=== PATIENT | male | born 1950 | race Caucasian/White ===

== ENCOUNTER 2018-01-06 12:14 | Inpatient (IN) ==
[~2018-01-06 12:14] MED LIST: *HR* EPINEPHrine 1 MG/10 ML SYRINGE IVP ONE
[2018-01-06] MEDS ORDERED: diazePAM 10 MG/2 ML SYRINGE IVP ONE (12:17)
--- NOTE | 2018-01-06 12:20 | Emergency Department Note ---
Disposition Clinical Impression: Altered mental status, Acute respiratory failure with hypoxia, Respiratory acidosis, Hypercarbia, Alcoholism, Hypotension Disposition: Admitted As Inpatient Condition: Critical General Adult HPI - General Chief complaint: ED Altered Mental Status Stated complaint: ams Time Seen by Provider: 01/06/18 12:16 - Related Data Home Medications Medication Instructions Recorded Confirmed Aspirin [Lo-Dose Aspirin EC] 81 mg PO DAILY 01/06/18 01/06/18 Baclofen 20 mg PO TID PRN 01/06/18 01/06/18 Budesonide/Formoterol 160/4.5 2 puff IH BIDR 01/06/18 01/06/18 [Symbicort 160/4.5] Cetirizine HCl [All Day Allergy] 10 mg PO DAILY 01/06/18 01/06/18 Cholecalciferol (D-3) [Vitamin D] 2,000 unit PO DAILY 01/06/18 01/06/18 Folic Acid 1 mg PO DAILY 01/06/18 01/06/18 Gabapentin [Neurontin] 900 mg PO TID 01/06/18 01/06/18 Ipratropium/Albuterol Neb [Duoneb] 3 ml IH TID 01/06/18 01/06/18 Melatonin [Melatin] 3 mg PO HS 01/06/18 01/06/18 Meloxicam [Mobic] 15 mg PO DAILY 01/06/18 01/06/18 Metoprolol [Lopressor] 12.5 mg PO BID 01/06/18 01/06/18 Multivit-Min/FA/Lycopen/Lutein [A 1 tab PO DAILY 01/06/18 01/06/18 Thru Z Select Multivit Tab] Ranitidine HCl [Acid Cleaning Custodian] 150 mg PO BID 01/06/18 01/06/18 Sildenafil Citrate 100 mg PO DAILY PRN 01/06/18 01/06/18 Simvastatin [Zocor] 20 mg PO HS 01/06/18 01/06/18 Thiamine (B-1) [Vitamin B-1] 100 mg PO DAILY 01/06/18 01/06/18 Allergies Allergy/AdvReac Type Severity Reaction Status Date / Time No Known Allergies Allergy Verified 01/06/18 12:29 Course Vital Signs Temperature 0 F L 01/06/18 12:16 Pulse Rate 83 05/06/18 12:16 Respiratory Rate 22 01/06/18 12:16 Blood Pressure 93/52 01/06/18 12:16 O2 Sat by Pulse Oximetry 85 01/06/18 12:16 Temperature 95.9 F L 01/06/18 18:00 Pulse Rate 54 01/06/18 18:00 Respiratory Rate 18 01/06/18 18:00 Blood Pressure 104/60 01/06/18 18:00 O2 Sat by Pulse Oximetry 100 01/06/18 18:00 Oxygen Delivery Oxygen Delivery Ventilator Medical Decision Making - Lab Data Result diagrams: 01/06/18 12:28 01/06/18 12:28 Lab Results 01/06/18 01/06/18 01/06/18 Range/Units 12:28 12:28 12:28 WBC 24.7 H (4.3-11.1) K/mcL RBC 3.69 L (4.19-5.50) M/mcL Hgb 11.9 L (12.9-16.9) g/dL Hct 37.4 L (37.5-50.1) % MCV 101.4 H (83.0-100.0) fL MCH 32.2 (28.0-33.3) pg MCHC 31.8 (31.6-35.5) g/dL RDW 13.0 (11.5-14.5) % Plt Count 217 (140-400) K/mcL MPV 10.2 (9.4-12.4) fL Immature Gran % 0.5 (0-4) % Seg Neutrophils % 73.8 % Lymphocytes % 16.3 % Monocytes % 6.4 % Eosinophils % 2.6 % Basophils % 0.4 % Neutrophils # 18.3 H (1.6-8.9) K/mcL Lymphocytes # 4.0 (0.6-4.6) K/mcL Monocytes # 1.6 H (0.0-1.3) K/mcL Eosinophils # 0.6 (0.0-0.6) K/mcL Basophils # 0.1 (0.0-0.2) K/mcL PT 10.4 (9.4-12.1) Seconds INR 1.0 APTT 37.0 H (26.0-36.0) Seconds Sample Site ABG pH (7.32-7.45) pH Units ABG pCO2 (35-45) mmHg ABG pO2 (85-104) mmHg ABG HCO3 (21-27) mEq/L ABG Total CO2 (20-26) mEq/L ABG O2 Saturation (95-98) % ABG Base Excess (-2 to 3) mEq/L Arvind Test Inspired O2 (1-15=lpm we81-025=%) Sodium 127 L (136-145) mEq/L Potassium 4.3 (3.5-5.1) mEq/L Chloride 90 L (98-107) mEq/L Carbon Dioxide 20 L (23-29) mEq/L BUN 7 L (8-23) mg/dL Creatinine 1.21 (0.70-1.30) mg/dL Est GFR ( Amer) > 60 (> 60) Est GFR (Non-Af Amer) 60 (> 60) BUN/Creatinine Ratio 6 (6-26) Glucose 183 H (70-105) mg/dL Calculated Osmolality 267 L (280-300) Lactic Acid (0.5-2.2) mmol/L Calcium 8.6 (8.6-10.3) mg/dL Magnesium 1.5 L (1.6-2.6) mg/dL Total Bilirubin 0.5 (0.3-1.0) mg/dL Direct Bilirubin 0.2 (0.0-0.2) mg/dL Indirect Bilirubin 0.3 (0.0-1.2) mg/dL AST 65 H (13-39) Units/L ALT 30 (7-52) Units/L Alkaline Phosphatase 177 H (34-104) Units/L Creatine Kinase 74 (30-223) Units/L Troponin I < 0.03 (< 0.04) ng/mL Serum Total Protein 5.8 L (6.4-8.9) g/dL Albumin 3.1 L (3.5-5.7) g/dL Globulin 2.7 (2.4-3.5) g/dL Albumin/Globulin Ratio 1.1 (1.1-2.2) TSH 0.907 (0.340-5.600) mcIU/mL Urine Color (Yellow) Urine Clarity (Clear) Urine pH (5.0-8.0) pH Units Ur Specific [place] (1.010-1.025) Urine Protein (Neg-Trace) mg/dL Urine Glucose (UA) (Normal) mg/dL Urine Ketones (Negative) mg/dL Urine Blood (Negative) Urine Nitrite (Negative) Urine Bilirubin (Negative) Urine Urobilinogen (Normal) mg/dL Ur Leukocyte Esterase (Negative) Urine Microscopic RBC (0-3) per hpf Urine Microscopic WBC (0-3) per hpf Ur Squamous Epith Cells (None-Few) per lpf Urine Bacteria (None-Few) per hpf Hyaline Casts (None-Few) per lpf Ur Culture Indicated? (NO) Urine Opiates Screen (Qjfrmn=620) ng/mL Ur Barbiturates Screen (Wuxojz=544) ng/mL Ur Phencyclidine Scrn (Cutoff=25) ng/mL Ur Amphetamines Screen (Smzgfj=3370) ng/mL U Benzodiazepines Scrn (Hxauzo=599) ng/mL Urine Cocaine Screen (Cutoff= 300) ng/mL U Marijuana (THC) Screen (Cutoff = 50) ng/mL Ethyl Alcohol 11 H (Less than 10) mg/dL Specimen Rejected 01/06/18 01/06/18 01/06/18 Range/Units 12:30 12:30 12:35 WBC (4.3-11.1) K/mcL RBC (4.19-5.50) M/mcL Hgb (12.9-16.9) g/dL Hct (37.5-50.1) % MCV (83.0-100.0) fL MCH (28.0-33.3) pg MCHC (31.6-35.5) g/dL RDW (11.5-14.5) % Plt Count (140-400) K/mcL MPV (9.4-12.4) fL Immature Gran % (0-4) % Seg Neutrophils % % Lymphocytes % % Monocytes % % Eosinophils % % Basophils % % Neutrophils # (1.6-8.9) K/mcL Lymphocytes # (0.6-4.6) K/mcL Monocytes # (0.0-1.3) K/mcL Eosinophils # (0.0-0.6) K/mcL Basophils # (0.0-0.2) K/mcL PT (9.4-12.1) Seconds INR APTT (26.0-36.0) Seconds Sample Site R Radial ABG pH 7.07 L* (7.32-7.45) pH Units ABG pCO2 73 H* (35-45) mmHg ABG pO2 225 H (85-104) mmHg ABG HCO3 21 (21-27) mEq/L ABG Total CO2 23 (20-26) mEq/L ABG O2 Saturation 99 H (95-98) % ABG Base Excess -10 L (-2 to 3) mEq/L Arvind Test Positive Inspired O2 10.0 (1-15=lpm ub05-816=%) Sodium (136-145) mEq/L Potassium (3.5-5.1) mEq/L Chloride (98-107) mEq/L Carbon Dioxide (23-29) mEq/L BUN (8-23) mg/dL Creatinine (0.70-1.30) mg/dL Est GFR ( Amer) (> 60) Est GFR (Non-Af Amer) (> 60) BUN/Creatinine Ratio (6-26) Glucose (70-105) mg/dL Calculated Osmolality (280-300) Lactic Acid (0.5-2.2) mmol/L Calcium (8.6-10.3) mg/dL Magnesium (1.6-2.6) mg/dL Total Bilirubin (0.3-1.0) mg/dL Direct Bilirubin (0.0-0.2) mg/dL Indirect Bilirubin (0.0-1.2) mg/dL AST (13-39) Units/L ALT (7-52) Units/L Alkaline Phosphatase (34-104) Units/L Creatine Kinase (30-223) Units/L Troponin I (< 0.04) ng/mL Serum Total Protein (6.4-8.9) g/dL Albumin (3.5-5.7) g/dL Globulin (2.4-3.5) g/dL Albumin/Globulin Ratio (1.1-2.2) TSH (0.340-5.600) mcIU/mL Urine Color Yellow (Yellow) Urine Clarity Clear (Clear) Urine pH 5.5 (5.0-8.0) pH Units Ur Specific [place] 1.015 (1.010-1.025) Urine Protein Negative (Neg-Trace) mg/dL Urine Glucose (UA) Normal (Normal) mg/dL Urine Ketones Negative (Negative) mg/dL Urine Blood Negative (Negative) Urine Nitrite Negative (Negative) Urine Bilirubin Negative (Negative) Urine Urobilinogen Normal (Normal) mg/dL Ur Leukocyte Esterase Trace H (Negative) Urine Microscopic RBC 0-3 (0-3) per hpf Urine Microscopic WBC 0-3 (0-3) per hpf Ur Squamous Epith Cells Many H (None-Few) per lpf Urine Bacteria None Seen (None-Few) per hpf Hyaline Casts None Seen (None-Few) per lpf Ur Culture Indicated? NO. A (NO) Urine Opiates Screen Negative (Mlpkkw=406) ng/mL Ur Barbiturates Screen Negative (Nwyoif=476) ng/mL Ur Phencyclidine Scrn Negative (Cutoff=25) ng/mL Ur Amphetamines Screen Negative (Pznjwh=4351) ng/mL U Benzodiazepines Scrn Negative (Bjzxaw=152) ng/mL Urine Cocaine Screen Negative (Cutoff= 300) ng/mL U Marijuana (THC) Screen Negative (Cutoff = 50) ng/mL Ethyl Alcohol (Less than 10) mg/dL Specimen Rejected 01/06/18 01/06/18 Range/Units 13:12 13:21 WBC (4.3-11.1) K/mcL RBC (4.19-5.50) M/mcL Hgb (12.9-16.9) g/dL Hct (37.5-50.1) % MCV (83.0-100.0) fL MCH (28.0-33.3) pg MCHC (31.6-35.5) g/dL RDW (11.5-14.5) % Plt Count (140-400) K/mcL MPV (9.4-12.4) fL Immature Gran % (0-4) % Seg Neutrophils % % Lymphocytes % % Monocytes % % Eosinophils % % Basophils % % Neutrophils # (1.6-8.9) K/mcL Lymphocytes # (0.6-4.6) K/mcL Monocytes # (0.0-1.3) K/mcL Eosinophils # (0.0-0.6) K/mcL Basophils # (0.0-0.2) K/mcL PT (9.4-12.1) Seconds INR APTT (26.0-36.0) Seconds Sample Site ABG pH (7.32-7.45) pH Units ABG pCO2 (35-45) mmHg ABG pO2 (85-104) mmHg ABG HCO3 (21-27) mEq/L ABG Total CO2 (20-26) mEq/L ABG O2 Saturation (95-98) % ABG Base Excess (-2 to 3) mEq/L Arvind Test Inspired O2 (1-15=lpm to66-321=%) Sodium (136-145) mEq/L Potassium (3.5-5.1) mEq/L Chloride (98-107) mEq/L Carbon Dioxide (23-29) mEq/L BUN (8-23) mg/dL Creatinine (0.70-1.30) mg/dL Est GFR ( Amer) (> 60) Est GFR (Non-Af Amer) (> 60) BUN/Creatinine Ratio (6-26) Glucose (70-105) mg/dL Calculated Osmolality (280-300) Lactic Acid 5.3 H* (0.5-2.2) mmol/L Calcium (8.6-10.3) mg/dL Magnesium (1.6-2.6) mg/dL Total Bilirubin (0.3-1.0) mg/dL Direct Bilirubin (0.0-0.2) mg/dL Indirect Bilirubin (0.0-1.2) mg/dL AST (13-39) Units/L ALT (7-52) Units/L Alkaline Phosphatase (34-104) Units/L Creatine Kinase (30-223) Units/L Troponin I (< 0.04) ng/mL Serum Total Protein (6.4-8.9) g/dL Albumin (3.5-5.7) g/dL Globulin (2.4-3.5) g/dL Albumin/Globulin Ratio (1.1-2.2) TSH (0.340-5.600) mcIU/mL Urine Color (Yellow) Urine Clarity (Clear) Urine pH (5.0-8.0) pH Units Ur Specific [place] (1.010-1.025) Urine Protein (Neg-Trace) mg/dL Urine Glucose (UA) (Normal) mg/dL Urine Ketones (Negative) mg/dL Urine Blood (Negative) Urine Nitrite (Negative) Urine Bilirubin (Negative) Urine Urobilinogen (Normal) mg/dL Ur Leukocyte Esterase (Negative) Urine Microscopic RBC (0-3) per hpf Urine Microscopic WBC (0-3) per hpf Ur Squamous Epith Cells (None-Few) per lpf Urine Bacteria (None-Few) per hpf Hyaline Casts (None-Few) per lpf Ur Culture Indicated? (NO) Urine Opiates Screen (Tjjbov=495) ng/mL Ur Barbiturates Screen (Ghgteo=614) ng/mL Ur Phencyclidine Scrn (Cutoff=25) ng/mL Ur Amphetamines Screen (Yhnmly=6016) ng/mL U Benzodiazepines Scrn (Fgcfac=840) ng/mL Urine Cocaine Screen (Cutoff= 300) ng/mL U Marijuana (THC) Screen (Cutoff = 50) ng/mL Ethyl Alcohol (Less than 10) mg/dL Specimen Rejected Hemolyzed Critical Care Time Critical Care Time: Yes Total Critical Care Time: 60 Attestation: The high probability of a clinically significant, sudden or life threatening deterioration of the [] system(s) required my full and direct attention, intervention and personal management. The aggregate critical care time was [] minutes. This time is in addition to time spent performing reported procedures but includes the following: [] Data Review and interpretation [] Patient assessment and monitoring of vital signs [] Documentation [] Medication orders and management Attestation Statement - Attestation Attestation: I examined this patient and my medical decision-making was reviewed with the Resident Physician. I agree with the documented findings, disposition and treatment plan as described except to the extent set forth below. [id number] time provided Patient arrives by EMS from home with multiple falls and increased confusion. Last known well was 15 hours ago. The patient is moaning unintelligibly upon arrival. Protecting his airway. Slightly agitated. He does have a history of alcoholism. Exact etiology of condition and completely certain at the time of his arrival but this could represent an acute infectious versus metabolic encephalopathy. He could be experiencing alcohol withdrawal or intoxication. He could have acute intracranial pathology including a hemorrhagic or nonhemorrhagic stroke. Broad-based workup initiated 13:00: The patient was intubated due to concern for ongoing airway protection. He became somewhat sonorous and hypoxic during evaluation. He was intubated by the resident physician under my supervision. The patient was hypotensive but otherwise tolerated the procedure well
--- NOTE | 2018-01-06 12:21 | Emergency Department Note ---
Disposition Clinical Impression: Acute respiratory failure with hypoxia, Respiratory acidosis, Hypercarbia, Alcoholism Altered mental status Qualifiers: Altered mental status type: unspecified Qualified Code(s): R41.82 - Altered mental status, unspecified Hypotension Qualifiers: Hypotension type: other hypotension type Qualified Code(s): I95.89 - Other hypotension Disposition: Admitted As Inpatient Condition: Critical Time of Disposition: 14:22 Altered Mental Status HPI - General Chief Complaint: ED Altered Mental Status Stated Complaint: ams Time Seen by Provider: 01/06/18 12:16 Nursing Notes Reviewed: Yes Vital Signs Reviewed: Yes - History of Present Illness HPI Narrative: Mr. Felder presents from home via EMS for altered mentation. Last known well was 15 hours ago. He awoke at 3 AM and was described as "glassy eyed." I water with back to sleep. He woke 11 AM and was confused; he did not know where he was (home) was calm at that time. called EMS and, on EMS arrival , patient became agitated. He has been falling frequently in the last several weeks. Unknown head trauma. No loss of consciousness. Habits: Currently everyday smoker, current every drinker "heavily". Last drink was 6 PM last night. PMH: "Heart problems "however no stents. Known active colon and prostate cancer undergoing no treatment at this time. History obtained from EMS and patient's who is bedside. ROS: Limited secondary to patient's mental status on presentation. - Related Data Allergies Allergy/AdvReac Type Severity Reaction Status Date / Time No Known Allergies Allergy Verified 01/06/18 12:29 All systems ED: reviewed and negative except as stated. Review of Systems: As Per HPI Physical Exam Vital Signs Reviewed General: Patient is awake however not alert or oriented. Head: atraumatic, normocephalic Eye: normal appearance, PERRL, no scleral icterus, no conjunctival injection ENT: mucous membranes moist, normal external ear exam Neck: normal inspection, trachea midline, full ROM Chest: normal inspection, symmetric chest rise Respiratory: Spontaneously breathing. Bilateral breath sounds are equal with coarse diffuse wheeze. No crackles or rhonchi. Cardiovascular: Regular rate and rhythm. Unable to ascertain heart sounds secondary to patient's movement and altered mentation. Abdomen: Obese. Abdomen is soft, nondistended. Unable to assess tenderness, guarding, or rebound secondary to patient's altered mentation. Skin: warm, dry, intact. Neuro: GCS 10 (E4, V2, M4) Spontaneously moving all extremities without purpose. Unable to follow verbal commands. Psych: Patient's affect is appropriate for situation. Course Course Narrative: Patient arrives by EMS. He is moving purposelessly and then in moaning/ groaning and incomprehensible sounds. He is not able to cooperate or follow commands. He does have spontaneous eye opening and is protecting his airway at this time. We receive an unreliable pulse ox which was in the 70s. This was while the patient was moving and agitated. He was calmed with Valium after which pulse ox was a good waveform with 99% room air on mask. As a precaution, we have a plan for RSI of fentanyl 100mg & lidocaine 100mg to reduce assumed elevation in intracranial pressure followed by rocuronium 100mg paralytic. EKG dated 06 Jan 2018 at 12:49 interpreted as sinus rhythm with rate of 90. Normal intervals. Normal axis. Nonspecific ST-T changes. No previous EKG for comparison. Despite good waveform, patient desaturated so the low 80s. ABG showed acidosis and hypercarbia. Patient continues to be a high aspiration risk. To ensure that his airway remains protected, will emergently intubate. Patient intubated with lidocaine and rocuronium. No was held secondary to his hypotension which was systolic in the 60s. Intubation proceeded without difficulty. Once ET tube placement was confirmed, a right IJ line was placed without difficulty and also confirmed and cleared for use. We have that was started for pressure support. Septic workup initiated and empiric antibiotics of vancomycin and Zosyn started. Patient admitted to the ICU for continued evaluation and management. Patient's family was updated to the best of my ability at this time. Vital Signs Temperature 0 F L 01/06/18 12:16 Pulse Rate 83 01/06/18 12:16 Respiratory Rate 22 01/06/18 12:16 Blood Pressure 93/52 01/06/18 12:16 O2 Sat by Pulse Oximetry 85 01/06/18 12:16 Temperature 0 F L 01/06/18 12:16 Pulse Rate 67 01/06/18 13:52 Respiratory Rate 18 01/06/18 13:09 Blood Pressure 106/57 01/06/18 13:52 O2 Sat by Pulse Oximetry 97 01/06/18 13:19 Oxygen Delivery Oxygen Delivery Ambu Bag Procedures - Central Line Placement Right IJ Central Line Inserted*: Yes Central Line Catheter Replacement*: No Central Line Insertion: emergent Consent Obtained: verbal consent Procedural Pause: verify patient name and date of , timeout performed per policy, fifi and assess the site, assemble equipment and verify supplies, perform hand hygiene Patient Placed on Monitor/Pulse Ox: Yes During the Procedure: clinician is wearing sterile gloves, cap, mask,& gown during insertion, sterile field and sterile technique are maintained, patient's face is covered with drape or mask and wearing a cap Central Line Prep: Chlorhexidine scrub Prep the Procedure Site: apply chloraprep to the skin using a back and forth scrubbing motion, apply chloraprep for 30 seconds (upper body), 1-2 min ( femoral sites), allow prep to dry, drape the patient with a full body drape Amount of anesthesia used (mL): 0 Ultrasound Used for Placement: Yes Central Line Lumen Inserted: triple Post Procedure: sutured in place, good blood return, all ports aspirated, flushed, capped, sterile dressing applied, guide wire removed and visualized, dressing is dated Post Procedure X-Ray: tip of catheter in good position Patient Tolerated Procedure: well, no complications Complications: none Name of Clinician Inserting Central Line: Charles Pierson DO Clinician Assisting/Completing Checklist: Mike Fleming MD Date: 01/06/18 Time: 13:49 - Intubation Time out performed: Yes sedative: Fentanyl (fentanyl 100mcg with lidocaine 100mg) paralytic: Rocuronium Laryngoscope: Melendrez ET Tube Size: 7.5 ET Tube Uncuffed: Yes Tube Secured Depth (cm): 22 Tube Secured Location: teeth Tube Placement Confirmation: visualized tube passing through cords, equal breath sounds bilaterally, no breath sounds over epigastrium, confirmation by capnometry Patient Tolerated Procedure: well, no complications Intubation Complications: none Altered Mental Status - Lab Data Result diagrams: 01/06/18 12:28 01/06/18 12:28 Lab Results 01/06/18 01/06/18 01/06/18 Range/Units 12:28 12:28 12:28 WBC 24.7 H (4.3-11.1) K/mcL RBC 3.69 L (4.19-5.50) M/mcL Hgb 11.9 L (12.9-16.9) g/dL Hct 37.4 L (37.5-50.1) % MCV 101.4 H (83.0-100.0) fL MCH 32.2 (28.0-33.3) pg MCHC 31.8 (31.6-35.5) g/dL RDW 13.0 (11.5-14.5) % Plt Count 217 (140-400) K/mcL MPV 10.2 (9.4-12.4) fL Immature Gran % 0.5 (0-4) % Seg Neutrophils % 73.8 % Lymphocytes % 16.3 % Monocytes % 6.4 % Eosinophils % 2.6 % Basophils % 0.4 % Neutrophils # 18.3 H (1.6-8.9) K/mcL Lymphocytes # 4.0 (0.6-4.6) K/mcL Monocytes # 1.6 H (0.0-1.3) K/mcL Eosinophils # 0.6 (0.0-0.6) K/mcL Basophils # 0.1 (0.0-0.2) K/mcL PT 10.4 (9.4-12.1) Seconds INR 1.0 APTT 37.0 H (26.0-36.0) Seconds Sample Site ABG pH (7.32-7.45) pH Units ABG pCO2 (35-45) mmHg ABG pO2 (85-104) mmHg ABG HCO3 (21-27) mEq/L ABG Total CO2 (20-26) mEq/L ABG O2 Saturation (95-98) % ABG Base Excess (-2 to 3) mEq/L Arvind Test Inspired O2 (1-15=lpm qn21-380=%) Sodium 127 L (136-145) mEq/L Potassium 4.3 (3.5-5.1) mEq/L Chloride 90 L (98-107) mEq/L Carbon Dioxide 20 L (23-29) mEq/L BUN 7 L (8-23) mg/dL Creatinine 1.21 (0.70-1.30) mg/dL Est GFR ( Amer) > 60 (> 60) Est GFR (Non-Af Amer) 60 (> 60) BUN/Creatinine Ratio 6 (6-26) Glucose 183 H (70-105) mg/dL Calculated Osmolality 267 L (280-300) Lactic Acid (0.5-2.2) mmol/L Calcium 8.6 (8.6-10.3) mg/dL Magnesium 1.5 L (1.6-2.6) mg/dL Total Bilirubin 0.5 (0.3-1.0) mg/dL Direct Bilirubin 0.2 (0.0-0.2) mg/dL Indirect Bilirubin 0.3 (0.0-1.2) mg/dL AST 65 H (13-39) Units/L ALT 30 (7-52) Units/L Alkaline Phosphatase 177 H (34-104) Units/L Creatine Kinase 74 (30-223) Units/L Troponin I < 0.03 (< 0.04) ng/mL Serum Total Protein 5.8 L (6.4-8.9) g/dL Albumin 3.1 L (3.5-5.7) g/dL Globulin 2.7 (2.4-3.5) g/dL Albumin/Globulin Ratio 1.1 (1.1-2.2) TSH 0.907 (0.340-5.600) mcIU/mL Urine Color (Yellow) Urine Clarity (Clear) Urine pH (5.0-8.0) pH Units Ur Specific [place] (1.010-1.025) Urine Protein (Neg-Trace) mg/dL Urine Glucose (UA) (Normal) mg/dL Urine Ketones (Negative) mg/dL Urine Blood (Negative) Urine Nitrite (Negative) Urine Bilirubin (Negative) Urine Urobilinogen (Normal) mg/dL Ur Leukocyte Esterase (Negative) Urine Microscopic RBC (0-3) per hpf Urine Microscopic WBC (0-3) per hpf Ur Squamous Epith Cells (None-Few) per lpf Urine Bacteria (None-Few) per hpf Hyaline Casts (None-Few) per lpf Ur Culture Indicated? (NO) Urine Opiates Screen (Cgvbhh=100) ng/mL Ur Barbiturates Screen (Pytyqo=082) ng/mL Ur Phencyclidine Scrn (Cutoff=25) ng/mL Ur Amphetamines Screen (Bjyzwn=6228) ng/mL U Benzodiazepines Scrn (Ruthxs=947) ng/mL Urine Cocaine Screen (Cutoff= 300) ng/mL U Marijuana (THC) Screen (Cutoff = 50) ng/mL Ethyl Alcohol 11 H (Less than 10) mg/dL Specimen Rejected 01/06/18 01/06/18 01/06/18 Range/Units 12:30 12:30 12:35 WBC (4.3-11.1) K/mcL RBC (4.19-5.50) M/mcL Hgb (12.9-16.9) g/dL Hct (37.5-50.1) % MCV (83.0-100.0) fL MCH (28.0-33.3) pg MCHC (31.6-35.5) g/dL RDW (11.5-14.5) % Plt Count (140-400) K/mcL MPV (9.4-12.4) fL Immature Gran % (0-4) % Seg Neutrophils % % Lymphocytes % % Monocytes % % Eosinophils % % Basophils % % Neutrophils # (1.6-8.9) K/mcL Lymphocytes # (0.6-4.6) K/mcL Monocytes # (0.0-1.3) K/mcL Eosinophils # (0.0-0.6) K/mcL Basophils # (0.0-0.2) K/mcL PT (9.4-12.1) Seconds INR APTT (26.0-36.0) Seconds Sample Site R Radial ABG pH 7.07 L* (7.32-7.45) pH Units ABG pCO2 73 H* (35-45) mmHg ABG pO2 225 H (85-104) mmHg ABG HCO3 21 (21-27) mEq/L ABG Total CO2 23 (20-26) mEq/L ABG O2 Saturation 99 H (95-98) % ABG Base Excess -10 L (-2 to 3) mEq/L Arvind Test Positive Inspired O2 10.0 (1-15=lpm ds83-545=%) Sodium (136-145) mEq/L Potassium (3.5-5.1) mEq/L Chloride (98-107) mEq/L Carbon Dioxide (23-29) mEq/L BUN (8-23) mg/dL Creatinine (0.70-1.30) mg/dL Est GFR ( Amer) (> 60) Est GFR (Non-Af Amer) (> 60) BUN/Creatinine Ratio (6-26) Glucose (70-105) mg/dL Calculated Osmolality (280-300) Lactic Acid (0.5-2.2) mmol/L Calcium (8.6-10.3) mg/dL Magnesium (1.6-2.6) mg/dL Total Bilirubin (0.3-1.0) mg/dL Direct Bilirubin (0.0-0.2) mg/dL Indirect Bilirubin (0.0-1.2) mg/dL AST (13-39) Units/L ALT (7-52) Units/L Alkaline Phosphatase (34-104) Units/L Creatine Kinase (30-223) Units/L Troponin I (< 0.04) ng/mL Serum Total Protein (6.4-8.9) g/dL Albumin (3.5-5.7) g/dL Globulin (2.4-3.5) g/dL Albumin/Globulin Ratio (1.1-2.2) TSH (0.340-5.600) mcIU/mL Urine Color Yellow (Yellow) Urine Clarity Clear (Clear) Urine pH 5.5 (5.0-8.0) pH Units Ur Specific [place] 1.015 (1.010-1.025) Urine Protein Negative (Neg-Trace) mg/dL Urine Glucose (UA) Normal (Normal) mg/dL Urine Ketones Negative (Negative) mg/dL Urine Blood Negative (Negative) Urine Nitrite Negative (Negative) Urine Bilirubin Negative (Negative) Urine Urobilinogen Normal (Normal) mg/dL Ur Leukocyte Esterase Trace H (Negative) Urine Microscopic RBC 0-3 (0-3) per hpf Urine Microscopic WBC 0-3 (0-3) per hpf Ur Squamous Epith Cells Many H (None-Few) per lpf Urine Bacteria None Seen (None-Few) per hpf Hyaline Casts None Seen (None-Few) per lpf Ur Culture Indicated? NO. A (NO) Urine Opiates Screen Negative (Basgsg=898) ng/mL Ur Barbiturates Screen Negative (Edmwcj=880) ng/mL Ur Phencyclidine Scrn Negative (Cutoff=25) ng/mL Ur Amphetamines Screen Negative (Rywiqb=6999) ng/mL U Benzodiazepines Scrn Negative (Aivjmi=754) ng/mL Urine Cocaine Screen Negative (Cutoff= 300) ng/mL U Marijuana (THC) Screen Negative (Cutoff = 50) ng/mL Ethyl Alcohol (Less than 10) mg/dL Specimen Rejected 01/06/18 01/06/18 Range/Units 13:12 13:21 WBC (4.3-11.1) K/mcL RBC (4.19-5.50) M/mcL Hgb (12.9-16.9) g/dL Hct (37.5-50.1) % MCV (83.0-100.0) fL MCH (28.0-33.3) pg MCHC (31.6-35.5) g/dL RDW (11.5-14.5) % Plt Count (140-400) K/mcL MPV (9.4-12.4) fL Immature Gran % (0-4) % Seg Neutrophils % % Lymphocytes % % Monocytes % % Eosinophils % % Basophils % % Neutrophils # (1.6-8.9) K/mcL Lymphocytes # (0.6-4.6) K/mcL Monocytes # (0.0-1.3) K/mcL Eosinophils # (0.0-0.6) K/mcL Basophils # (0.0-0.2) K/mcL PT (9.4-12.1) Seconds INR APTT (26.0-36.0) Seconds Sample Site ABG pH (7.32-7.45) pH Units ABG pCO2 (35-45) mmHg ABG pO2 (85-104) mmHg ABG HCO3 (21-27) mEq/L ABG Total CO2 (20-26) mEq/L ABG O2 Saturation (95-98) % ABG Base Excess (-2 to 3) mEq/L Arvind Test Inspired O2 (1-15=lpm dn72-085=%) Sodium (136-145) mEq/L Potassium (3.5-5.1) mEq/L Chloride (98-107) mEq/L Carbon Dioxide (23-29) mEq/L BUN (8-23) mg/dL Creatinine (0.70-1.30) mg/dL Est GFR ( Amer) (> 60) Est GFR (Non-Af Amer) (> 60) BUN/Creatinine Ratio (6-26) Glucose (70-105) mg/dL Calculated Osmolality (280-300) Lactic Acid 5.3 H* (0.5-2.2) mmol/L Calcium (8.6-10.3) mg/dL Magnesium (1.6-2.6) mg/dL Total Bilirubin (0.3-1.0) mg/dL Direct Bilirubin (0.0-0.2) mg/dL Indirect Bilirubin (0.0-1.2) mg/dL AST (13-39) Units/L ALT (7-52) Units/L Alkaline Phosphatase (34-104) Units/L Creatine Kinase (30-223) Units/L Troponin I (< 0.04) ng/mL Serum Total Protein (6.4-8.9) g/dL Albumin (3.5-5.7) g/dL Globulin (2.4-3.5) g/dL Albumin/Globulin Ratio (1.1-2.2) TSH (0.340-5.600) mcIU/mL Urine Color (Yellow) Urine Clarity (Clear) Urine pH (5.0-8.0) pH Units Ur Specific [place] (1.010-1.025) Urine Protein (Neg-Trace) mg/dL Urine Glucose (UA) (Normal) mg/dL Urine Ketones (Negative) mg/dL Urine Blood (Negative) Urine Nitrite (Negative) Urine Bilirubin (Negative) Urine Urobilinogen (Normal) mg/dL Ur Leukocyte Esterase (Negative) Urine Microscopic RBC (0-3) per hpf Urine Microscopic WBC (0-3) per hpf Ur Squamous Epith Cells (None-Few) per lpf Urine Bacteria (None-Few) per hpf Hyaline Casts (None-Few) per lpf Ur Culture Indicated? (NO) Urine Opiates Screen (Shxdxv=187) ng/mL Ur Barbiturates Screen (Eeabnj=166) ng/mL Ur Phencyclidine Scrn (Cutoff=25) ng/mL Ur Amphetamines Screen (Wdqqui=3355) ng/mL U Benzodiazepines Scrn (Nvkecc=067) ng/mL Urine Cocaine Screen (Cutoff= 300) ng/mL U Marijuana (THC) Screen (Cutoff = 50) ng/mL Ethyl Alcohol (Less than 10) mg/dL Specimen Rejected Hemolyzed TPA Checklist - LKW: 3-4.5 hrs Add. Warnings/Precautions Patient/family understanding: The patient/family members have been counseled and understood the risk, benefit , and alternatives of treatment.
[2018-01-06 12:40] LABS: ABG Base Excess -10 mEq/L (-2 to 3); ABG HCO3 21 mEq/L (21-27); ABG Oxygen Saturation 99 % (95-98); ABG PCO2 73 mmHg (35-45); ABG PH 7.07 pH Units (7.32-7.45); ABG PO2 225 mmHg (85-104); ABG TCO2 23 mEq/L (20-26)
[2018-01-06 12:42] LABS: Basophils # 0.1 K/mcL (0.0-0.2); Basophils % 0.4 %; Eosinophils # 0.6 K/mcL (0.0-0.6); Eosinophils % 2.6 %; Hematocrit 37.4 % (37.5-50.1); Hemoglobin 11.9 g/dL (12.9-16.9); Immature Granulocytes % 0.5 % (0-4); Lymphocytes % 16.3 %; Mean Corpuscular HGB Conc 31.8 g/dL (31.6-35.5); Mean Corpuscular Hemoglobin 32.2 pg (28.0-33.3); Mean Corpuscular Volume 101.4 fL (83.0-100.0); Mean Platelet Volume 10.2 fL (9.4-12.4); Monocytes # 1.6 K/mcL (0.0-1.3); Monocytes % 6.4 %; Neutrophils # 18.3 K/mcL (1.6-8.9); Platelet Count 217 K/mcL (140-400); Red Blood Count 3.69 M/mcL (4.19-5.50); Segmented Neutrophils % 73.8 %
[2018-01-06 12:45] LABS: Bilirubin,Urine Negative (Negative); Blood,Urine Negative (Negative); Clarity,Urine Clear (Clear); Color,Urine Yellow (Yellow); Glucose,Urine (UA) Normal (Normal); Ketones,Urine Negative (Negative); Leukocyte Esterase,Urine Trace (Negative); Nitrite,Urine Negative (Negative); PH,Urine 5.5 pH Units (5.0-8.0); Protein,Urine Negative (Neg-Trace); Specific Gravity,Urine 1.015 (1.010-1.025); Urobilinogen,Urine Normal (Normal)
[2018-01-06 12:47] LABS: Bacteria,Urine None Seen per hpf (None-Few); Hyaline Casts,Urine None Seen per lpf (None-Few); RBC,Urine 0-3 per hpf (0-3); Squamous Epithelial Cell,Urine Many per lpf (None-Few); WBC,Urine 0-3 per hpf (0-3)
[2018-01-06 12:47] LABS: Prothrombin Time 10.4 Seconds (9.4-12.1)
[2018-01-06] MEDS ORDERED: *HR* Etomidate 20 MG/10 ML AMPUL IVP ONE (12:52)
[2018-01-06] MEDS ORDERED: *HR* Rocuronium Bromide 50 MG/5 ML VIAL IVP ONE (12:52)
[2018-01-06 12:55] LABS: Amphetamine Screen,Urine Negative ng/mL (Cutoff=1000); Barbiturate Screen,Urine Negative ng/mL (Cutoff=200); Benzodiazepines Screen,Urine Negative ng/mL (Cutoff=200); Cannabinoid Screen,Urine Negative ng/mL (Cutoff = 50); Cocaine Screen,Urine Negative ng/mL (Cutoff= 300); Opiate Screen,Urine Negative ng/mL (Cutoff=300); Phencyclidine Screen,Urine Negative ng/mL (Cutoff=25)
[2018-01-06] MEDS ORDERED: Lidocaine 2% Syringe 100 MG/5 ML ONE (12:56)
[2018-01-06] MEDS ORDERED: *HR* FentaNYL (PF) 100 MCG/2 ML VIAL ONE (12:56)
[2018-01-06] MEDS ORDERED: Thiamine (B-1) 100 MG, Folic Acid 1 MG, MVI, adult with vitamin K 10 ML in 0.9 % Sodi... IVPB ONE (13:00)
[2018-01-06 13:02] LABS: Troponin I < 0.03 ng/mL (< 0.04)
[2018-01-06 13:03] LABS: Alanine Aminotransferase 30 Units/L (7-52); Albumin 3.1 g/dL (3.5-5.7); Albumin/Globulin Ratio 1.1 (1.1-2.2); Alkaline Phosphatase 177 Units/L (34-104); Aspartate Amino Transferase 65 Units/L (13-39); BUN/Creatinine Ratio 6 (6-26); Bilirubin,Direct 0.2 mg/dL (0.0-0.2); Bilirubin,Indirect 0.3 mg/dL (0.0-1.2); Bilirubin,Total 0.5 mg/dL (0.3-1.0); Blood Urea Nitrogen 7 mg/dL (8-23); Calcium 8.6 mg/dL (8.6-10.3); Carbon Dioxide 20 mEq/L (23-29); Chloride 90 mEq/L (98-107); Creatine Kinase 74 Units/L (30-223); Ethanol 11 mg/dL (Less than 10); Globulin 2.7 g/dL (2.4-3.5); Glucose 183 mg/dL (70-105); Magnesium 1.5 mg/dL (1.6-2.6); Osmolality,Calculated 267 (280-300); Potassium 4.3 mEq/L (3.5-5.1); Sodium 127 mEq/L (136-145); Total Protein 5.8 g/dL (6.4-8.9); eGFR For African Americans > 60 (> 60); eGFR For Non-African Americans 60 (> 60)
[2018-01-06] MEDS ORDERED: Piperacillin/Tazobactam 3.375 GM in 0.9 % Sodium Chloride Mini Bag 100 ML IVPB ONE (13:04)
[2018-01-06] MEDS ORDERED: Levofloxacin 500 MG/100 ML 500 MG/100 ML BAG IVPB ONE (13:04)
[2018-01-06] MEDS: *HR* FentaNYL (PF) 100 MCG/2 ML VIAL IVP ONE ×2 (13:08→14:57)
[2018-01-06 13:16] LABS: Thyroid Stimulating Hormone 0.907 mcIU/mL (0.340-5.600)
[2018-01-06] MEDS ORDERED: 0.9 % Sodium Chloride 1,000 ML ONE (13:25)
[2018-01-06] MEDS ORDERED: *HR* Midazolam HCl 2 MG/2 ML VIAL IVP ONE (13:54)
[2018-01-06] MEDS ORDERED: Ipratropium/Albuterol Neb 3 ML ONE (14:00)
[2018-01-06] MEDS ORDERED: Dexmedetomidine HCl 400 MCG/100 ML MLS IVC SCH (14:00)
[2018-01-06] MEDS ORDERED: FentaNYL (PF) 1,000 MCG in 0.9 % Sodium Chloride 80 ML IVC SCH (14:00)
--- NOTE | 2018-01-06 14:20 | Internal Med History&Physical ---
<Alberto Guzman - Last Filed: 01/06/18 14:56> Date of Encounter: 01/06/18 Time of Encounter: 14:56 Internal Medicine - H&P: HPI Chief complaint: Altered mental status Admitted From: Emergency Dept Plans for Post Hospital Care: Home History of present illness: Mr. Felder is a 67 year old male with uncertain medical history who presented to the ED via squad with altered mental status. He is unconscious at my examination with ET tube, so most of his history was obtained from family at bedside as well as previous notes. According to family, the patient's medical history includes fluid around the heart, and a recent diagnosis of prostate and colon cancer in August 2017 which is not being treated with chemotherapy or radiation. According to his family, the patient has been sick for some time and has had significant history of recent falls with up to 7 falls in the past 24 hours. The patient was apparently seen at his baseline mental and physical state approximately 15-20 hours ago, liver was noted that he woke up at around 3 AM and seemed confused and disoriented. At that time he apparently tried to get up and he fell and hit his head. Prior to this, his family says that he has been having significant amount of falls recently, and he has had a dry cough that is apparently chronic. His brother does mention that about one week ago he was complaining of what appeared to be hemoptysis that occurred once. They deny any other acute symptoms, however they do note that the patient has had lack of appetite over the past few weeks especially in the past week. Per his girlfriend, the patient has been unable to eat and hold food down for the past week until yesterday when he was able to be at least one thing. They also describe a lack of interest in eating. They are unaware of any other problems that the patient may have. The do state that he is an every day drinker, and that he drinks 1 gallon of whiskey every 3 days. He also smokes about 1.5ppd history for "many years". In the ED, the patient was found to be altered on exam with poor respiratory status. He was found to be saturated in the 70s-80s, and an ABG showed significant respiratory acidosis with pH of 7.07 and pCO2 of 73. The patient was sedated and intubated, and was given broad spectrum antibiotics. Past Med Surg Social Fam HX - Past Medical History Medical history: cancer, cirrhosis, COPD, hypertension, liver disease Psychiatric history: no psych history - Social History Smoking Status: Current every day smoker Smokeless Tobacco Status: No Alcohol use: heavy Drug use: none Internal Medicine - H&P: Meds 3 Allergy/AdvReac Type Severity Reaction Status Date / Time No Known Allergies Allergy Verified 01/06/18 12:29 ROS unobtainable: due to endotracheal tube, due to mental status All Systems PM: A 10-system review of systems was performed and is negative for pertinent findings except as documented above in the HPI. - Constitutional Vitals: Temp Pulse Resp BP Pulse Ox 0 F L 67 18 106/57 97 01/06/18 12:16 01/06/18 13:52 01/06/18 13:09 01/06/18 13:52 01/06/18 13:19 Exam: Gen: Vitals noted. No acute distress. Sedated on ventilator HEENT: PERRL, Normocephalic, atraumatic Neck: Supple. No adenopathy. Cardiac: RRR, no murmur, +S1/S2 Pulmonary: Wheezes noted on exam bilaterally with no underlying crackles or rhonchi Abdomen: soft, nontender, no guarding MSK: ROM intact, no joint swelling noted Extremities: 1+ BLE edema, nontender calf, no cyanosis or clubbing Neuro: Patient is sedated on a ventilator Internal Med - H&P Results - Labs CBC & Chem 7: 01/06/18 12:28 01/06/18 12:28 - Assessment and plan (1) Acute respiratory failure Current Visit: Yes Status: Acute Assessment and plan: Acute respiratory failure with hypoxia and hypercapnia Patient presented with poor oxygen saturation and altered mental status Initial ABG did demonstrate a respiratory acidosis CXR was negative for any intrathoracic process Due to hypoxia and hypercapnia, the patient underwent intubation ABGs 7.07/73/225/21/99 on 100% NRB 7.40/38/484/24/100 on FIO2 80% (AC) We will continue ventilatory support pending successful SBT TTE in the morning for possible cardiac causes Qualifiers: Respiratory failure complication: hypoxia and hypercapnia Qualified Code(s) : J96.01 - Acute respiratory failure with hypoxia; J96.02 - Acute respiratory failure with hypercapnia; J96.02 - Acute respiratory failure with hypercapnia; J96.02 - Acute respiratory failure with hypercapnia (2) Metabolic encephalopathy Current Visit: Yes Status: Acute Assessment and plan: Metabolic encephalopathy Possible sources: hyponatremia, Etoh intoxication, Respiratory acidosis, Sepsis (no known source), Hyperammonemia Serum Na 127, Ammonia 116, Lactic Acid 5.3, WBC 24.7, pCO2 [address] is negative for intracranial process No known source of infection at this time We will get a lumbar puncture in the morning, blood cultures and urine cultures Start broad spectrum antibiotics Lactulose per GTube for ammonia (3) Lactic acidosis Current Visit: Yes Status: Acute Assessment and plan: Lactic acidosis, LA 5.3 No known source of infection, however WBC 24.7 I will bolus the patient with 2L Normal Saline Repeat lactic acid q6h pending resolution (4) Leukocytosis Current Visit: Yes Status: Acute Assessment and plan: Leukocytosis of unkown origen Patient is afebrile, tachypneic on presentation, hypotensive on presentation Started the patient on Broad spectrum antibiotics Vanomycin Day 1 Zosyn Day 1 Levaquin Day 1 We will continue to trend CBC Blood cultures, urine cultures pending LP in the AM Qualifiers: Leukocytosis type: unspecified Qualified Code(s): D72.829 - Elevated white blood cell count, unspecified (5) Alcohol withdrawal Current Visit: Yes Status: Acute Assessment and plan: Alcohol withdrawal, chronic alcoholic Patient's girlfriend says he drinks 1gallon of whiskey/3days Denies any history of seizures or DTs We will start the patient on Banana bags Initiate CIWA protocol, ativan PRN for withdrawal symptoms Patient is sedated Qualifiers: Complication of substance-induced condition: uncomplicated Qualified Code(s ): F10.230 - Alcohol dependence with withdrawal, uncomplicated (6) Hyperammonemia Current Visit: Yes Status: Acute Assessment and plan: Hyperammonemia in setting of chronic alcoholism Ammonia 116, patient is encephalopathic I will start lactulose per GTube Recheck ammonia in the morning I will get a liver ultrasound in the morning (7) Prostate cancer Current Visit: Yes Status: Acute Assessment and plan: Per family, awaiting medical records from [place] (8) Colon cancer Current Visit: Yes Status: Acute Assessment and plan: Per family, awaiting medical records from [place] Qualifiers: Colon location: unspecified part of colon Qualified Code(s): C18.9 - Malignant neoplasm of colon, unspecified (9) DVT prophylaxis Current Visit: Yes Status: Acute - Time Spent With Patient Total time spent is greater than 50% in coordination of care (as documented) at patient's floor/unit and/or counseling patient: <Carlos A Higgins P - Last Filed: 01/06/18 18:22> Date of Encounter: 01/06/18 Internal Medicine - H&P: HPI History of present illness: Mr. Felder is a 67 year old male All Systems PM: A 10-system review of systems was performed and is negative for pertinent findings except as documented above in the HPI. - Constitutional Vitals: Temp Pulse Resp BP Pulse Ox 95.9 F L 54 18 104/60 100 01/06/18 17:00 01/06/18 17:00 01/06/18 17:18 01/06/18 17:18 01/06/18 17:18 Internal Med - H&P Results - Labs CBC & Chem 7: 01/06/18 12:28 01/06/18 12:28 - ABG Interpretation ABG results: 01/06/18 14:50 ABG pH 7.40 D ABG pCO2 38 D ABG pO2 484 H D ABG HCO3 24 ABG Total CO2 25 ABG O2 Saturation 100 H ABG Base Excess -1 - Impressions ITS Impressions Chest X-Ray 01/06/18 13:38 IMPRESSION: Right IJ central venous catheter in place tip in the SVC. No pneumothorax seen. D/ / 01/06/2018 14:16:40 Jamey Matias MD / jean carlos Interpreting Provider: Jamey Matias MD - Attending Attestation I examined this patient and my medical decision-making was reviewed with the Resident Physician. I agree with the documented findings, disposition and treatment plan as described except to the extent set forth below. 67/male Multiple comorbid conditions Admitted with altered mental status in the emergency room. Noted patient was hypotensive/unresponsive: Got intubated under rapid sequence intubation. Large intravenous access: Right sided neck vein central catheter. Upon admission mixed metabolic/respiratory acidosis picture Responded well to IV fluids/antibiotics/supportive care. Etiology for hypotension/altered mental status can be multifactorial. Delirium tremens/possible sepsis/new onset seizure cannot be ruled out. Plan: Continue intubation/ventilation. If needed pressors can be used. [place] culture Broad-spectrum antibiotics: Vancomycin/Zosyn/levofloxacin: Coverage of MRSA/ Pseudomonas Deaccleration of abx as per culture results. I have personally spoke to ICU attending Dr Almanzar and updated him about patient. will hand over case to night team for possible reevaluation ( sepsis protocol ) - Time Spent With Patient Total time spent is greater than 50% in coordination of care (as documented) at patient's floor/unit and/or counseling patient:
[2018-01-06] MEDS ORDERED: Naloxone 0.4 MG/ML INJ IVP PRN (14:37)
[2018-01-06] MEDS ORDERED: *HR* LORazepam 2 MG/ML VIAL IVP PRN (14:37)
[2018-01-06 14:53] LABS: ABG Base Excess -1 mEq/L (-2 to 3); ABG HCO3 24 mEq/L (21-27); ABG Oxygen Saturation 100 % (95-98); ABG PCO2 38 mmHg (35-45); ABG PO2 484 mmHg (85-104); ABG TCO2 25 mEq/L (20-26); Blood Gas Modality ASSIST CONTROL; Blood Gas PEEP 5 cm H2O; Blood Gas Respiration Rate 18; Blood Gas VT 460 cc
[2018-01-06] MEDS: Lidocaine 2% Syringe 100 MG/5 ML IV STA ×2 (14:56→14:58)
[2018-01-06] MEDS: Lactulose Oral Soln 20 GM/30 ML UDC GTUBE SCH ×2 (15:08→22:41)
[2018-01-06] MEDS: Dexmedetomidine HCl 400 MCG/100 ML MLS IVC SCH (15:08)
[2018-01-06] MEDS: 0.9 % Sodium Chloride 1,000 ML IVC SCH ×5 (15:10→23:44)
[2018-01-06] MEDS: FentaNYL (PF) 1,000 MCG in 0.9 % Sodium Chloride 80 ML IVC SCH (15:28)
[2018-01-06] MEDS: Ipratropium/Albuterol Neb 3 ML IH SCH ×3 (15:42→23:37)
[2018-01-06] MEDS: *HR* LORazepam 2 MG/ML VIAL IVP PRN (16:16)
[2018-01-06] MEDS: *HR* Heparin 5,000 UNIT/ML VIAL SQ SCH (17:21)
[2018-01-06] MEDS ORDERED: 0.9 % Sodium Chloride 1,000 ML IVC ONE (17:55)
[2018-01-06] MEDS ORDERED: Thiamine (B-1) 100 MG, Folic Acid 1 MG, MVI, adult with vitamin K 10 ML in 0.9 % Sodi... IVPB SCH (18:00)
[2018-01-06] MEDS ORDERED: Isovue-370 500 ML INFUS..BTL IV ONE ×2 (18:12→18:23)
[2018-01-06] MEDS: Norepinephrine 4 MG in D5% in Water 250 ML IVC SCH (18:29)
[2018-01-06] MEDS: Piperacillin/Tazobactam 3.375 GM in 0.9 % Sodium Chloride Mini Bag 100 ML IVPB SCH (23:44)
[2018-01-07] MEDS: Ipratropium/Albuterol Neb 3 ML IH SCH ×6 (03:25→23:55)
[2018-01-07 04:31] LABS: Alanine Aminotransferase 24 Units/L (7-52); Albumin 2.4 g/dL (3.5-5.7); Albumin/Globulin Ratio 1.1 (1.1-2.2); Alkaline Phosphatase 144 Units/L (34-104); Aspartate Amino Transferase 52 Units/L (13-39); BUN/Creatinine Ratio 8 (6-26); Bilirubin,Total 0.8 mg/dL (0.3-1.0); Blood Urea Nitrogen 7 mg/dL (8-23); Calcium 6.9 mg/dL (8.6-10.3); Carbon Dioxide 24 mEq/L (23-29); Chloride 104 mEq/L (98-107); Globulin 2.1 g/dL (2.4-3.5); Glucose 138 mg/dL (70-105); Magnesium 1.2 mg/dL (1.6-2.6); Osmolality,Calculated 276 (280-300); Potassium 3.5 mEq/L (3.5-5.1); Sodium 133 mEq/L (136-145); Total Protein 4.5 g/dL (6.4-8.9); eGFR For African Americans > 60 (> 60); eGFR For Non-African Americans > 60 (> 60)
[2018-01-07] MEDS: *HR* Heparin 5,000 UNIT/ML VIAL SQ SCH ×2 (05:35→17:15)
[2018-01-07 05:55] LABS: Basophils % 0.2 %; Eosinophils # 0.3 K/mcL (0.0-0.6); Hematocrit 30.7 % (37.5-50.1); Hemoglobin 10.2 g/dL (12.9-16.9); Immature Granulocytes % 0.5 % (0-4); Lymphocytes # 1.4 K/mcL (0.6-4.6); Lymphocytes % 11.2 %; Mean Corpuscular HGB Conc 33.2 g/dL (31.6-35.5); Mean Corpuscular Hemoglobin 31.3 pg (28.0-33.3); Mean Corpuscular Volume 94.2 fL (83.0-100.0); Mean Platelet Volume 9.8 fL (9.4-12.4); Monocytes # 0.8 K/mcL (0.0-1.3); Neutrophils # 10.2 K/mcL (1.6-8.9); Platelet Count 144 K/mcL (140-400); Red Blood Count 3.26 M/mcL (4.19-5.50); Red Cell Distribution Width 13.1 % (11.5-14.5); Segmented Neutrophils % 80.1 %
[2018-01-07] MEDS: FentaNYL (PF) 1,000 MCG in 0.9 % Sodium Chloride 80 ML IVC SCH (06:30)
[2018-01-07] MEDS ORDERED: Aminoglycoside Consult 1 EACH MC ONE (07:41)
[2018-01-07] MEDS: Levofloxacin 750 MG/150 ML 750 MG/150 ML BAG IVPB SCH (07:57)
[2018-01-07] MEDS: 0.9 % Sodium Chloride 1,000 ML IVC SCH (07:57)
[2018-01-07] MEDS: Lactulose Oral Soln 20 GM/30 ML UDC GTUBE SCH ×2 (07:58→21:17)
[2018-01-07] MEDS: Piperacillin/Tazobactam 3.375 GM in 0.9 % Sodium Chloride Mini Bag 100 ML IVPB SCH ×3 (07:58→23:48)
[2018-01-07] MEDS: *HR* LORazepam 2 MG/ML VIAL IVP PRN ×3 (08:20→23:44)
--- NOTE | 2018-01-07 08:51 | Pulmonology Progress Note ---
Date of Encounter: 01/07/18 Time of Encounter: 08:51 Objective PUL Vital signs: Last Vital Signs Temp 97.4 F L 01/07/18 08:08 Pulse 68 01/07/18 08:00 Resp 14 01/07/18 08:07 BP 92/58 01/07/18 08:07 Pulse Ox 96 01/07/18 08:07 Ventilator Settings Ventilator Settings: Ventilator Settings, Last 8 Hours Ventilator Mode A/C Ventilator Mode A/C Ventilator Mode A/C Ventilator Mode A/C Ventilator Mode A/C Ventilator Mode A/C Ventilator Tidal Volume 500 Setting Ventilator Tidal Volume 460 Setting Ventilator Tidal Volume 460 Setting Ventilator Tidal Volume 460 Setting Ventilator Tidal Volume 460 Setting Ventilator Tidal Volume 460 Setting Ventilator Tidal Volume 460 Setting Ventilator Tidal Volume 460 Setting Ventilator Tidal Volume 460 Setting Ventilator Tidal Volume 460 Setting Ventilator Tidal Volume 460 Setting Ventilator Tidal Volume 460 Setting Ventilator Respiratory Rate 14 Setting Ventilator Respiratory Rate 18 Setting Ventilator Respiratory Rate 18 Setting Ventilator Respiratory Rate 18 Setting Ventilator Respiratory Rate 18 Setting Ventilator Respiratory Rate 18 Setting Ventilator Respiratory Rate 18 Setting Ventilator Respiratory Rate 18 Setting Ventilator Respiratory Rate 18 Setting Ventilator Respiratory Rate 18 Setting Ventilator Respiratory Rate 18 Setting Ventilator Respiratory Rate 18 Setting Actual Respiratory Rate 14 Actual Respiratory Rate 18 Actual Respiratory Rate 18 Actual Respiratory Rate 18 Actual Respiratory Rate 18 Actual Respiratory Rate 18 Actual Respiratory Rate 18 Actual Respiratory Rate 18 Actual Respiratory Rate 18 Actual Respiratory Rate 18 Actual Respiratory Rate 18 Actual Respiratory Rate 18 Positive End Expiratory 5 Pressure Positive End Expiratory 5 Pressure Positive End Expiratory 5 Pressure Positive End Expiratory 5 Pressure Positive End Expiratory 5 Pressure Positive End Expiratory 5 Pressure Positive End Expiratory 5 Pressure Positive End Expiratory 5 Pressure Positive End Expiratory 5 Pressure Positive End Expiratory 5 Pressure Positive End Expiratory 5 Pressure Positive End Expiratory 5 Pressure Peak Inspiratory Airway 32 Pressure Peak Inspiratory Airway 28 Pressure Peak Inspiratory Airway 28 Pressure Peak Inspiratory Airway 28 Pressure Peak Inspiratory Airway 29 Pressure Peak Inspiratory Airway 28 Pressure Peak Inspiratory Airway 29 Pressure Peak Inspiratory Airway 29 Pressure Peak Inspiratory Airway 29 Pressure Peak Inspiratory Airway 29 Pressure Peak Inspiratory Airway 29 Pressure Peak Inspiratory Airway 30 Pressure Results - Laboratory Findings CBC and BMP: 01/07/18 05:30 01/07/18 03:50 ABG ABG pH 7.40 pH Units (7.32-7.45) D 01/06/18 14:50 ABG pCO2 38 mmHg (35-45) D 01/06/18 14:50 ABG pO2 484 mmHg (85-104) H D 01/06/18 14:50 ABG O2 Saturation 100 % (95-98) H 01/06/18 14:50 PT/INR, D-dimer PT 10.4 Seconds (9.4-12.1) 01/06/18 12:28 Abnormal lab findings: Abnormal lab results WBC 12.7 K/mcL (4.3-11.1) H 01/07/18 05:30 RBC 3.26 M/mcL (4.19-5.50) L 01/07/18 05:30 Hgb 10.2 g/dL (12.9-16.9) L D 01/07/18 05:30 Hct 30.7 % (37.5-50.1) L 01/07/18 05:30 Neutrophils # 10.2 K/mcL (1.6-8.9) H 01/07/18 05:30 APTT 37.0 Seconds (26.0-36.0) H 01/06/18 12:28 ABG pO2 484 mmHg (85-104) H D 01/06/18 14:50 ABG O2 Saturation 100 % (95-98) H 01/06/18 14:50 Sodium 133 mEq/L (136-145) L 01/07/18 03:50 BUN 7 mg/dL (8-23) L 01/07/18 03:50 Glucose 138 mg/dL (70-105) H 01/07/18 03:50 POC Glucose 125 mg/dL (70-99) H 01/06/18 23:59 Calculated Osmolality 276 (280-300) L 01/07/18 03:50 Calcium 6.9 mg/dL (8.6-10.3) L 01/07/18 03:50 Magnesium 1.2 mg/dL (1.6-2.6) L 01/07/18 03:50 AST 52 Units/L (13-39) H 01/07/18 03:50 Alkaline Phosphatase 144 Units/L (34-104) H 01/07/18 03:50 Serum Total Protein 4.5 g/dL (6.4-8.9) L 01/07/18 03:50 Albumin 2.4 g/dL (3.5-5.7) L 01/07/18 03:50 Globulin 2.1 g/dL (2.4-3.5) L 01/07/18 03:50 Ur Leukocyte Esterase Trace (Negative) H 01/06/18 12:30 Ur Squamous Epith Cells Many per lpf (None-Few) H 01/06/18 12:30 Ur Culture Indicated? NO. (NO) A 01/06/18 12:30 Ethyl Alcohol 11 mg/dL (Less than 10) H 01/06/18 12:28 - Clinical Findings Intake & Output: Intake & Output 01/06/18 01/07/18 01/07/18 23:59 07:59 15:59 Intake Total 2019 100 / 100 60 / 60 Output Total 980 / 980 730 / 730 300 / 300 Balance 1040 / 1040 -630 / -630 -240 / -240 Consult Discharge Plan - Plan Referrals: NONE,PCP [Primary Care Provider] -
--- NOTE | 2018-01-07 09:08 | Pulmonology Consult Note ---
<RojasAguedaamol M - Last Filed: 01/07/18 10:30> Date of Encounter: 01/07/18 Medications and Allergies Aspirin [Lo-Dose Aspirin EC] 81 mg PO DAILY 01/06/18 [History] Baclofen 20 mg PO TID PRN 01/06/18 [History] Budesonide/Formoterol 160/4.5 [Symbicort 160/4.5] 2 puff IH BIDR 01/06/18 [ History] Cetirizine HCl [All Day Allergy] 10 mg PO DAILY 01/06/18 [History] Cholecalciferol (D-3) [Vitamin D] 2,000 unit PO DAILY 01/06/18 [History] Folic Acid 1 mg PO DAILY 01/06/18 [History] Gabapentin [Neurontin] 900 mg PO TID 01/06/18 [History] Ipratropium/Albuterol Neb [Duoneb] 3 ml IH TID 01/06/18 [History] Melatonin [Melatin] 3 mg PO HS 01/06/18 [History] Meloxicam [Mobic] 15 mg PO DAILY 01/06/18 [History] Metoprolol [Lopressor] 12.5 mg PO BID 01/06/18 [History] Multivit-Min/FA/Lycopen/Lutein [A Thru [employer] Select Multivit Tab] 1 tab PO DAILY 02/18 [History] Ranitidine HCl [Acid Night Warehouse Manager] 150 mg PO BID 01/06/18 [History] Sildenafil Citrate 100 mg PO DAILY PRN 01/06/18 [History] Simvastatin [Zocor] 20 mg PO HS 01/06/18 [History] Thiamine (B-1) [Vitamin B-1] 100 mg PO DAILY 01/06/18 [History] 3 Allergy/AdvReac Type Severity Reaction Status Date / Time No Known Allergies Allergy Verified 01/06/18 12:29 All Systems: The remainder of the systems were reviewed and are negative Physical Examination Vital Signs: Vital Signs, Last 4 Hours Temp Pulse Resp BP Pulse Ox 01/07/18 09:00 84 14 108/72 97 01/07/18 08:08 97.4 F L 01/07/18 08:07 14 92/58 96 01/07/18 08:00 68 18 92/58 100 01/07/18 07:15 63 18 87/52 100 05/07/18 06:07 18 91/59 100 01/07/18 06:00 63 18 91/59 100 Ventilator Settings Ventilator Settings: Ventilator Settings, Last 8 Hours Ventilator Mode VC+ Ventilator Mode A/C Ventilator Mode A/C Ventilator Mode A/C Ventilator Mode A/C Ventilator Mode A/C Ventilator Mode A/C Ventilator Tidal Volume 500 Setting Ventilator Tidal Volume 500 Setting Ventilator Tidal Volume 500 Setting Ventilator Tidal Volume 460 Setting Ventilator Tidal Volume 460 Setting Ventilator Tidal Volume 460 Setting Ventilator Tidal Volume 460 Setting Ventilator Tidal Volume 460 Setting Ventilator Tidal Volume 460 Setting Ventilator Tidal Volume 460 Setting Ventilator Tidal Volume 460 Setting Ventilator Tidal Volume 460 Setting Ventilator Respiratory Rate 14 Setting Ventilator Respiratory Rate 14 Setting Ventilator Respiratory Rate 14 Setting Ventilator Respiratory Rate 18 Setting Ventilator Respiratory Rate 18 Setting Ventilator Respiratory Rate 18 Setting Ventilator Respiratory Rate 18 Setting Ventilator Respiratory Rate 18 Setting Ventilator Respiratory Rate 18 Setting Ventilator Respiratory Rate 18 Setting Ventilator Respiratory Rate 18 Setting Ventilator Respiratory Rate 18 Setting Actual Respiratory Rate 14 Actual Respiratory Rate 14 Actual Respiratory Rate 18 Actual Respiratory Rate 18 Actual Respiratory Rate 18 Actual Respiratory Rate 18 Actual Respiratory Rate 18 Actual Respiratory Rate 18 Actual Respiratory Rate 18 Actual Respiratory Rate 18 Actual Respiratory Rate 18 Positive End Expiratory 5 Pressure Positive End Expiratory 5 Pressure Positive End Expiratory 5 Pressure Positive End Expiratory 5 Pressure Positive End Expiratory 5 Pressure Positive End Expiratory 5 Pressure Positive End Expiratory 5 Pressure Positive End Expiratory 5 Pressure Positive End Expiratory 5 Pressure Positive End Expiratory 5 Pressure Positive End Expiratory 5 Pressure Positive End Expiratory 5 Pressure Peak Inspiratory Airway 31 Pressure Peak Inspiratory Airway 32 Pressure Peak Inspiratory Airway 28 Pressure Peak Inspiratory Airway 28 Pressure Peak Inspiratory Airway 28 Pressure Peak Inspiratory Airway 29 Pressure Peak Inspiratory Airway 28 Pressure Peak Inspiratory Airway 29 Pressure Peak Inspiratory Airway 29 Pressure Peak Inspiratory Airway 29 Pressure Peak Inspiratory Airway 29 Pressure Results - Laboratory Findings CBC and BMP: 01/07/18 05:30 01/07/18 03:50 ABG ABG pH 7.28 pH Units (7.32-7.45) L 01/07/18 09:22 ABG pCO2 45 mmHg (35-45) 01/07/18 09:22 ABG pO2 81 mmHg (85-104) L 01/07/18 09:22 ABG O2 Saturation 94 % (95-98) L 01/07/18 09:22 PT/INR, D-dimer PT 10.4 Seconds (9.4-12.1) 01/06/18 12:28 Abnormal lab findings: Abnormal lab results WBC 12.7 K/mcL (4.3-11.1) H 01/07/18 05:30 RBC 3.26 M/mcL (4.19-5.50) L 01/07/18 05:30 Hgb 10.2 g/dL (12.9-16.9) L D 01/07/18 05:30 Hct 30.7 % (37.5-50.1) L 01/07/18 05:30 Neutrophils # 10.2 K/mcL (1.6-8.9) H 01/07/18 05:30 APTT 37.0 Seconds (26.0-36.0) H 01/06/18 12:28 ABG pH 7.28 pH Units (7.32-7.45) L 01/07/18 09:22 ABG pO2 81 mmHg (85-104) L 01/07/18 09:22 ABG O2 Saturation 94 % (95-98) L 01/07/18 09:22 ABG Base Excess -5 mEq/L (-2 to 3) L 01/07/18 09:22 Sodium 133 mEq/L (136-145) L 01/07/18 03:50 BUN 7 mg/dL (8-23) L 01/07/18 03:50 Glucose 138 mg/dL (70-105) H 01/07/18 03:50 POC Glucose 125 mg/dL (70-99) H 01/06/18 23:59 Calculated Osmolality 276 (280-300) L 01/07/18 03:50 Calcium 6.9 mg/dL (8.6-10.3) L 01/07/18 03:50 Magnesium 1.2 mg/dL (1.6-2.6) L 01/07/18 03:50 AST 52 Units/L (13-39) H 01/07/18 03:50 Alkaline Phosphatase 144 Units/L (34-104) H 01/07/18 03:50 Serum Total Protein 4.5 g/dL (6.4-8.9) L 01/07/18 03:50 Albumin 2.4 g/dL (3.5-5.7) L 01/07/18 03:50 Globulin 2.1 g/dL (2.4-3.5) L 01/07/18 03:50 Ur Leukocyte Esterase Trace (Negative) H 01/06/18 12:30 Ur Squamous Epith Cells Many per lpf (None-Few) H 01/06/18 12:30 Ur Culture Indicated? NO. (NO) A 01/06/18 12:30 Ethyl Alcohol 11 mg/dL (Less than 10) H 01/06/18 12:28 - Clinical Findings Intake & Output: Intake & Output 01/06/18 01/07/18 01/07/18 23:59 07:59 15:59 Intake Total 2019 100 / 100 260 / 260 Output Total 980 / 980 730 / 730 300 / 300 Balance 1040 / 1040 -630 / -630 -40 / -40 Consult Discharge Plan - Plan Referrals: NONE,PCP [Primary Care Provider] - - Attending Attestation I examined this patient and my medical decision-making was reviewed with the Resident Physician. I agree with the documented findings, disposition and treatment plan as described except to the extent set forth below. Patient seen and examined. Labs, radiology, chart personally reviewed. Agree with resident's history and physical, assessment, plan with following comments: TOP CUTTER: Patient doesn't follows commands, Multifactorial and change to propofol Pulmonary: Acceptable oxygenation and ventilation. Changed vent setting and will have follow up ABG. Cardiovascular: stable and diursis GI: Nutrition per dietary and GI prophylaxis per routine Heme: DVT prophylaxis per routine ID: Continue antibiotics and plan to de-escalation Renal; urine out put and renal funtion reviewed. Strict I&O for Castillo catheter Endorcine: blood glucose is monitored Lines: all lines checked and no evidence of infections Skin: skin care to prevent pressure ulcers per nursing routine care Poor prognosis and consider palliative care to address his code status I spent 35 min of Critical Care time with this patient. It involved decision making of high complexity to assess, manipulate, and support vital organ system failure and/or to prevent further life threatening deterioration of the patient' s condition. The time involved in the performance of separately reportable procedures was not counted toward critical care time. <Bobby Muro - Last Filed: 01/07/18 16:39> Date of Encounter: 01/07/18 Time of Encounter: 09:08 Assessment and Plan (1) Acute respiratory failure Current Visit: Yes Status: Acute - Acute respiratory failure with hypoxia and hypercapnia - Possible etiologies include congestive heart failure exacerbation versus COPD exacerbation versus pneumonia - Initial ABG did demonstrate a respiratory acidosis - CXR on 01/06 was negative for any intrathoracic process - CT abdomen 01/07 did demonstrate volume overload - Arterial blood gas most recently demonstrates non-gap metabolic acidosis with pH of 7.28, which is improved from 7.07 on admission - Patient remains ventilator dependent - Echocardiogram this afternoon, pending read Plan - Continue ventilator support - Continue vancomycin, Zosyn, Levaquin for possible pneumonia component, on day #2 - Diuresis with 40 Lasix IV twice a day - Continue steroids, breathing treatments Qualifiers: Respiratory failure complication: hypoxia and hypercapnia Qualified Code(s) : J96.01 - Acute respiratory failure with hypoxia; J96.02 - Acute respiratory failure with hypercapnia; J96.02 - Acute respiratory failure with hypercapnia; J96.02 - Acute respiratory failure with hypercapnia (2) Metabolic encephalopathy Current Visit: Yes Status: Acute - Very possible it is multifactorial - Etiologies may include hyperammonemia, hypercapnia, sepsis, alcohol withdrawal , infectious etiology - CT head was negative for acute process - Blood and urine cultures pending - We will treat underlying conditions as above and below -Supportive care, fall precautions, seizure precautions - We will not place restraints due to seizures (3) Hyperammonemia Current Visit: Yes Status: Acute - Ammonia of 116 on presentation -Reported history of heavy drinking - Ammonia has down trended to 52 - INR within normal limits at 1.0 - Liver ultrasound taken and pending - Has been getting lactulose via G-tube - AST mildly elevated with most recent value of 52, ALT within normal limits, alkaline phosphatase 144 Plan - Continue to monitor for signs of altered mental status - Treat underlying conditions as above and below (4) Alcohol withdrawal Current Visit: Yes Status: Acute - Suspected alcohol withdrawal. - Per family, patient consumes 1 gallon of whiskey every 3 days - Unknown last drink - Alcohol on presentation was 11 - Patient was noted to have a seizure yesterday as well as today, both of which responded to Ativan - Vitamin supplementation Plan - CIWA protocol - Increase Precedex drip - Monitor for further signs of withdrawal - Social work consult Qualifiers: Complication of substance-induced condition: uncomplicated Qualified Code(s ): F10.230 - Alcohol dependence with withdrawal, uncomplicated (5) Colon cancer Current Visit: Yes Status: Suspected - Family reports history of colon cancer and prostate cancer - Diagnosed at [facility] in August 2017 - Reports no chemotherapy or radiation treatments - CT abdomen/pelvis today showed no signs of mass or metastasis Plan - Follow up with [facility] as outpatient for further management if desired - Palliative care consult Qualifiers: Colon location: unspecified part of colon Qualified Code(s): C18.9 - Malignant neoplasm of colon, unspecified (6) Lactic acidosis Current Visit: Yes Status: Acute (7) Leukocytosis Current Visit: Yes Status: Acute - Leukocytosis of 24.7 on admission which is down trended to 12.7 - Likely multifactorial including stress reaction, infectious etiology - Started on vancomycin, Zosyn, Levaquin and emergency room - Possible infectious sources include pneumonia versus unknown etiology - Urinalysis not suggestive of infection - Lactic acidosis was 5.3 which has been trended and is now within normal limits - Suspect this is less likely infectious etiology and more likely reactive in nature Plan - Continue antibiotics day #2 - Continue to monitor with daily labs Qualifiers: Leukocytosis type: unspecified Qualified Code(s): D72.829 - Elevated white blood cell count, unspecified (8) Prostate cancer Current Visit: Yes Status: Chronic - As above for colon cancer (9) DVT prophylaxis Current Visit: Yes Status: Acute - Heparin 5000 units every 12 hours (10) Goals of care, counseling/discussion Current Visit: Yes Status: Acute Consult to try to care for goals of care discussion No family present at bedside Patient is DNR/CCA History of Present Illness Consult date: 01/07/18 Requesting physician: Carlos A Higgins Reason for consult: hypoxemia Chief complaint: Altered mentation History of present illness: 67-year-old male with a reported past medical history of alcohol abuse, prostate and colon cancer diagnosed in August 2017, cirrhosis presents to emergency room with complaint of altered mental status. He reported via EMS and was altered at home presentation. No interval history was able to be obtained. No family present at bedside. EKG in emergency room showed normal sinus rhythm with rate of 90, no evidence of ischemia. Patient did desaturate in the emergency room and was subsequently intubated. He also became hypotensive and had a right IJ line placed. Vital signs on presentation significant for respiratory rate 22, heart rate 3, blood pressure 93/52, 85% pulse ox. ABG showed a pH of 7.07, CO2 of 73. Lab results significant for 24.7 WBC, H/H mildly low at 11.9/37.4, sodium 127, lactic acid 5.3, magnesium 1.5. Alcohol level of 11. Chest x-ray showed no acute findings, head CT was negative for acute pathology, CT the abdomen showed no evidence of mass in the colon or prostate and no evidence of metastasis. It was significant for volume overload and hepatic steatosis. He was admitted to the ICU for further care and management of acute respiratory failure, metabolic vs respiratory encephalopathy, hyperammonemia. He is started on broad-spectrum antibiotics of vancomycin, Zosyn, Levaquin. Per chart review, family states that patient has been sick for some time and has been having recent falls. Onset was approximately 20 hours prior to presentation to emergency room. He also reports lack of appetite. Family states that he is a heavy drinker, ingesting approximately 1 gallon of whiskey every 3 days. He also is a daily smoker with 1-1/2 packs per day. Past Med Surg Social Fam HX - Past Medical History Medical history: cancer, cirrhosis, COPD, hypertension, liver disease Psychiatric history: no psych history - Social History Smoking Status: Current every day smoker Smokeless Tobacco Status: No Alcohol use: heavy Drug use: none ROS unobtainable: due to endotracheal tube All Systems: The remainder of the systems were reviewed and are negative Physical Examination Vital Signs: Vital Signs, Last 4 Hours Temp Pulse Resp BP Pulse Ox 01/07/18 08:08 97.4 F L 01/07/18 08:07 14 92/58 96 01/07/18 08:00 68 18 92/58 100 01/07/18 07:15 63 18 87/52 100 01/07/18 06:07 18 91/59 100 01/07/18 06:00 63 18 91/59 100 Gen.: Vitals noted. No acute distress. Intubated and sedated HEENT: PERRL/EOMI, oropharynx clear, Normocephalic, atraumatic, MMM Cardiac: RRR, no murmur, +S1/S2 Pulmonary: Diffuse rhonchi present, equal chest expansion Abdomen: soft, nontender, BS noted, no guarding, no rebound. Palpable liver, mildly distended Extremities: 2+ BLE edema, nontender calf, no cyanosis or clubbing Neuro: Sedated, Ventilator Settings Ventilator Settings: Ventilator Settings, Last 8 Hours Ventilator Mode A/C Ventilator Mode A/C Ventilator Mode A/C Ventilator Mode A/C Ventilator Mode A/C Ventilator Mode A/C Ventilator Tidal Volume 500 Setting Ventilator Tidal Volume 460 Setting Ventilator Tidal Volume 460 Setting Ventilator Tidal Volume 460 Setting Ventilator Tidal Volume 460 Setting Ventilator Tidal Volume 460 Setting Ventilator Tidal Volume 460 Setting Ventilator Tidal Volume 460 Setting Ventilator Tidal Volume 460 Setting Ventilator Tidal Volume 460 Setting Ventilator Tidal Volume 460 Setting Ventilator Tidal Volume 460 Setting Ventilator Respiratory Rate 14 Setting Ventilator Respiratory Rate 18 Setting Ventilator Respiratory Rate 18 Setting Ventilator Respiratory Rate 18 Setting Ventilator Respiratory Rate 18 Setting Ventilator Respiratory Rate 18 Setting Ventilator Respiratory Rate 18 Setting Ventilator Respiratory Rate 18 Setting Ventilator Respiratory Rate 18 Setting Ventilator Respiratory Rate 18 Setting Ventilator Respiratory Rate 18 Setting Ventilator Respiratory Rate 18 Setting Actual Respiratory Rate 14 Actual Respiratory Rate 18 Actual Respiratory Rate 18 Actual Respiratory Rate 18 Actual Respiratory Rate 18 Actual Respiratory Rate 18 Actual Respiratory Rate 18 Actual Respiratory Rate 18 Actual Respiratory Rate 18 Actual Respiratory Rate 18 Actual Respiratory Rate 18 Actual Respiratory Rate 18 Positive End Expiratory 5 Pressure Positive End Expiratory 5 Pressure Positive End Expiratory 5 Pressure Positive End Expiratory 5 Pressure Positive End Expiratory 5 Pressure Positive End Expiratory 5 Pressure Positive End Expiratory 5 Pressure Positive End Expiratory 5 Pressure Positive End Expiratory 5 Pressure Positive End Expiratory 5 Pressure Positive End Expiratory 5 Pressure Positive End Expiratory 5 Pressure Peak Inspiratory Airway 32 Pressure Peak Inspiratory Airway 28 Pressure Peak Inspiratory Airway 28 Pressure Peak Inspiratory Airway 28 Pressure Peak Inspiratory Airway 29 Pressure Peak Inspiratory Airway 28 Pressure Peak Inspiratory Airway 29 Pressure Peak Inspiratory Airway 29 Pressure Peak Inspiratory Airway 29 Pressure Peak Inspiratory Airway 29 Pressure Peak Inspiratory Airway 29 Pressure Peak Inspiratory Airway 30 Pressure Results - Laboratory Findings CBC and BMP: 01/07/18 13:30 01/07/18 13:30 ABG ABG pH 7.40 pH Units (7.32-7.45) D 01/06/18 14:50 ABG pCO2 38 mmHg (35-45) D 01/06/18 14:50 ABG pO2 484 mmHg (85-104) H D 01/06/18 14:50 ABG O2 Saturation 100 % (95-98) H 01/06/18 14:50 PT/INR, D-dimer PT 10.4 Seconds (9.4-12.1) 01/06/18 12:28 Abnormal lab findings: Abnormal lab results WBC 12.7 K/mcL (4.3-11.1) H 01/07/18 05:30 RBC 3.26 M/mcL (4.19-5.50) L 01/07/18 05:30 Hgb 10.2 g/dL (12.9-16.9) L D 01/07/18 05:30 Hct 30.7 % (37.5-50.1) L 01/07/18 05:30 Neutrophils # 10.2 K/mcL (1.6-8.9) H 01/07/18 05:30 APTT 37.0 Seconds (26.0-36.0) H 01/06/18 12:28 ABG pO2 484 mmHg (85-104) H D 01/06/18 14:50 ABG O2 Saturation 100 % (95-98) H 01/06/18 14:50 Sodium 133 mEq/L (136-145) L 01/07/18 03:50 BUN 7 mg/dL (8-23) L 01/07/18 03:50 Glucose 138 mg/dL (70-105) H 01/07/18 03:50 POC Glucose 125 mg/dL (70-99) H 01/06/18 23:59 Calculated Osmolality 276 (280-300) L 01/07/18 03:50 Calcium 6.9 mg/dL (8.6-10.3) L 01/07/18 03:50 Magnesium 1.2 mg/dL (1.6-2.6) L 01/07/18 03:50 AST 52 Units/L (13-39) H 01/07/18 03:50 Alkaline Phosphatase 144 Units/L (34-104) H 01/07/18 03:50 Serum Total Protein 4.5 g/dL (6.4-8.9) L 01/07/18 03:50 Albumin 2.4 g/dL (3.5-5.7) L 01/07/18 03:50 Globulin 2.1 g/dL (2.4-3.5) L 01/07/18 03:50 Ur Leukocyte Esterase Trace (Negative) H 01/06/18 12:30 Ur Squamous Epith Cells Many per lpf (None-Few) H 01/06/18 12:30 Ur Culture Indicated? NO. (NO) A 01/06/18 12:30 Ethyl Alcohol 11 mg/dL (Less than 10) H 01/06/18 12:28 - Clinical Findings Intake & Output: Intake & Output 01/06/18 01/07/18 01/07/18 23:59 07:59 15:59 Intake Total 2019 100 / 100 60 / 60 Output Total 980 / 980 730 / 730 300 / 300 Balance 1040 / 1040 -630 / -630 -240 / -240
[2018-01-07 09:25] LABS: ABG Base Excess -5 mEq/L (-2 to 3); ABG HCO3 21 mEq/L (21-27); ABG Oxygen Saturation 94 % (95-98); ABG PCO2 45 mmHg (35-45); ABG PH 7.28 pH Units (7.32-7.45); ABG PO2 81 mmHg (85-104); ABG TCO2 23 mEq/L (20-26); Blood Gas Modality VC; Blood Gas PEEP 5 cm H2O; Blood Gas Respiration Rate 14; Blood Gas VT 500 cc
[2018-01-07] MEDS: Dexmedetomidine HCl 400 MCG/100 ML MLS IVC SCH ×2 (09:43→17:00)
[2018-01-07] MEDS ORDERED: Lacri-Lube 3.5 GM TUBE BOTH EYES PRN (11:16)
[2018-01-07] MEDS: Lacri-Lube 3.5 GM TUBE BOTH EYES SCH ×4 (13:29→23:46)
[2018-01-07 13:57] LABS: Basophils % 0.2 %; Eosinophils # 0.3 K/mcL (0.0-0.6); Eosinophils % 2.8 %; Hematocrit 31.1 % (37.5-50.1); Hemoglobin 10.5 g/dL (12.9-16.9); Immature Granulocytes % 0.6 % (0-4); Lymphocytes % 9.3 %; Mean Corpuscular HGB Conc 33.8 g/dL (31.6-35.5); Mean Corpuscular Volume 94.8 fL (83.0-100.0); Mean Platelet Volume 9.9 fL (9.4-12.4); Monocytes # 0.7 K/mcL (0.0-1.3); Monocytes % 6.3 %; Neutrophils # 8.7 K/mcL (1.6-8.9); Platelet Count 143 K/mcL (140-400); Red Blood Count 3.28 M/mcL (4.19-5.50); Red Cell Distribution Width 13.4 % (11.5-14.5); Segmented Neutrophils % 80.8 %
[2018-01-07 14:03] LABS: BUN/Creatinine Ratio 6 (6-26); Blood Urea Nitrogen 5 mg/dL (8-23); Calcium 7.1 mg/dL (8.6-10.3); Carbon Dioxide 23 mEq/L (23-29); Chloride 110 mEq/L (98-107); Glucose 167 mg/dL (70-105); Osmolality,Calculated 285 (280-300); Phosphorous 1.3 mg/dL (2.7-4.5); Potassium 3.5 mEq/L (3.5-5.1); Sodium 137 mEq/L (136-145); eGFR For African Americans > 60 (> 60); eGFR For Non-African Americans > 60 (> 60)
--- NOTE | 2018-01-07 14:24 | Palliative - Consult Note ---
Date of Encounter: 01/07/18 Time of Encounter: 14:20 Palliative-CN HPI - Data of Consult Consult date: 01/07/18 Requesting Physician: Carlos A Higgins MD Primary Care Provider: PCP NONE - Consult Narrative History of present illness: Mr. Felder is a 67 year old male who presented with altered mental status. Patient is sedated and on the ventilator, no family at bedside, so information obtained from chart review. According to family at the time of his admission, he had not eaten much in a week, nausea/vomiting, and has had multiple falls, up to 7 within the 24 hours prior to admission. He has a history of tobacco and alcohol abuse, reported he drinks about a gallon of whiskey every 3 days. Patient had respiratory acidosis and was intubated shortly after arrival, currently in the ICU. According to bedside nurse, he has been having seizures unless heavily sedated - currently on propofol. Requiring Levophed. Has Fentanyl for pain control. Pertinent medical history includes Cancer (prostate? ), Cirrhosis, copd, HTN, liver disease. MELD score currently 6. Upon my visit, he is physiologically stable on Levophed. Appears in no distress and is heavily sedated. No family present. CC: Carlos A Higgins MD Past Med Surg Social Fam HX - Past Medical History Medical history: cancer, cirrhosis, COPD, hypertension, liver disease Psychiatric history: no psych history - Social History Smoking Status: Current every day smoker Smokeless Tobacco Status: No Alcohol use: heavy Drug use: none Medications and Allergies Aspirin [Lo-Dose Aspirin EC] 81 mg PO DAILY 01/06/18 [History] Baclofen 20 mg PO TID PRN 01/06/18 [History] Budesonide/Formoterol 160/4.5 [Symbicort 160/4.5] 2 puff IH BIDR 01/06/18 [ History] Cetirizine HCl [All Day Allergy] 10 mg PO DAILY 01/06/18 [History] Cholecalciferol (D-3) [Vitamin D] 2,000 unit PO DAILY 01/06/18 [History] Folic Acid 1 mg PO DAILY 01/06/18 [History] Gabapentin [Neurontin] 900 mg PO TID 01/06/18 [History] Ipratropium/Albuterol Neb [Duoneb] 3 ml IH TID 01/06/18 [History] Melatonin [Melatin] 3 mg PO HS 01/06/18 [History] Meloxicam [Mobic] 15 mg PO DAILY 01/06/18 [History] Metoprolol [Lopressor] 12.5 mg PO BID 01/06/18 [History] Multivit-Min/FA/Lycopen/Lutein [A Thru Z Select Multivit Tab] 1 tab PO DAILY 02/18 [History] Ranitidine HCl [Acid Mending Carrier] 150 mg PO BID 01/06/18 [History] Sildenafil Citrate 100 mg PO DAILY PRN 01/06/18 [History] Simvastatin [Zocor] 20 mg PO HS 01/06/18 [History] Thiamine (B-1) [Vitamin B-1] 100 mg PO DAILY 01/06/18 [History] 3 Allergy/AdvReac Type Severity Reaction Status Date / Time No Known Allergies Allergy Verified 01/06/18 12:29 ROS unobtainable: due to endotracheal tube, due to mental status Palliative Care-Exam - Constitutional Vitals: Temp Pulse Resp BP Pulse Ox 97.5 F L 64 14 98/64 99 01/07/18 12:00 01/07/18 14:00 01/07/18 14:00 01/07/18 14:00 01/07/18 14:00 General appearance: Present: no acute distress - Head Head Exam: Present: normal inspection, normocephalic - Eye Eye exam: Present: normal appearance Pupils: Present: fixed - Respiratory Respiratory exam: Present: CTAB Additional comments: Breath sounds course, rhonchi noted anteriorally. Remains on vent with PEEP 5, FIO2 - Cardiovascular Cardiovascular exam: Present: +S1, +S2 - GI/Abdominal Exam GI/Abdominal exam: Present: diminished bowel sounds, distended, soft - Catheter Type: Urethral (Castillo) - Extremities Exam Additional comments: Left arm with bruising, blisters to left 2nd/3rd finger, area to 2nd finger right hand, possibly ruptured blister - Neurological Exam Additional comments: Sedated on vent - Skin Skin exam: Present: dry, pallor, warm Internal Medicine - CN: Reslt - Labs CBC & Chem 7: 01/07/18 13:30 01/07/18 13:30 Labs: Short CBC 01/07/18 01/07/18 Range/Units 05:30 13:30 WBC 12.7 H 10.8 (4.3-11.1) K/mcL Hgb 10.2 L D 10.5 L (12.9-16.9) g/dL Hct 30.7 L 31.1 L (37.5-50.1) % Plt Count 144 143 (140-400) K/mcL Neutrophils # 10.2 H 8.7 (1.6-8.9) K/mcL BMP 01/07/18 01/07/18 03:50 13:30 Sodium 133 L 137 Potassium 3.5 3.5 Chloride 104 110 H Carbon Dioxide 24 23 BUN 7 L 5 L Creatinine 0.87 0.83 Glucose 138 H 167 H Calcium 6.9 L 7.1 L Liver Function 01/07/18 Range/Units 03:50 Total Bilirubin 0.8 (0.3-1.0) mg/dL AST 52 H (13-39) Units/L ALT 24 (7-52) Units/L Alkaline Phosphatase 144 H (34-104) Units/L Albumin 2.4 L (3.5-5.7) g/dL - ABG Interpretation ABG results: ABG ABG pH 7.28 pH Units (7.32-7.45) L 01/07/18 09:22 ABG pCO2 45 mmHg (35-45) 01/07/18 09:22 ABG pO2 81 mmHg (85-104) L 01/07/18 09:22 ABG O2 Saturation 94 % (95-98) L 01/07/18 09:22 PT/INR, D-dimer PT 10.4 Seconds (9.4-12.1) 01/06/18 12:28 - Impressions Impressions Chest X-Ray 01/06/18 13:38 IMPRESSION: Right IJ central venous catheter in place tip in the SVC. No pneumothorax seen. D/ / 01/06/2018 14:16:40 Jamey Matias MD / [email or web address] Interpreting Provider: Jamey Matias MD Abdomen/Pelvis CT 01/07/18 01:00 IMPRESSION: No acute abdominopelvic findings. No colonic mass identified, and, there is an unremarkable appearance the prostate. No suspicious findings for abdominopelvic metastatic disease. Features of volume overload, including small bilateral pleural effusions, pulmonary edema, soft tissue anasarca and abdominal ascites. Pericholecystic fluid is presumably related to volume status. If there is concern for cholecystitis correlate with cholestatic parameters. Circumferential urinary bladder wall may be seen with cystitis. Correlate with urinalysis. Nondependent gas within the urinary bladder is presumably related to Castillo catheter placement. Hepatic steatosis. D/ / Richmond Haq / Richmond Haq Interpreting Provider: Richmond Haq Consult Discharge Plan - Plan Referrals: NONE,PCP [Primary Care Provider] - Palliative Quality Palliative Quality: Screen for Code Status: NA (No family present), Screen for Goals of Care: NA, Screen for Pain: Yes, If Pain Regimen Started, Initiate Bowel Regimen: NA, Screen for Nausea/Vomitting: NA Code Status: 01/06/18 14:15 Resuscitation Status: Active [RES] Routine Comment: Resuscitation Status: Full Code Resuscitation Status: Active [RES] Routine Comment: Per brother Resuscitation Status: DNR-Comfort Care-Arrest
[2018-01-07] MEDS ORDERED: Potassium Phosphate 44 MEQ in 0.9 % Sodium Chloride 250 ML IVPB PRN (14:37)
[2018-01-07] MEDS: Thiamine (B-1) 100 MG, Folic Acid 1 MG, MVI, adult with vitamin K 10 ML in 0.9 % Sodi... IVPB SCH (17:15)
[2018-01-07] MEDS: MethylPREDNISolone 40 MG/ML VIAL IVP SCH (17:15)
[2018-01-07 18:14] LABS: VBG Ionized Calcium 1.09 mmol/L (1.15-1.35)
[2018-01-07 18:30] LABS: Magnesium 1.9 mg/dL (1.6-2.6); Potassium 3.8 mEq/L (3.5-5.1)
[2018-01-07] MEDS: Norepinephrine 4 MG in D5% in Water 250 ML IVC SCH (21:08)
[2018-01-07] MEDS: Furosemide 40 MG/4 ML VIAL IVP SCH (21:15)
[2018-01-07] MEDS: Chlorhexidine Rinse 15 ML MOUTHWASH MM SCH (21:19)
[2018-01-08] MEDS: Dexmedetomidine HCl 400 MCG/100 ML MLS IVC SCH ×2 (00:56→04:00)
[2018-01-08] MEDS: FentaNYL (PF) 1,000 MCG in 0.9 % Sodium Chloride 80 ML IVC SCH ×3 (00:59→21:16)
[2018-01-08] MEDS: *HR* LORazepam 2 MG/ML VIAL IVP PRN ×4 (02:50→20:11)
[2018-01-08] MEDS: Lacri-Lube 3.5 GM TUBE BOTH EYES SCH ×6 (03:20→23:47)
[2018-01-08] MEDS: Ipratropium/Albuterol Neb 3 ML IH SCH ×6 (03:36→23:27)
[2018-01-08 04:29] LABS: Basophils % 0.1 %; Hematocrit 31.5 % (37.5-50.1); Hemoglobin 10.6 g/dL (12.9-16.9); Immature Granulocytes % 0.7 % (0-4); Lymphocytes # 0.2 K/mcL (0.6-4.6); Mean Corpuscular HGB Conc 33.7 g/dL (31.6-35.5); Mean Corpuscular Volume 95.2 fL (83.0-100.0); Mean Platelet Volume 9.9 fL (9.4-12.4); Monocytes # 0.2 K/mcL (0.0-1.3); Platelet Count 157 K/mcL (140-400); Red Blood Count 3.31 M/mcL (4.19-5.50); Red Cell Distribution Width 13.6 % (11.5-14.5); Segmented Neutrophils % 95.2 %
[2018-01-08 04:33] LABS: Neutrophils # 9.2 K/mcL (1.6-8.9)
[2018-01-08 04:34] LABS: VBG Ionized Calcium 1.08 mmol/L (1.15-1.35)
[2018-01-08 04:50] LABS: BUN/Creatinine Ratio 6 (6-26); Blood Urea Nitrogen 6 mg/dL (8-23); Calcium 7.4 mg/dL (8.6-10.3); Carbon Dioxide 20 mEq/L (23-29); Chloride 111 mEq/L (98-107); Glucose 214 mg/dL (70-105); Osmolality,Calculated 298 (280-300); Potassium 4.2 mEq/L (3.5-5.1); Sodium 142 mEq/L (136-145); eGFR For African Americans > 60 (> 60); eGFR For Non-African Americans > 60 (> 60)
[2018-01-08 04:52] LABS: ABG Base Excess -2 mEq/L (-2 to 3); ABG HCO3 23 mEq/L (21-27); ABG Oxygen Saturation 95 % (95-98); ABG PCO2 41 mmHg (35-45); ABG PH 7.37 pH Units (7.32-7.45); ABG PO2 75 mmHg (85-104); ABG TCO2 25 mEq/L (20-26); Blood Gas Modality VC; Blood Gas PEEP 5 cm H2O; Blood Gas Respiration Rate 14; Blood Gas VT 550 cc
[2018-01-08 04:55] LABS: Platelet Estimate Normal (Normal)
[2018-01-08] MEDS: *HR* Heparin 5,000 UNIT/ML VIAL SQ SCH ×2 (05:31→18:45)
[2018-01-08] MEDS: MethylPREDNISolone 40 MG/ML VIAL IVP SCH ×2 (05:32→16:53)
--- NOTE | 2018-01-08 07:21 | Pulmonology Progress Note ---
<Agueda Xieamol M - Last Filed: 01/08/18 15:25> Date of Encounter: 01/08/18 Objective PUL Vital signs: Last Vital Signs Temp 98.2 F 01/08/18 05:00 Pulse 95 01/08/18 06:00 Resp 14 01/08/18 06:00 BP 69/49 01/08/18 06:00 Pulse Ox 96 01/08/18 06:00 Ventilator Settings Ventilator Settings: Ventilator Settings, Last 8 Hours Ventilator Mode VC+ Ventilator Mode VC+ Ventilator Mode VC+ Ventilator Mode VC+ Ventilator Mode VC+ Ventilator Mode VC+ Ventilator Mode VC+ Ventilator Mode VC+ Ventilator Tidal Volume 550 Setting Ventilator Tidal Volume 550 Setting Ventilator Tidal Volume 550 Setting Ventilator Tidal Volume 550 Setting Ventilator Tidal Volume 550 Setting Ventilator Tidal Volume 550 Setting Ventilator Tidal Volume 550 Setting Ventilator Tidal Volume 550 Setting Ventilator Tidal Volume 550 Setting Ventilator Tidal Volume 550 Setting Ventilator Tidal Volume 550 Setting Ventilator Tidal Volume 550 Setting Ventilator Respiratory Rate 14 Setting Ventilator Respiratory Rate 14 Setting Ventilator Respiratory Rate 14 Setting Ventilator Respiratory Rate 14 Setting Ventilator Respiratory Rate 14 Setting Ventilator Respiratory Rate 14 Setting Ventilator Respiratory Rate 14 Setting Ventilator Respiratory Rate 14 Setting Ventilator Respiratory Rate 14 Setting Ventilator Respiratory Rate 14 Setting Ventilator Respiratory Rate 14 Setting Ventilator Respiratory Rate 14 Setting Actual Respiratory Rate 14 Actual Respiratory Rate 14 Actual Respiratory Rate 14 Actual Respiratory Rate 14 Actual Respiratory Rate 14 Actual Respiratory Rate 14 Actual Respiratory Rate 14 Actual Respiratory Rate 14 Actual Respiratory Rate 14 Actual Respiratory Rate 14 Actual Respiratory Rate 14 Positive End Expiratory 5 Pressure Positive End Expiratory 5 Pressure Positive End Expiratory 5 Pressure Positive End Expiratory 5 Pressure Positive End Expiratory 5 Pressure Positive End Expiratory 5 Pressure Positive End Expiratory 5 Pressure Positive End Expiratory 5 Pressure Positive End Expiratory 5 Pressure Positive End Expiratory 5 Pressure Positive End Expiratory 5 Pressure Positive End Expiratory 5 Pressure Peak Inspiratory Airway 44 Pressure Peak Inspiratory Airway 31 Pressure Peak Inspiratory Airway 31 Pressure Peak Inspiratory Airway 31 Pressure Peak Inspiratory Airway 30 Pressure Peak Inspiratory Airway 29 Pressure Peak Inspiratory Airway 28 Pressure Peak Inspiratory Airway 28 Pressure Peak Inspiratory Airway 28 Pressure Peak Inspiratory Airway 29 Pressure Peak Inspiratory Airway 28 Pressure Results - Laboratory Findings CBC and BMP: 01/08/18 04:10 01/08/18 04:10 ABG ABG pH 7.37 pH Units (7.32-7.45) 01/08/18 04:49 ABG pCO2 41 mmHg (35-45) 01/08/18 04:49 ABG pO2 75 mmHg (85-104) L 01/08/18 04:49 ABG O2 Saturation 95 % (95-98) 01/08/18 04:49 PT/INR, D-dimer PT 10.4 Seconds (9.4-12.1) 01/06/18 12:28 Abnormal lab findings: Abnormal lab results RBC 3.31 M/mcL (4.19-5.50) L 01/08/18 04:10 Hgb 10.6 g/dL (12.9-16.9) L 01/08/18 04:10 Hct 31.5 % (37.5-50.1) L 01/08/18 04:10 Neutrophils # 9.2 K/mcL (1.6-8.9) H 01/08/18 04:10 Lymphocytes # 0.2 K/mcL (0.6-4.6) L 01/08/18 04:10 APTT 37.0 Seconds (26.0-36.0) H 01/06/18 12:28 ABG pO2 75 mmHg (85-104) L 01/08/18 04:49 Chloride 111 mEq/L (98-107) H 01/08/18 04:10 Carbon Dioxide 20 mEq/L (23-29) L 01/08/18 04:10 BUN 6 mg/dL (8-23) L 01/08/18 04:10 Glucose 214 mg/dL (70-105) H 01/08/18 04:10 POC Glucose 192 mg/dL (70-99) H 01/07/18 23:57 Calcium 7.4 mg/dL (8.6-10.3) L 01/08/18 04:10 Venous Ioniz Calcium 1.08 mmol/L (1.15-1.35) L 01/08/18 04:30 Phosphorus 1.3 mg/dL (2.7-4.5) L 01/07/18 13:30 AST 52 Units/L (13-39) H 01/07/18 03:50 Alkaline Phosphatase 144 Units/L (34-104) H 01/07/18 03:50 Serum Total Protein 4.5 g/dL (6.4-8.9) L 01/07/18 03:50 Albumin 2.4 g/dL (3.5-5.7) L 01/07/18 03:50 Globulin 2.1 g/dL (2.4-3.5) L 01/07/18 03:50 Ur Leukocyte Esterase Trace (Negative) H 01/06/18 12:30 Ur Squamous Epith Cells Many per lpf (None-Few) H 01/06/18 12:30 Ur Culture Indicated? NO. (NO) A 01/06/18 12:30 Ethyl Alcohol 11 mg/dL (Less than 10) H 01/06/18 12:28 - Clinical Findings Intake & Output: Intake & Output 01/07/18 01/07/18 01/08/18 15:59 23:59 07:59 Intake Total 2094 / 2094 1302.2 / 1302.2 591 / 591 Output Total 920 / 920 1170 / 1170 2049 / 2049 Balance 1174 / 1174 132.2 / 132.2 -1459 / -1459 Weight 83.5 kg Consult Discharge Plan - Plan Referrals: NONE,PCP [Primary Care Provider] - - Attending Attestation I examined this patient and my medical decision-making was reviewed with the Resident Physician. I agree with the documented findings, disposition and treatment plan as described except to the extent set forth below. Patient seen and examined. Labs, radiology, chart personally reviewed. Agree with resident's history and physical, assessment, plan with following comments: GASOLINE TESTER: Patient does not follows commands, sedation changed to propofol with better results and neurology consult. Evaluation for seizures versus pseudoseizures. Pulmonary: Acceptable oxygenation and ventilation, however patient is not stable enough for spontaneous breathing trial and extubation. Cardiovascular: stable GI: Nutrition per dietary and GI prophylaxis per routine Heme: DVT prophylaxis per routine Renal; urine out put and renal funtion reviewed Endorcine: blood glucose is monitored Lines: all lines checked and no evidence of infections Skin: skin care to prevent pressure ulcers per nursing routine care Overall prognosis is poor <Bobby Muro - Last Filed: 01/08/18 18:01> Date of Encounter: 01/08/18 Time of Encounter: 09:10 Assessment and Plan (1) Metabolic encephalopathy Current Visit: Yes Status: Acute - Very possible it is multifactorial - Etiologies may include hyperammonemia, hypercapnia, sepsis, alcohol withdrawal , infectious etiology - CT head was negative for acute process - Blood and urine cultures pending - We will treat underlying conditions as above and below -Supportive care, fall precautions, seizure precautions - We will not place restraints due to seizures (2) Acute respiratory failure Current Visit: Yes Status: Acute - Acute respiratory failure with hypoxia and hypercapnia - Possible etiologies include congestive heart failure exacerbation versus COPD exacerbation versus pneumonia - Initial ABG did demonstrate a respiratory acidosis, improving. - CXR on 01/06 was negative for any intrathoracic process - CT abdomen 01/07 did demonstrate volume overload - Arterial blood gas most recently demonstrates non-gap metabolic acidosis with pH of 7.37, which is improved from 7.07 on admission - Patient remains ventilator dependent - Echocardiogram showing moderate diastolic dysfunction, EF 60% Plan - Continue ventilator support - Continue Levaquin for possible pneumonia component, on day #3 - Diuresis with 40 Lasix IV twice a day - Continue steroids, breathing treatments Qualifiers: Respiratory failure complication: hypoxia and hypercapnia Qualified Code(s) : J96.01 - Acute respiratory failure with hypoxia; J96.02 - Acute respiratory failure with hypercapnia; J96.02 - Acute respiratory failure with hypercapnia; J96.02 - Acute respiratory failure with hypercapnia (3) Lactic acidosis Current Visit: Yes Status: Resolved Lactic acid originally 5.3 which has downtrended to wnl (4) Leukocytosis Current Visit: Yes Status: Acute - Leukocytosis of 24.7 on admission which is down trended to 9.7 - Likely multifactorial including stress reaction, infectious etiology - Started on vancomycin, Zosyn, Levaquin and emergency room - Possible infectious sources include pneumonia versus unknown etiology vs reactive in setting of seizures - Urinalysis not suggestive of infection - Lactic acidosis was 5.3 which has been trended and is now within normal limits - Suspect this is less likely infectious etiology and more likely reactive in nature Plan - Continue antibiotics day #3 - Continue to monitor with daily labs Qualifiers: Leukocytosis type: unspecified Qualified Code(s): D72.829 - Elevated white blood cell count, unspecified (5) Prostate cancer Current Visit: Yes Status: Chronic As below for colon cancer (6) Colon cancer Current Visit: Yes Status: Suspected - Family reports history of colon cancer and prostate cancer - Diagnosed at [place] in August 2017 - Reports no chemotherapy or radiation treatments - CT abdomen/pelvis today showed no signs of mass or metastasis Plan - Follow up with [place] as outpatient for further management if desired - Palliative care consult Qualifiers: Colon location: unspecified part of colon Qualified Code(s): C18.9 - Malignant neoplasm of colon, unspecified (7) Alcohol withdrawal Current Visit: Yes Status: Acute - Suspected alcohol withdrawal. - Per family, patient consumes 1 gallon of whiskey every 3 days - Unknown last drink - Alcohol on presentation was 11 - Patient was noted to have continued seizures. Will change from precedex to propofol - Vitamin supplementation Plan - [facility] protocol - Change to propofol. - Monitor for further signs of withdrawal - Social work consult Qualifiers: Complication of substance-induced condition: uncomplicated Qualified Code(s ): F10.230 - Alcohol dependence with withdrawal, uncomplicated (8) Hyperammonemia Current Visit: Yes Status: Acute - Ammonia of 116 on presentation -Reported history of heavy drinking - Ammonia has down trended to 52 - INR within normal limits at 1.0 - Liver ultrasound taken showing hepatic steatosis - Has been getting lactulose via G-tube - AST mildly elevated with most recent value of 52, ALT within normal limits, alkaline phosphatase 144 Plan - Continue to monitor for signs of altered mental status - Treat underlying conditions as above and below (9) Goals of care, counseling/discussion Current Visit: Yes Status: Acute Consult to try to care for goals of care discussion Discussed with family per Palliative care. Reports 2 estranged sons and a fiance. Has reportedly previously discussed wanting brother to make decisions, however unsure if paperwork has been filled out. Patient is DNR/CCA (10) Observed seizure-like activity Current Visit: Yes Status: Acute Multiple reported seizures of unknown etiology - Possible alcohol withdrawl vs medication vs epileptic. - Neuro consulted and following - Precedex changed to propofol this afternoon. - Prolactin 26 this AM - EEG obtained and showed diffuse brain injury however these may be secondary to sedative for intubation Plan - After additional seizures on propofol, neuro recommends Keppra. Loading dose given this afternoon (11) (HFpEF) heart failure with preserved ejection fraction Current Visit: Yes Status: Chronic EF 60, moderate diastolic as above (12) DVT prophylaxis Current Visit: Yes Status: Acute Heparin 5000 units q12 hours Subjective Principal diagnosis: Acute respiratory failure Interval history: Patient was seen and examined at bedside. He is intubated and sedated and unable to participate in interview. Overnight he was noted to have multiple seizures despite Precedex drip. Resolves with Ativan Objective PUL Vital signs: Last Vital Signs Temp 98.2 F 05/08/18 05:00 Pulse 95 01/08/18 06:00 Resp 14 01/08/18 06:00 BP 69/49 01/08/18 06:00 Pulse Ox 96 01/08/18 06:00 Gen.: Vitals noted. No acute distress. Intubated and sedated on vent. HEENT: PERRL/EOMI, oropharynx clear, Normocephalic, atraumatic. ET tube Cardiac: RRR, no murmur, +S1/S2 Pulmonary: Diffuse rhonchi present. equal chest expansion Abdomen: soft, distended, BS noted, no guarding MSK: unable to assess Extremities: 2+ pitting BLE edema, some UE edema to mid forearm, no cyanosis or clubbing Neuro: Unable to assess Psych: N/A Ventilator Settings Ventilator Settings: Ventilator Settings, Last 8 Hours Ventilator Mode VC+ Ventilator Mode VC+ Ventilator Mode VC+ Ventilator Mode VC+ Ventilator Mode VC+ Ventilator Mode VC+ Ventilator Mode VC+ Ventilator Mode VC+ Ventilator Tidal Volume 550 Setting Ventilator Tidal Volume 550 Setting Ventilator Tidal Volume 550 Setting Ventilator Tidal Volume 550 Setting Ventilator Tidal Volume 550 Setting Ventilator Tidal Volume 550 Setting Ventilator Tidal Volume 550 Setting Ventilator Tidal Volume 550 Setting Ventilator Tidal Volume 550 Setting Ventilator Tidal Volume 550 Setting Ventilator Tidal Volume 550 Setting Ventilator Tidal Volume 550 Setting Ventilator Respiratory Rate 14 Setting Ventilator Respiratory Rate 14 Setting Ventilator Respiratory Rate 14 Setting Ventilator Respiratory Rate 14 Setting Ventilator Respiratory Rate 14 Setting Ventilator Respiratory Rate 14 Setting Ventilator Respiratory Rate 14 Setting Ventilator Respiratory Rate 14 Setting Ventilator Respiratory Rate 14 Setting Ventilator Respiratory Rate 14 Setting Ventilator Respiratory Rate 14 Setting Ventilator Respiratory Rate 14 Setting Actual Respiratory Rate 14 Actual Respiratory Rate 14 Actual Respiratory Rate 14 Actual Respiratory Rate 14 Actual Respiratory Rate 14 Actual Respiratory Rate 14 Actual Respiratory Rate 14 Actual Respiratory Rate 14 Actual Respiratory Rate 14 Actual Respiratory Rate 14 Actual Respiratory Rate 14 Positive End Expiratory 5 Pressure Positive End Expiratory 5 Pressure Positive End Expiratory 5 Pressure Positive End Expiratory 5 Pressure Positive End Expiratory 5 Pressure Positive End Expiratory 5 Pressure Positive End Expiratory 5 Pressure Positive End Expiratory 5 Pressure Positive End Expiratory 5 Pressure Positive End Expiratory 5 Pressure Positive End Expiratory 5 Pressure Positive End Expiratory 5 Pressure Peak Inspiratory Airway 44 Pressure Peak Inspiratory Airway 31 Pressure Peak Inspiratory Airway 31 Pressure Peak Inspiratory Airway 31 Pressure Peak Inspiratory Airway 30 Pressure Peak Inspiratory Airway 29 Pressure Peak Inspiratory Airway 28 Pressure Peak Inspiratory Airway 28 Pressure Peak Inspiratory Airway 28 Pressure Peak Inspiratory Airway 29 Pressure Peak Inspiratory Airway 28 Pressure Results - Laboratory Findings CBC and BMP: 01/08/18 04:10 01/08/18 14:55 ABG ABG pH 7.37 pH Units (7.32-7.45) 01/08/18 04:49 ABG pCO2 41 mmHg (35-45) 01/08/18 04:49 ABG pO2 75 mmHg (85-104) L 01/08/18 04:49 ABG O2 Saturation 95 % (95-98) 01/08/18 04:49 PT/INR, D-dimer PT 10.4 Seconds (9.4-12.1) 01/06/18 12:28 Abnormal lab findings: Abnormal lab results RBC 3.31 M/mcL (4.19-5.50) L 01/08/18 04:10 Hgb 10.6 g/dL (12.9-16.9) L 01/08/18 04:10 Hct 31.5 % (37.5-50.1) L 01/08/18 04:10 Neutrophils # 9.2 K/mcL (1.6-8.9) H 01/08/18 04:10 Lymphocytes # 0.2 K/mcL (0.6-4.6) L 01/08/18 04:10 APTT 37.0 Seconds (26.0-36.0) H 01/06/18 12:28 ABG pO2 75 mmHg (85-104) L 01/08/18 04:49 Chloride 111 mEq/L (98-107) H 01/08/18 04:10 Carbon Dioxide 20 mEq/L (23-29) L 01/08/18 04:10 BUN 6 mg/dL (8-23) L 01/08/18 04:10 Glucose 214 mg/dL (70-105) H 01/08/18 04:10 POC Glucose 192 mg/dL (70-99) H 01/07/18 23:57 Calcium 7.4 mg/dL (8.6-10.3) L 01/08/18 04:10 Venous Ioniz Calcium 1.08 mmol/L (1.15-1.35) L 01/08/18 04:30 Phosphorus 1.3 mg/dL (2.7-4.5) L 01/07/18 13:30 AST 52 Units/L (13-39) H 01/07/18 03:50 Alkaline Phosphatase 144 Units/L (34-104) H 01/07/18 03:50 Serum Total Protein 4.5 g/dL (6.4-8.9) L 01/07/18 03:50 Albumin 2.4 g/dL (3.5-5.7) L 01/07/18 03:50 Globulin 2.1 g/dL (2.4-3.5) L 01/07/18 03:50 Ur Leukocyte Esterase Trace (Negative) H 01/06/18 12:30 Ur Squamous Epith Cells Many per lpf (None-Few) H 01/06/18 12:30 Ur Culture Indicated? NO. (NO) A 01/06/18 12:30 Ethyl Alcohol 11 mg/dL (Less than 10) H 01/06/18 12:28 - Clinical Findings Intake & Output: Intake & Output 01/07/18 01/07/18 01/08/18 15:59 23:59 07:59 Intake Total 2094 / 2094 1302.2 / 1302.2 591 / 591 Output Total 920 / 920 1170 / 1170 2049 Balance 1174 / 1174 132.2 / 132.2 -1459 / -1459 Weight 83.5 kg
[2018-01-08] MEDS: Piperacillin/Tazobactam 3.375 GM in 0.9 % Sodium Chloride Mini Bag 100 ML IVPB SCH (08:13)
[2018-01-08] MEDS: Levofloxacin 750 MG/150 ML 750 MG/150 ML BAG IVPB SCH (08:14)
[2018-01-08] MEDS: Lactulose Oral Soln 20 GM/30 ML UDC GTUBE SCH ×3 (08:14→19:38)
[2018-01-08] MEDS: Furosemide 40 MG/4 ML VIAL IVP SCH ×2 (08:14→19:36)
[2018-01-08] MEDS: Chlorhexidine Rinse 15 ML MOUTHWASH MM SCH ×2 (08:14→19:35)
[2018-01-08] MEDS: Pantoprazole 40 MG VIAL IVP SCH (08:14)
[2018-01-08] MEDS: Norepinephrine 4 MG in D5% in Water 250 ML IVC SCH ×2 (09:20→19:29)
--- NOTE | 2018-01-08 10:40 | EEG/EMG/Oth Biometrics Report ---
EEG Procedure Report Date of procedure: 01/08/18 EEG Procedure: Routine EEG Procedure Note: Routine 21-channel digital EEG was obtained to rule out any seizure activity or focal abnormalities on patient who is intubated and sedated. FINDINGS: Background rhythm during awake stage shows poorly organized, low voltage in the anterior and posterior regions, with periodic pattern consists of bursts of activity (mixture of sharp and slow waves) periodically interrupted by episodes of suppression activity < 10 V . the episodes of suppression are about 3-5 seconds, with low amp of bursts of activity about 1-3 secs this low voltage (< 10 V) without any reactivity continued through out the whole study with some increase in activity at the end of records, when Propafol was discontinued completely. clinical Interpretation: Abnormal EEG.this pattern of electrographic activity is normally seen in the patient with diffuse brain injury; most commonly this is anoxic, as seen from prolonged resuscitation, but at the same time similar pattern could be pharmacologically induced. Typical agents are versed drip, phenobarbitol, or propofol. Clinical correlation with repeat studies suggested if clinically warranted when patient is off sedation completely.
[2018-01-08] MEDS ORDERED: D5% in Water 1,000 ML IVC PRN (10:57)
[2018-01-08] MEDS ORDERED: *HR* Dextrose 50 % in Water (Syg) 50 ML SYRINGE IVP PRN (10:57)
[2018-01-08] MEDS ORDERED: Dextrose Gel 15 GM/37.5 ML TUBE PO PRN ×2 (10:57)
[2018-01-08] MEDS ORDERED: Albuterol 2.5 MG/3 ML NEBULIZER IH PRN (11:31)
--- NOTE | 2018-01-08 11:35 | Palliative Progress Note ---
Date of Encounter: 01/08/18 Time of Encounter: 11:30 - Assessment and plan (1) Metabolic encephalopathy Current Visit: Yes Status: Acute (2) Acute respiratory failure Current Visit: Yes Status: Acute Assessment and plan: Remains on ventilator support Qualifiers: Respiratory failure complication: hypoxia and hypercapnia Qualified Code(s) : J96.01 - Acute respiratory failure with hypoxia; J96.02 - Acute respiratory failure with hypercapnia; J96.02 - Acute respiratory failure with hypercapnia; J96.02 - Acute respiratory failure with hypercapnia (3) Alcohol withdrawal Current Visit: Yes Status: Acute Assessment and plan: Continues with CIWA protocol, and currently on propofol as well. Qualifiers: Complication of substance-induced condition: uncomplicated Qualified Code(s ): F10.230 - Alcohol dependence with withdrawal, uncomplicated (4) Goals of care, counseling/discussion Current Visit: Yes Status: Acute Assessment and plan: Patient family in - brother Bradly, sister Zulema, girlfriend, and 3 nephew/ niece. Updated on current clinical status. He lives with sister Zulema, and there is another friend in the house. Girlfriend states she comes and goes. Girlfriend usually takes him to physician's appointments. He uses a wheeled walker, but they all report history of multiple falls. They state that pt used to be on Morphine for chronic pain, and this was discontinued. Stated that he utilizes alcohol now for his pain management. Brother states he has 2 children but they are estranged. All family member present, including girlfriend state that he has stated he would want brother Bradly to make decisions. They also state that he had made it known he does not want to be sustained on machines. They do not know if he completed advanced directives - Dwight Beaulieu present and will [facility]. Will continue to follow. Updated Dr. Muro. - Time Spent With Patient Total time spent is greater than 50% in coordination of care (as documented) at patient's floor/unit and/or counseling patient: - Subjective Interval history: Patient remains on vent. Had episodes of repeated seizure like activity during the night, on CIWA protocol. Sedation has been changed to Propofol. EEG in progress. Multiple family members present, including brother Bradly, sister Zluema, girlfriend, and 2 nephews and a niece. Leukocytosis improved. Labs stable. Has been hypotensive. - Constitutional Vitals: Abnormal lab results RBC 3.31 M/mcL (4.19-5.50) L 01/08/18 04:10 Hgb 10.6 g/dL (12.9-16.9) L 01/08/18 04:10 Hct 31.5 % (37.5-50.1) L 01/08/18 04:10 Neutrophils # 9.2 K/mcL (1.6-8.9) H 01/08/18 04:10 Lymphocytes # 0.2 K/mcL (0.6-4.6) L 01/08/18 04:10 APTT 37.0 Seconds (26.0-36.0) H 01/06/18 12:28 ABG pO2 75 mmHg (85-104) L 01/08/18 04:49 Chloride 111 mEq/L (98-107) H 01/08/18 04:10 Carbon Dioxide 20 mEq/L (23-29) L 01/08/18 04:10 BUN 6 mg/dL (8-23) L 01/08/18 04:10 Glucose 214 mg/dL (70-105) H 01/08/18 04:10 POC Glucose 192 mg/dL (70-99) H 01/07/18 23:57 Calcium 7.4 mg/dL (8.6-10.3) L 01/08/18 04:10 Venous Ioniz Calcium 1.08 mmol/L (1.15-1.35) L 01/08/18 04:30 Phosphorus 1.3 mg/dL (2.7-4.5) L 01/07/18 13:30 AST 52 Units/L (13-39) H 01/07/18 03:50 Alkaline Phosphatase 144 Units/L (34-104) H 01/07/18 03:50 Serum Total Protein 4.5 g/dL (6.4-8.9) L 01/07/18 03:50 Albumin 2.4 g/dL (3.5-5.7) L 01/07/18 03:50 Globulin 2.1 g/dL (2.4-3.5) L 01/07/18 03:50 Prolactin 26.30 ng/mL (3.00-14.70) H 01/08/18 07:08 Ur Leukocyte Esterase Trace (Negative) H 01/06/18 12:30 Ur Squamous Epith Cells Many per lpf (None-Few) H 01/06/18 12:30 Ur Culture Indicated? NO. (NO) A 01/06/18 12:30 Ethyl Alcohol 11 mg/dL (Less than 10) H 01/06/18 12:28 General appearance: Present: no acute distress - Respiratory Respiratory exam: Present: decreased breath sounds, CTAB - Cardiovascular Cardiovascular exam: Present: +S1, +S2 - GI/Abdominal GI/Abdominal exam: Present: diminished bowel sounds, firm - Extremities Exam Extremities exam: Present: normal capillary refill, normal inspection - Neurological Exam Additional comments: Patient sedated on vent. EEG in progress. Propofol is currently off. - Skin Skin exam: Present: dry, warm Palliative Quality Palliative Quality: Screen for Code Status: NA (No family present), Screen for Goals of Care: NA, Screen for Pain: Yes, If Pain Regimen Started, Initiate Bowel Regimen: NA, Screen for Nausea/Vomitting: NA Code Status: 01/06/18 14:15 Resuscitation Status: Active [RES] Routine Comment: Resuscitation Status: Full Code Resuscitation Status: Active [RES] Routine Comment: Per brother Resuscitation Status: DNR-Comfort Care-Arrest - Labs CBC & Chem 7: 01/08/18 04:10 01/08/18 04:10 Labs: Laboratory Results - last 24 hr 01/07/18 01/07/18 01/07/18 11:32 13:30 13:30 WBC 10.8 RBC 3.28 L Hgb 10.5 L Hct 31.1 L MCV 94.8 MCH 32.0 MCHC 33.8 RDW 13.4 Plt Count 143 MPV 9.9 Immature Gran % 0.6 Seg Neutrophils % 80.8 Lymphocytes % 9.3 Monocytes % 6.3 Eosinophils % 2.8 Basophils % 0.2 Neutrophils # 8.7 Lymphocytes # 1.0 Monocytes # 0.7 Eosinophils # 0.3 Basophils # 0.0 Platelet Estimate Sample Site ABG pH ABG pCO2 ABG pO2 ABG HCO3 ABG Total CO2 ABG O2 Saturation ABG Base Excess Arvind Test Respiration Rate O2 Delivery Device Blood Gas Modality Inspired O2 Tidal Volume PEEP Sodium 137 Potassium 3.5 Chloride 110 H Carbon Dioxide 23 BUN 5 L Creatinine 0.83 Est GFR ( Amer) > 60 Est GFR (Non-Af Amer) > 60 BUN/Creatinine Ratio 6 Glucose 167 H POC Glucose 153 H Calculated Osmolality 285 Calcium 7.1 L Venous Ioniz Calcium Phosphorus 1.3 L Magnesium Prolactin 01/07/18 01/07/18 01/07/18 17:46 18:11 18:17 WBC RBC Hgb Hct MCV MCH MCHC RDW Plt Count MPV Immature Gran % Seg Neutrophils % Lymphocytes % Monocytes % Eosinophils % Basophils % Neutrophils # Lymphocytes # Monocytes # Eosinophils # Basophils # Platelet Estimate Sample Site ABG pH ABG pCO2 ABG pO2 ABG HCO3 ABG Total CO2 ABG O2 Saturation ABG Base Excess Arvind Test Respiration Rate O2 Delivery Device Blood Gas Modality Inspired O2 Tidal Volume PEEP Sodium Potassium 3.8 Chloride Carbon Dioxide BUN Creatinine Est GFR ( Amer) Est GFR (Non-Af Amer) BUN/Creatinine Ratio Glucose POC Glucose 148 H Calculated Osmolality Calcium Venous Ioniz Calcium 1.09 L Phosphorus Magnesium 1.9 Prolactin 01/07/18 01/08/18 01/08/18 23:57 04:10 04:10 WBC 9.7 RBC 3.31 L Hgb 10.6 L Hct 31.5 L MCV 95.2 MCH 32.0 MCHC 33.7 RDW 13.6 Plt Count 157 MPV 9.9 Immature Gran % 0.7 Seg Neutrophils % 95.2 Lymphocytes % 2.0 Monocytes % 2.0 Eosinophils % 0.0 Basophils % 0.1 Neutrophils # 9.2 H Lymphocytes # 0.2 L Monocytes # 0.2 Eosinophils # 0.0 Basophils # 0.0 Platelet Estimate Normal Sample Site ABG pH ABG pCO2 ABG pO2 ABG HCO3 ABG Total CO2 ABG O2 Saturation ABG Base Excess Arvind Test Respiration Rate O2 Delivery Device Blood Gas Modality Inspired O2 Tidal Volume PEEP Sodium 142 Potassium 4.2 Chloride 111 H Carbon Dioxide 20 L BUN 6 L Creatinine 0.96 Est GFR ( Amer) > 60 Est GFR (Non-Af Amer) > 60 BUN/Creatinine Ratio 6 Glucose 214 H POC Glucose 192 H Calculated Osmolality 298 Calcium 7.4 L Venous Ioniz Calcium Phosphorus Magnesium Prolactin 01/08/18 01/08/18 01/08/18 04:10 04:30 04:49 WBC RBC Hgb Hct MCV MCH MCHC RDW Plt Count MPV Immature Gran % Seg Neutrophils % Lymphocytes % Monocytes % Eosinophils % Basophils % Neutrophils # Lymphocytes # Monocytes # Eosinophils # Basophils # Platelet Estimate Sample Site R Radial ABG pH 7.37 ABG pCO2 41 ABG pO2 75 L ABG HCO3 23 ABG Total CO2 25 ABG O2 Saturation 95 ABG Base Excess -2 Arvind Test N/A Respiration Rate 14 O2 Delivery Device Adult Vent Blood Gas Modality VC Inspired O2 30.0 Tidal Volume 550 PEEP 5 Sodium Potassium Chloride Carbon Dioxide BUN Creatinine Est GFR ( Amer) Est GFR (Non-Af Amer) BUN/Creatinine Ratio Glucose POC Glucose Calculated Osmolality Calcium Venous Ioniz Calcium 1.08 L Phosphorus Magnesium 1.9 Prolactin 01/08/18 07:08 WBC RBC Hgb Hct MCV MCH MCHC RDW Plt Count MPV Immature Gran % Seg Neutrophils % Lymphocytes % Monocytes % Eosinophils % Basophils % Neutrophils # Lymphocytes # Monocytes # Eosinophils # Basophils # Platelet Estimate Sample Site ABG pH ABG pCO2 ABG pO2 ABG HCO3 ABG Total CO2 ABG O2 Saturation ABG Base Excess Arvind Test Respiration Rate O2 Delivery Device Blood Gas Modality Inspired O2 Tidal Volume PEEP Sodium Potassium Chloride Carbon Dioxide BUN Creatinine Est GFR ( Amer) Est GFR (Non-Af Amer) BUN/Creatinine Ratio Glucose POC Glucose Calculated Osmolality Calcium Venous Ioniz Calcium Phosphorus Magnesium Prolactin 26.30 H - Impressions Impressions Liver Ultrasound 01/07/18 14:00 IMPRESSION: Edematous appearing gallbladder wall, a nonspecific finding that can be seen with cholecystitis or chronic liver disease. No stones are appreciated, however this evaluation is suboptimal. No biliary dilatation. Further evaluation may be warranted with a HIDA scan if clinically appropriate. Findings compatible with hepatic steatosis. D/ / Jorge Luis Nassar / Jorge Luis Nassar Interpreting Provider: Jorge Luis Nassar Echocardiogram 01/07/18 14:50 Impressions: LVEF 60%. Normal LV chamber size, wall thickness and function. Moderate left ventricular diastolic dysfunction. Normal right ventricular structure and function. Mild-moderate pulmonary hypertension. No significant valvular dysfunction. Trivial pericardial effusion. Left Ventricular Wall Motion: Rest Echo Findings All wall segments showed normal motion. Findings: Study Quality * Technically adequate exam. ECG Findings * Normal sinus rhythm. Left Ventricle * LVEF 60%. * Normal LV chamber size, wall thickness and function. * Moderate left ventricular diastolic dysfunction. Right Ventricle * Normal right ventricular structure and function. Left Atrium * Mildly dilated left atrium. Right Atrium * Mildly dilated right atrium. Aortic Valve * Trileaflet aortic valve with normal function. * No aortic regurgitation. * No aortic stenosis. Mitral Valve * Normal mitral valve structure and function. * No mitral stenosis. * Trace mitral regurgitation. Tricuspid Valve * Normal tricuspid valve structure and function. * Trace tricuspid regurgitation. * Mild-moderate pulmonary hypertension. Pulmonic Valve * Normal pulmonic valve structure and function. * No pulmonic regurgitation. Aorta * Normally sized aortic root. Pericardium * The pericardium appears normal. IVC * The IVC is not dilated. Pulmonary Artery * Normal visualized portions of the main pulmonary artery. Chest X-Ray 01/08/18 07:00 IMPRESSION: Lines and tubes are stable. No acute focal process in the lungs. D/ / August Bateman MD / August Bateman MD Interpreting Provider: August Bateman MD - ABG Interpretation ABG results: ABG ABG pH 7.37 pH Units (7.32-7.45) 01/08/18 04:49 ABG pCO2 41 mmHg (35-45) 01/08/18 04:49 ABG pO2 75 mmHg (85-104) L 01/08/18 04:49 ABG O2 Saturation 95 % (95-98) 01/08/18 04:49 PT/INR, D-dimer PT 10.4 Seconds (9.4-12.1) 01/06/18 12:28 Consult Discharge Plan - Plan Referrals: NONE,PCP [Primary Care Provider] -
[2018-01-08] MEDS: Insulin LISPRO 300 UNITS/3 ML VIAL SQ SCH ×3 (12:33→23:47)
--- NOTE | 2018-01-08 12:33 | Neurology - Consult Note ---
<Denton Rivera - Last Filed: 01/08/18 13:05> Date of Encounter: 01/08/18 Time of Encounter: 08:30 Assessment and Plan (3) Observed seizure-like activity Current Visit: Yes Status: Acute Occurred despite precedex sedation. Most likely related to withdraw from EtOH. Propofol initiated this morning, which abated seizure-like activity. EEG today consistent with sedation. Repeat indicated after withdrawal of sedation. EEG could also represent anoxic brain injury, though less likely. (4) Encephalopathy Current Visit: Yes Status: Acute History of Present Illness Chief complaint: Seizures HPI: Anna Felder is a 67 year old male with history of alcohol abuse who presented with altered mental status with last known well 15 hours prior to presentation. He was noncooperative and not following commands on exam. He desaturated in the ER and required intubation. CT of the head was negative. Per nursing, he had four seizures overnight and two this morning. The patient remains sedated and intubated, so history was gathered by chart review and from ICU resident. Past Med Surg Social Fam HX - Past Medical History Medical history: cancer, cirrhosis, COPD, hypertension, liver disease Psychiatric history: no psych history - Social History Smoking Status: Current every day smoker Smokeless Tobacco Status: No Alcohol use: heavy Drug use: none Medications and Allergies Ibuprofen [Motrin] 600 mg PO Q6HR #20 tablet 07/28/15 [Rx] predniSONE [PredniSONE] 60 mg PO DAILY #30 tablet 07/28/15 [Rx] Ondansetron ODT [Zofran ODT] 4 mg SL Q6HR #12 tab.rapdis 04/07/16 [Rx] levoFLOXacin [Levaquin] 250 mg PO DAILY #5 tablet 04/07/16 [Rx] Aspirin [Lo-Dose Aspirin EC] 81 mg PO DAILY 01/06/18 [History] Baclofen 20 mg PO TID PRN 01/06/18 [History] Budesonide/Formoterol 160/4.5 [Symbicort 160/4.5] 2 puff IH BIDR 01/06/18 [ History] Cetirizine HCl [All Day Allergy] 10 mg PO DAILY 01/06/18 [History] Cholecalciferol (D-3) [Vitamin D] 2,000 unit PO DAILY 01/06/18 [History] Folic Acid 1 mg PO DAILY 01/06/18 [History] Gabapentin [Neurontin] 900 mg PO TID 01/06/18 [History] Ipratropium/Albuterol Neb [Duoneb] 3 ml IH TID 01/06/18 [History] Melatonin [Melatin] 3 mg PO HS 01/06/18 [History] Meloxicam [Mobic] 15 mg PO DAILY 01/06/18 [History] Metoprolol [Lopressor] 12.5 mg PO BID 01/06/18 [History] Multivit-Min/FA/Lycopen/Lutein [A Thru Z Select Multivit Tab] 1 tab PO DAILY 02/18 [History] Ranitidine HCl [Acid Freelance Photographer] 150 mg PO BID 01/06/18 [History] Sildenafil Citrate 100 mg PO DAILY PRN 01/06/18 [History] Simvastatin [Zocor] 20 mg PO HS 01/06/18 [History] Thiamine (B-1) [Vitamin B-1] 100 mg PO DAILY 01/06/18 [History] 3 Allergy/AdvReac Type Severity Reaction Status Date / Time No Known Allergies Allergy Verified 04/07/16 18:58 ROS unobtainable: due to endotracheal tube, due to mental status All Systems: The remainder of the systems were reviewed and are negative Physical Examination - Vital Signs Vital Signs: Initial Vital Signs Temp Pulse Resp BP Pulse Ox 0 F L 83 22 93/52 85 01/06/18 12:16 01/06/18 12:16 01/06/18 12:16 01/06/18 12:16 01/06/18 12:16 - Exam Exam: CONSTITUTIONAL: Patient intubated and sedated. CARDIOVASCULAR: Regular rate and rhythm. +S1 and S2. NEURO: Mental Status: Unarousable. Does not follow commands or respond to questions. Cranial Nerves: PERRL. Other nerves unobtainable due to mental status. Motor and Sensory exam unobtainable due to mental status. Reflexes 1+ globally. Results - Laboratory Findings CBC and BMP: 01/08/18 04:10 01/08/18 04:10 Abnormal lab findings: Abnormal lab results RBC 3.31 M/mcL (4.19-5.50) L 01/08/18 04:10 Hgb 10.6 g/dL (12.9-16.9) L 01/08/18 04:10 Hct 31.5 % (37.5-50.1) L 01/08/18 04:10 Neutrophils # 9.2 K/mcL (1.6-8.9) H 01/08/18 04:10 Lymphocytes # 0.2 K/mcL (0.6-4.6) L 01/08/18 04:10 APTT 37.0 Seconds (26.0-36.0) H 01/06/18 12:28 ABG pO2 75 mmHg (85-104) L 01/08/18 04:49 Chloride 111 mEq/L (98-107) H 01/08/18 04:10 Carbon Dioxide 20 mEq/L (23-29) L 01/08/18 04:10 BUN 6 mg/dL (8-23) L 01/08/18 04:10 Glucose 214 mg/dL (70-105) H 01/08/18 04:10 POC Glucose 192 mg/dL (70-99) H 01/07/18 23:57 Calcium 7.4 mg/dL (8.6-10.3) L 01/08/18 04:10 Venous Ioniz Calcium 1.08 mmol/L (1.15-1.35) L 01/08/18 04:30 Phosphorus 1.3 mg/dL (2.7-4.5) L 01/07/18 13:30 AST 52 Units/L (13-39) H 01/07/18 03:50 Alkaline Phosphatase 144 Units/L (34-104) H 01/07/18 03:50 Serum Total Protein 4.5 g/dL (6.4-8.9) L 01/07/18 03:50 Albumin 2.4 g/dL (3.5-5.7) L 01/07/18 03:50 Globulin 2.1 g/dL (2.4-3.5) L 01/07/18 03:50 Prolactin 26.30 ng/mL (3.00-14.70) H 01/08/18 07:08 Ur Leukocyte Esterase Trace (Negative) H 01/06/18 12:30 Ur Squamous Epith Cells Many per lpf (None-Few) H 01/06/18 12:30 Ur Culture Indicated? NO. (NO) A 01/06/18 12:30 Ethyl Alcohol 11 mg/dL (Less than 10) H 01/06/18 12:28 Consult Discharge Plan - Plan Referrals: NONE,PCP [Primary Care Provider] - <Jessi Elias I - Last Filed: 01/08/18 15:50> Date of Encounter: 01/08/18 Assessment and Plan (1) Observed seizure-like activity Current Visit: Yes Status: Acute Pt was seen and examined, my medical decision was reviewed with the Resident Physician, I agree with the documented findings, disposition and treatment plas as described except to the extent set forth below Patient did have some seizure type of activity but no electrographic seizure activity were reported recorded initial EEG did shows medication effect including bust suppression that could also be seen with anoxic brain injury. Patient that had an other EEG when she was off sedation that shows medication side effect including be done activity likely related to benzodiazepine and barbiturates side effect no evidence of any continue seizure activity. Considering patient did have these observed episodes of jerking off and on but could be stimulus-related and perhaps could be a myoclonic jerking if those symptoms get more prominent perhaps he could be loaded with IV Depakote/ on the other hand Keppra could be used as well if there is any clinical seizures Continue treatment underlying metabolic and infectious etiologies at the moment not much evidence to be suggestive of any THERAPEUTIC RECREATION DIRECTOR infection We will follow the patient with you Jessi Elias MD History of Present Illness HPI: Mr. Felder is a 67 year old male All Systems: The remainder of the systems were reviewed and are negative Physical Examination - Vital Signs Vital Signs: Initial Vital Signs Temp Pulse Resp BP Pulse Ox 0 F L 83 22 93/52 85 01/06/18 12:16 01/06/18 12:16 01/06/18 12:16 01/06/18 12:16 01/06/18 12:16 Results - Laboratory Findings CBC and BMP: 01/08/18 04:10 01/08/18 14:55 Abnormal lab findings: Abnormal lab results RBC 3.31 M/mcL (4.19-5.50) L 01/08/18 04:10 Hgb 10.6 g/dL (12.9-16.9) L 01/08/18 04:10 Hct 31.5 % (37.5-50.1) L 01/08/18 04:10 Neutrophils # 9.2 K/mcL (1.6-8.9) H 01/08/18 04:10 Lymphocytes # 0.2 K/mcL (0.6-4.6) L 01/08/18 04:10 APTT 37.0 Seconds (26.0-36.0) H 01/06/18 12:28 ABG pO2 75 mmHg (85-104) L 01/08/18 04:49 Chloride 109 mEq/L (98-107) H 01/08/18 14:55 BUN 7 mg/dL (8-23) L 01/08/18 14:55 Glucose 205 mg/dL (70-105) H 01/08/18 14:55 POC Glucose 192 mg/dL (70-99) H 01/07/18 23:57 Hemoglobin A1c 6.1 % (-5.6) H 01/08/18 12:16 Calcium 8.0 mg/dL (8.6-10.3) L 01/08/18 14:55 Venous Ioniz Calcium 1.07 mmol/L (1.15-1.35) L 01/08/18 12:37 Phosphorus 1.3 mg/dL (2.7-4.5) L 01/07/18 13:30 AST 52 Units/L (13-39) H 01/07/18 03:50 Alkaline Phosphatase 144 Units/L (34-104) H 01/07/18 03:50 Serum Total Protein 4.5 g/dL (6.4-8.9) L 01/07/18 03:50 Albumin 2.4 g/dL (3.5-5.7) L 01/07/18 03:50 Globulin 2.1 g/dL (2.4-3.5) L 01/07/18 03:50 Prolactin 26.30 ng/mL (3.00-14.70) H 01/08/18 07:08 Ur Leukocyte Esterase Trace (Negative) H 01/06/18 12:30 Ur Squamous Epith Cells Many per lpf (None-Few) H 01/06/18 12:30 Ur Culture Indicated? NO. (NO) A 01/06/18 12:30 Vancomycin Trough 15 mcg/mL (5-10) H 01/08/18 12:16 Ethyl Alcohol 11 mg/dL (Less than 10) H 01/06/18 12:28
[2018-01-08 12:39] LABS: VBG Ionized Calcium 1.07 mmol/L (1.15-1.35)
[2018-01-08 12:52] LABS: Estimated Average Glucose 128 mg/dl; Hemoglobin A1C 6.1 %
[2018-01-08] MEDS ORDERED: levETIRAcetam 1,000 MG in 0.9 % Sodium Chloride 100 ML IVPB ONE (15:11)
--- NOTE | 2018-01-08 15:15 | Event Note ---
Date of Encounter: 01/08/18 Time of Encounter: 15:13 Patient had a seizure while the nurse was moving him on the pillow he was intubated at that time he started to have eye jerking and myoclonic jerks in all limbs. He actually began biting the intubation tube and oxygen saturations dropped to 60%. We gave him 2 mg of IV Ativan at that time the seizure stopped and we were successfully able to use bag valve on the tube to properly auction A him at 100%. He was then placed back on the ventilator. I did consult with neurology and spoke with Dr. Elias who recommended we give a loading dose of 1000 mg IV Keppra and then follow up with Keppra 500 mg twice a day. This was ordered and done. Patient is stable at this time.
[2018-01-08 15:43] LABS: BUN/Creatinine Ratio 6 (6-26); Blood Urea Nitrogen 7 mg/dL (8-23); Carbon Dioxide 23 mEq/L (23-29); Chloride 109 mEq/L (98-107); Glucose 205 mg/dL (70-105); Osmolality,Calculated 296 (280-300); Sodium 141 mEq/L (136-145); eGFR For African Americans > 60 (> 60); eGFR For Non-African Americans > 60 (> 60)
--- NOTE | 2018-01-08 16:42 | Electrocardiograph Report ---
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
[2018-01-08] MEDS: Thiamine (B-1) 100 MG, Folic Acid 1 MG, MVI, adult with vitamin K 10 ML in 0.9 % Sodi... IVPB SCH (16:53)
[2018-01-09] MEDS: Ipratropium/Albuterol Neb 3 ML IH SCH ×6 (03:25→23:55)
[2018-01-09 04:35] LABS: Basophils % 0.1 %; Hematocrit 31.3 % (37.5-50.1); Hemoglobin 10.7 g/dL (12.9-16.9); Immature Granulocytes % 1.9 % (0-4); Lymphocytes # 0.5 K/mcL (0.6-4.6); Lymphocytes % 2.4 %; Mean Corpuscular HGB Conc 34.2 g/dL (31.6-35.5); Mean Corpuscular Hemoglobin 33.6 pg (28.0-33.3); Mean Corpuscular Volume 98.4 fL (83.0-100.0); Mean Platelet Volume 9.9 fL (9.4-12.4); Monocytes # 1.2 K/mcL (0.0-1.3); Monocytes % 5.6 %; Neutrophils # 18.7 K/mcL (1.6-8.9); Platelet Count 222 K/mcL (140-400); Red Blood Count 3.18 M/mcL (4.19-5.50); Red Cell Distribution Width 14.1 % (11.5-14.5)
[2018-01-09] MEDS: Lacri-Lube 3.5 GM TUBE BOTH EYES SCH ×5 (04:37→22:18)
[2018-01-09 04:52] LABS: BUN/Creatinine Ratio 6 (6-26); Blood Urea Nitrogen 8 mg/dL (8-23); Calcium 8.1 mg/dL (8.6-10.3); Carbon Dioxide 22 mEq/L (23-29); Chloride 111 mEq/L (98-107); Glucose 166 mg/dL (70-105); Magnesium 2.2 mg/dL (1.6-2.6); Osmolality,Calculated 298 (280-300); Phosphorous 4.8 mg/dL (2.7-4.5); Potassium 4.3 mEq/L (3.5-5.1); Sodium 143 mEq/L (136-145); eGFR For African Americans > 60 (> 60); eGFR For Non-African Americans 55 (> 60)
[2018-01-09] MEDS: *HR* Heparin 5,000 UNIT/ML VIAL SQ SCH ×2 (05:30→18:25)
[2018-01-09] MEDS: MethylPREDNISolone 40 MG/ML VIAL IVP SCH (05:31)
[2018-01-09] MEDS: Insulin LISPRO 300 UNITS/3 ML VIAL SQ SCH ×3 (05:34→18:26)
[2018-01-09] MEDS: Lactulose Oral Soln 20 GM/30 ML UDC GTUBE SCH ×3 (08:06→22:16)
[2018-01-09] MEDS: Chlorhexidine Rinse 15 ML MOUTHWASH MM SCH ×2 (08:06→22:18)
[2018-01-09] MEDS: Levofloxacin 750 MG/150 ML 750 MG/150 ML BAG IVPB SCH (08:07)
[2018-01-09] MEDS: Furosemide 40 MG/4 ML VIAL IVP SCH ×2 (08:07→22:18)
[2018-01-09] MEDS: Pantoprazole 40 MG VIAL IVP SCH (08:07)
[2018-01-09] MEDS: Budesonide/Formoterol 160/4.5 MDI IH SCH ×2 (08:43→20:01)
[2018-01-09] MEDS: Norepinephrine 4 MG in D5% in Water 250 ML IVC SCH (09:01)
[2018-01-09] MEDS: FentaNYL (PF) 1,000 MCG in 0.9 % Sodium Chloride 80 ML IVC SCH ×2 (09:06→18:36)
[2018-01-09 09:34] LABS: ABG Base Excess -1 mEq/L (-2 to 3); ABG HCO3 26 mEq/L (21-27); ABG Oxygen Saturation 98 % (95-98); ABG PCO2 48 mmHg (35-45); ABG PH 7.34 pH Units (7.32-7.45); ABG PO2 114 mmHg (85-104); ABG TCO2 27 mEq/L (20-26); Blood Gas Modality ASSIST CONTROL; Blood Gas PEEP 5 cm H2O; Blood Gas Respiration Rate 14; Blood Gas VT 550 cc
[2018-01-09 09:34] LABS: VBG Ionized Calcium 1.13 mmol/L (1.15-1.35)
[2018-01-09] MEDS: Valproic Acid INJ 500 MG in 0.9 % Sodium Chloride 100 ML IVPB SCH ×2 (09:37→22:21)
--- NOTE | 2018-01-09 10:03 | Pulmonology Progress Note ---
<Bobby Muro - Last Filed: 01/09/18 14:20> Date of Encounter: 01/09/18 Time of Encounter: 09:10 Assessment and Plan (1) Metabolic encephalopathy Current Visit: Yes Status: Acute - Very possible it is multifactorial - Etiologies may include hyperammonemia, hypercapnia, sepsis, alcohol withdrawal , infectious etiology - CT head was negative for acute process - Blood and urine cultures pending, negative so far - We will treat underlying conditions as above and below -Supportive care, fall precautions, seizure precautions - We will not place restraints due to seizures (2) Acute respiratory failure Current Visit: Yes Status: Acute - Acute respiratory failure with hypoxia and hypercapnia - Possible etiologies include congestive heart failure exacerbation versus COPD exacerbation versus less likely pneumonia - Initial ABG did demonstrate a respiratory acidosis, improving. - CXR on 01/06 was negative for any intrathoracic process, repeat on 01/09 showing minimal change - CT abdomen 01/07 did demonstrate volume overload - Arterial blood gas most recently demonstrates non-gap metabolic acidosis with pH of 7.34, which is improved from 7.07 on admission - Patient remains ventilator dependent - Echocardiogram showing moderate diastolic dysfunction, EF 60% Plan - Continue ventilator support - Continue Levaquin for possible pneumonia component, on day #4 - Diuresis with 40 Lasix IV twice a day - Continue steroids (decrease from q12 to q24 hours), breathing treatments, add symbicort Qualifiers: Respiratory failure complication: hypoxia and hypercapnia Qualified Code(s) : J96.01 - Acute respiratory failure with hypoxia; J96.02 - Acute respiratory failure with hypercapnia; J96.02 - Acute respiratory failure with hypercapnia; J96.02 - Acute respiratory failure with hypercapnia (3) Lactic acidosis Current Visit: Yes Status: Resolved Lactic acid originally 5.3 which has downtrended to wnl (4) Leukocytosis Current Visit: Yes Status: Acute - Leukocytosis of 24.7 on admission which is down trended to 9.7. Increased to 20.8 this AM, possibly elevated secondary to seizures - Likely multifactorial including stress reaction, infectious etiology - Started on vancomycin, Zosyn, Levaquin and emergency room - Possible infectious sources include pneumonia versus unknown etiology vs reactive in setting of seizures - Urinalysis not suggestive of infection - Lactic acidosis was 5.3 which has been trended and is now within normal limits - Suspect this is less likely infectious etiology and more likely reactive in nature Plan - Continue antibiotics day #4 - High suspicion of reactive etiology in the setting of myoclonus, will treat underlying etiologies as below - Continue to monitor with daily labs Qualifiers: Leukocytosis type: unspecified Qualified Code(s): D72.829 - Elevated white blood cell count, unspecified (5) Prostate cancer Current Visit: Yes Status: Chronic As below for colon cancer (6) Colon cancer Current Visit: Yes Status: Suspected - Family reports history of colon cancer and prostate cancer - Diagnosed [place] [facility] in August 2017 - Reports no chemotherapy or radiation treatments - CT abdomen/pelvis today showed no signs of mass or metastasis Plan - Follow up with [facility] as outpatient for further management if desired - Palliative care consult Qualifiers: Colon location: unspecified part of colon Qualified Code(s): C18.9 - Malignant neoplasm of colon, unspecified (7) Alcohol withdrawal Current Visit: Yes Status: Acute - Suspected alcohol withdrawal. - Per family, patient consumes 1 gallon of whiskey every 3 days - Unknown last drink - Alcohol on presentation was 11 - Patient was noted to have continued seizures. Neurology states that this is more likely myoclonus. - Vitamin supplementation Plan - CIWA protocol stopped as we are unable to assess fully. - Change to propofol sedation yesterday - Start depakote 500 mg BID per neuro recommendations - Monitor for further signs of withdrawal - Social work consult Qualifiers: Complication of substance-induced condition: uncomplicated Qualified Code(s ): F10.230 - Alcohol dependence with withdrawal, uncomplicated (8) Hyperammonemia Current Visit: Yes Status: Acute - Ammonia of 116 on presentation -Reported history of heavy drinking - Ammonia has down trended to 50 - INR within normal limits at 1.0 - Liver ultrasound taken showing hepatic steatosis - Has been getting lactulose via G-tube - AST mildly elevated with most recent value of 52, ALT within normal limits, alkaline phosphatase 144 Plan - Continue to monitor for signs of altered mental status - Treat underlying conditions as above and below (9) Goals of care, counseling/discussion Current Visit: Yes Status: Acute Consult to try to care for goals of care discussion Discussed with family per Palliative care. Reports 2 estranged sons and a fiance. Has reportedly previously discussed wanting brother to make decisions, however unsure if paperwork has been filled out. Palliative care following and working on paperwork aspect Patient is DNR/CCA (10) Observed seizure-like activity Current Visit: Yes Status: Acute Multiple reported seizures of unknown etiology - Possible alcohol withdrawl vs medication vs epileptic. - Neuro consulted and following - Precedex changed to propofol yesterday. - Prolactin 26 this AM - EEG obtained and showed diffuse brain injury however these may be secondary to sedative for intubation Plan - After additional seizures on propofol, neuro added keppra yesterday. - Neuro believes this to be more myoclonus and will change to depakote today (11) (HFpEF) heart failure with preserved ejection fraction Current Visit: Yes Status: Chronic EF 60, moderate diastolic as above (12) DVT prophylaxis Current Visit: Yes Status: Acute Heparin 5000 units q12 hours Subjective Principal diagnosis: Acute respiratory failure Interval history: Patient was seen and examined at bedside. He is intubated and sedated and unable to participate in interview. He was noted to have multiple episodes of myoclonic jerking on propofol drip. Neurology was recontacted and they recommend loading with Keppra yesterday afternoon. Objective PUL Vital signs: Last Vital Signs Temp 98.6 F 01/09/18 07:35 Pulse 118 01/09/18 09:00 Resp 14 01/09/18 09:00 BP 104/67 01/09/18 09:00 Pulse Ox 94 01/09/18 09:00 Gen.: Vitals noted. No acute distress. Intubated and sedated on vent. HEENT: PERRL/EOMI, oropharynx clear, Normocephalic, atraumatic. ET tube Cardiac: RRR, no murmur, +S1/S2 Pulmonary: Diffuse rhonchi present, improved. equal chest expansion Abdomen: soft, distended, BS noted, no guarding MSK: unable to assess Extremities: 2+ pitting BLE edema, some UE edema to mid forearm, no cyanosis or clubbing Neuro: Unable to assess Psych: N/A Ventilator Settings Ventilator Settings: Ventilator Settings, Last 8 Hours Ventilator Mode VC+ Ventilator Mode VC+ Ventilator Mode VC+ Ventilator Mode VC+ Ventilator Mode VC+ Ventilator Mode A/C Ventilator Mode VC+ Ventilator Mode VC+ Ventilator Tidal Volume 550 Setting Ventilator Tidal Volume 550 Setting Ventilator Tidal Volume 550 Setting Ventilator Tidal Volume 550 Setting Ventilator Tidal Volume 550 Setting Ventilator Tidal Volume 550 Setting Ventilator Tidal Volume 550 Setting Ventilator Tidal Volume 550 Setting Ventilator Tidal Volume 550 Setting Ventilator Tidal Volume 550 Setting Ventilator Respiratory Rate 14 Setting Ventilator Respiratory Rate 14 Setting Ventilator Respiratory Rate 14 Setting Ventilator Respiratory Rate 14 Setting Ventilator Respiratory Rate 14 Setting Ventilator Respiratory Rate 14 Setting Ventilator Respiratory Rate 14 Setting Ventilator Respiratory Rate 14 Setting Ventilator Respiratory Rate 14 Setting Ventilator Respiratory Rate 14 Setting Actual Respiratory Rate 14 Actual Respiratory Rate 14 Actual Respiratory Rate 14 Actual Respiratory Rate 14 Actual Respiratory Rate 14 Actual Respiratory Rate 14 Actual Respiratory Rate 14 Actual Respiratory Rate 14 Actual Respiratory Rate 14 Positive End Expiratory 5 Pressure Positive End Expiratory 5 Pressure Positive End Expiratory 5 Pressure Positive End Expiratory 5 Pressure Positive End Expiratory 5 Pressure Positive End Expiratory 5 Pressure Positive End Expiratory 5 Pressure Positive End Expiratory 5 Pressure Positive End Expiratory 5 Pressure Positive End Expiratory 5 Pressure Peak Inspiratory Airway 49 Pressure Peak Inspiratory Airway 34 Pressure Peak Inspiratory Airway 48 Pressure Peak Inspiratory Airway 45 Pressure Peak Inspiratory Airway 40 Pressure Peak Inspiratory Airway 26 Pressure Peak Inspiratory Airway 28 Pressure Peak Inspiratory Airway 28 Pressure Peak Inspiratory Airway 29 Pressure Results - Laboratory Findings CBC and BMP: 01/09/18 04:00 01/09/18 04:15 ABG ABG pH 7.34 pH Units (7.32-7.45) 01/09/18 04:48 ABG pCO2 48 mmHg (35-45) H 01/09/18 04:48 ABG pO2 114 mmHg (85-104) H 01/09/18 04:48 ABG O2 Saturation 98 % (95-98) 01/09/18 04:48 PT/INR, D-dimer PT 10.4 Seconds (9.4-12.1) 01/06/18 12:28 Abnormal lab findings: Abnormal lab results WBC 20.8 K/mcL (4.3-11.1) H D 01/09/18 04:00 RBC 3.18 M/mcL (4.19-5.50) L 01/09/18 04:00 Hgb 10.7 g/dL (12.9-16.9) L 01/09/18 04:00 Hct 31.3 % (37.5-50.1) L 01/09/18 04:00 MCH 33.6 pg (28.0-33.3) H 01/09/18 04:00 Neutrophils # 18.7 K/mcL (1.6-8.9) H 01/09/18 04:00 Lymphocytes # 0.5 K/mcL (0.6-4.6) L 01/09/18 04:00 APTT 37.0 Seconds (26.0-36.0) H 01/06/18 12:28 ABG pCO2 48 mmHg (35-45) H 01/09/18 04:48 ABG pO2 114 mmHg (85-104) H 01/09/18 04:48 ABG Total CO2 27 mEq/L (20-26) H 01/09/18 04:48 Chloride 111 mEq/L (98-107) H 01/09/18 04:15 Carbon Dioxide 22 mEq/L (23-29) L 01/09/18 04:15 Est GFR (Non-Af Amer) 55 (> 60) L 01/09/18 04:15 Glucose 166 mg/dL (70-105) H 01/09/18 04:15 POC Glucose 170 mg/dL (70-99) H 01/08/18 23:43 Hemoglobin A1c 6.1 % (-5.6) H 01/08/18 12:16 Calcium 8.1 mg/dL (8.6-10.3) L 01/09/18 04:15 Venous Ioniz Calcium 1.13 mmol/L (1.15-1.35) L 01/09/18 04:38 Phosphorus 4.8 mg/dL (2.7-4.5) H 01/09/18 04:15 AST 52 Units/L (13-39) H 01/07/18 03:50 Alkaline Phosphatase 144 Units/L (34-104) H 01/07/18 03:50 Serum Total Protein 4.5 g/dL (6.4-8.9) L 01/07/18 03:50 Albumin 2.4 g/dL (3.5-5.7) L 01/07/18 03:50 Globulin 2.1 g/dL (2.4-3.5) L 01/07/18 03:50 Prolactin 26.30 ng/mL (3.00-14.70) H 01/08/18 07:08 Ur Leukocyte Esterase Trace (Negative) H 01/06/18 12:30 Ur Squamous Epith Cells Many per lpf (None-Few) H 01/06/18 12:30 Ur Culture Indicated? NO. (NO) A 01/06/18 12:30 Vancomycin Trough 15 mcg/mL (5-10) H 01/08/18 12:16 Ethyl Alcohol 11 mg/dL (Less than 10) H 01/06/18 12:28 - Clinical Findings Intake & Output: Intake & Output 01/08/18 01/09/18 01/09/18 23:59 07:59 15:59 Intake Total 1180.2 / 1180.2 386 / 386 150 / 150 Output Total 200 / 200 500 / 500 45 / 45 Balance 980.2 / 980.2 -114 / -114 105 / 105 Weight 75.8 kg Consult Discharge Plan - Plan Referrals: NONE,PCP [Primary Care Provider] - <Estrella Xie - Last Filed: 01/09/18 16:00> Date of Encounter: 01/09/18 Objective PUL Vital signs: Last Vital Signs Temp 98.6 F 01/09/18 07:35 Pulse 118 01/09/18 09:00 Resp 14 01/09/18 09:00 BP 104/67 01/09/18 09:00 Pulse Ox 94 01/09/18 09:00 Ventilator Settings Ventilator Settings: Ventilator Settings, Last 8 Hours Ventilator Mode VC+ Ventilator Mode VC+ Ventilator Mode VC+ Ventilator Mode VC+ Ventilator Mode VC+ Ventilator Mode A/C Ventilator Mode VC+ Ventilator Mode VC+ Ventilator Tidal Volume 550 Setting Ventilator Tidal Volume 550 Setting Ventilator Tidal Volume 550 Setting Ventilator Tidal Volume 550 Setting Ventilator Tidal Volume 550 Setting Ventilator Tidal Volume 550 Setting Ventilator Tidal Volume 550 Setting Ventilator Tidal Volume 550 Setting Ventilator Tidal Volume 550 Setting Ventilator Tidal Volume 550 Setting Ventilator Respiratory Rate 14 Setting Ventilator Respiratory Rate 14 Setting Ventilator Respiratory Rate 14 Setting Ventilator Respiratory Rate 14 Setting Ventilator Respiratory Rate 14 Setting Ventilator Respiratory Rate 14 Setting Ventilator Respiratory Rate 14 Setting Ventilator Respiratory Rate 14 Setting Ventilator Respiratory Rate 14 Setting Ventilator Respiratory Rate 14 Setting Actual Respiratory Rate 14 Actual Respiratory Rate 14 Actual Respiratory Rate 14 Actual Respiratory Rate 14 Actual Respiratory Rate 14 Actual Respiratory Rate 14 Actual Respiratory Rate 14 Actual Respiratory Rate 14 Actual Respiratory Rate 14 Positive End Expiratory 5 Pressure Positive End Expiratory 5 Pressure Positive End Expiratory 5 Pressure Positive End Expiratory 5 Pressure Positive End Expiratory 5 Pressure Positive End Expiratory 5 Pressure Positive End Expiratory 5 Pressure Positive End Expiratory 5 Pressure Positive End Expiratory 5 Pressure Positive End Expiratory 5 Pressure Peak Inspiratory Airway 49 Pressure Peak Inspiratory Airway 34 Pressure Peak Inspiratory Airway 48 Pressure Peak Inspiratory Airway 45 Pressure Peak Inspiratory Airway 40 Pressure Peak Inspiratory Airway 26 Pressure Peak Inspiratory Airway 28 Pressure Peak Inspiratory Airway 28 Pressure Peak Inspiratory Airway 29 Pressure Results - Laboratory Findings CBC and BMP: 05/09/18 04:00 01/09/18 13:15 ABG ABG pH 7.34 pH Units (7.32-7.45) 01/09/18 04:48 ABG pCO2 48 mmHg (35-45) H 01/09/18 04:48 ABG pO2 114 mmHg (85-104) H 01/09/18 04:48 ABG O2 Saturation 98 % (95-98) 01/09/18 04:48 PT/INR, D-dimer PT 10.4 Seconds (9.4-12.1) 01/06/18 12:28 Abnormal lab findings: Abnormal lab results WBC 20.8 K/mcL (4.3-11.1) H D 01/09/18 04:00 RBC 3.18 M/mcL (4.19-5.50) L 01/09/18 04:00 Hgb 10.7 g/dL (12.9-16.9) L 01/09/18 04:00 Hct 31.3 % (37.5-50.1) L 01/09/18 04:00 MCH 33.6 pg (28.0-33.3) H 01/09/18 04:00 Neutrophils # 18.7 K/mcL (1.6-8.9) H 01/09/18 04:00 Lymphocytes # 0.5 K/mcL (0.6-4.6) L 01/09/18 04:00 APTT 37.0 Seconds (26.0-36.0) H 01/06/18 12:28 ABG pCO2 48 mmHg (35-45) H 01/09/18 04:48 ABG pO2 114 mmHg (85-104) H 01/09/18 04:48 ABG Total CO2 27 mEq/L (20-26) H 01/09/18 04:48 Chloride 111 mEq/L (98-107) H 01/09/18 04:15 Carbon Dioxide 22 mEq/L (23-29) L 01/09/18 04:15 Est GFR (Non-Af Amer) 55 (> 60) L 01/09/18 04:15 Glucose 166 mg/dL (70-105) H 01/09/18 04:15 POC Glucose 170 mg/dL (70-99) H 01/08/18 23:43 Hemoglobin A1c 6.1 % (-5.6) H 01/08/18 12:16 Calcium 8.1 mg/dL (8.6-10.3) L 01/09/18 04:15 Venous Ioniz Calcium 1.13 mmol/L (1.15-1.35) L 01/09/18 04:38 Phosphorus 4.8 mg/dL (2.7-4.5) H 01/09/18 04:15 AST 52 Units/L (13-39) H 01/07/18 03:50 Alkaline Phosphatase 144 Units/L (34-104) H 01/07/18 03:50 Serum Total Protein 4.5 g/dL (6.4-8.9) L 01/07/18 03:50 Albumin 2.4 g/dL (3.5-5.7) L 01/07/18 03:50 Globulin 2.1 g/dL (2.4-3.5) L 01/07/18 03:50 Prolactin 26.30 ng/mL (3.00-14.70) H 01/08/18 07:08 Ur Leukocyte Esterase Trace (Negative) H 01/06/18 12:30 Ur Squamous Epith Cells Many per lpf (None-Few) H 01/06/18 12:30 Ur Culture Indicated? NO. (NO) A 01/06/18 12:30 Vancomycin Trough 15 mcg/mL (5-10) H 01/08/18 12:16 Ethyl Alcohol 11 mg/dL (Less than 10) H 01/06/18 12:28 - Clinical Findings Intake & Output: Intake & Output 01/08/18 01/09/18 01/09/18 23:59 07:59 15:59 Intake Total 1180.2 / 1180.2 386 / 386 150 / 150 Output Total 200 / 200 500 / 500 45 / 45 Balance 980.2 / 980.2 -114 / -114 105 / 105 Weight 75.8 kg - Attending Attestation I examined this patient and my medical decision-making was reviewed with the Resident Physician. I agree with the documented findings, disposition and treatment plan as described except to the extent set forth below. Patient seen and examined. Labs, radiology, chart personally reviewed. Agree with resident's history and physical, assessment, plan with following comments: TITRATOR: Patient does not follows commands, continue to have abnormal jerky movements and patient requiring sedation. Pulmonary: Acceptable oxygenation and ventilation. Patient is not ready for spontaneous breathing trial and peak airway pressure is elevated most likely from bronchospasm and continue bronchodilators and adding Symbicort to the treatment. Cardiovascular: stable GI: Nutrition per dietary and GI prophylaxis per routine Heme: DVT prophylaxis per routine Renal; urine out put and renal funtion reviewed Endorcine: blood glucose is monitored Lines: all lines checked and no evidence of infections Skin: skin care to prevent pressure ulcers per nursing routine care Overall prognosis is poor.
--- NOTE | 2018-01-09 10:56 | Neurology Progress Note ---
<Denton Rivera - Last Filed: 01/09/18 10:53> Date of Encounter: 01/09/18 Time of Encounter: 09:00 Assessment and Plan (1) Observed seizure-like activity Current Visit: Yes Status: Acute Symptomatology most consistent with myoclonus. Transition from Keppra to Depakote. Continue treatment of underlying metabolic/infectious encephalopathy. Subjective Principal diagnosis: Acute respiratory failure Interval history: Patient remains unabated and nonresponsive, though does open eyes to voice. Patient had been given loading dose of Keppra yesterday. Objective - Constitutional Vitals: Temp Pulse Resp BP Pulse Ox 98.6 F 108 14 102/68 97 01/09/18 07:35 01/09/18 10:00 01/09/18 10:00 01/09/18 10:00 01/09/18 10:00 - Other Additional findings: CONSTITUTIONAL: patient intubated and sedated. CARDIOVASCULAR: Regular rate and rhythm. +S1 and S2. CHEST: Normal work of breathing. NEURO: Mental Status: Eye-opening to voice. Does not follow commands respond to questions. Cranial Nerves: PERRL, otherwise unobtainable due to mental status Reflexes 1+ globally. Results - Laboratory Findings CBC and BMP: 01/09/18 04:00 01/09/18 04:15 Abnormal lab findings: Abnormal lab results WBC 20.8 K/mcL (4.3-11.1) H D 01/09/18 04:00 RBC 3.18 M/mcL (4.19-5.50) L 01/09/18 04:00 Hgb 10.7 g/dL (12.9-16.9) L 01/09/18 04:00 Hct 31.3 % (37.5-50.1) L 01/09/18 04:00 MCH 33.6 pg (28.0-33.3) H 01/09/18 04:00 Neutrophils # 18.7 K/mcL (1.6-8.9) H 01/09/18 04:00 Lymphocytes # 0.5 K/mcL (0.6-4.6) L 01/09/18 04:00 APTT 37.0 Seconds (26.0-36.0) H 01/06/18 12:28 ABG pCO2 48 mmHg (35-45) H 01/09/18 04:48 ABG pO2 114 mmHg (85-104) H 01/09/18 04:48 ABG Total CO2 27 mEq/L (20-26) H 01/09/18 04:48 Chloride 111 mEq/L (98-107) H 01/09/18 04:15 Carbon Dioxide 22 mEq/L (23-29) L 01/09/18 04:15 Est GFR (Non-Af Amer) 55 (> 60) L 01/09/18 04:15 Glucose 166 mg/dL (70-105) H 01/09/18 04:15 POC Glucose 170 mg/dL (70-99) H 01/08/18 23:43 Hemoglobin A1c 6.1 % (-5.6) H 01/08/18 12:16 Calcium 8.1 mg/dL (8.6-10.3) L 01/09/18 04:15 Venous Ioniz Calcium 1.13 mmol/L (1.15-1.35) L 01/09/18 04:38 Phosphorus 4.8 mg/dL (2.7-4.5) H 01/09/18 04:15 AST 52 Units/L (13-39) H 01/07/18 03:50 Alkaline Phosphatase 144 Units/L (34-104) H 01/07/18 03:50 Serum Total Protein 4.5 g/dL (6.4-8.9) L 01/07/18 03:50 Albumin 2.4 g/dL (3.5-5.7) L 01/07/18 03:50 Globulin 2.1 g/dL (2.4-3.5) L 01/07/18 03:50 Prolactin 26.30 ng/mL (3.00-14.70) H 01/08/18 07:08 Ur Leukocyte Esterase Trace (Negative) H 01/06/18 12:30 Ur Squamous Epith Cells Many per lpf (None-Few) H 01/06/18 12:30 Ur Culture Indicated? NO. (NO) A 01/06/18 12:30 Vancomycin Trough 15 mcg/mL (5-10) H 01/08/18 12:16 Ethyl Alcohol 11 mg/dL (Less than 10) H 01/06/18 12:28 Consult Discharge Plan - Plan Referrals: NONE,PCP [Primary Care Provider] - <Jessi Elias I - Last Filed: 01/09/18 12:21> Date of Encounter: 01/09/18 Assessment and Plan (1) Observed seizure-like activity Current Visit: Yes Status: Acute Pt was seen and examined, my medical decision was reviewed with the Resident Physician, I agree with the documented findings, disposition and treatment plas as described except to the extent set forth below Patient had an EEG yesterday which did not show any seizure activity particularly no evidence of any status epilepticus later on the EEG which was done without propofol did shows beta activity which is a nonspecific pattern, commonly seen with the benzodiazepine and barbiturates but again no seizure activity recorded. Patient continued to have these jerking movement predominantly stimulus-related whenever the nursing up trying to move him patient noted to have these jerking last for 1-2 minutes and then resolving spontaneously otherwise he did not have any of that activity. 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 Overall he seems to be about the same he had been on Keppra with the possibility of the seizure I would recommend changing to Depakote be seems to work better for these myoclonic jerking Recommend MRI of the brain and patient is clinically stable other treatment is as per primary ICU team Jessi Elias MD Objective - Constitutional Vitals: Temp Pulse Resp BP Pulse Ox 97.7 F 150 14 91/81 98 01/09/18 12:00 01/09/18 12:00 01/09/18 12:00 01/09/18 12:00 01/09/18 12:00 Results - Laboratory Findings CBC and BMP: 01/09/18 04:00 01/09/18 04:15 Abnormal lab findings: Abnormal lab results WBC 20.8 K/mcL (4.3-11.1) H D 01/09/18 04:00 RBC 3.18 M/mcL (4.19-5.50) L 01/09/18 04:00 Hgb 10.7 g/dL (12.9-16.9) L 01/09/18 04:00 Hct 31.3 % (37.5-50.1) L 01/09/18 04:00 MCH 33.6 pg (28.0-33.3) H 01/09/18 04:00 Neutrophils # 18.7 K/mcL (1.6-8.9) H 01/09/18 04:00 Lymphocytes # 0.5 K/mcL (0.6-4.6) L 01/09/18 04:00 APTT 37.0 Seconds (26.0-36.0) H 01/06/18 12:28 ABG pCO2 48 mmHg (35-45) H 01/09/18 04:48 ABG pO2 114 mmHg (85-104) H 01/09/18 04:48 ABG Total CO2 27 mEq/L (20-26) H 01/09/18 04:48 Chloride 111 mEq/L (98-107) H 01/09/18 04:15 Carbon Dioxide 22 mEq/L (23-29) L 01/09/18 04:15 Est GFR (Non-Af Amer) 55 (> 60) L 01/09/18 04:15 Glucose 166 mg/dL (70-105) H 01/09/18 04:15 POC Glucose 170 mg/dL (70-99) H 01/08/18 23:43 Hemoglobin A1c 6.1 % (-5.6) H 01/08/18 12:16 Calcium 8.1 mg/dL (8.6-10.3) L 01/09/18 04:15 Venous Ioniz Calcium 1.13 mmol/L (1.15-1.35) L 01/09/18 04:38 Phosphorus 4.8 mg/dL (2.7-4.5) H 01/09/18 04:15 AST 52 Units/L (13-39) H 01/07/18 03:50 Alkaline Phosphatase 144 Units/L (34-104) H 01/07/18 03:50 Serum Total Protein 4.5 g/dL (6.4-8.9) L 01/07/18 03:50 Albumin 2.4 g/dL (3.5-5.7) L 01/07/18 03:50 Globulin 2.1 g/dL (2.4-3.5) L 01/07/18 03:50 Prolactin 26.30 ng/mL (3.00-14.70) H 01/08/18 07:08 Ur Leukocyte Esterase Trace (Negative) H 01/06/18 12:30 Ur Squamous Epith Cells Many per lpf (None-Few) H 01/06/18 12:30 Ur Culture Indicated? NO. (NO) A 01/06/18 12:30 Vancomycin Trough 15 mcg/mL (5-10) H 01/08/18 12:16 Ethyl Alcohol 11 mg/dL (Less than 10) H 01/06/18 12:28
--- NOTE | 2018-01-09 10:58 | Palliative Progress Note ---
Date of Encounter: 01/09/18 Time of Encounter: 10:55 - Assessment and plan (1) Metabolic encephalopathy Current Visit: Yes Status: Acute Assessment and plan: Remains sedated and ventilated. Neurology following. (2) Acute respiratory failure Current Visit: Yes Status: Acute Qualifiers: Respiratory failure complication: hypoxia and hypercapnia Qualified Code(s) : J96.01 - Acute respiratory failure with hypoxia; J96.02 - Acute respiratory failure with hypercapnia; J96.02 - Acute respiratory failure with hypercapnia; J96.02 - Acute respiratory failure with hypercapnia (3) Alcohol withdrawal Current Visit: Yes Status: Acute Qualifiers: Complication of substance-induced condition: uncomplicated Qualified Code(s ): F10.230 - Alcohol dependence with withdrawal, uncomplicated (4) Goals of care, counseling/discussion Current Visit: Yes Status: Acute Assessment and plan: Met with patient's family yesterday, including brother Bradly, sister, nieces and nephews. They all were in agreement stating that patient had made his wishes known stating that his brother Bradly should make decisions for him, and "take care of things", however, they did state that patient had 2 living children he was estranged from, and no one at this time has produced a power of attorney recruiter. Patient's ex- did provide contact information for his children ( Samreen Miller [phone] & Thelma Felder [phone]). I spoke with both children and they confirm that their relationship with their father is estranged , and they both stated that pateint's brother Bradly should be the person to make medical decisions for him. Samreen stated that Bradly has always been there for the patient and had looked out for him. Bardly at bedside and informed him of the above. He verbalized understanding. Updated on current clinical status. - Time Spent With Patient Total time spent is greater than 50% in coordination of care (as documented) at patient's floor/unit and/or counseling patient: 25 - 35 minutes - Subjective Interval history: Patient remains on vent. Neurology recommendations noted. Patient with occasional eye opening and myoclonic jerking. Remains on propofol. Beginning Depakote today. No family at bedside. - Constitutional Vitals: Abnormal lab results WBC 20.8 K/mcL (4.3-11.1) H D 01/09/18 04:00 RBC 3.18 M/mcL (4.19-5.50) L 01/09/18 04:00 Hgb 10.7 g/dL (12.9-16.9) L 01/09/18 04:00 Hct 31.3 % (37.5-50.1) L 01/09/18 04:00 MCH 33.6 pg (28.0-33.3) H 01/09/18 04:00 Neutrophils # 18.7 K/mcL (1.6-8.9) H 01/09/18 04:00 Lymphocytes # 0.5 K/mcL (0.6-4.6) L 01/09/18 04:00 APTT 37.0 Seconds (26.0-36.0) H 01/06/18 12:28 ABG pCO2 48 mmHg (35-45) H 01/09/18 04:48 ABG pO2 114 mmHg (85-104) H 01/09/18 04:48 ABG Total CO2 27 mEq/L (20-26) H 01/09/18 04:48 Chloride 111 mEq/L (98-107) H 01/09/18 04:15 Carbon Dioxide 22 mEq/L (23-29) L 01/09/18 04:15 Est GFR (Non-Af Amer) 55 (> 60) L 01/09/18 04:15 Glucose 166 mg/dL (70-105) H 01/09/18 04:15 POC Glucose 170 mg/dL (70-99) H 01/08/18 23:43 Hemoglobin A1c 6.1 % (-5.6) H 01/08/18 12:16 Calcium 8.1 mg/dL (8.6-10.3) L 01/09/18 04:15 Venous Ioniz Calcium 1.13 mmol/L (1.15-1.35) L 01/09/18 04:38 Phosphorus 4.8 mg/dL (2.7-4.5) H 01/09/18 04:15 AST 52 Units/L (13-39) H 01/07/18 03:50 Alkaline Phosphatase 144 Units/L (34-104) H 01/07/18 03:50 Serum Total Protein 4.5 g/dL (6.4-8.9) L 01/07/18 03:50 Albumin 2.4 g/dL (3.5-5.7) L 01/07/18 03:50 Globulin 2.1 g/dL (2.4-3.5) L 01/07/18 03:50 Prolactin 26.30 ng/mL (3.00-14.70) H 01/08/18 07:08 Ur Leukocyte Esterase Trace (Negative) H 01/06/18 12:30 Ur Squamous Epith Cells Many per lpf (None-Few) H 01/06/18 12:30 Ur Culture Indicated? NO. (NO) A 01/06/18 12:30 Vancomycin Trough 15 mcg/mL (5-10) H 01/08/18 12:16 Ethyl Alcohol 11 mg/dL (Less than 10) H 01/06/18 12:28 General appearance: Present: no acute distress - Respiratory Additional comments: Faint expiratory wheezes noted. Remains Intubated and ventilated - Cardiovascular Cardiovascular exam: Present: +S1, +S2 - GI/Abdominal GI/Abdominal exam: Present: diminished bowel sounds, distended - Extremities Exam Extremities exam: Present: normal capillary refill, normal inspection - Neurological Exam Additional comments: Sedated, does not follow commands. Occasional eye opening and myoclonic jerking. - Skin Skin exam: Present: dry, warm Palliative Quality Palliative Quality: Screen for Code Status: NA (No family present), Screen for Goals of Care: NA, Screen for Pain: Yes, If Pain Regimen Started, Initiate Bowel Regimen: NA, Screen for Nausea/Vomitting: NA Code Status: 01/06/18 14:15 Resuscitation Status: Active [RES] Routine Comment: Resuscitation Status: Full Code Resuscitation Status: Active [RES] Routine Comment: Per brother Resuscitation Status: DNR-Comfort Care-Arrest - Labs CBC & Chem 7: 01/09/18 04:00 01/09/18 04:15 Labs: Laboratory Results - last 24 hr 01/08/18 01/08/18 01/08/18 05:30 12:16 12:16 WBC RBC Hgb Hct MCV MCH MCHC RDW Plt Count MPV Immature Gran % Seg Neutrophils % Lymphocytes % Monocytes % Eosinophils % Basophils % Neutrophils # Lymphocytes # Monocytes # Eosinophils # Basophils # Sample Site ABG pH ABG pCO2 ABG pO2 ABG HCO3 ABG Total CO2 ABG O2 Saturation ABG Base Excess Arvind Test Respiration Rate O2 Delivery Device Blood Gas Modality Inspired O2 Tidal Volume PEEP Sodium Potassium Chloride Carbon Dioxide BUN Creatinine Est GFR ( Amer) Est GFR (Non-Af Amer) BUN/Creatinine Ratio Glucose POC Glucose 195 H Est Mean Plasma Glucose 128 Hemoglobin A1c 6.1 H Calculated Osmolality Calcium Venous Ioniz Calcium Phosphorus Magnesium Ammonia Vancomycin Trough 15 H 01/08/18 01/08/18 01/08/18 12:16 12:29 12:37 WBC RBC Hgb Hct MCV MCH MCHC RDW Plt Count MPV Immature Gran % Seg Neutrophils % Lymphocytes % Monocytes % Eosinophils % Basophils % Neutrophils # Lymphocytes # Monocytes # Eosinophils # Basophils # Sample Site ABG pH ABG pCO2 ABG pO2 ABG HCO3 ABG Total CO2 ABG O2 Saturation ABG Base Excess Arvind Test Respiration Rate O2 Delivery Device Blood Gas Modality Inspired O2 Tidal Volume PEEP Sodium Potassium Chloride Carbon Dioxide BUN Creatinine Est GFR ( Amer) Est GFR (Non-Af Amer) BUN/Creatinine Ratio Glucose POC Glucose 232 H Est Mean Plasma Glucose Hemoglobin A1c Calculated Osmolality Calcium Venous Ioniz Calcium 1.07 L Phosphorus Magnesium 2.4 Ammonia Vancomycin Trough 01/08/18 01/08/18 01/08/18 14:55 18:44 21:25 WBC RBC Hgb Hct MCV MCH MCHC RDW Plt Count MPV Immature Gran % Seg Neutrophils % Lymphocytes % Monocytes % Eosinophils % Basophils % Neutrophils # Lymphocytes # Monocytes # Eosinophils # Basophils # Sample Site ABG pH ABG pCO2 ABG pO2 ABG HCO3 ABG Total CO2 ABG O2 Saturation ABG Base Excess Arvind Test Respiration Rate O2 Delivery Device Blood Gas Modality Inspired O2 Tidal Volume PEEP Sodium 141 Potassium 4.0 Chloride 109 H Carbon Dioxide 23 BUN 7 L Creatinine 1.15 Est GFR ( Amer) > 60 Est GFR (Non-Af Amer) > 60 BUN/Creatinine Ratio 6 Glucose 205 H POC Glucose 149 H Est Mean Plasma Glucose Hemoglobin A1c Calculated Osmolality 296 Calcium 8.0 L Venous Ioniz Calcium 1.10 L Phosphorus Magnesium Ammonia Vancomycin Trough 01/08/18 01/09/18 01/09/18 23:43 04:00 04:15 WBC 20.8 H D RBC 3.18 L Hgb 10.7 L Hct 31.3 L MCV 98.4 MCH 33.6 H MCHC 34.2 RDW 14.1 Plt Count 222 MPV 9.9 Immature Gran % 1.9 Seg Neutrophils % 90.0 Lymphocytes % 2.4 Monocytes % 5.6 Eosinophils % 0.0 Basophils % 0.1 Neutrophils # 18.7 H Lymphocytes # 0.5 L Monocytes # 1.2 Eosinophils # 0.0 Basophils # 0.0 Sample Site ABG pH ABG pCO2 ABG pO2 ABG HCO3 ABG Total CO2 ABG O2 Saturation ABG Base Excess Arvind Test Respiration Rate O2 Delivery Device Blood Gas Modality Inspired O2 Tidal Volume PEEP Sodium 143 Potassium 4.3 Chloride 111 H Carbon Dioxide 22 L BUN 8 Creatinine 1.29 Est GFR ( Amer) > 60 Est GFR (Non-Af Amer) 55 L BUN/Creatinine Ratio 6 Glucose 166 H POC Glucose 170 H Est Mean Plasma Glucose Hemoglobin A1c Calculated Osmolality 298 Calcium 8.1 L Venous Ioniz Calcium Phosphorus 4.8 H Magnesium 2.2 Ammonia Vancomycin Trough 01/09/18 01/09/18 01/09/18 04:15 04:38 04:48 WBC RBC Hgb Hct MCV MCH MCHC RDW Plt Count MPV Immature Gran % Seg Neutrophils % Lymphocytes % Monocytes % Eosinophils % Basophils % Neutrophils # Lymphocytes # Monocytes # Eosinophils # Basophils # Sample Site R Radial ABG pH 7.34 ABG pCO2 48 H ABG pO2 114 H ABG HCO3 26 ABG Total CO2 27 H ABG O2 Saturation 98 ABG Base Excess -1 Arvind Test N/A Respiration Rate 14 O2 Delivery Device Adult Vent Blood Gas Modality ASSIST CONTROL Inspired O2 40.0 Tidal Volume 550 PEEP 5 Sodium Potassium Chloride Carbon Dioxide BUN Creatinine Est GFR ( Amer) Est GFR (Non-Af Amer) BUN/Creatinine Ratio Glucose POC Glucose Est Mean Plasma Glucose Hemoglobin A1c Calculated Osmolality Calcium Venous Ioniz Calcium 1.13 L Phosphorus Magnesium Ammonia 50 Vancomycin Trough - Impressions Impressions Chest X-Ray 01/06/18 13:38 IMPRESSION: Right IJ central venous catheter in place tip in the SVC. No pneumothorax seen. D/ / 01/06/2018 14:16:40 Jamey Matias MD / bcarter Interpreting Provider: Jamey Matias MD Abdomen/Pelvis CT 01/07/18 01:00 IMPRESSION: No acute abdominopelvic findings. No colonic mass identified, and, there is an unremarkable appearance the prostate. No suspicious findings for abdominopelvic metastatic disease. Features of volume overload, including small bilateral pleural effusions, pulmonary edema, soft tissue anasarca and abdominal ascites. Pericholecystic fluid is presumably related to volume status. If there is concern for cholecystitis correlate with cholestatic parameters. Circumferential urinary bladder wall may be seen with cystitis. Correlate with urinalysis. Nondependent gas within the urinary bladder is presumably related to Castillo catheter placement. Hepatic steatosis. D/ / Richmond Haq / Richmond Haq Interpreting Provider: Richmond Haq Liver Ultrasound 01/07/18 14:00 IMPRESSION: Edematous appearing gallbladder wall, a nonspecific finding that can be seen with cholecystitis or chronic liver disease. No stones are appreciated, however this evaluation is suboptimal. No biliary dilatation. Further evaluation may be warranted with a HIDA scan if clinically appropriate. Findings compatible with hepatic steatosis. D/ / Jorge Luis Nassar / Jorge Luis Nassar Interpreting Provider: Jorge Luis Nassar Echocardiogram 01/07/18 14:50 Impressions: LVEF 60%. Normal LV chamber size, wall thickness and function. Moderate left ventricular diastolic dysfunction. Normal right ventricular structure and function. Mild-moderate pulmonary hypertension. No significant valvular dysfunction. Trivial pericardial effusion. Left Ventricular Wall Motion: Rest Echo Findings All wall segments showed normal motion. Findings: Study Quality * Technically adequate exam. ECG Findings * Normal sinus rhythm. Left Ventricle * LVEF 60%. * Normal LV chamber size, wall thickness and function. * Moderate left ventricular diastolic dysfunction. Right Ventricle * Normal right ventricular structure and function. Left Atrium * Mildly dilated left atrium. Right Atrium * Mildly dilated right atrium. Aortic Valve * Trileaflet aortic valve with normal function. * No aortic regurgitation. * No aortic stenosis. Mitral Valve * Normal mitral valve structure and function. * No mitral stenosis. * Trace mitral regurgitation. Tricuspid Valve * Normal tricuspid valve structure and function. * Trace tricuspid regurgitation. * Mild-moderate pulmonary hypertension. Pulmonic Valve * Normal pulmonic valve structure and function. * No pulmonic regurgitation. Aorta * Normally sized aortic root. Pericardium * The pericardium appears normal. IVC * The IVC is not dilated. Pulmonary Artery * Normal visualized portions of the main pulmonary artery. Chest X-Ray 01/08/18 07:00 IMPRESSION: Lines and tubes are stable. No acute focal process in the lungs. D/ / August Bateman MD / August Bateman MD Interpreting Provider: August Bateman MD Chest X-Ray 01/09/18 04:00 IMPRESSION: No acute interval change. Stable life support device positioning. D/ / Richmond Haq / Richmond Haq Interpreting Provider: Richmond Haq - ABG Interpretation ABG results: ABG ABG pH 7.34 pH Units (7.32-7.45) 01/09/18 04:48 ABG pCO2 48 mmHg (35-45) H 01/09/18 04:48 ABG pO2 114 mmHg (85-104) H 01/09/18 04:48 ABG O2 Saturation 98 % (95-98) 01/09/18 04:48 PT/INR, D-dimer PT 10.4 Seconds (9.4-12.1) 01/06/18 12:28 Consult Discharge Plan - Plan Referrals: NONE,PCP [Primary Care Provider] -
[2018-01-09] MEDS: *HR* LORazepam 2 MG/ML VIAL IVP PRN (11:41)
[2018-01-09] MEDS: *HR* Metoprolol 5 MG/5 ML VIAL IVP PRN (11:59)
[2018-01-09 14:22] LABS: Potassium 4.5 mEq/L (3.5-5.1)
[2018-01-09] MEDS: Thiamine (B-1) 100 MG, Folic Acid 1 MG, MVI, adult with vitamin K 10 ML in 0.9 % Sodi... IVPB SCH (18:25)
[2018-01-10] MEDS: Insulin LISPRO 300 UNITS/3 ML VIAL SQ SCH ×5 (00:15→23:34)
[2018-01-10] MEDS: Lacri-Lube 3.5 GM TUBE BOTH EYES SCH ×7 (00:16→23:34)
[2018-01-10] MEDS: Ipratropium/Albuterol Neb 3 ML IH SCH ×5 (04:16→19:49)
[2018-01-10 04:19] LABS: Basophils % 0.1 %; Eosinophils % 0.1 %; Hematocrit 29.8 % (37.5-50.1); Hemoglobin 9.8 g/dL (12.9-16.9); Immature Granulocytes % 1.8 % (0-4); Lymphocytes # 1.4 K/mcL (0.6-4.6); Lymphocytes % 8.9 %; Mean Corpuscular HGB Conc 32.9 g/dL (31.6-35.5); Mean Corpuscular Hemoglobin 33.1 pg (28.0-33.3); Mean Corpuscular Volume 100.7 fL (83.0-100.0); Mean Platelet Volume 8.9 fL (9.4-12.4); Monocytes # 1.5 K/mcL (0.0-1.3); Platelet Count 252 K/mcL (140-400); Red Blood Count 2.96 M/mcL (4.19-5.50); Red Cell Distribution Width 14.8 % (11.5-14.5); Segmented Neutrophils % 79.1 %
[2018-01-10] MEDS: FentaNYL (PF) 1,000 MCG in 0.9 % Sodium Chloride 80 ML IVC SCH ×2 (04:30→23:32)
[2018-01-10] MEDS: Norepinephrine 4 MG in D5% in Water 250 ML IVC SCH (05:15)
[2018-01-10] MEDS: *HR* Heparin 5,000 UNIT/ML VIAL SQ SCH ×2 (05:41→18:56)
[2018-01-10 06:25] LABS: Alanine Aminotransferase 24 Units/L (7-52); Albumin 2.7 g/dL (3.5-5.7); Albumin/Globulin Ratio 1.2 (1.1-2.2); Alkaline Phosphatase 149 Units/L (34-104); Aspartate Amino Transferase 50 Units/L (13-39); BUN/Creatinine Ratio 10 (6-26); Bilirubin,Total 0.4 mg/dL (0.3-1.0); Blood Urea Nitrogen 14 mg/dL (8-23); Calcium 8.1 mg/dL (8.6-10.3); Carbon Dioxide 23 mEq/L (23-29); Chloride 113 mEq/L (98-107); Globulin 2.3 g/dL (2.4-3.5); Glucose 107 mg/dL (70-105); Osmolality,Calculated 299 (280-300); Potassium 4.4 mEq/L (3.5-5.1); Sodium 144 mEq/L (136-145); eGFR For African Americans > 60 (> 60); eGFR For Non-African Americans 52 (> 60)
[2018-01-10] MEDS: Budesonide/Formoterol 160/4.5 MDI IH SCH ×2 (07:14→19:49)
--- NOTE | 2018-01-10 07:53 | Pulmonology Progress Note ---
<MabelEstrella valdez M - Last Filed: 01/10/18 10:18> Date of Encounter: 01/10/18 Objective PUL Vital signs: Last Vital Signs Temp 97.8 F 01/10/18 07:42 Pulse 114 01/10/18 09:00 Resp 12 01/10/18 09:22 BP 87/61 01/10/18 09:22 Pulse Ox 96 01/10/18 09:22 Ventilator Settings Ventilator Settings: Ventilator Settings, Last 8 Hours Ventilator Mode A/C Ventilator Tidal Volume 550 Setting Ventilator Tidal Volume 550 Setting Ventilator Tidal Volume 550 Setting Ventilator Tidal Volume 550 Setting Ventilator Tidal Volume 550 Setting Ventilator Tidal Volume 550 Setting Ventilator Tidal Volume 550 Setting Ventilator Tidal Volume 550 Setting Ventilator Tidal Volume 550 Setting Ventilator Respiratory Rate 12 Setting Ventilator Respiratory Rate 12 Setting Ventilator Respiratory Rate 14 Setting Ventilator Respiratory Rate 14 Setting Ventilator Respiratory Rate 14 Setting Ventilator Respiratory Rate 14 Setting Ventilator Respiratory Rate 14 Setting Ventilator Respiratory Rate 14 Setting Ventilator Respiratory Rate 14 Setting Actual Respiratory Rate 12 Actual Respiratory Rate 12 Actual Respiratory Rate 14 Actual Respiratory Rate 14 Actual Respiratory Rate 14 Actual Respiratory Rate 14 Actual Respiratory Rate 14 Actual Respiratory Rate 14 Actual Respiratory Rate 14 Positive End Expiratory 5 Pressure Positive End Expiratory 5 Pressure Positive End Expiratory 5 Pressure Positive End Expiratory 5 Pressure Positive End Expiratory 5 Pressure Positive End Expiratory 5 Pressure Positive End Expiratory 5 Pressure Positive End Expiratory 5 Pressure Positive End Expiratory 5 Pressure Peak Inspiratory Airway 51 Pressure Peak Inspiratory Airway 55 Pressure Peak Inspiratory Airway 47 Pressure Peak Inspiratory Airway 43 Pressure Peak Inspiratory Airway 38 Pressure Peak Inspiratory Airway 38 Pressure Peak Inspiratory Airway 38 Pressure Peak Inspiratory Airway 38 Pressure Peak Inspiratory Airway 38 Pressure Results - Laboratory Findings CBC and BMP: 01/10/18 03:35 01/10/18 03:35 ABG ABG pH 7.34 pH Units (7.32-7.45) 01/09/18 04:48 ABG pCO2 48 mmHg (35-45) H 01/09/18 04:48 ABG pO2 114 mmHg (85-104) H 01/09/18 04:48 ABG O2 Saturation 98 % (95-98) 01/09/18 04:48 PT/INR, D-dimer PT 10.4 Seconds (9.4-12.1) 01/06/18 12:28 Abnormal lab findings: Abnormal lab results WBC 15.2 K/mcL (4.3-11.1) H 01/10/18 03:35 RBC 2.96 M/mcL (4.19-5.50) L 01/10/18 03:35 Hgb 9.8 g/dL (12.9-16.9) L 01/10/18 03:35 Hct 29.8 % (37.5-50.1) L 01/10/18 03:35 MCV 100.7 fL (83.0-100.0) H 01/10/18 03:35 RDW 14.8 % (11.5-14.5) H 01/10/18 03:35 MPV 8.9 fL (9.4-12.4) L 01/10/18 03:35 Neutrophils # 12.0 K/mcL (1.6-8.9) H 01/10/18 03:35 Monocytes # 1.5 K/mcL (0.0-1.3) H 01/10/18 03:35 APTT 37.0 Seconds (26.0-36.0) H 01/06/18 12:28 ABG pCO2 48 mmHg (35-45) H 01/09/18 04:48 ABG pO2 114 mmHg (85-104) H 01/09/18 04:48 ABG Total CO2 27 mEq/L (20-26) H 01/09/18 04:48 Chloride 113 mEq/L (98-107) H 01/10/18 03:35 Creatinine 1.36 mg/dL (0.70-1.30) H 01/10/18 03:35 Est GFR (Non-Af Amer) 52 (> 60) L 01/10/18 03:35 Glucose 107 mg/dL (70-105) H 01/10/18 03:35 POC Glucose 117 mg/dL (70-99) H 01/09/18 23:58 Hemoglobin A1c 6.1 % (-5.6) H 01/08/18 12:16 Calcium 8.1 mg/dL (8.6-10.3) L 01/10/18 03:35 Venous Ioniz Calcium 1.13 mmol/L (1.15-1.35) L 01/09/18 04:38 Phosphorus 4.8 mg/dL (2.7-4.5) H 01/09/18 04:15 AST 50 Units/L (13-39) H 01/10/18 03:35 Alkaline Phosphatase 149 Units/L (34-104) H 01/10/18 03:35 Serum Total Protein 5.0 g/dL (6.4-8.9) L 01/10/18 03:35 Albumin 2.7 g/dL (3.5-5.7) L 01/10/18 03:35 Globulin 2.3 g/dL (2.4-3.5) L 01/10/18 03:35 Prolactin 26.30 ng/mL (3.00-14.70) H 01/08/18 07:08 Ur Leukocyte Esterase Trace (Negative) H 01/06/18 12:30 Ur Squamous Epith Cells Many per lpf (None-Few) H 01/06/18 12:30 Ur Culture Indicated? NO. (NO) A 01/06/18 12:30 Vancomycin Trough 15 mcg/mL (5-10) H 01/08/18 12:16 Ethyl Alcohol 11 mg/dL (Less than 10) H 01/06/18 12:28 - Clinical Findings Intake & Output: Intake & Output 01/09/18 01/10/18 01/10/18 23:59 07:59 15:59 Intake Total 538 / 538 288 / 288 Output Total 625 / 625 175 / 175 Balance -87 / -87 113 / 113 Weight 83.7 kg Consult Discharge Plan - Plan Referrals: NONE,PCP [Primary Care Provider] - - Attending Attestation I examined this patient and my medical decision-making was reviewed with the Resident Physician. I agree with the documented findings, disposition and treatment plan as described except to the extent set forth below. Patient seen and examined. Labs, radiology, chart personally reviewed. Agree with resident's history and physical, assessment, plan with following comments: GLASS BEVELER: Patient does not follows commands, patient needs sedation for the vent synchrony and he has evidence of auto PEEP Pulmonary: Patient has evidence of intrinsic PEEP and bronchospasm lowered the respiratory rate and to keep an eye on minute ventilation and some improvement in the auto PEEP. Patient is not tolerating VC plus and volume control. Plateau pressure remain higher than 30 and is not tolerating lowering tidal volume. Treating underlying bronchospasm at this time and also his abdominal distention could be a contributing factor and laxative for constipation. Cardiovascular: Auto PEEP could be a factor for affecting case blood pressure and will continue working: Ventilator to improve some of the auto PEEP. GI: Nutrition per dietary and GI prophylaxis per routine Heme: DVT prophylaxis per routine ID: Continue antibiotics and plan to de-escalation Renal; urine out put and renal funtion reviewed Endorcine: blood glucose is monitored Lines: all lines checked and no evidence of infections Skin: skin care to prevent pressure ulcers per nursing routine care I spent 32 min of Critical Care time with this patient. It involved decision making of high complexity to assess, manipulate, and support vital organ system failure and/or to prevent further life threatening deterioration of the patient' s condition. The time involved in the performance of separately reportable procedures was not counted toward critical care time. <Caridad Muroew - Last Filed: 01/10/18 15:08> Date of Encounter: 01/10/18 Time of Encounter: 08:37 Assessment and Plan (1) Metabolic encephalopathy Current Visit: Yes Status: Acute - Very possible it is multifactorial - Etiologies may include hyperammonemia, hypercapnia, sepsis, alcohol withdrawal , infectious etiology - CT head was negative for acute process - Blood and urine cultures pending, negative so far - We will treat underlying conditions as above and below -Supportive care, fall precautions, seizure precautions - We will not place restraints due to myoclonus (2) Acute respiratory failure Current Visit: Yes Status: Acute - Acute respiratory failure with hypoxia and hypercapnia - Possible etiologies include congestive heart failure exacerbation versus COPD exacerbation versus less likely pneumonia - Initial ABG did demonstrate a respiratory acidosis, improving. - CXR on 01/06 was negative for any intrathoracic process, repeat on 01/09 showing minimal change - CT abdomen 01/07 did demonstrate volume overload - Arterial blood gas most recently demonstrates non-gap metabolic acidosis with pH of 7.29, which is improved from 7.07 on admission - Patient remains ventilator dependent, attempted weaning trial this morning and failed apnea - Echocardiogram showing moderate diastolic dysfunction, EF 60% Plan - Continue ventilator support - Continue Levaquin for possible pneumonia component, on day #5 - Diuresis with 40 Lasix IV twice a day - Continue steroids (decrease from q12 to q24 hours), breathing treatments, add symbicort Qualifiers: Respiratory failure complication: hypoxia and hypercapnia Qualified Code(s) : J96.01 - Acute respiratory failure with hypoxia; J96.02 - Acute respiratory failure with hypercapnia (3) Lactic acidosis Current Visit: Yes Status: Resolved Lactic acid originally 5.3 which has downtrended to wnl (4) Leukocytosis Current Visit: Yes Status: Acute - Leukocytosis of 24.7 on admission which is down trended to 15.2 - Likely multifactorial including stress reaction, infectious etiology - Started on vancomycin, Zosyn, Levaquin and emergency room - Possible infectious sources include pneumonia versus unknown etiology vs reactive in setting of seizures - Urinalysis not suggestive of infection - Lactic acidosis was 5.3 which has been trended and is now within normal limits - Suspect this is less likely infectious etiology and more likely reactive in nature Plan - Continue antibiotics day #5 - High suspicion of reactive etiology in the setting of myoclonus, will treat underlying etiologies as below - Continue to monitor with daily labs Qualifiers: Leukocytosis type: unspecified Qualified Code(s): D72.829 - Elevated white blood cell count, unspecified (5) Prostate cancer Current Visit: Yes Status: Chronic As below for colon cancer (6) Colon cancer Current Visit: Yes Status: Suspected - Family reports history of colon cancer and prostate cancer - Diagnosed at [facility] in August 2017 - Reports no chemotherapy or radiation treatments - CT abdomen/pelvis today showed no signs of mass or metastasis Plan - Follow up with [facility] as outpatient for further management if desired - Palliative care consult Qualifiers: Colon location: unspecified part of colon Qualified Code(s): C18.9 - Malignant neoplasm of colon, unspecified (7) Alcohol withdrawal Current Visit: Yes Status: Acute - Suspected alcohol withdrawal. - Per family, patient consumes 1 gallon of whiskey every 3 days - Unknown last drink - Alcohol on presentation was 11 - Patient was noted to have continued suspected seizures. Neurology states that this is more likely myoclonus. No reported jerks overnight - Vitamin supplementation Plan - CIWA protocol stopped as we are unable to assess fully. - Change to propofol sedation yesterday - Start depakote 500 mg BID per neuro recommendations - Monitor for further signs of withdrawal - Social work consult Qualifiers: Complication of substance-induced condition: uncomplicated Qualified Code(s ): F10.230 - Alcohol dependence with withdrawal, uncomplicated (8) Hyperammonemia Current Visit: Yes Status: Acute - Ammonia of 116 on presentation -Reported history of heavy drinking - Ammonia has down trended to 50 - INR within normal limits at 1.0 - Liver ultrasound taken showing hepatic steatosis - Has been getting lactulose via G-tube - AST mildly elevated with most recent value of 52, ALT within normal limits, alkaline phosphatase 144 Plan - Continue to monitor for signs of altered mental status - Treat underlying conditions as above and below (9) Goals of care, counseling/discussion Current Visit: Yes Status: Acute Consult to try to care for goals of care discussion Discussed with family per Palliative care. Reports 2 estranged sons and a fiance. Has reportedly previously discussed wanting brother to make decisions, however unsure if paperwork has been filled out. Palliative care following and working on paperwork aspect Patient's brother, Bradly, states that he wants everything done for successful extubation, however no reintubation should this fail. Patient is DNR/CCA (10) Observed seizure-like activity Current Visit: Yes Status: Acute Multiple reported seizures of unknown etiology - Possible alcohol withdrawl vs medication vs epileptic. - Neuro consulted and following - Precedex changed to propofol yesterday. - Prolactin 26 after witnessed event - EEG obtained and showed diffuse brain injury however these may be secondary to sedative for intubation Plan - After additional seizures on propofol, Depakote added yesterday with good control of symptoms - Neuro believes this to be more myoclonus (11) (HFpEF) heart failure with preserved ejection fraction Current Visit: Yes Status: Chronic EF 60, moderate diastolic as above (12) Dilatation of colon Current Visit: Yes Status: Acute - Doing due to no bowel movement since admission - Shows no evidence of small bowel ejection but does show 10 cm dilation of cecal region - Started Reglan this morning to encourage bowel movement - We will obtain CT scan to further evaluate (13) DVT prophylaxis Current Visit: Yes Status: Acute Heparin 5000 units q12 hours Subjective Principal diagnosis: Acute respiratory failure Interval history: Patient was seen and examined at bedside. He is intubated and sedated and unable to participate in interview. No acute events overnight, no further episodes of myoclonic jerks Objective PUL Vital signs: Last Vital Signs Temp 97.8 F 01/10/18 07:42 Pulse 105 01/10/18 06:00 Resp 14 01/10/18 07:15 BP 105/75 01/10/18 07:15 Pulse Ox 98 01/10/18 07:15 Gen.: Vitals noted. No acute distress. Intubated and sedated on vent. HEENT: PERRL/EOMI, oropharynx clear, Normocephalic, atraumatic. ET tube Cardiac: RRR, no murmur, +S1/S2 Pulmonary: Diffuse rhonchi present, improved. equal chest expansion Abdomen: soft, distended, BS faint, no guarding MSK: unable to assess Extremities: 2+ pitting BLE edema, some UE edema to mid forearm, no cyanosis or clubbing Neuro: Unable to assess Psych: N/A Ventilator Settings Ventilator Settings: Ventilator Settings, Last 8 Hours Ventilator Tidal Volume 550 Setting Ventilator Tidal Volume 550 Setting Ventilator Tidal Volume 550 Setting Ventilator Tidal Volume 550 Setting Ventilator Tidal Volume 550 Setting Ventilator Tidal Volume 550 Setting Ventilator Tidal Volume 550 Setting Ventilator Tidal Volume 550 Setting Ventilator Tidal Volume 550 Setting Ventilator Tidal Volume 550 Setting Ventilator Respiratory Rate 14 Setting Ventilator Respiratory Rate 14 Setting Ventilator Respiratory Rate 14 Setting Ventilator Respiratory Rate 14 Setting Ventilator Respiratory Rate 14 Setting Ventilator Respiratory Rate 14 Setting Ventilator Respiratory Rate 14 Setting Ventilator Respiratory Rate 14 Setting Ventilator Respiratory Rate 14 Setting Ventilator Respiratory Rate 14 Setting Actual Respiratory Rate 14 Actual Respiratory Rate 14 Actual Respiratory Rate 14 Actual Respiratory Rate 14 Actual Respiratory Rate 14 Actual Respiratory Rate 14 Actual Respiratory Rate 14 Actual Respiratory Rate 14 Actual Respiratory Rate 14 Actual Respiratory Rate 14 Positive End Expiratory 5 Pressure Positive End Expiratory 5 Pressure Positive End Expiratory 5 Pressure Positive End Expiratory 5 Pressure Positive End Expiratory 5 Pressure Positive End Expiratory 5 Pressure Positive End Expiratory 5 Pressure Positive End Expiratory 5 Pressure Positive End Expiratory 5 Pressure Positive End Expiratory 5 Pressure Peak Inspiratory Airway 47 Pressure Peak Inspiratory Airway 43 Pressure Peak Inspiratory Airway 38 Pressure Peak Inspiratory Airway 38 Pressure Peak Inspiratory Airway 38 Pressure Peak Inspiratory Airway 38 Pressure Peak Inspiratory Airway 38 Pressure Peak Inspiratory Airway 52 Pressure Peak Inspiratory Airway 43 Pressure Peak Inspiratory Airway 45 Pressure Results - Laboratory Findings CBC and BMP: 01/10/18 03:35 01/10/18 03:35 ABG ABG pH 7.34 pH Units (7.32-7.45) 01/09/18 04:48 ABG pCO2 48 mmHg (35-45) H 01/09/18 04:48 ABG pO2 114 mmHg (85-104) H 01/09/18 04:48 ABG O2 Saturation 98 % (95-98) 01/09/18 04:48 PT/INR, D-dimer PT 10.4 Seconds (9.4-12.1) 01/06/18 12:28 Abnormal lab findings: Abnormal lab results WBC 15.2 K/mcL (4.3-11.1) H 01/10/18 03:35 RBC 2.96 M/mcL (4.19-5.50) L 01/10/18 03:35 Hgb 9.8 g/dL (12.9-16.9) L 01/10/18 03:35 Hct 29.8 % (37.5-50.1) L 01/10/18 03:35 MCV 100.7 fL (83.0-100.0) H 01/10/18 03:35 RDW 14.8 % (11.5-14.5) H 01/10/18 03:35 MPV 8.9 fL (9.4-12.4) L 01/10/18 03:35 Neutrophils # 12.0 K/mcL (1.6-8.9) H 01/10/18 03:35 Monocytes # 1.5 K/mcL (0.0-1.3) H 01/10/18 03:35 APTT 37.0 Seconds (26.0-36.0) H 01/06/18 12:28 ABG pCO2 48 mmHg (35-45) H 01/09/18 04:48 ABG pO2 114 mmHg (85-104) H 01/09/18 04:48 ABG Total CO2 27 mEq/L (20-26) H 01/09/18 04:48 Chloride 113 mEq/L (98-107) H 01/10/18 03:35 Creatinine 1.36 mg/dL (0.70-1.30) H 01/10/18 03:35 Est GFR (Non-Af Amer) 52 (> 60) L 01/10/18 03:35 Glucose 107 mg/dL (70-105) H 01/10/18 03:35 POC Glucose 117 mg/dL (70-99) H 01/09/18 23:58 Hemoglobin A1c 6.1 % (-5.6) H 01/08/18 12:16 Calcium 8.1 mg/dL (8.6-10.3) L 01/10/18 03:35 Venous Ioniz Calcium 1.13 mmol/L (1.15-1.35) L 01/09/18 04:38 Phosphorus 4.8 mg/dL (2.7-4.5) H 01/09/18 04:15 AST 50 Units/L (13-39) H 01/10/18 03:35 Alkaline Phosphatase 149 Units/L (34-104) H 01/10/18 03:35 Serum Total Protein 5.0 g/dL (6.4-8.9) L 01/10/18 03:35 Albumin 2.7 g/dL (3.5-5.7) L 01/10/18 03:35 Globulin 2.3 g/dL (2.4-3.5) L 01/10/18 03:35 Prolactin 26.30 ng/mL (3.00-14.70) H 01/08/18 07:08 Ur Leukocyte Esterase Trace (Negative) H 01/06/18 12:30 Ur Squamous Epith Cells Many per lpf (None-Few) H 01/06/18 12:30 Ur Culture Indicated? NO. (NO) A 01/06/18 12:30 Vancomycin Trough 15 mcg/mL (5-10) H 01/08/18 12:16 Ethyl Alcohol 11 mg/dL (Less than 10) H 01/06/18 12:28 - Clinical Findings Intake & Output: Intake & Output 01/09/18 01/09/18 01/10/18 15:59 23:59 07:59 Intake Total 752 / 752 433 / 433 288 / 288 Output Total 170 / 170 625 / 625 175 / 175 Balance 582 / 582 -192 / -192 113 / 113 Weight 83.7 kg
[2018-01-10] MEDS: Pantoprazole 40 MG VIAL IVP SCH (08:43)
[2018-01-10] MEDS: MethylPREDNISolone 40 MG/ML VIAL IVP SCH (08:43)
[2018-01-10] MEDS: Chlorhexidine Rinse 15 ML MOUTHWASH MM SCH ×2 (08:43→19:54)
[2018-01-10] MEDS: Furosemide 40 MG/4 ML VIAL IVP SCH ×2 (08:43→22:41)
[2018-01-10] MEDS: Valproic Acid INJ 500 MG in 0.9 % Sodium Chloride 100 ML IVPB SCH ×2 (08:45→19:55)
[2018-01-10] MEDS: Lactulose Oral Soln 20 GM/30 ML UDC GTUBE SCH ×3 (09:28→19:54)
--- NOTE | 2018-01-10 09:30 | Neurology Progress Note ---
Date of Encounter: 01/10/18 Time of Encounter: 07:15 Assessment and Plan (1) Observed seizure-like activity Current Visit: Yes Status: Acute Pt was seen and examined, seems to be stable no more myoclonic jerking or shaking reported suggest to continue on the Depakote. One is stable could do imaging studies of the brain including MRI of the brain other treatment is as per primary ICU team Recommend MRI of the brain and the patient is clinically stable if clinically warranted Jessi Elias MD Subjective Principal diagnosis: Acute respiratory failure Interval history: Patient remain intubated as well as on sedation no clinical seizure activity reported at the same time is also having not much myoclonic jerking that he was experiencing earlier which was predominantly stimulus-related. He is been loaded with Depakote and continued to be on it. No other new symptoms he seemed to be slightly more responsive now and at times seemed to be following up some commands as per nursing staff. Currently is sedated not responding much though he does seem to withdraw to deep pain equally Objective - Constitutional Vitals: Temp Pulse Resp BP Pulse Ox 97.8 F 115 12 87/61 96 01/10/18 07:42 01/10/18 08:00 01/10/18 09:22 01/10/18 09:22 01/10/18 09:22 Results - Laboratory Findings CBC and BMP: 01/10/18 03:35 01/10/18 03:35 Abnormal lab findings: Abnormal lab results WBC 15.2 K/mcL (4.3-11.1) H 01/10/18 03:35 RBC 2.96 M/mcL (4.19-5.50) L 01/10/18 03:35 Hgb 9.8 g/dL (12.9-16.9) L 01/10/18 03:35 Hct 29.8 % (37.5-50.1) L 01/10/18 03:35 MCV 100.7 fL (83.0-100.0) H 01/10/18 03:35 RDW 14.8 % (11.5-14.5) H 01/10/18 03:35 MPV 8.9 fL (9.4-12.4) L 01/10/18 03:35 Neutrophils # 12.0 K/mcL (1.6-8.9) H 01/10/18 03:35 Monocytes # 1.5 K/mcL (0.0-1.3) H 01/10/18 03:35 APTT 37.0 Seconds (26.0-36.0) H 01/06/18 12:28 ABG pCO2 48 mmHg (35-45) H 01/09/18 04:48 ABG pO2 114 mmHg (85-104) H 01/09/18 04:48 ABG Total CO2 27 mEq/L (20-26) H 01/09/18 04:48 Chloride 113 mEq/L (98-107) H 01/10/18 03:35 Creatinine 1.36 mg/dL (0.70-1.30) H 01/10/18 03:35 Est GFR (Non-Af Amer) 52 (> 60) L 01/10/18 03:35 Glucose 107 mg/dL (70-105) H 01/10/18 03:35 POC Glucose 117 mg/dL (70-99) H 01/09/18 23:58 Hemoglobin A1c 6.1 % (-5.6) H 01/08/18 12:16 Calcium 8.1 mg/dL (8.6-10.3) L 01/10/18 03:35 Venous Ioniz Calcium 1.13 mmol/L (1.15-1.35) L 01/09/18 04:38 Phosphorus 4.8 mg/dL (2.7-4.5) H 01/09/18 04:15 AST 50 Units/L (13-39) H 01/10/18 03:35 Alkaline Phosphatase 149 Units/L (34-104) H 01/10/18 03:35 Serum Total Protein 5.0 g/dL (6.4-8.9) L 01/10/18 03:35 Albumin 2.7 g/dL (3.5-5.7) L 01/10/18 03:35 Globulin 2.3 g/dL (2.4-3.5) L 01/10/18 03:35 Prolactin 26.30 ng/mL (3.00-14.70) H 01/08/18 07:08 Ur Leukocyte Esterase Trace (Negative) H 01/06/18 12:30 Ur Squamous Epith Cells Many per lpf (None-Few) H 05/06/18 12:30 Ur Culture Indicated? NO. (NO) A 01/06/18 12:30 Vancomycin Trough 15 mcg/mL (5-10) H 01/08/18 12:16 Ethyl Alcohol 11 mg/dL (Less than 10) H 01/06/18 12:28 Consult Discharge Plan - Plan Referrals: NONE,PCP [Primary Care Provider] -
--- NOTE | 2018-01-10 09:50 | Palliative Progress Note ---
Date of Encounter: 01/10/18 Time of Encounter: 09:45 - Assessment and plan (1) Metabolic encephalopathy Current Visit: Yes Status: Acute Assessment and plan: According to primary nurse, is beginning to attempt to follow some commands. MOnitor. (2) Acute respiratory failure Current Visit: Yes Status: Acute Assessment and plan: Remains on ventilator. Apnea with CPAP this am. Expiratory wheezing throughout. Remains on IV atb/ Solumedrol/inhaled steroids/bronchodilators. Qualifiers: Respiratory failure complication: hypoxia and hypercapnia Qualified Code(s) : J96.01 - Acute respiratory failure with hypoxia; J96.02 - Acute respiratory failure with hypercapnia; J96.02 - Acute respiratory failure with hypercapnia; J96.02 - Acute respiratory failure with hypercapnia (3) Alcohol withdrawal Current Visit: Yes Status: Acute Assessment and plan: Symptoms have improved. He remains on Depakote/Propofol. Monitor Qualifiers: Complication of substance-induced condition: uncomplicated Qualified Code(s ): F10.230 - Alcohol dependence with withdrawal, uncomplicated (4) Goals of care, counseling/discussion Current Visit: Yes Status: Acute Assessment and plan: Brother Bradly appointed by family/children as medical decision maker, per family and pt previously known wish. Will touch base with him later today. - Time Spent With Patient Total time spent is greater than 50% in coordination of care (as documented) at patient's floor/unit and/or counseling patient: 25 - 35 minutes - Subjective Interval history: Patient remains on vent. No further seizure activity noted. Patient beginning to respond to some commands according to staff, although he did not during my visit. He did open his eyes. Neurology note reviewed and appreciated. Apnea noted with CPAP trial. No family at bedside. - Constitutional Vitals: Abnormal lab results WBC 15.2 K/mcL (4.3-11.1) H 01/10/18 03:35 RBC 2.96 M/mcL (4.19-5.50) L 01/10/18 03:35 Hgb 9.8 g/dL (12.9-16.9) L 01/10/18 03:35 Hct 29.8 % (37.5-50.1) L 01/10/18 03:35 MCV 100.7 fL (83.0-100.0) H 01/10/18 03:35 RDW 14.8 % (11.5-14.5) H 01/10/18 03:35 MPV 8.9 fL (9.4-12.4) L 01/10/18 03:35 Neutrophils # 12.0 K/mcL (1.6-8.9) H 01/10/18 03:35 Monocytes # 1.5 K/mcL (0.0-1.3) H 01/10/18 03:35 APTT 37.0 Seconds (26.0-36.0) H 01/06/18 12:28 ABG pCO2 48 mmHg (35-45) H 01/09/18 04:48 ABG pO2 114 mmHg (85-104) H 01/09/18 04:48 ABG Total CO2 27 mEq/L (20-26) H 01/09/18 04:48 Chloride 113 mEq/L (98-107) H 01/10/18 03:35 Creatinine 1.36 mg/dL (0.70-1.30) H 01/10/18 03:35 Est GFR (Non-Af Amer) 52 (> 60) L 01/10/18 03:35 Glucose 107 mg/dL (70-105) H 01/10/18 03:35 POC Glucose 117 mg/dL (70-99) H 01/09/18 23:58 Hemoglobin A1c 6.1 % (-5.6) H 01/08/18 12:16 Calcium 8.1 mg/dL (8.6-10.3) L 01/10/18 03:35 Venous Ioniz Calcium 1.13 mmol/L (1.15-1.35) L 01/09/18 04:38 Phosphorus 4.8 mg/dL (2.7-4.5) H 01/09/18 04:15 AST 50 Units/L (13-39) H 01/10/18 03:35 Alkaline Phosphatase 149 Units/L (34-104) H 01/10/18 03:35 Serum Total Protein 5.0 g/dL (6.4-8.9) L 01/10/18 03:35 Albumin 2.7 g/dL (3.5-5.7) L 01/10/18 03:35 Globulin 2.3 g/dL (2.4-3.5) L 01/10/18 03:35 Prolactin 26.30 ng/mL (3.00-14.70) H 01/08/18 07:08 Ur Leukocyte Esterase Trace (Negative) H 01/06/18 12:30 Ur Squamous Epith Cells Many per lpf (None-Few) H 01/06/18 12:30 Ur Culture Indicated? NO. (NO) A 01/06/18 12:30 Vancomycin Trough 15 mcg/mL (5-10) H 01/08/18 12:16 Ethyl Alcohol 11 mg/dL (Less than 10) H 01/06/18 12:28 General appearance: Present: no acute distress - Respiratory Additional comments: Lungs with decreased breath sounds and expiratory wheezes - Cardiovascular Cardiovascular exam: Present: +S1, +S2 - GI/Abdominal GI/Abdominal exam: Present: diminished bowel sounds, distended - Extremities Exam Extremities exam: Present: normal capillary refill, normal inspection - Neurological Exam Additional comments: Opens eyes, no myoclonus noted at present. Would not follow commands during my visit. Remains on sedation. - Skin Skin exam: Present: dry, warm Palliative Quality Palliative Quality: Screen for Code Status: NA (No family present), Screen for Goals of Care: NA, Screen for Pain: Yes, If Pain Regimen Started, Initiate Bowel Regimen: NA, Screen for Nausea/Vomitting: NA Code Status: 01/06/18 14:15 Resuscitation Status: Active [RES] Routine Comment: Resuscitation Status: Full Code Resuscitation Status: Active [RES] Routine Comment: Per brother Resuscitation Status: DNR-Comfort Care-Arrest - Labs CBC & Chem 7: 01/10/18 03:35 01/10/18 03:35 Labs: Laboratory Results - last 24 hr 01/09/18 01/09/18 01/09/18 05:32 11:37 13:15 WBC RBC Hgb Hct MCV MCH MCHC RDW Plt Count MPV Immature Gran % Seg Neutrophils % Lymphocytes % Monocytes % Eosinophils % Basophils % Neutrophils # Lymphocytes # Monocytes # Eosinophils # Basophils # Immature Plt Fraction Sodium 142 Potassium 4.5 Chloride 111 H Carbon Dioxide 24 BUN 9 Creatinine 1.56 H Est GFR ( Amer) 54 L Est GFR (Non-Af Amer) 44 L BUN/Creatinine Ratio 6 Glucose 144 H POC Glucose 146 H 138 H Calculated Osmolality 295 Calcium 8.0 L Total Bilirubin AST ALT Alkaline Phosphatase Serum Total Protein Albumin Globulin Albumin/Globulin Ratio 01/09/18 01/09/18 01/10/18 18:23 23:58 03:35 WBC 15.2 H RBC 2.96 L Hgb 9.8 L Hct 29.8 L MCV 100.7 H MCH 33.1 MCHC 32.9 RDW 14.8 H Plt Count 252 MPV 8.9 L Immature Gran % 1.8 Seg Neutrophils % 79.1 Lymphocytes % 8.9 Monocytes % 10.0 Eosinophils % 0.1 Basophils % 0.1 Neutrophils # 12.0 H Lymphocytes # 1.4 Monocytes # 1.5 H Eosinophils # 0.0 Basophils # 0.0 Immature Plt Fraction 2.0 Sodium Potassium Chloride Carbon Dioxide BUN Creatinine Est GFR ( Amer) Est GFR (Non-Af Amer) BUN/Creatinine Ratio Glucose POC Glucose 135 H 117 H Calculated Osmolality Calcium Total Bilirubin AST ALT Alkaline Phosphatase Serum Total Protein Albumin Globulin Albumin/Globulin Ratio 01/10/18 03:35 WBC RBC Hgb Hct MCV MCH MCHC RDW Plt Count MPV Immature Gran % Seg Neutrophils % Lymphocytes % Monocytes % Eosinophils % Basophils % Neutrophils # Lymphocytes # Monocytes # Eosinophils # Basophils # Immature Plt Fraction Sodium 144 Potassium 4.4 Chloride 113 H Carbon Dioxide 23 BUN 14 Creatinine 1.36 H Est GFR ( Amer) > 60 Est GFR (Non-Af Amer) 52 L BUN/Creatinine Ratio 10 Glucose 107 H POC Glucose Calculated Osmolality 299 Calcium 8.1 L Total Bilirubin 0.4 AST 50 H ALT 24 Alkaline Phosphatase 149 H Serum Total Protein 5.0 L Albumin 2.7 L Globulin 2.3 L Albumin/Globulin Ratio 1.2 - ABG Interpretation ABG results: ABG ABG pH 7.34 pH Units (7.32-7.45) 01/09/18 04:48 ABG pCO2 48 mmHg (35-45) H 01/09/18 04:48 ABG pO2 114 mmHg (85-104) H 01/09/18 04:48 ABG O2 Saturation 98 % (95-98) 01/09/18 04:48 PT/INR, D-dimer PT 10.4 Seconds (9.4-12.1) 01/06/18 12:28 Consult Discharge Plan - Plan Referrals: NONE,PCP [Primary Care Provider] -
[2018-01-10 10:38] LABS: ABG Base Excess -1 mEq/L (-2 to 3); ABG HCO3 26 mEq/L (21-27); ABG Oxygen Saturation 98 % (95-98); ABG PCO2 55 mmHg (35-45); ABG PH 7.29 pH Units (7.32-7.45); ABG PO2 111 mmHg (85-104); ABG TCO2 28 mEq/L (20-26); Blood Gas PEEP 5 cm H2O; Blood Gas Respiration Rate 12; Blood Gas VT 550 cc
[2018-01-10] MEDS: Levofloxacin 750 MG/150 ML 750 MG/150 ML BAG IVPB SCH (10:56)
[2018-01-10] MEDS: Metoclopramide 10 MG/2 ML VIAL IVP SCH ×3 (11:18→23:33)
--- NOTE | 2018-01-10 14:37 | Event Note ---
Date of Encounter: 01/10/18 Time of Encounter: 14:30 Spoke with Bradly, pt brother, he has been in and updated on clinical status. Stated that pt definitely responded to him squeezing hand and moving on commands. Discussed issue of vent support - Bradly desires continued vent support until patient can safely be extubated. Discussed process of CPAP trials and that these will be done daily to assess his progress. Discussed re- intubation if he should get extubated and fail, they want to give him every chance to be successfully extubated, however, once extubated, if his respiratory status fails, Bradly does not want him reintubated. Bradly will be in tomorrow and will f/u with him Sunday.
[2018-01-10] MEDS ORDERED: Milk and Molasses Enema 200 ML RC ONE (18:06)
[2018-01-10] MEDS: *HR* LORazepam 2 MG/ML VIAL IVP PRN (19:57)
[2018-01-10] MEDS: *HR* Metoprolol 5 MG/5 ML VIAL IVP PRN (19:58)
[2018-01-11 03:44] LABS: Basophils % 0.1 %; Eosinophils % 0.3 %; Hematocrit 28.4 % (37.5-50.1); Immature Granulocytes % 0.7 % (0-4); Lymphocytes # 1.2 K/mcL (0.6-4.6); Lymphocytes % 12.3 %; Mean Platelet Volume 9.2 fL (9.4-12.4); Monocytes # 1.1 K/mcL (0.0-1.3); Monocytes % 11.9 %; Neutrophils # 7.1 K/mcL (1.6-8.9); Platelet Count 170 K/mcL (140-400); Red Blood Count 2.84 M/mcL (4.19-5.50); Red Cell Distribution Width 14.8 % (11.5-14.5); Segmented Neutrophils % 74.7 %
[2018-01-11 03:48] LABS: Hemoglobin 9.1 g/dL (12.9-16.9)
[2018-01-11 03:55] LABS: VBG Ionized Calcium 1.17 mmol/L (1.15-1.35)
[2018-01-11] MEDS: Ipratropium/Albuterol Neb 3 ML IH SCH ×6 (03:57→19:52)
[2018-01-11 04:03] LABS: Alanine Aminotransferase 29 Units/L (7-52); Albumin 2.7 g/dL (3.5-5.7); Albumin/Globulin Ratio 1.2 (1.1-2.2); Alkaline Phosphatase 127 Units/L (34-104); Aspartate Amino Transferase 64 Units/L (13-39); BUN/Creatinine Ratio 16 (6-26); Bilirubin,Total 0.4 mg/dL (0.3-1.0); Blood Urea Nitrogen 22 mg/dL (8-23); Calcium 8.3 mg/dL (8.6-10.3); Carbon Dioxide 27 mEq/L (23-29); Chloride 110 mEq/L (98-107); Globulin 2.3 g/dL (2.4-3.5); Glucose 87 mg/dL (70-105); Osmolality,Calculated 295 (280-300); Potassium 4.5 mEq/L (3.5-5.1); Sodium 141 mEq/L (136-145); eGFR For African Americans > 60 (> 60); eGFR For Non-African Americans 51 (> 60)
[2018-01-11 04:04] LABS: Magnesium 2.4 mg/dL (1.6-2.6); Phosphorous 3.1 mg/dL (2.7-4.5)
[2018-01-11] MEDS: Insulin LISPRO 300 UNITS/3 ML VIAL SQ SCH ×3 (06:16→21:08)
[2018-01-11] MEDS: *HR* Heparin 5,000 UNIT/ML VIAL SQ SCH ×2 (06:28→21:07)
[2018-01-11] MEDS: Metoclopramide 10 MG/2 ML VIAL IVP SCH ×3 (06:28→21:08)
[2018-01-11] MEDS: Lacri-Lube 3.5 GM TUBE BOTH EYES SCH ×5 (06:28→21:09)
[2018-01-11] MEDS: Chlorhexidine Rinse 15 ML MOUTHWASH MM SCH ×2 (07:42→21:08)
--- NOTE | 2018-01-11 07:42 | Pulmonology Progress Note ---
<[email or web address] M - Last Filed: 01/11/18 12:55> Date of Encounter: 01/11/18 Objective PUL Vital signs: Last Vital Signs Temp 98.2 F 01/11/18 11:54 Pulse 124 01/11/18 12:00 Resp 11 01/11/18 12:00 BP 95/59 01/11/18 12:00 Pulse Ox 93 01/11/18 12:00 Ventilator Settings Ventilator Settings: Ventilator Settings, Last 8 Hours Ventilator Mode CPAP Ventilator Mode CPAP Ventilator Mode CPAP Ventilator Mode CPAP Ventilator Mode CPAP Ventilator Mode CPAP Ventilator Mode CPAP Ventilator Tidal Volume 550 Setting Ventilator Tidal Volume 550 Setting Ventilator Tidal Volume 550 Setting Ventilator Tidal Volume 550 Setting Ventilator Tidal Volume 550 Setting Ventilator Tidal Volume 550 Setting Ventilator Tidal Volume 550 Setting Ventilator Tidal Volume 550 Setting Ventilator Tidal Volume 550 Setting Ventilator Respiratory Rate 14 Setting Ventilator Respiratory Rate 14 Setting Ventilator Respiratory Rate 14 Setting Ventilator Respiratory Rate 14 Setting Ventilator Respiratory Rate 14 Setting Actual Respiratory Rate 11 Actual Respiratory Rate 12 Actual Respiratory Rate 12 Actual Respiratory Rate 12 Actual Respiratory Rate 14 Actual Respiratory Rate 12 Actual Respiratory Rate 12 Actual Respiratory Rate 12 Actual Respiratory Rate 14 Actual Respiratory Rate 14 Positive End Expiratory 5 Pressure Positive End Expiratory 5 Pressure Positive End Expiratory 5 Pressure Positive End Expiratory 5 Pressure Positive End Expiratory 5 Pressure Positive End Expiratory 5 Pressure Positive End Expiratory 5 Pressure Positive End Expiratory 5 Pressure Positive End Expiratory 5 Pressure Positive End Expiratory 5 Pressure Positive End Expiratory 5 Pressure Peak Inspiratory Airway 11 Pressure Peak Inspiratory Airway 12 Pressure Peak Inspiratory Airway 11 Pressure Peak Inspiratory Airway 11 Pressure Peak Inspiratory Airway 12 Pressure Peak Inspiratory Airway 11 Pressure Peak Inspiratory Airway 12 Pressure Peak Inspiratory Airway 11 Pressure Peak Inspiratory Airway 16 Pressure Peak Inspiratory Airway 40 Pressure Peak Inspiratory Airway 40 Pressure Results - Laboratory Findings CBC and BMP: 01/11/18 03:30 01/11/18 03:30 ABG ABG pH 7.29 pH Units (7.32-7.45) L 01/10/18 10:33 ABG pCO2 55 mmHg (35-45) H 01/10/18 10:33 ABG pO2 111 mmHg (85-104) H 01/10/18 10:33 ABG O2 Saturation 98 % (95-98) 01/10/18 10:33 PT/INR, D-dimer PT 10.4 Seconds (9.4-12.1) 01/06/18 12:28 Abnormal lab findings: Abnormal lab results RBC 2.84 M/mcL (4.19-5.50) L 01/11/18 03:30 Hgb 9.1 g/dL (12.9-16.9) L 01/11/18 03:30 Hct 28.4 % (37.5-50.1) L 01/11/18 03:30 RDW 14.8 % (11.5-14.5) H 01/11/18 03:30 MPV 9.2 fL (9.4-12.4) L 01/11/18 03:30 APTT 37.0 Seconds (26.0-36.0) H 01/06/18 12:28 ABG pH 7.29 pH Units (7.32-7.45) L 01/10/18 10:33 ABG pCO2 55 mmHg (35-45) H 01/10/18 10:33 ABG pO2 111 mmHg (85-104) H 01/10/18 10:33 ABG Total CO2 28 mEq/L (20-26) H 01/10/18 10:33 Chloride 110 mEq/L (98-107) H 01/11/18 03:30 Creatinine 1.39 mg/dL (0.70-1.30) H 01/11/18 03:30 Est GFR (Non-Af Amer) 51 (> 60) L 01/11/18 03:30 Hemoglobin A1c 6.1 % (-5.6) H 01/08/18 12:16 Calcium 8.3 mg/dL (8.6-10.3) L 01/11/18 03:30 AST 64 Units/L (13-39) H 01/11/18 03:30 Alkaline Phosphatase 127 Units/L (34-104) H 01/11/18 03:30 Serum Total Protein 5.0 g/dL (6.4-8.9) L 01/11/18 03:30 Albumin 2.7 g/dL (3.5-5.7) L 01/11/18 03:30 Globulin 2.3 g/dL (2.4-3.5) L 01/11/18 03:30 Prolactin 26.30 ng/mL (3.00-14.70) H 01/08/18 07:08 Ur Leukocyte Esterase Trace (Negative) H 01/06/18 12:30 Ur Squamous Epith Cells Many per lpf (None-Few) H 01/06/18 12:30 Ur Culture Indicated? NO. (NO) A 01/06/18 12:30 Vancomycin Trough 15 mcg/mL (5-10) H 01/08/18 12:16 Ethyl Alcohol 11 mg/dL (Less than 10) H 01/06/18 12:28 - Clinical Findings Intake & Output: Intake & Output 01/10/18 01/11/18 01/11/18 23:59 07:59 15:59 Intake Total 305 / 305 0 / 0 0 / 0 Output Total 450 / 450 475 / 475 700 / 700 Balance -145 / -145 -475 / -475 -700 / -700 Weight 81.2 kg Consult Discharge Plan - Plan Referrals: NONE,PCP [Primary Care Provider] - - Attending Attestation I examined this patient and my medical decision-making was reviewed with the Resident Physician. I agree with the documented findings, disposition and treatment plan as described except to the extent set forth below. Patient seen and examined. Labs, radiology, chart personally reviewed. Agree with resident's history and physical, assessment, plan with following comments: PROCESS CONTROL TECHNICIAN: Patient follows commands, mental status has improved Pulmonary: Acceptable oxygenation and ventilation today and spontaneous breathing trial and extubation when past his trial. Cardiovascular: stable GI: Nutrition per dietary and GI prophylaxis per routine Heme: DVT prophylaxis per routine Renal; urine out put and renal funtion reviewed Endorcine: blood glucose is monitored Lines: all lines checked and no evidence of infections Skin: skin care to prevent pressure ulcers per nursing routine care <Bobby Muro - Last Filed: 01/11/18 17:34> Date of Encounter: 01/11/18 Time of Encounter: 08:00 Assessment and Plan (1) Metabolic encephalopathy Current Visit: Yes Status: Acute - Very possible it is multifactorial - Etiologies may include hyperammonemia, hypercapnia, sepsis, alcohol withdrawal , infectious etiology - CT head was negative for acute process - Blood and urine cultures pending, negative so far - We will treat underlying conditions as above and below -Supportive care, fall precautions, seizure precautions - We will not place restraints due to myoclonus - Remains difficult to assess due to sedation on ventilator (2) Acute respiratory failure Current Visit: Yes Status: Acute - Acute respiratory failure with hypoxia and hypercapnia - Possible etiologies include congestive heart failure exacerbation versus COPD exacerbation versus less likely pneumonia - Initial ABG did demonstrate a respiratory acidosis, improving. - CXR on 01/06 was negative for any intrathoracic process, repeat on 01/09 showing minimal change - CT abdomen 01/07 did demonstrate volume overload, repeat CT on 01/10 shows persistent fluid - Arterial blood gas most recently demonstrates respiratory acidosis, chronic in nature - Patient remains ventilator dependent, attempted weaning trial this morning and patient failed due to not meeting protocols - Echocardiogram showing moderate diastolic dysfunction, EF 60% Plan - Continue ventilator support - Continue Levaquin for possible pneumonia component, on day #6 - Diuresis with 40 Lasix IV twice a day, will decrease to once per day - Continue steroids every 24 hours, breathing treatments, add symbicort Qualifiers: Respiratory failure complication: hypoxia and hypercapnia Qualified Code(s) : J96.01 - Acute respiratory failure with hypoxia; J96.02 - Acute respiratory failure with hypercapnia (3) Lactic acidosis Current Visit: Yes Status: Resolved Lactic acid originally 5.3 which has downtrended to wnl (4) Leukocytosis Current Visit: Yes Status: Resolved - Leukocytosis of 24.7 on admission which is down trended to 9.5 - Likely multifactorial including stress reaction, infectious etiology - Started on vancomycin, Zosyn, Levaquin and emergency room - Possible infectious sources include pneumonia versus unknown etiology vs reactive in setting of seizures - Urinalysis not suggestive of infection - Lactic acidosis was 5.3 which has been trended and is now within normal limits - Suspect this is less likely infectious etiology and more likely reactive in nature Plan - Continue antibiotics day #6 - High suspicion of reactive etiology in the setting of myoclonus, will treat underlying etiologies as below - Continue to monitor with daily labs Qualifiers: Leukocytosis type: unspecified Qualified Code(s): D72.829 - Elevated white blood cell count, unspecified (5) Prostate cancer Current Visit: Yes Status: Chronic As below for colon cancer (6) Colon cancer Current Visit: Yes Status: Suspected - Family reports history of colon cancer and prostate cancer - Diagnosed at [facility] in August 2017 - Reports no chemotherapy or radiation treatments - CT abdomen/pelvis today showed no signs of mass or metastasis Plan - Follow up with [facility] as outpatient for further management if desired - Palliative care consult Qualifiers: Colon location: unspecified part of colon Qualified Code(s): C18.9 - Malignant neoplasm of colon, unspecified (7) Alcohol withdrawal Current Visit: Yes Status: Acute - Suspected alcohol withdrawal. - Per family, patient consumes 1 gallon of whiskey every 3 days - Unknown last drink - Alcohol on presentation was 11 - Patient was noted to have continued suspected seizures. Neurology states that this is more likely myoclonus. No reported jerks overnight - Vitamin supplementation Plan - CIWA protocol stopped as we are unable to assess fully. - Change to propofol sedation - Start depakote 500 mg BID per neuro recommendations - Monitor for further signs of withdrawal - Social work consult Qualifiers: Complication of substance-induced condition: uncomplicated Qualified Code(s ): F10.230 - Alcohol dependence with withdrawal, uncomplicated (8) Hyperammonemia Current Visit: Yes Status: Acute - Ammonia of 116 on presentation -Reported history of heavy drinking - Ammonia has down trended to 50 - INR within normal limits at 1.0 - Liver ultrasound taken showing hepatic steatosis - Has been getting lactulose via G-tube - AST mildly elevated with most recent value of 52, ALT within normal limits, alkaline phosphatase 144 Plan - Continue to monitor for signs of altered mental status - Treat underlying conditions as above and below (9) Goals of care, counseling/discussion Current Visit: Yes Status: Acute Consult to try to care for goals of care discussion Discussed with family per Palliative care. Reports 2 estranged sons and a fiance. Has reportedly previously discussed wanting brother to make decisions, however unsure if paperwork has been filled out. Palliative care following and working on paperwork aspect Patient's brother, Bradly, states that he wants everything done for successful extubation, however no reintubation should this fail. Patient is DNR/CCA (10) Observed seizure-like activity Current Visit: Yes Status: Acute Multiple reported seizures of unknown etiology - Possible alcohol withdrawl vs medication vs epileptic. - Neuro consulted and following - Precedex changed to propofol yesterday. - Prolactin 26 after witnessed event - EEG obtained and showed diffuse brain injury however these may be secondary to sedative for intubation Plan - After additional seizures on propofol, Depakote added yesterday with good control of symptoms - Neuro believes this to be more myoclonus (11) (HFpEF) heart failure with preserved ejection fraction Current Visit: Yes Status: Chronic EF 60, moderate diastolic as above (12) Dilatation of colon Current Visit: Yes Status: Acute - Doing due to no bowel movement since admission - Shows no evidence of small bowel ejection but does show 10 cm dilation of cecal region - Started Reglan this morning to encourage bowel movement - CT abdomen shows no evidence of obstruction, enema given and rectal tube placed with good output. (13) DVT prophylaxis Current Visit: Yes Status: Acute Heparin 5000 units q12 hours Subjective Principal diagnosis: Acute respiratory failure Interval history: Patient was seen and examined at bedside. He is intubated and sedated and unable to participate in interview. Patient does respond to verbal and tactile stimuli. No acute events overnight, no further episodes of myoclonic jerks Objective PUL Vital signs: Last Vital Signs Temp 97.9 F 01/11/18 03:51 Pulse 124 01/11/18 07:32 Resp 14 01/11/18 07:00 BP 117/79 01/11/18 07:00 Pulse Ox 95 01/11/18 07:00 Gen.: Vitals noted. No acute distress. Intubated and sedated, does respond to commands HEENT: PERRL/EOMI, oropharynx clear, Normocephalic, atraumatic, MMM, endotracheal tube in place Cardiac: RRR, no murmur, +S1/S2 Pulmonary: Much improved respiratory sounds, only mild rhonchi on auscultation, equal chest expansion Abdomen: soft, nontender, BS diminished, no guarding, no rebound. Improved distention, rectal tube in place MSK: ROM intact, no joint swelling noted Extremities: no BLE edema, nontender calf, no cyanosis or clubbing Neuro: Follows commands, otherwise sedated Psych: Unable to assess Ventilator Settings Ventilator Settings: Ventilator Settings, Last 8 Hours Ventilator Mode CPAP Ventilator Mode CPAP Ventilator Tidal Volume 550 Setting Ventilator Tidal Volume 550 Setting Ventilator Tidal Volume 550 Setting Ventilator Tidal Volume 550 Setting Ventilator Tidal Volume 550 Setting Ventilator Tidal Volume 550 Setting Ventilator Tidal Volume 550 Setting Ventilator Tidal Volume 550 Setting Ventilator Tidal Volume 550 Setting Ventilator Tidal Volume 550 Setting Ventilator Tidal Volume 550 Setting Ventilator Tidal Volume 550 Setting Ventilator Respiratory Rate 14 Setting Ventilator Respiratory Rate 14 Setting Ventilator Respiratory Rate 14 Setting Ventilator Respiratory Rate 14 Setting Ventilator Respiratory Rate 14 Setting Ventilator Respiratory Rate 14 Setting Ventilator Respiratory Rate 14 Setting Ventilator Respiratory Rate 14 Setting Ventilator Respiratory Rate 14 Setting Ventilator Respiratory Rate 14 Setting Ventilator Respiratory Rate 14 Setting Ventilator Respiratory Rate 14 Setting Actual Respiratory Rate 12 Actual Respiratory Rate 14 Actual Respiratory Rate 14 Actual Respiratory Rate 14 Actual Respiratory Rate 14 Actual Respiratory Rate 14 Actual Respiratory Rate 14 Actual Respiratory Rate 14 Actual Respiratory Rate 14 Actual Respiratory Rate 14 Actual Respiratory Rate 14 Positive End Expiratory 5 Pressure Positive End Expiratory 5 Pressure Positive End Expiratory 5 Pressure Positive End Expiratory 5 Pressure Positive End Expiratory 5 Pressure Positive End Expiratory 5 Pressure Positive End Expiratory 5 Pressure Positive End Expiratory 5 Pressure Positive End Expiratory 5 Pressure Positive End Expiratory 5 Pressure Positive End Expiratory 5 Pressure Positive End Expiratory 5 Pressure Peak Inspiratory Airway 11 Pressure Peak Inspiratory Airway 16 Pressure Peak Inspiratory Airway 40 Pressure Peak Inspiratory Airway 40 Pressure Peak Inspiratory Airway 40 Pressure Peak Inspiratory Airway 45 Pressure Peak Inspiratory Airway 38 Pressure Peak Inspiratory Airway 41 Pressure Peak Inspiratory Airway 38 Pressure Peak Inspiratory Airway 38 Pressure Peak Inspiratory Airway 34 Pressure Peak Inspiratory Airway 34 Pressure Results - Laboratory Findings CBC and BMP: 01/11/18 03:30 01/11/18 03:30 ABG ABG pH 7.29 pH Units (7.32-7.45) L 01/10/18 10:33 ABG pCO2 55 mmHg (35-45) H 01/10/18 10:33 ABG pO2 111 mmHg (85-104) H 01/10/18 10:33 ABG O2 Saturation 98 % (95-98) 01/10/18 10:33 PT/INR, D-dimer PT 10.4 Seconds (9.4-12.1) 01/06/18 12:28 Abnormal lab findings: Abnormal lab results RBC 2.84 M/mcL (4.19-5.50) L 01/11/18 03:30 Hgb 9.1 g/dL (12.9-16.9) L 01/11/18 03:30 Hct 28.4 % (37.5-50.1) L 01/11/18 03:30 RDW 14.8 % (11.5-14.5) H 01/11/18 03:30 MPV 9.2 fL (9.4-12.4) L 01/11/18 03:30 APTT 37.0 Seconds (26.0-36.0) H 01/06/18 12:28 ABG pH 7.29 pH Units (7.32-7.45) L 01/10/18 10:33 ABG pCO2 55 mmHg (35-45) H 01/10/18 10:33 ABG pO2 111 mmHg (85-104) H 01/10/18 10:33 ABG Total CO2 28 mEq/L (20-26) H 01/10/18 10:33 Chloride 110 mEq/L (98-107) H 01/11/18 03:30 Creatinine 1.39 mg/dL (0.70-1.30) H 01/11/18 03:30 Est GFR (Non-Af Amer) 51 (> 60) L 01/11/18 03:30 Hemoglobin A1c 6.1 % (-5.6) H 01/08/18 12:16 Calcium 8.3 mg/dL (8.6-10.3) L 01/11/18 03:30 AST 64 Units/L (13-39) H 01/11/18 03:30 Alkaline Phosphatase 127 Units/L (34-104) H 01/11/18 03:30 Serum Total Protein 5.0 g/dL (6.4-8.9) L 01/11/18 03:30 Albumin 2.7 g/dL (3.5-5.7) L 01/11/18 03:30 Globulin 2.3 g/dL (2.4-3.5) L 01/11/18 03:30 Prolactin 26.30 ng/mL (3.00-14.70) H 01/08/18 07:08 Ur Leukocyte Esterase Trace (Negative) H 01/06/18 12:30 Ur Squamous Epith Cells Many per lpf (None-Few) H 01/06/18 12:30 Ur Culture Indicated? NO. (NO) A 01/06/18 12:30 Vancomycin Trough 15 mcg/mL (5-10) H 01/08/18 12:16 Ethyl Alcohol 11 mg/dL (Less than 10) H 01/06/18 12:28 - Clinical Findings Intake & Output: Intake & Output 01/10/18 01/10/18 01/11/18 15:59 23:59 07:59 Intake Total 219 / 219 305 / 305 0 / 0 Output Total 150 / 150 450 / 450 300 / 300 Balance 69 / 69 -145 / -145 -300 / -300 Weight 81.2 kg
[2018-01-11] MEDS ORDERED: *HR* Rocuronium Bromide 100 MG/10 ML VIAL IVC ONE (07:51)
[2018-01-11] MEDS: Budesonide/Formoterol 160/4.5 MDI IH SCH ×2 (08:11→19:52)
[2018-01-11] MEDS: Furosemide 40 MG/4 ML VIAL IVP SCH (09:26)
[2018-01-11] MEDS: MethylPREDNISolone 40 MG/ML VIAL IVP SCH (09:26)
[2018-01-11] MEDS: Pantoprazole 40 MG VIAL IVP SCH (09:26)
[2018-01-11] MEDS: Lactulose Oral Soln 20 GM/30 ML UDC GTUBE SCH ×3 (09:27→21:08)
[2018-01-11] MEDS: Valproic Acid INJ 500 MG in 0.9 % Sodium Chloride 100 ML IVPB SCH ×2 (09:27→21:22)
[2018-01-11] MEDS: Levofloxacin 750 MG/150 ML 750 MG/150 ML BAG IVPB SCH (10:39)
[2018-01-11] MEDS ORDERED: Folic Acid 1 MG in D5% in Water 50 ML IVPB ONE (11:36)
[2018-01-11] MEDS ORDERED: *HR* Metoprolol 5 MG/5 ML VIAL IVP PRN (11:46)
[2018-01-11] MEDS: Thiamine (B-1) 100 MG in D5% in Water 50 ML IVPB SCH (12:31)
--- NOTE | 2018-01-11 12:51 | Palliative Progress Note ---
Date of Encounter: 01/11/18 Time of Encounter: 11:00 - Assessment and plan (1) Metabolic encephalopathy Current Visit: Yes Status: Acute Assessment and plan: Slowly improving , able to follow commands. MOnitor (2) Acute respiratory failure Current Visit: Yes Status: Acute Qualifiers: Respiratory failure complication: hypoxia and hypercapnia Qualified Code(s) : J96.01 - Acute respiratory failure with hypoxia; J96.02 - Acute respiratory failure with hypercapnia (3) Alcohol withdrawal Current Visit: Yes Status: Acute Qualifiers: Complication of substance-induced condition: uncomplicated Qualified Code(s ): F10.230 - Alcohol dependence with withdrawal, uncomplicated (4) Goals of care, counseling/discussion Current Visit: Yes Status: Acute Assessment and plan: Discussed with Bradly, pt brother. Code status remains DNR-Arrest - will transition to DNR/DNI post extubation. Bradly hopeful now pt is awake and alert , following commands, appears to know family. Did discuss that with his respiratory status, may still be a challenge weaning from the vent. Bradly verbalized understanding. Palliative will f/u on Sunday on clinical status. He ultimately will likely be a candidate [facility] if he is successfully extubated and stable. - Time Spent With Patient Total time spent is greater than 50% in coordination of care (as documented) at patient's floor/unit and/or counseling patient: - Subjective Interval history: Patient remains on ventilator. Able to open eyes when name called, and can follow simple commands. Shakes head "yes/no" to some questions. - Constitutional Vitals: Abnormal lab results RBC 2.84 M/mcL (4.19-5.50) L 01/11/18 03:30 Hgb 9.1 g/dL (12.9-16.9) L 01/11/18 03:30 Hct 28.4 % (37.5-50.1) L 01/11/18 03:30 RDW 14.8 % (11.5-14.5) H 01/11/18 03:30 MPV 9.2 fL (9.4-12.4) L 01/11/18 03:30 APTT 37.0 Seconds (26.0-36.0) H 01/06/18 12:28 ABG pH 7.29 pH Units (7.32-7.45) L 01/10/18 10:33 ABG pCO2 55 mmHg (35-45) H 01/10/18 10:33 ABG pO2 111 mmHg (85-104) H 01/10/18 10:33 ABG Total CO2 28 mEq/L (20-26) H 01/10/18 10:33 Chloride 110 mEq/L (98-107) H 01/11/18 03:30 Creatinine 1.39 mg/dL (0.70-1.30) H 01/11/18 03:30 Est GFR (Non-Af Amer) 51 (> 60) L 01/11/18 03:30 Hemoglobin A1c 6.1 % (-5.6) H 01/08/18 12:16 Calcium 8.3 mg/dL (8.6-10.3) L 01/11/18 03:30 AST 64 Units/L (13-39) H 01/11/18 03:30 Alkaline Phosphatase 127 Units/L (34-104) H 01/11/18 03:30 Serum Total Protein 5.0 g/dL (6.4-8.9) L 01/11/18 03:30 Albumin 2.7 g/dL (3.5-5.7) L 01/11/18 03:30 Globulin 2.3 g/dL (2.4-3.5) L 01/11/18 03:30 Prolactin 26.30 ng/mL (3.00-14.70) H 01/08/18 07:08 Ur Leukocyte Esterase Trace (Negative) H 01/06/18 12:30 Ur Squamous Epith Cells Many per lpf (None-Few) H 01/06/18 12:30 Ur Culture Indicated? NO. (NO) A 01/06/18 12:30 Vancomycin Trough 15 mcg/mL (5-10) H 01/08/18 12:16 Ethyl Alcohol 11 mg/dL (Less than 10) H 01/06/18 12:28 General appearance: Present: no acute distress - Respiratory Additional comments: Expiratory wheezed throughout anterior chest. Remains on vent. - Cardiovascular Cardiovascular exam: Present: tachycardia - GI/Abdominal GI/Abdominal exam: Present: diminished bowel sounds, soft Additional comments: Rectal tube in place. - Extremities Exam Extremities exam: Present: normal capillary refill, normal inspection - Neurological Exam Neurological exam: Present: alert, strengths equal and symetr throughout Additional comments: Equal hand grasps. Did move left toes for me. - Skin Skin exam: Present: dry, pallor, warm Palliative Quality Palliative Quality: Screen for Code Status: NA (No family present), Screen for Goals of Care: NA, Screen for Pain: Yes, If Pain Regimen Started, Initiate Bowel Regimen: NA, Screen for Nausea/Vomitting: NA Code Status: 01/06/18 14:15 Resuscitation Status: Active [RES] Routine Comment: Resuscitation Status: Full Code Resuscitation Status: Active [RES] Routine Comment: Per brother Resuscitation Status: DNR-Comfort Care-Arrest - Labs CBC & Chem 7: 01/11/18 03:30 01/11/18 03:30 Labs: Laboratory Results - last 24 hr 01/10/18 01/10/18 01/10/18 05:44 11:19 16:46 WBC RBC Hgb Hct MCV MCH MCHC RDW Plt Count MPV Immature Gran % Seg Neutrophils % Lymphocytes % Monocytes % Eosinophils % Basophils % Neutrophils # Lymphocytes # Monocytes # Eosinophils # Basophils # Sodium Potassium Chloride Carbon Dioxide BUN Creatinine Est GFR ( Amer) Est GFR (Non-Af Amer) BUN/Creatinine Ratio Glucose POC Glucose 109 H 97 132 H Calculated Osmolality Calcium Venous Ioniz Calcium Phosphorus Magnesium Total Bilirubin AST ALT Alkaline Phosphatase Serum Total Protein Albumin Globulin Albumin/Globulin Ratio 01/10/18 01/10/18 01/11/18 18:48 23:22 03:30 WBC 9.5 RBC 2.84 L Hgb 9.1 L Hct 28.4 L MCV 100.0 MCH 32.0 MCHC 32.0 RDW 14.8 H Plt Count 170 MPV 9.2 L Immature Gran % 0.7 Seg Neutrophils % 74.7 Lymphocytes % 12.3 Monocytes % 11.9 Eosinophils % 0.3 Basophils % 0.1 Neutrophils # 7.1 Lymphocytes # 1.2 Monocytes # 1.1 Eosinophils # 0.0 Basophils # 0.0 Sodium Potassium Chloride Carbon Dioxide BUN Creatinine Est GFR ( Amer) Est GFR (Non-Af Amer) BUN/Creatinine Ratio Glucose POC Glucose 120 H 98 Calculated Osmolality Calcium Venous Ioniz Calcium Phosphorus Magnesium Total Bilirubin AST ALT Alkaline Phosphatase Serum Total Protein Albumin Globulin Albumin/Globulin Ratio 01/11/18 01/11/18 01/11/18 03:30 03:30 03:49 WBC RBC Hgb Hct MCV MCH MCHC RDW Plt Count MPV Immature Gran % Seg Neutrophils % Lymphocytes % Monocytes % Eosinophils % Basophils % Neutrophils # Lymphocytes # Monocytes # Eosinophils # Basophils # Sodium 141 Potassium 4.5 Chloride 110 H Carbon Dioxide 27 BUN 22 Creatinine 1.39 H Est GFR ( Amer) > 60 Est GFR (Non-Af Amer) 51 L BUN/Creatinine Ratio 16 Glucose 87 POC Glucose Calculated Osmolality 295 Calcium 8.3 L Venous Ioniz Calcium 1.17 Phosphorus 3.1 Magnesium 2.4 Total Bilirubin 0.4 AST 64 H ALT 29 Alkaline Phosphatase 127 H Serum Total Protein 5.0 L Albumin 2.7 L Globulin 2.3 L Albumin/Globulin Ratio 1.2 - Impressions Impressions Abdomen/Pelvis CT 01/10/18 14:26 IMPRESSION: There is a mild to moderate stool burden, which is increased when compared the previous exam, mainly seen within the rightward aspect the colon. Very mild constipation would be considered. There is continued evidence of possible fluid overload. The pleural effusions seen previously have mildly increased in size. However, small amount ascites identified on the previous examination has essentially resolved. Subcutaneous fat stranding is stable. The pericholecystic fluid has resolved. Urinary bladder wall thickening is not as apparent on today's exam and was probably secondary to incomplete distention on the previous exam. D/ / Ari Schmitt MD / Ari Schmitt MD Interpreting Provider: Ari Schmitt MD - ABG Interpretation ABG results: ABG ABG pH 7.29 pH Units (7.32-7.45) L 01/10/18 10:33 ABG pCO2 55 mmHg (35-45) H 01/10/18 10:33 ABG pO2 111 mmHg (85-104) H 01/10/18 10:33 ABG O2 Saturation 98 % (95-98) 01/10/18 10:33 PT/INR, D-dimer PT 10.4 Seconds (9.4-12.1) 01/06/18 12:28 Consult Discharge Plan - Plan Referrals: NONE,PCP [Primary Care Provider] -
[2018-01-11] MEDS: Norepinephrine 4 MG in D5% in Water 250 ML IVC SCH (20:45)
[2018-01-12] MEDS: Lacri-Lube 3.5 GM TUBE BOTH EYES SCH ×7 (00:20→23:43)
[2018-01-12] MEDS: Metoclopramide 10 MG/2 ML VIAL IVP SCH ×4 (02:41→22:02)
[2018-01-12] MEDS: Ipratropium/Albuterol Neb 3 ML IH SCH ×7 (03:38→23:20)
[2018-01-12 04:57] LABS: Eosinophils % 1.1 %; Hematocrit 33.1 % (37.5-50.1); Hemoglobin 10.5 g/dL (12.9-16.9); Immature Granulocytes % 1.1 % (0-4); Lymphocytes % 10.5 %; Mean Corpuscular HGB Conc 31.7 g/dL (31.6-35.5); Mean Corpuscular Hemoglobin 31.5 pg (28.0-33.3); Mean Corpuscular Volume 99.4 fL (83.0-100.0); Mean Platelet Volume 9.2 fL (9.4-12.4); Monocytes % 9.4 %; Platelet Count 192 K/mcL (140-400); Red Blood Count 3.33 M/mcL (4.19-5.50); Red Cell Distribution Width 14.8 % (11.5-14.5); Segmented Neutrophils % 77.7 %
[2018-01-12 04:58] LABS: Basophils % 0.2 %; Eosinophils # 0.1 K/mcL (0.0-0.6); Lymphocytes # 1.3 K/mcL (0.6-4.6); Monocytes # 1.2 K/mcL (0.0-1.3); Neutrophils # 9.5 K/mcL (1.6-8.9)
[2018-01-12 05:11] LABS: Alanine Aminotransferase 32 Units/L (7-52); Albumin/Globulin Ratio 1.2 (1.1-2.2); Alkaline Phosphatase 139 Units/L (34-104); Aspartate Amino Transferase 65 Units/L (13-39); BUN/Creatinine Ratio 22 (6-26); Bilirubin,Total 0.5 mg/dL (0.3-1.0); Blood Urea Nitrogen 21 mg/dL (8-23); Carbon Dioxide 26 mEq/L (23-29); Chloride 108 mEq/L (98-107); Globulin 2.6 g/dL (2.4-3.5); Glucose 132 mg/dL (70-105); Osmolality,Calculated 303 (280-300); Potassium 4.2 mEq/L (3.5-5.1); Sodium 144 mEq/L (136-145); Total Protein 5.6 g/dL (6.4-8.9); eGFR For African Americans > 60 (> 60); eGFR For Non-African Americans > 60 (> 60)
[2018-01-12] MEDS: Insulin LISPRO 300 UNITS/3 ML VIAL SQ SCH ×5 (05:43→23:58)
[2018-01-12 06:05] LABS: ABG Base Excess 5 mEq/L (-2 to 3); ABG HCO3 31 mEq/L (21-27); ABG Oxygen Saturation 95 % (95-98); ABG PCO2 55 mmHg (35-45); ABG PH 7.37 pH Units (7.32-7.45); ABG PO2 83 mmHg (85-104); ABG TCO2 33 mEq/L (20-26); Blood Gas Modality CPAP/PS; Blood Gas PEEP 5 cm H2O; Blood Gas Pressure Support 10 cm H2O
[2018-01-12] MEDS: Budesonide/Formoterol 160/4.5 MDI IH SCH ×2 (07:14→19:49)
[2018-01-12] MEDS: *HR* Heparin 5,000 UNIT/ML VIAL SQ SCH ×2 (07:24→17:53)
--- NOTE | 2018-01-12 07:51 | Pulmonology Progress Note ---
<MabelEstrella valdez M - Last Filed: 01/12/18 09:04> Date of Encounter: 01/12/18 Objective PUL Vital signs: Last Vital Signs Temp 98.6 F 01/12/18 08:06 Pulse 106 01/12/18 07:46 Resp 14 01/12/18 07:00 BP 145/103 01/12/18 07:00 Pulse Ox 95 01/12/18 07:00 Ventilator Settings Ventilator Settings: Ventilator Settings, Last 8 Hours Ventilator Mode CPAP Ventilator Mode CPAP Ventilator Tidal Volume 550 Setting Ventilator Tidal Volume 550 Setting Ventilator Tidal Volume 550 Setting Ventilator Tidal Volume 550 Setting Ventilator Tidal Volume 550 Setting Ventilator Tidal Volume 550 Setting Ventilator Tidal Volume 550 Setting Ventilator Tidal Volume 550 Setting Ventilator Respiratory Rate 14 Setting Ventilator Respiratory Rate 14 Setting Ventilator Respiratory Rate 14 Setting Ventilator Respiratory Rate 14 Setting Ventilator Respiratory Rate 14 Setting Ventilator Respiratory Rate 14 Setting Ventilator Respiratory Rate 14 Setting Ventilator Respiratory Rate 14 Setting Actual Respiratory Rate 12 Actual Respiratory Rate 12 Actual Respiratory Rate 16 Actual Respiratory Rate 14 Actual Respiratory Rate 14 Actual Respiratory Rate 14 Actual Respiratory Rate 14 Actual Respiratory Rate 17 Actual Respiratory Rate 17 Positive End Expiratory 5 Pressure Positive End Expiratory 5 Pressure Positive End Expiratory 5 Pressure Positive End Expiratory 5 Pressure Positive End Expiratory 5 Pressure Positive End Expiratory 5 Pressure Positive End Expiratory 5 Pressure Positive End Expiratory 5 Pressure Positive End Expiratory 5 Pressure Positive End Expiratory 5 Pressure Peak Inspiratory Airway 16 Pressure Peak Inspiratory Airway 16 Pressure Peak Inspiratory Airway 16 Pressure Peak Inspiratory Airway 36 Pressure Peak Inspiratory Airway 39 Pressure Peak Inspiratory Airway 32 Pressure Peak Inspiratory Airway 38 Pressure Peak Inspiratory Airway 38 Pressure Peak Inspiratory Airway 43 Pressure Results - Laboratory Findings CBC and BMP: 01/12/18 04:00 01/12/18 04:00 ABG ABG pH 7.37 pH Units (7.32-7.45) 01/12/18 06:01 ABG pCO2 55 mmHg (35-45) H 01/12/18 06:01 ABG pO2 83 mmHg (85-104) L 01/12/18 06:01 ABG O2 Saturation 95 % (95-98) 01/12/18 06:01 PT/INR, D-dimer PT 10.4 Seconds (9.4-12.1) 01/06/18 12:28 Abnormal lab findings: Abnormal lab results WBC 12.2 K/mcL (4.3-11.1) H 01/12/18 04:00 RBC 3.33 M/mcL (4.19-5.50) L 01/12/18 04:00 Hgb 10.5 g/dL (12.9-16.9) L 01/12/18 04:00 Hct 33.1 % (37.5-50.1) L 01/12/18 04:00 RDW 14.8 % (11.5-14.5) H 01/12/18 04:00 MPV 9.2 fL (9.4-12.4) L 01/12/18 04:00 Neutrophils # 9.5 K/mcL (1.6-8.9) H 01/12/18 04:00 APTT 37.0 Seconds (26.0-36.0) H 01/06/18 12:28 ABG pCO2 55 mmHg (35-45) H 01/12/18 06:01 ABG pO2 83 mmHg (85-104) L 01/12/18 06:01 ABG HCO3 31 mEq/L (21-27) H 01/12/18 06:01 ABG Total CO2 33 mEq/L (20-26) H 01/12/18 06:01 ABG Base Excess 5 mEq/L (-2 to 3) H 01/12/18 06:01 Chloride 108 mEq/L (98-107) H 01/12/18 04:00 Glucose 132 mg/dL (70-105) H 01/12/18 04:00 Hemoglobin A1c 6.1 % (-5.6) H 01/08/18 12:16 Calculated Osmolality 303 (280-300) H 01/12/18 04:00 AST 65 Units/L (13-39) H 01/12/18 04:00 Alkaline Phosphatase 139 Units/L (34-104) H 01/12/18 04:00 Serum Total Protein 5.6 g/dL (6.4-8.9) L 01/12/18 04:00 Albumin 3.0 g/dL (3.5-5.7) L 01/12/18 04:00 Prolactin 26.30 ng/mL (3.00-14.70) H 01/08/18 07:08 Ur Leukocyte Esterase Trace (Negative) H 01/06/18 12:30 Ur Squamous Epith Cells Many per lpf (None-Few) H 01/06/18 12:30 Ur Culture Indicated? NO. (NO) A 01/06/18 12:30 Vancomycin Trough 15 mcg/mL (5-10) H 01/08/18 12:16 Ethyl Alcohol 11 mg/dL (Less than 10) H 01/06/18 12:28 - Clinical Findings Intake & Output: Intake & Output 01/11/18 01/12/18 01/12/18 23:59 07:59 15:59 Intake Total 205 / 205 471 / 471 Output Total 1250 / 1250 500 / 500 125 / 125 Balance -1045 / -1045 -29 / -29 -125 / -125 Consult Discharge Plan - Plan Referrals: NONE,PCP [Primary Care Provider] - - Attending Attestation I examined this patient and my medical decision-making was reviewed with the Resident Physician. I agree with the documented findings, disposition and treatment plan as described except to the extent set forth below. Patient seen and examined. Labs, radiology, chart personally reviewed. Agree with resident's history and physical, assessment, plan with following comments: CUFF SETTER: Patient does not follows commands, it could be from his underlying encephalopathy and also side effect of medications with abnormal liver function. Pulmonary: Acceptable oxygenation and ventilation and patient is doing well for the last 2 days on spontaneous breathing trial, however I am very concerned about his mental status and if he needs noninvasive ventilation he will not adequate candidate due to his mental status. I will await longer and hoping his mental status will improve. If there is no improvement then we will need to discuss with the family regarding next step. Cardiovascular: stable GI: Nutrition per dietary and GI prophylaxis per routine Heme: DVT prophylaxis per routine Renal; urine out put and renal funtion reviewed Endorcine: blood glucose is monitored Lines: all lines checked and no evidence of infections Skin: skin care to prevent pressure ulcers per nursing routine care <Phillip Ricks - Last Filed: 01/12/18 12:19> Date of Encounter: 01/12/18 Time of Encounter: 07:51 Assessment and Plan (1) Metabolic encephalopathy Current Visit: Yes Status: Acute - Very possible it is multifactorial - Etiologies may include hyperammonemia, hypercapnia, sepsis, alcohol withdrawal , infectious etiology - CT head was negative for acute process - Blood and urine cultures pending, negative so far - We will treat underlying conditions as above and below -Supportive care, fall precautions, seizure precautions - We will not place restraints due to myoclonus- Which appear to have resolved. - Remains difficult to assess due to sedation on ventilator -Appears to be clinically improving-mental status is limiting factor for extubation. (2) Acute respiratory failure Current Visit: Yes Status: Acute - Acute respiratory failure with hypoxia and hypercapnia - Possible etiologies include congestive heart failure exacerbation versus COPD exacerbation versus less likely pneumonia - Initial ABG did demonstrate a respiratory acidosis, improving. - CXR on 01/06 was negative for any intrathoracic process, repeat on 01/09 showing minimal change - CT abdomen 01/07 did demonstrate volume overload, repeat CT on 01/10 shows persistent fluid - Arterial blood gas most recently demonstrates respiratory acidosis, chronic in nature - Patient remains ventilator dependent, attempted weaning trial this morning and patient failed due to not meeting protocols - Echocardiogram showing moderate diastolic dysfunction, EF 60% Plan - Continue ventilator support-remain on CPAP throughout the day. - Continue Levaquin for possible pneumonia component, on day #7, concerns of potential aspiration. Currently the patient shows no signs of aspiration. Will monitor closely may consider adding anaerobic coverage. - Diuresis with 40 Lasix IV daily. - Continue steroids every 24 hours, breathing treatments, add symbicort -Mental status is limiting factor for extubation. Qualifiers: Respiratory failure complication: hypoxia and hypercapnia Qualified Code(s) : J96.01 - Acute respiratory failure with hypoxia; J96.02 - Acute respiratory failure with hypercapnia (3) Lactic acidosis Current Visit: Yes Status: Resolved Lactic acid originally 5.3 which has downtrended to wnl (4) Leukocytosis Current Visit: Yes Status: Resolved - Leukocytosis of 24.7 on admission which is down trended to 9.5 then to 12.2- No fevers - Likely multifactorial including stress reaction, infectious etiology - Started on vancomycin, Zosyn, Levaquin and emergency room - Possible infectious sources include pneumonia versus unknown etiology vs reactive in setting of seizures - Urinalysis not suggestive of infection - Lactic acidosis was 5.3 which has been trended and is now within normal limits - Suspect this is less likely infectious etiology and more likely reactive in nature Plan - Continue Levaquin antibiotics day #7 - High suspicion of reactive etiology in the setting of myoclonus, will treat underlying etiologies as below - Continue to monitor with daily labs -Monitor for hyper and hypothermia Qualifiers: Leukocytosis type: unspecified Qualified Code(s): D72.829 - Elevated white blood cell count, unspecified (5) Colon cancer Current Visit: Yes Status: Suspected - Family reports history of colon cancer and prostate cancer - Diagnosed at [facility] in August 2017 - Reports no chemotherapy or radiation treatments - CT abdomen/pelvis today showed no signs of mass or metastasis Plan - Follow up with [facility] as outpatient for further management if desired - Palliative care consult Qualifiers: Colon location: unspecified part of colon Qualified Code(s): C18.9 - Malignant neoplasm of colon, unspecified (6) Prostate cancer Current Visit: Yes Status: Chronic As above (7) Alcohol withdrawal Current Visit: Yes Status: Acute - Suspected alcohol withdrawal. - Per family, patient consumes 1 gallon of whiskey every 3 days - Unknown last drink - Alcohol on presentation was 11 - Patient was noted to have continued suspected seizures. Neurology states that this is more likely myoclonus. No reported jerks overnight - Vitamin supplementation Plan - CIWA protocol stopped as we are unable to assess fully. - Change to propofol sedation as needed. Currently of sedation. - Start depakote 500 mg BID per neuro recommendations - Monitor for further signs of withdrawal - Social work consult Qualifiers: Complication of substance-induced condition: uncomplicated Qualified Code(s ): F10.230 - Alcohol dependence with withdrawal, uncomplicated (8) Hyperammonemia Current Visit: Yes Status: Acute - Ammonia of 116 on presentation -Reported history of heavy drinking - Ammonia has down trended to 50 - INR within normal limits at 1.0 - Liver ultrasound taken showing hepatic steatosis - Has been getting lactulose via G-tube - AST mildly elevated with most recent value of 52, ALT within normal limits, alkaline phosphatase 144 Plan - Continue to monitor for signs of altered mental status - Treat underlying conditions as above and below - Remains on lactulose (9) (HFpEF) heart failure with preserved ejection fraction Current Visit: Yes Status: Chronic EF 60, moderate diastolic as above (10) Dilatation of colon Current Visit: Yes Status: Acute - Reports of bowel movements. - Shows no evidence of small bowel ejection but does show 10 cm dilation of cecal region - On reglan - CT abdomen shows no evidence of obstruction, enema given and rectal tube placed with good output. (11) Observed seizure-like activity Current Visit: Yes Status: Acute Multiple reported seizures of unknown etiology - Possible alcohol withdrawl vs medication vs epileptic. - Neuro consulted and following - Precedex changed to propofol yesterday. - Prolactin 26 after witnessed event - EEG obtained and showed diffuse brain injury however these may be secondary to sedative for intubation Plan - After additional seizures on propofol, Depakote added yesterday with good control of symptoms - Neuro believes this to be more myoclonus (12) Goals of care, counseling/discussion Current Visit: Yes Status: Acute Consult to try to care for goals of care discussion Discussed with family per Palliative care. Reports 2 estranged sons and a fiance. Has reportedly previously discussed wanting brother to make decisions, however unsure if paperwork has been filled out. Palliative care following and working on paperwork aspect Patient's brother, Bradly, states that he wants everything done for successful extubation, however no reintubation should this fail. Patient is DNR/CCA (13) DVT prophylaxis Current Visit: Yes Status: Acute Heparin 5000 units q12 hours Subjective Principal diagnosis: Acute respiratory failure Interval history: Patient seen and examined this morning. Patient is on spontaneous. Patient does open eyes to commands and will squeeze bilateral hands. Patient had no significant events overnight. Patient's continued still produce urine as well as stool. Patient's mental status is a limiting factor to extubation. Objective PUL Vital signs: Last Vital Signs Temp 98.6 F 01/12/18 03:52 Pulse 110 01/12/18 07:00 Resp 14 01/12/18 07:00 BP 145/103 01/12/18 07:00 Pulse Ox 95 01/12/18 07:00 General appearance: no acute distress Eyes: nonicteric ENT: oropharynx moist, other (Intubated) Neck: supple Effort: other (Mechanically ventilated) Cardiovascular: regular rate and rhythm Gastrointestinal: normoactive bowel sounds, non-distended, other (Rectal tube in place) Integumentary: normal Extremities: no cyanosis, no edema Musculoskeletal: no deformities pupils equal and round, other (Will spontaneously open eyes to command, will squeeze bilateral hands,) Ventilator Settings Ventilator Settings: Ventilator Settings, Last 8 Hours Ventilator Mode CPAP Ventilator Mode CPAP Ventilator Tidal Volume 550 Setting Ventilator Tidal Volume 550 Setting Ventilator Tidal Volume 550 Setting Ventilator Tidal Volume 550 Setting Ventilator Tidal Volume 550 Setting Ventilator Tidal Volume 550 Setting Ventilator Tidal Volume 550 Setting Ventilator Tidal Volume 550 Setting Ventilator Tidal Volume 550 Setting Ventilator Tidal Volume 550 Setting Ventilator Tidal Volume 550 Setting Ventilator Respiratory Rate 14 Setting Ventilator Respiratory Rate 14 Setting Ventilator Respiratory Rate 14 Setting Ventilator Respiratory Rate 14 Setting Ventilator Respiratory Rate 14 Setting Ventilator Respiratory Rate 14 Setting Ventilator Respiratory Rate 14 Setting Ventilator Respiratory Rate 14 Setting Ventilator Respiratory Rate 14 Setting Ventilator Respiratory Rate 14 Setting Ventilator Respiratory Rate 14 Setting Actual Respiratory Rate 12 Actual Respiratory Rate 12 Actual Respiratory Rate 16 Actual Respiratory Rate 14 Actual Respiratory Rate 14 Actual Respiratory Rate 14 Actual Respiratory Rate 14 Actual Respiratory Rate 17 Actual Respiratory Rate 17 Actual Respiratory Rate 14 Actual Respiratory Rate 14 Actual Respiratory Rate 14 Positive End Expiratory 5 Pressure Positive End Expiratory 5 Pressure Positive End Expiratory 5 Pressure Positive End Expiratory 5 Pressure Positive End Expiratory 5 Pressure Positive End Expiratory 5 Pressure Positive End Expiratory 5 Pressure Positive End Expiratory 5 Pressure Positive End Expiratory 5 Pressure Positive End Expiratory 5 Pressure Positive End Expiratory 5 Pressure Positive End Expiratory 5 Pressure Positive End Expiratory 5 Pressure Peak Inspiratory Airway 16 Pressure Peak Inspiratory Airway 16 Pressure Peak Inspiratory Airway 16 Pressure Peak Inspiratory Airway 36 Pressure Peak Inspiratory Airway 39 Pressure Peak Inspiratory Airway 32 Pressure Peak Inspiratory Airway 38 Pressure Peak Inspiratory Airway 38 Pressure Peak Inspiratory Airway 43 Pressure Peak Inspiratory Airway 39 Pressure Peak Inspiratory Airway 40 Pressure Peak Inspiratory Airway 39 Pressure Results - Laboratory Findings CBC and BMP: 01/12/18 04:00 01/12/18 04:00 ABG ABG pH 7.37 pH Units (7.32-7.45) 01/12/18 06:01 ABG pCO2 55 mmHg (35-45) H 01/12/18 06:01 ABG pO2 83 mmHg (85-104) L 01/12/18 06:01 ABG O2 Saturation 95 % (95-98) 01/12/18 06:01 PT/INR, D-dimer PT 10.4 Seconds (9.4-12.1) 01/06/18 12:28 Abnormal lab findings: Abnormal lab results WBC 12.2 K/mcL (4.3-11.1) H 01/12/18 04:00 RBC 3.33 M/mcL (4.19-5.50) L 01/12/18 04:00 Hgb 10.5 g/dL (12.9-16.9) L 01/12/18 04:00 Hct 33.1 % (37.5-50.1) L 01/12/18 04:00 RDW 14.8 % (11.5-14.5) H 01/12/18 04:00 MPV 9.2 fL (9.4-12.4) L 01/12/18 04:00 Neutrophils # 9.5 K/mcL (1.6-8.9) H 01/12/18 04:00 APTT 37.0 Seconds (26.0-36.0) H 01/06/18 12:28 ABG pCO2 55 mmHg (35-45) H 01/12/18 06:01 ABG pO2 83 mmHg (85-104) L 01/12/18 06:01 ABG HCO3 31 mEq/L (21-27) H 01/12/18 06:01 ABG Total CO2 33 mEq/L (20-26) H 01/12/18 06:01 ABG Base Excess 5 mEq/L (-2 to 3) H 01/12/18 06:01 Chloride 108 mEq/L (98-107) H 01/12/18 04:00 Glucose 132 mg/dL (70-105) H 01/12/18 04:00 Hemoglobin A1c 6.1 % (-5.6) H 01/08/18 12:16 Calculated Osmolality 303 (280-300) H 01/12/18 04:00 AST 65 Units/L (13-39) H 01/12/18 04:00 Alkaline Phosphatase 139 Units/L (34-104) H 01/12/18 04:00 Serum Total Protein 5.6 g/dL (6.4-8.9) L 01/12/18 04:00 Albumin 3.0 g/dL (3.5-5.7) L 01/12/18 04:00 Prolactin 26.30 ng/mL (3.00-14.70) H 01/08/18 07:08 Ur Leukocyte Esterase Trace (Negative) H 01/06/18 12:30 Ur Squamous Epith Cells Many per lpf (None-Few) H 01/06/18 12:30 Ur Culture Indicated? NO. (NO) A 01/06/18 12:30 Vancomycin Trough 15 mcg/mL (5-10) H 01/08/18 12:16 Ethyl Alcohol 11 mg/dL (Less than 10) H 01/06/18 12:28 - Clinical Findings Intake & Output: Intake & Output 01/11/18 01/11/18 01/12/18 15:59 23:59 07:59 Intake Total 205 / 205 205 / 205 471 / 471 Output Total 700 / 700 1250 / 1250 500 / 500 Balance -495 / -495 -1045 / -1045 -29 / -
[2018-01-12] MEDS: Valproic Acid INJ 500 MG in 0.9 % Sodium Chloride 100 ML IVPB SCH ×2 (08:18→22:02)
[2018-01-12] MEDS: Furosemide 40 MG/4 ML VIAL IVP SCH (08:36)
[2018-01-12] MEDS: Pantoprazole 40 MG VIAL IVP SCH (08:36)
[2018-01-12] MEDS: MethylPREDNISolone 40 MG/ML VIAL IVP SCH (08:36)
[2018-01-12] MEDS: Lactulose Oral Soln 20 GM/30 ML UDC GTUBE SCH ×3 (08:36→19:45)
[2018-01-12] MEDS: Chlorhexidine Rinse 15 ML MOUTHWASH MM SCH ×2 (08:36→20:05)
[2018-01-12] MEDS: Aspirin Enteric Coated 81 MG Tablet PO SCH (09:49)
[2018-01-12] MEDS: Levofloxacin 750 MG/150 ML 750 MG/150 ML BAG IVPB SCH (09:53)
[2018-01-12] MEDS: Thiamine (B-1) 100 MG in D5% in Water 50 ML IVPB SCH (10:36)
--- NOTE | 2018-01-12 12:26 | Neurology Progress Note ---
Date of Encounter: 01/12/18 Time of Encounter: 12:20 Assessment and Plan (1) Metabolic encephalopathy Current Visit: Yes Status: Acute It seems that the most obvious cause for his acute neurologic problems are due to his acute respiratory failure. At this juncture I cannot rule out the possibility of irreversible anoxic brain injury. However I am encouraged that he seems to be improving. He is making eye contact, following simple commands, and trying to talk on the ventilator. Generally speaking however, myoclonic seizure activity in the face of anoxic brain injury is often associated with a poor prognosis. Only time will tell. Perhaps his ongoing lethargy may be due to the lingering effects of fentanyl. I did explain to the family EEG results. The burst suppression may have been due to sedation versus anoxic brain injury. I will likely repeat the EEG on Sunday. I would also like to obtain an MRI scan of the brain when he is more stable. We will maintain the valproate for now. Critical care time spent with this patient was 45 minutes. Subjective Principal diagnosis: Acute respiratory failure Interval history: Chart was reviewed, the patient was seen and examined. Case was also discussed with family. This is a 67-year-old gentleman has a history of alcohol abuse and presented to [facility] with altered mental status. Ultimately he decompensated in the ER and was intubated as a result. He began experiencing myoclonic seizure activity shortly thereafter. He remains intubated in the intensive care unit for days later. He has had waxing and waning levels of consciousness however today he is somnolent however will open his eyes and make eye contact. He does follow some simple commands, he does attempt to talk while on the ventilator. He has not experienced seizure activity since he was started on valproate. Ethanol withdrawal seizures were also a concern. Concerned that he may have aspirated more during the night. He had an EEG completed yesterday which revealed burst suppression. However he was on sedation at that time as well. He is not on sedation currently. CT scan of the brain on January 06 did not reveal evidence of any acute process that might explain this. Objective - Constitutional Vitals: Temp Pulse Resp BP Pulse Ox 98.4 F 98 13 123/72 96 01/12/18 12:00 01/12/18 12:00 01/12/18 12:00 01/12/18 12:00 01/12/18 12:00 - Neurological Exam Additional comments: Cerebral functions-patient is currently on a ventilator without sedation. He remains somnolent. He does arouse and make eye contact to tactile stim. He does follow simple commands, he does try to talk on the ventilator. However he does not fully engage. He does not seem to be agitated. Cranial nerves pupils are equal and reactive to light, extraocular motility are intact. There is no nystagmus identified. There is no facial asymmetry identified. Tongue protrudes midline. Gag reflex is intact. Cerebellar exam-no nystagmus is noted. Motor exam finds no focal or lateralized deficits. He has normal tone of the upper and lower extremities. There are no involuntary movements present. Specifically no myoclonus or tremors. Sensory exam-is difficult to assess in a confused and lethargic patient. Deep tendon reflexes are diminished throughout. No clonus or Babinski present. Results - Laboratory Findings CBC and BMP: 01/12/18 04:00 01/12/18 04:00 Abnormal lab findings: Abnormal lab results WBC 12.2 K/mcL (4.3-11.1) H 01/12/18 04:00 RBC 3.33 M/mcL (4.19-5.50) L 01/12/18 04:00 Hgb 10.5 g/dL (12.9-16.9) L 01/12/18 04:00 Hct 33.1 % (37.5-50.1) L 01/12/18 04:00 RDW 14.8 % (11.5-14.5) H 01/12/18 04:00 MPV 9.2 fL (9.4-12.4) L 01/12/18 04:00 Neutrophils # 9.5 K/mcL (1.6-8.9) H 01/12/18 04:00 APTT 37.0 Seconds (26.0-36.0) H 01/06/18 12:28 ABG pCO2 55 mmHg (35-45) H 01/12/18 06:01 ABG pO2 83 mmHg (85-104) L 01/12/18 06:01 ABG HCO3 31 mEq/L (21-27) H 01/12/18 06:01 ABG Total CO2 33 mEq/L (20-26) H 05/12/18 06:01 ABG Base Excess 5 mEq/L (-2 to 3) H 01/12/18 06:01 Chloride 108 mEq/L (98-107) H 01/12/18 04:00 Glucose 132 mg/dL (70-105) H 01/12/18 04:00 Hemoglobin A1c 6.1 % (-5.6) H 01/08/18 12:16 Calculated Osmolality 303 (280-300) H 01/12/18 04:00 AST 65 Units/L (13-39) H 01/12/18 04:00 Alkaline Phosphatase 139 Units/L (34-104) H 01/12/18 04:00 Serum Total Protein 5.6 g/dL (6.4-8.9) L 01/12/18 04:00 Albumin 3.0 g/dL (3.5-5.7) L 01/12/18 04:00 Prolactin 26.30 ng/mL (3.00-14.70) H 01/08/18 07:08 Ur Leukocyte Esterase Trace (Negative) H 01/06/18 12:30 Ur Squamous Epith Cells Many per lpf (None-Few) H 01/06/18 12:30 Ur Culture Indicated? NO. (NO) A 01/06/18 12:30 Vancomycin Trough 15 mcg/mL (5-10) H 01/08/18 12:16 Ethyl Alcohol 11 mg/dL (Less than 10) H 01/06/18 12:28 Consult Discharge Plan - Plan Referrals: NONE,PCP [Primary Care Provider] -
--- NOTE | 2018-01-12 13:58 | Event Note ---
Date of Encounter: 01/12/18 Time of Encounter: 13:57 Called to the bedside. Patient self extubated. Patient was suctioned. Patient was placed on oxygen mask maintaining sats 98-100%. Patient is a DNR CCA. We will hold off on immediate reintubation. BiPAP at bedside is available.
[2018-01-12] MEDS: Norepinephrine 4 MG in D5% in Water 250 ML IVC SCH (19:44)
[2018-01-13] MEDS ORDERED: Ketorolac 15 MG/ML VIAL IVP ONE (00:56)
[2018-01-13] MEDS ORDERED: Dexmedetomidine HCl 400 MCG/100 ML MLS IVC ONE (02:45)
[2018-01-13] MEDS ORDERED: *HR* LORazepam 2 MG/ML VIAL IVP ONE (02:49)
[2018-01-13] MEDS ORDERED: *HR* LORazepam 2 MG/ML VIAL ONE (02:50)
[2018-01-13] MEDS: Metoclopramide 10 MG/2 ML VIAL IVP SCH ×4 (02:58→20:40)
[2018-01-13] MEDS ORDERED: Dexmedetomidine HCl 400 MCG/100 ML MLS IVC SCH (03:00)
[2018-01-13] MEDS: Lacri-Lube 3.5 GM TUBE BOTH EYES SCH ×6 (03:04→22:36)
[2018-01-13] MEDS: Ipratropium/Albuterol Neb 3 ML IH SCH ×6 (03:10→23:08)
[2018-01-13 04:43] LABS: Basophils % 0.1 %; Eosinophils # 0.1 K/mcL (0.0-0.6); Eosinophils % 0.5 %; Hemoglobin 9.6 g/dL (12.9-16.9); Immature Granulocytes % 1.5 % (0-4); Lymphocytes # 1.1 K/mcL (0.6-4.6); Lymphocytes % 10.1 %; Mean Corpuscular HGB Conc 33.1 g/dL (31.6-35.5); Mean Corpuscular Volume 99.7 fL (83.0-100.0); Mean Platelet Volume 9.4 fL (9.4-12.4); Monocytes # 1.3 K/mcL (0.0-1.3); Monocytes % 11.9 %; Neutrophils # 8.2 K/mcL (1.6-8.9); Platelet Count 165 K/mcL (140-400); Red Blood Count 2.91 M/mcL (4.19-5.50); Red Cell Distribution Width 14.5 % (11.5-14.5); Segmented Neutrophils % 75.9 %
[2018-01-13 05:08] LABS: Alanine Aminotransferase 26 Units/L (7-52); Albumin 2.9 g/dL (3.5-5.7); Albumin/Globulin Ratio 1.2 (1.1-2.2); Alkaline Phosphatase 107 Units/L (34-104); Aspartate Amino Transferase 45 Units/L (13-39); BUN/Creatinine Ratio 25 (6-26); Bilirubin,Total 0.7 mg/dL (0.3-1.0); Blood Urea Nitrogen 17 mg/dL (8-23); Calcium 8.9 mg/dL (8.6-10.3); Carbon Dioxide 32 mEq/L (23-29); Chloride 106 mEq/L (98-107); Globulin 2.4 g/dL (2.4-3.5); Glucose 86 mg/dL (70-105); Osmolality,Calculated 307 (280-300); Potassium 3.8 mEq/L (3.5-5.1); Sodium 148 mEq/L (136-145); Total Protein 5.3 g/dL (6.4-8.9); eGFR For African Americans > 60 (> 60); eGFR For Non-African Americans > 60 (> 60)
[2018-01-13] MEDS: Insulin LISPRO 300 UNITS/3 ML VIAL SQ SCH ×3 (05:10→18:09)
[2018-01-13] MEDS: *HR* Heparin 5,000 UNIT/ML VIAL SQ SCH ×2 (05:22→17:19)
[2018-01-13] MEDS: Potassium Chloride 40 MEQ/200 ML BAG IVPB PRN ×2 (05:23→06:16)
--- NOTE | 2018-01-13 07:01 | Pulmonology Progress Note ---
<Phillip Ricks - Last Filed: 01/13/18 12:36> Date of Encounter: 01/13/18 Time of Encounter: 10:46 Assessment and Plan (1) Metabolic encephalopathy Current Visit: Yes Status: Acute - Very possible it is multifactorial - Etiologies may include hyperammonemia, hypercapnia, sepsis, alcohol withdrawal , infectious etiology - CT head was negative for acute process - Blood and urine cultures pending, negative so far - We will treat underlying conditions as above and below -Supportive care, fall precautions, seizure precautions - We will not place restraints due to myoclonus- Which appear to have resolved. -Patient is able to answer questions appropriately. Patient's alert controlling his airway. Patient is aspiration risk. -Patient was agitated overnight requiring Precedex. We will see how the patient is during the day. QTC is appropriate for Seroquel however the patient is nothing by mouth. Speech consult pending. -Neurology following and appreciate recommendations. Patient would not likely tolerate for an MRI at this point. (2) Acute respiratory failure Current Visit: Yes Status: Acute - Acute respiratory failure with hypoxia and hypercapnia-self extubated yesterday. Placed on NC. Confirmed with the family that they would like the patient to remain a DNR CCA. - Possible etiologies include congestive heart failure exacerbation versus COPD exacerbation versus less likely pneumonia - Initial ABG did demonstrate a respiratory acidosis, improving. - CXR on 01/06 was negative for any intrathoracic process, repeat on 01/09 showing minimal change - CT abdomen 01/07 did demonstrate volume overload, repeat CT on 01/10 shows persistent fluid - Arterial blood gas most recently demonstrates respiratory acidosis, chronic in nature - Patient remains ventilator dependent, attempted weaning trial this morning and patient failed due to not meeting protocols - Echocardiogram showing moderate diastolic dysfunction, EF 60% Plan - At this point the the patient does not require immediate intubation. - Continue Levaquin for possible pneumonia component, on day #8, concerns of potential aspiration. Currently the patient shows no signs of aspiration. Will monitor closely may consider adding anaerobic coverage. - Diuresis with 40 Lasix IV daily. - Continue steroids every 24 hours, breathing treatments, add symbicort Qualifiers: Respiratory failure complication: hypoxia and hypercapnia Qualified Code(s) : J96.01 - Acute respiratory failure with hypoxia; J96.02 - Acute respiratory failure with hypercapnia (3) Lactic acidosis Current Visit: Yes Status: Resolved Lactic acid originally 5.3 which has downtrended to wnl (4) Leukocytosis Current Visit: Yes Status: Resolved - Leukocytosis of 24.7 on admission which is down trended to10.8 -No fevers - Likely multifactorial including stress reaction, infectious etiology - Started on vancomycin, Zosyn, Levaquin and emergency room - Possible infectious sources include pneumonia versus unknown etiology vs reactive in setting of seizures - Urinalysis not suggestive of infection - Lactic acidosis was 5.3 which has been trended and is now within normal limits - Suspect this is less likely infectious etiology and more likely reactive in nature Plan - Continue Levaquin antibiotics day #8 - High suspicion of reactive etiology in the setting of myoclonus, will treat underlying etiologies as below - Continue to monitor with daily labs -Monitor for hyper and hypothermia and signs of infection. Qualifiers: Leukocytosis type: unspecified Qualified Code(s): D72.829 - Elevated white blood cell count, unspecified (5) Colon cancer Current Visit: Yes Status: Suspected - Family reports history of colon cancer and prostate cancer - Diagnosed at [place] in August 2017 - Reports no chemotherapy or radiation treatments - CT abdomen/pelvis today showed no signs of mass or metastasis Plan - Follow up with [place] as outpatient for further management if desired - Palliative care consult Qualifiers: Colon location: unspecified part of colon Qualified Code(s): C18.9 - Malignant neoplasm of colon, unspecified (6) Prostate cancer Current Visit: Yes Status: Chronic As above (7) Alcohol withdrawal Current Visit: Yes Status: Acute - Suspected alcohol withdrawal. - Per family, patient consumes 1 gallon of whiskey every 3 days - Unknown last drink - Alcohol on presentation was 11 - Patient was noted to have continued suspected seizures. Neurology states that this is more likely myoclonus. No reported jerks overnight - Vitamin supplementation Plan - CIWA protocol stopped as we are unable to assess fully. - Change to propofol sedation as needed. Currently of sedation. - Start depakote 500 mg BID per neuro recommendations - Monitor for further signs of withdrawal - Social work consult Qualifiers: Complication of substance-induced condition: uncomplicated Qualified Code(s ): F10.230 - Alcohol dependence with withdrawal, uncomplicated (8) Hyperammonemia Current Visit: Yes Status: Acute - Ammonia of 116 on presentation -Reported history of heavy drinking - Ammonia has down trended to 50 - INR within normal limits at 1.0 - Liver ultrasound taken showing hepatic steatosis - Has been getting lactulose via G-tube - AST mildly elevated with most recent value of 51, ALT within normal limits, alkaline phosphatase 144 Plan - Continue to monitor for signs of altered mental status - Treat underlying conditions as above and below - Remains on lactulose (9) (HFpEF) heart failure with preserved ejection fraction Current Visit: Yes Status: Chronic EF 60, moderate diastolic as above (10) Dilatation of colon Current Visit: Yes Status: Acute - Reports of bowel movements. - Shows no evidence of small bowel ejection but does show 10 cm dilation of cecal region - On reglan - CT abdomen shows no evidence of obstruction, enema given and rectal tube placed with good output. (11) Observed seizure-like activity Current Visit: Yes Status: Acute Multiple reported seizures of unknown etiology - Possible alcohol withdrawl vs medication vs epileptic. - Neuro consulted and following - Precedex changed to propofol yesterday. - Prolactin 26 after witnessed event - EEG obtained and showed diffuse brain injury however these may be secondary to sedative for intubation Plan - After additional seizures on propofol, Depakote added yesterday with good control of symptoms - Neuro believes this to be more myoclonus (12) Goals of care, counseling/discussion Current Visit: Yes Status: Acute Consult to try to care for goals of care discussion Discussed with family per Palliative care. Reports 2 estranged sons and a fiance. Has reportedly previously discussed wanting brother to make decisions, however unsure if paperwork has been filled out. Palliative care following and working on paperwork aspect Patient's brother, Bradly, states that he wants everything done for successful extubation, however no reintubation should this fail. Patient is DNR/CCA (13) DVT prophylaxis Current Visit: Yes Status: Acute Heparin 5000 units q12 hours Subjective Principal diagnosis: Acute respiratory failure Interval history: Patient seen and examined this morning. Patient self extubated yesterday and required some supplemental oxygen. Overnight events include restlessness with the patient requiring Precedex. Patient was not able to pass a swallow study. Patient is not a candidate for Seroquel her by mouth medications. Will have a sitter. Patient denies any needs at this time. Objective PUL Vital signs: Last Vital Signs Temp 98.3 F 01/13/18 03:41 Pulse 91 01/13/18 06:00 Resp 16 01/13/18 06:00 BP 124/75 01/13/18 06:00 Pulse Ox 99 01/13/18 06:00 General appearance: no acute distress Eyes: nonicteric ENT: oropharynx moist Effort: normal Auscultation: bilateral: diminished breath sounds (Poor inspiration effort) Cardiovascular: regular rate and rhythm Gastrointestinal: normoactive bowel sounds, non-distended Integumentary: normal Extremities: no cyanosis Musculoskeletal: no deformities non-focal exam, CN II-XII normal Results - Laboratory Findings CBC and BMP: 01/13/18 04:00 01/13/18 04:00 ABG ABG pH 7.37 pH Units (7.32-7.45) 01/12/18 06:01 ABG pCO2 55 mmHg (35-45) H 01/12/18 06:01 ABG pO2 83 mmHg (85-104) L 01/12/18 06:01 ABG O2 Saturation 95 % (95-98) 01/12/18 06:01 PT/INR, D-dimer PT 10.4 Seconds (9.4-12.1) 01/06/18 12:28 Abnormal lab findings: Abnormal lab results RBC 2.91 M/mcL (4.19-5.50) L 01/13/18 04:00 Hgb 9.6 g/dL (12.9-16.9) L 01/13/18 04:00 Hct 29.0 % (37.5-50.1) L 01/13/18 04:00 APTT 37.0 Seconds (26.0-36.0) H 01/06/18 12:28 ABG pCO2 55 mmHg (35-45) H 01/12/18 06:01 ABG pO2 83 mmHg (85-104) L 01/12/18 06:01 ABG HCO3 31 mEq/L (21-27) H 01/12/18 06:01 ABG Total CO2 33 mEq/L (20-26) H 01/12/18 06:01 ABG Base Excess 5 mEq/L (-2 to 3) H 01/12/18 06:01 Sodium 148 mEq/L (136-145) H 01/13/18 04:00 Carbon Dioxide 32 mEq/L (23-29) H 01/13/18 04:00 Creatinine 0.69 mg/dL (0.70-1.30) L 01/13/18 04:00 Hemoglobin A1c 6.1 % (-5.6) H 01/08/18 12:16 Calculated Osmolality 307 (280-300) H 01/13/18 04:00 AST 45 Units/L (13-39) H 01/13/18 04:00 Alkaline Phosphatase 107 Units/L (34-104) H 01/13/18 04:00 Serum Total Protein 5.3 g/dL (6.4-8.9) L 01/13/18 04:00 Albumin 2.9 g/dL (3.5-5.7) L 01/13/18 04:00 Prolactin 26.30 ng/mL (3.00-14.70) H 01/08/18 07:08 Ur Leukocyte Esterase Trace (Negative) H 01/06/18 12:30 Ur Squamous Epith Cells Many per lpf (None-Few) H 01/06/18 12:30 Ur Culture Indicated? NO. (NO) A 01/06/18 12:30 Vancomycin Trough 15 mcg/mL (5-10) H 01/08/18 12:16 Ethyl Alcohol 11 mg/dL (Less than 10) H 01/06/18 12:28 - Clinical Findings Intake & Output: Intake & Output 01/12/18 01/12/18 01/13/18 15:59 23:59 07:59 Intake Total 207 / 207 306 / 306 367 / 367 Output Total 1675 / 1675 1200 / 1200 300 / 300 Balance -1468 / -1468 -894 / -894 67 / 67 Weight 70.9 kg Consult Discharge Plan - Plan Referrals: NONE,PCP [Primary Care Provider] - <Megan Ulloa - Last Filed: 01/13/18 22:26> Date of Encounter: 01/13/18 Objective PUL Vital signs: Last Vital Signs Temp 98.1 F 01/13/18 20:00 Pulse 127 01/13/18 22:21 Resp 16 01/13/18 21:00 BP 121/73 01/13/18 21:00 Pulse Ox 98 01/13/18 21:00 Results - Laboratory Findings CBC and BMP: 01/13/18 04:00 01/13/18 16:15 ABG ABG pH 7.37 pH Units (7.32-7.45) 01/12/18 06:01 ABG pCO2 55 mmHg (35-45) H 01/12/18 06:01 ABG pO2 83 mmHg (85-104) L 01/12/18 06:01 ABG O2 Saturation 95 % (95-98) 01/12/18 06:01 PT/INR, D-dimer PT 10.4 Seconds (9.4-12.1) 01/06/18 12:28 Abnormal lab findings: Abnormal lab results RBC 2.91 M/mcL (4.19-5.50) L 01/13/18 04:00 Hgb 9.6 g/dL (12.9-16.9) L 01/13/18 04:00 Hct 29.0 % (37.5-50.1) L 01/13/18 04:00 APTT 37.0 Seconds (26.0-36.0) H 01/06/18 12:28 ABG pCO2 55 mmHg (35-45) H 01/12/18 06:01 ABG pO2 83 mmHg (85-104) L 01/12/18 06:01 ABG HCO3 31 mEq/L (21-27) H 01/12/18 06:01 ABG Total CO2 33 mEq/L (20-26) H 01/12/18 06:01 ABG Base Excess 5 mEq/L (-2 to 3) H 01/12/18 06:01 Sodium 148 mEq/L (136-145) H 01/13/18 04:00 Carbon Dioxide 32 mEq/L (23-29) H 01/13/18 04:00 Creatinine 0.69 mg/dL (0.70-1.30) L 01/13/18 04:00 Hemoglobin A1c 6.1 % (-5.6) H 01/08/18 12:16 Calculated Osmolality 307 (280-300) H 01/13/18 04:00 AST 45 Units/L (13-39) H 01/13/18 04:00 Alkaline Phosphatase 107 Units/L (34-104) H 01/13/18 04:00 Serum Total Protein 5.3 g/dL (6.4-8.9) L 01/13/18 04:00 Albumin 2.9 g/dL (3.5-5.7) L 01/13/18 04:00 Prolactin 26.30 ng/mL (3.00-14.70) H 01/08/18 07:08 Ur Leukocyte Esterase Trace (Negative) H 01/06/18 12:30 Ur Squamous Epith Cells Many per lpf (None-Few) H 01/06/18 12:30 Ur Culture Indicated? NO. (NO) A 01/06/18 12:30 Vancomycin Trough 15 mcg/mL (5-10) H 01/08/18 12:16 Ethyl Alcohol 11 mg/dL (Less than 10) H 01/06/18 12:28 - Clinical Findings Intake & Output: Intake & Output 01/13/18 01/13/18 01/13/18 07:59 15:59 23:59 Intake Total 367 / 367 200 / 200 0 / 0 Output Total 300 / 300 1900 / 1900 450 / 450 Balance 67 / 67 -1700 / -1700 -450 / -450 - Attending Attestation I saw and evaluated this patient and my medical decision-making was reviewed with the Resident Physician. I agree with the documented findings, disposition and treatment plan as described except to the extent set forth below. We independently had [id number] contact with the patient Patient seen and examined at bedside Labs, radiology, chart personally reviewed. Management was reviewed during multidisciplinary critical care rounds. SKETCH LINER: Patient conscious oriented x1 secondary toxic and metabolic encephalopathy to Neuro checks Pulm: Patient has acceptable oxygenation and ventilated . Cards: Patient is hemodynamically stable FEN-GI:: Per dietary recs Renal: Labs and output reviewed ID: No active acute infectious issues Heme/Onc: DVT prophylaxis Endo: Glucose Monitored Integ/MSK: Skin Care per routine ICU Nursing Protocol to prevent ulcers. Lines: All lines examined without evidence of infection : Dispo: Patient can be transferred to if he is atable CODE: DNRA with intubation Palliative care spoke with Patients brother .
[2018-01-13] MEDS: Budesonide/Formoterol 160/4.5 MDI IH SCH ×2 (07:31→19:36)
[2018-01-13] MEDS: Thiamine (B-1) 100 MG in D5% in Water 50 ML IVPB SCH (08:04)
[2018-01-13] MEDS: Valproic Acid INJ 500 MG in 0.9 % Sodium Chloride 100 ML IVPB SCH ×2 (08:07→22:28)
[2018-01-13] MEDS: Pantoprazole 40 MG VIAL IVP SCH (08:13)
[2018-01-13] MEDS: MethylPREDNISolone 40 MG/ML VIAL IVP SCH (08:13)
[2018-01-13] MEDS: Furosemide 40 MG/4 ML VIAL IVP SCH (08:13)
[2018-01-13] MEDS: Levofloxacin 750 MG/150 ML 750 MG/150 ML BAG IVPB SCH (09:32)
[2018-01-13] MEDS: Aspirin Enteric Coated 81 MG Tablet PO SCH (09:41)
[2018-01-13] MEDS: Chlorhexidine Rinse 15 ML MOUTHWASH MM SCH ×2 (09:41→20:36)
[2018-01-13] MEDS: Lactulose Oral Soln 20 GM/30 ML UDC GTUBE SCH ×3 (09:41→20:36)
--- NOTE | 2018-01-13 10:38 | Palliative Progress Note ---
Date of Encounter: 01/13/18 Time of Encounter: 09:15 - Assessment and plan (1) Acute respiratory failure Current Visit: Yes Status: Acute Assessment and plan: Patient self extubated yesterday. Current oxygen 2LNC at 98% oxygen saturation. Qualifiers: Respiratory failure complication: hypoxia and hypercapnia Qualified Code(s) : J96.01 - Acute respiratory failure with hypoxia; J96.02 - Acute respiratory failure with hypercapnia (2) Goals of care, counseling/discussion Current Visit: Yes Status: Acute Assessment and plan: During assessment, Dr. Person came to room to assess patient as well. Questions arose regarding code status as previous conversation with Bradly reflected to not reintubate. 0920: Spoke with Bradly (patient's brother, decision maker) regarding CODE STATUS and per phone conversation, Bradly has decided should patient need to be reintubated he would agree with that decision ; confirmed DNR CCA, to remain intact. Bradly reports patient had been awake yesterday evening and spoke with him about going to [facility] and he feels that we need to attempt to meet the patient's goal of that for discharge. Current CODE STATUS to be DNR CCA, ok to intubate. Notified primary RN and Dr. Person of current code status and wishes of patient's brother. Palliative care will continue up on patient tomorrow. (3) Metabolic encephalopathy Current Visit: Yes Status: Acute Assessment and plan: Patient is improving. Requiring sitter due to confusion at this time. Continue to monitor. (4) Alcohol withdrawal Current Visit: Yes Status: Acute Qualifiers: Complication of substance-induced condition: uncomplicated Qualified Code(s ): F10.230 - Alcohol dependence with withdrawal, uncomplicated - Time Spent With Patient Total time spent is greater than 50% in coordination of care (as documented) at patient's floor/unit and/or counseling patient: - Subjective Interval history: Patient resting in bed quietly upon arrival. Patient is alert to person only; disoriented to place and time. Upon chart review, found patient to have self- extubated yesterday at 2 pm. Patient has been attempting to get up independently and requiring one to one sitter. Precedex drip is currently turned off. No doses of Ativan have been given in the last 48 hours. Patient denies pain, anxiety, nausea, vomiting, or dyspnea during assessment. Patient was ordered precedex drip to assist with keeping him calm; however, it is not currently running. Current oxygen saturation 98% on 2LNC. Patient following simple commands and able to verbalize some wishes. Patient did require assistance to straighten up in bed. - Constitutional Vitals: Abnormal lab results RBC 2.91 M/mcL (4.19-5.50) L 01/13/18 04:00 Hgb 9.6 g/dL (12.9-16.9) L 01/13/18 04:00 Hct 29.0 % (37.5-50.1) L 01/13/18 04:00 APTT 37.0 Seconds (26.0-36.0) H 01/06/18 12:28 ABG pCO2 55 mmHg (35-45) H 01/12/18 06:01 ABG pO2 83 mmHg (85-104) L 01/12/18 06:01 ABG HCO3 31 mEq/L (21-27) H 01/12/18 06:01 ABG Total CO2 33 mEq/L (20-26) H 01/12/18 06:01 ABG Base Excess 5 mEq/L (-2 to 3) H 01/12/18 06:01 Sodium 148 mEq/L (136-145) H 01/13/18 04:00 Carbon Dioxide 32 mEq/L (23-29) H 01/13/18 04:00 Creatinine 0.69 mg/dL (0.70-1.30) L 01/13/18 04:00 Hemoglobin A1c 6.1 % (-5.6) H 01/08/18 12:16 Calculated Osmolality 307 (280-300) H 01/13/18 04:00 AST 45 Units/L (13-39) H 01/13/18 04:00 Alkaline Phosphatase 107 Units/L (34-104) H 01/13/18 04:00 Serum Total Protein 5.3 g/dL (6.4-8.9) L 01/13/18 04:00 Albumin 2.9 g/dL (3.5-5.7) L 01/13/18 04:00 Prolactin 26.30 ng/mL (3.00-14.70) H 01/08/18 07:08 Ur Leukocyte Esterase Trace (Negative) H 01/06/18 12:30 Ur Squamous Epith Cells Many per lpf (None-Few) H 01/06/18 12:30 Ur Culture Indicated? NO. (NO) A 01/06/18 12:30 Vancomycin Trough 15 mcg/mL (5-10) H 01/08/18 12:16 Ethyl Alcohol 11 mg/dL (Less than 10) H 01/06/18 12:28 Palliative Quality Palliative Quality: Screen for Code Status: NA (No family present), Screen for Goals of Care: NA, Screen for Pain: Yes, If Pain Regimen Started, Initiate Bowel Regimen: NA, Screen for Nausea/Vomitting: NA Code Status: 01/06/18 14:15 Resuscitation Status: Active [RES] Routine Comment: Resuscitation Status: Full Code Resuscitation Status: Active [RES] Routine Comment: Per brother Resuscitation Status: DNR-Comfort Care-Arrest - Labs CBC & Chem 7: 01/13/18 04:00 01/13/18 04:00 Labs: Laboratory Results - last 24 hr 01/12/18 01/12/18 01/12/18 11:42 17:45 23:54 WBC RBC Hgb Hct MCV MCH MCHC RDW Plt Count MPV Immature Gran % Seg Neutrophils % Lymphocytes % Monocytes % Eosinophils % Basophils % Neutrophils # Lymphocytes # Monocytes # Eosinophils # Basophils # Sodium Potassium Chloride Carbon Dioxide BUN Creatinine Est GFR ( Amer) Est GFR (Non-Af Amer) BUN/Creatinine Ratio Glucose POC Glucose 127 H 119 H 98 Calculated Osmolality Calcium Total Bilirubin AST ALT Alkaline Phosphatase Serum Total Protein Albumin Globulin Albumin/Globulin Ratio 01/13/18 01/13/18 04:00 04:00 WBC 10.8 RBC 2.91 L Hgb 9.6 L Hct 29.0 L MCV 99.7 MCH 33.0 MCHC 33.1 RDW 14.5 Plt Count 165 MPV 9.4 Immature Gran % 1.5 Seg Neutrophils % 75.9 Lymphocytes % 10.1 Monocytes % 11.9 Eosinophils % 0.5 Basophils % 0.1 Neutrophils # 8.2 Lymphocytes # 1.1 Monocytes # 1.3 Eosinophils # 0.1 Basophils # 0.0 Sodium 148 H Potassium 3.8 Chloride 106 Carbon Dioxide 32 H BUN 17 Creatinine 0.69 L Est GFR ( Amer) > 60 Est GFR (Non-Af Amer) > 60 BUN/Creatinine Ratio 25 Glucose 86 POC Glucose Calculated Osmolality 307 H Calcium 8.9 Total Bilirubin 0.7 AST 45 H ALT 26 Alkaline Phosphatase 107 H Serum Total Protein 5.3 L Albumin 2.9 L Globulin 2.4 Albumin/Globulin Ratio 1.2 - ABG Interpretation ABG results: ABG ABG pH 7.37 pH Units (7.32-7.45) 01/12/18 06:01 ABG pCO2 55 mmHg (35-45) H 01/12/18 06:01 ABG pO2 83 mmHg (85-104) L 01/12/18 06:01 ABG O2 Saturation 95 % (95-98) 01/12/18 06:01 PT/INR, D-dimer PT 10.4 Seconds (9.4-12.1) 01/06/18 12:28 Consult Discharge Plan - Plan Referrals: NONE,PCP [Primary Care Provider] -
[2018-01-13] MEDS: Norepinephrine 4 MG in D5% in Water 250 ML IVC SCH (20:36)
[2018-01-14] MEDS: Insulin LISPRO 300 UNITS/3 ML VIAL SQ SCH ×4 (01:01→22:04)
[2018-01-14] MEDS: Metoclopramide 10 MG/2 ML VIAL IVP SCH ×4 (03:26→20:44)
[2018-01-14] MEDS: Ipratropium/Albuterol Neb 3 ML IH SCH ×5 (03:37→20:16)
[2018-01-14] MEDS: Lacri-Lube 3.5 GM TUBE BOTH EYES SCH ×2 (05:10→08:14)
[2018-01-14] MEDS: *HR* Heparin 5,000 UNIT/ML VIAL SQ SCH ×2 (06:13→16:30)
[2018-01-14] MEDS: Budesonide/Formoterol 160/4.5 MDI IH SCH ×2 (07:31→20:18)
--- NOTE | 2018-01-14 07:39 | Pulmonology Progress Note ---
Date of Encounter: 01/14/18 Time of Encounter: 07:39 Assessment and Plan (1) Acute respiratory failure Current Visit: Yes Status: Acute This is secondary to delirium complicated by likely hydrostatic pulmonary edema and possible COPD exacerbation secondary to pneumonia. Self extubated 2 days ago patient has been stable from a respiratory standpoint since continue to wean nasal cannula to keep saturation greater than 88% He is at very high risk for aspiration given his underlying mental status Qualifiers: Respiratory failure complication: hypoxia and hypercapnia Qualified Code(s) : J96.01 - Acute respiratory failure with hypoxia; J96.02 - Acute respiratory failure with hypercapnia (2) COPD exacerbation Current Visit: Yes Status: Acute Patient has received IV steroids since admission planned to stop today continue bronchodilators (3) Leukocytosis Current Visit: Yes Status: Resolved This is likely secondary to pneumonia and is improved with antimicrobials he is day 8 of treatment and will stop at this time given he was being treated for pneumonia Qualifiers: Leukocytosis type: unspecified Qualified Code(s): D72.829 - Elevated white blood cell count, unspecified (4) Alcohol withdrawal Current Visit: Yes Status: Acute Patient is much calmer today Continue benzodiazepine as needed Qualifiers: Complication of substance-induced condition: uncomplicated Qualified Code(s ): F10.230 - Alcohol dependence with withdrawal, uncomplicated (5) Goals of care, counseling/discussion Current Visit: Yes Status: Acute Currently patient is DNAR with okay for intubation Appreciate palliative care recommendations (6) Observed seizure-like activity Current Visit: Yes Status: Acute Seen by neurology they have started a antiepileptic medication we will defer to their judgment regarding dosing and frequency No further episodes of seizure had been observed (7) Encephalopathy Current Visit: Yes Status: Acute This is multifactorial including metabolic delirium all call withdrawal underlying dementia. He still remains confused but appears to be nearing baseline. He has a sitter at bedside to continue to monitor him and should be safe for transfer to telemetry for ongoing care with this strategy being employed Subjective Principal diagnosis: Acute respiratory failure Interval history: No acute events overnight per nursing staff urine is more concentrated today in sodium continues to rise. He is being evaluated by speech and swallow 4 recommendations regarding diet. Remains confused Objective PUL Vital signs: Last Vital Signs Temp 98.8 F 01/14/18 04:49 Pulse 120 01/14/18 06:00 Resp 16 01/14/18 07:34 BP 117/84 01/14/18 06:00 Pulse Ox 95 01/14/18 07:34 General appearance: no acute distress Eyes: nonicteric ENT: oropharynx dry Neck: supple Effort: normal Auscultation: bilateral: diminished breath sounds (But air entry noted bilaterally) Cardiovascular: regular rate and rhythm Gastrointestinal: normoactive bowel sounds, soft, non-tender Extremities: edema (Trace lower extremity edema present) non-focal exam, pupils equal and round other (Patient remains confused and has inappropriate responses to questions at times and can be difficult to reorient) Results - Laboratory Findings CBC and BMP: 01/13/18 04:00 01/13/18 16:15 ABG ABG pH 7.37 pH Units (7.32-7.45) 01/12/18 06:01 ABG pCO2 55 mmHg (35-45) H 01/12/18 06:01 ABG pO2 83 mmHg (85-104) L 01/12/18 06:01 ABG O2 Saturation 95 % (95-98) 01/12/18 06:01 PT/INR, D-dimer PT 10.4 Seconds (9.4-12.1) 01/06/18 12:28 Abnormal lab findings: Abnormal lab results RBC 2.91 M/mcL (4.19-5.50) L 01/13/18 04:00 Hgb 9.6 g/dL (12.9-16.9) L 01/13/18 04:00 Hct 29.0 % (37.5-50.1) L 01/13/18 04:00 APTT 37.0 Seconds (26.0-36.0) H 01/06/18 12:28 ABG pCO2 55 mmHg (35-45) H 01/12/18 06:01 ABG pO2 83 mmHg (85-104) L 01/12/18 06:01 ABG HCO3 31 mEq/L (21-27) H 01/12/18 06:01 ABG Total CO2 33 mEq/L (20-26) H 01/12/18 06:01 ABG Base Excess 5 mEq/L (-2 to 3) H 01/12/18 06:01 Sodium 148 mEq/L (136-145) H 01/13/18 04:00 Carbon Dioxide 32 mEq/L (23-29) H 01/13/18 04:00 Creatinine 0.69 mg/dL (0.70-1.30) L 01/13/18 04:00 Hemoglobin A1c 6.1 % (-5.6) H 01/08/18 12:16 Calculated Osmolality 307 (280-300) H 01/13/18 04:00 AST 45 Units/L (13-39) H 01/13/18 04:00 Alkaline Phosphatase 107 Units/L (34-104) H 01/13/18 04:00 Serum Total Protein 5.3 g/dL (6.4-8.9) L 01/13/18 04:00 Albumin 2.9 g/dL (3.5-5.7) L 01/13/18 04:00 Prolactin 26.30 ng/mL (3.00-14.70) H 01/08/18 07:08 Ur Leukocyte Esterase Trace (Negative) H 01/06/18 12:30 Ur Squamous Epith Cells Many per lpf (None-Few) H 01/06/18 12:30 Ur Culture Indicated? NO. (NO) A 01/06/18 12:30 Vancomycin Trough 15 mcg/mL (5-10) H 01/08/18 12:16 Ethyl Alcohol 11 mg/dL (Less than 10) H 01/06/18 12:28 - Clinical Findings Intake & Output: Intake & Output 01/13/18 01/13/18 01/14/18 15:59 23:59 07:59 Intake Total 305 / 305 0 / 0 Output Total 1900 / 1900 500 / 500 175 / 175 Balance -1595 / -1595 -500 / -500 -175 / -175 Weight 68.6 kg Consult Discharge Plan - Plan Referrals: NONE,PCP [Primary Care Provider] -
[2018-01-14] MEDS ORDERED: Ringers Solution, Lactated 500 ML IVC ONE (08:32)
[2018-01-14] MEDS ORDERED: Ringers Solution, Lactated 1,000 ML ONE (08:42)
[2018-01-14] MEDS: Chlorhexidine Rinse 15 ML MOUTHWASH MM SCH (08:45)
[2018-01-14] MEDS: Aspirin Enteric Coated 81 MG Tablet PO SCH (08:45)
[2018-01-14] MEDS: Lactulose Oral Soln 20 GM/30 ML UDC GTUBE SCH ×3 (08:45→20:41)
[2018-01-14] MEDS: MethylPREDNISolone 40 MG/ML VIAL IVP SCH (08:45)
[2018-01-14] MEDS: Pantoprazole 40 MG VIAL IVP SCH (08:45)
[2018-01-14] MEDS: Levofloxacin 750 MG/150 ML 750 MG/150 ML BAG IVPB SCH (09:48)
[2018-01-14] MEDS: Valproic Acid INJ 500 MG in 0.9 % Sodium Chloride 100 ML IVPB SCH ×2 (09:49→22:05)
[2018-01-14] MEDS: Thiamine (B-1) 100 MG in D5% in Water 50 ML IVPB SCH (10:00)
--- NOTE | 2018-01-14 10:59 | Palliative Progress Note ---
Date of Encounter: 01/14/18 Time of Encounter: 10:55 - Assessment and plan (1) Metabolic encephalopathy Current Visit: Yes Status: Acute Assessment and plan: Improved. Still with some inappropriate statements occasionally. Monitor (2) Acute respiratory failure Current Visit: Yes Status: Acute Qualifiers: Respiratory failure complication: hypoxia and hypercapnia Qualified Code(s) : J96.01 - Acute respiratory failure with hypoxia; J96.02 - Acute respiratory failure with hypercapnia (3) Alcohol withdrawal Current Visit: Yes Status: Acute Qualifiers: Complication of substance-induced condition: uncomplicated Qualified Code(s ): F10.230 - Alcohol dependence with withdrawal, uncomplicated (4) Goals of care, counseling/discussion Current Visit: Yes Status: Acute Assessment and plan: Patient has improved significantly over the last 72 hours, although still inappropriate at times. Hoping that he will be able to complete power of flux mixer prior to discharge. Patient told me today that he still desires brother Bradly to make medical decisions for him. Continue to follow. - Time Spent With Patient Total time spent is greater than 50% in coordination of care (as documented) at patient's floor/unit and/or counseling patient: 25 - 35 minutes - Subjective Interval history: Weekend chart events reviewed, pt self extubated Sunday . On nasal cannula, oxygenating well. Denies any pain or discomfort. Alert and oriented to name and place. Follows commands. Occasional inappropriate statement. No family present, sitter at bedside. - Constitutional Vitals: Abnormal lab results RBC 2.91 M/mcL (4.19-5.50) L 01/13/18 04:00 Hgb 9.6 g/dL (12.9-16.9) L 01/13/18 04:00 Hct 29.0 % (37.5-50.1) L 01/13/18 04:00 APTT 37.0 Seconds (26.0-36.0) H 01/06/18 12:28 ABG pCO2 55 mmHg (35-45) H 01/12/18 06:01 ABG pO2 83 mmHg (85-104) L 01/12/18 06:01 ABG HCO3 31 mEq/L (21-27) H 01/12/18 06:01 ABG Total CO2 33 mEq/L (20-26) H 01/12/18 06:01 ABG Base Excess 5 mEq/L (-2 to 3) H 01/12/18 06:01 Sodium 148 mEq/L (136-145) H 01/13/18 04:00 Carbon Dioxide 32 mEq/L (23-29) H 01/13/18 04:00 Creatinine 0.69 mg/dL (0.70-1.30) L 01/13/18 04:00 Hemoglobin A1c 6.1 % (-5.6) H 01/08/18 12:16 Calculated Osmolality 307 (280-300) H 01/13/18 04:00 AST 45 Units/L (13-39) H 01/13/18 04:00 Alkaline Phosphatase 107 Units/L (34-104) H 01/13/18 04:00 Serum Total Protein 5.3 g/dL (6.4-8.9) L 01/13/18 04:00 Albumin 2.9 g/dL (3.5-5.7) L 01/13/18 04:00 Prolactin 26.30 ng/mL (3.00-14.70) H 01/08/18 07:08 Ur Leukocyte Esterase Trace (Negative) H 01/06/18 12:30 Ur Squamous Epith Cells Many per lpf (None-Few) H 01/06/18 12:30 Ur Culture Indicated? NO. (NO) A 01/06/18 12:30 Vancomycin Trough 15 mcg/mL (5-10) H 01/08/18 12:16 Ethyl Alcohol 11 mg/dL (Less than 10) H 01/06/18 12:28 General appearance: Present: no acute distress - Respiratory Respiratory exam: Present: decreased breath sounds, CTAB - Cardiovascular Cardiovascular exam: Present: tachycardia - GI/Abdominal GI/Abdominal exam: Present: distended, normal bowel sounds, soft - Additional comments: Castillo with yellow urine - Extremities Exam Extremities exam: Present: normal capillary refill, normal inspection - Neurological Exam Neurological exam: Present: alert Additional comments: Oriented to name and place. Can give me names of family members. Follows commands. - Skin Skin exam: Present: dry, pallor, warm Palliative Quality Palliative Quality: Screen for Code Status: NA (No family present), Screen for Goals of Care: NA, Screen for Pain: Yes, If Pain Regimen Started, Initiate Bowel Regimen: NA, Screen for Nausea/Vomitting: NA Code Status: 01/06/18 14:15 Resuscitation Status: Active [RES] Routine Comment: Resuscitation Status: Full Code Resuscitation Status: Active [RES] Routine Comment: Per brother Resuscitation Status: DNR-Comfort Care-Arrest - Labs CBC & Chem 7: 01/13/18 04:00 01/13/18 16:15 Labs: Laboratory Results - last 24 hr 01/13/18 01/13/18 01/13/18 07:41 11:55 16:15 Potassium 4.3 POC Glucose 87 115 H 01/13/18 01/13/18 17:42 23:29 Potassium POC Glucose 101 H 84 - ABG Interpretation ABG results: ABG ABG pH 7.37 pH Units (7.32-7.45) 01/12/18 06:01 ABG pCO2 55 mmHg (35-45) H 01/12/18 06:01 ABG pO2 83 mmHg (85-104) L 01/12/18 06:01 ABG O2 Saturation 95 % (95-98) 01/12/18 06:01 PT/INR, D-dimer PT 10.4 Seconds (9.4-12.1) 01/06/18 12:28 Consult Discharge Plan - Plan Referrals: NONE,PCP [Primary Care Provider] -
[2018-01-14] MEDS ORDERED: Albuterol 2.5 MG/3 ML NEBULIZER IH PRN (12:08)
[2018-01-14] MEDS ORDERED: Dextrose Gel 15 GM/37.5 ML TUBE PO PRN ×2 (12:08)
[2018-01-14] MEDS ORDERED: *HR* LORazepam 2 MG/ML VIAL IVP PRN (12:08)
[2018-01-14] MEDS ORDERED: *HR* Metoprolol 5 MG/5 ML VIAL IVP PRN (12:08)
[2018-01-14] MEDS ORDERED: *HR* Dextrose 50 % in Water (Syg) 50 ML SYRINGE IVP PRN (12:08)
[2018-01-14] MEDS ORDERED: Naloxone 0.4 MG/ML INJ IVP PRN (12:08)
[2018-01-14] MEDS ORDERED: D5% in Water 1,000 ML IVC PRN (12:08)
--- NOTE | 2018-01-14 16:58 | Electrocardiograph Report ---
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
[2018-01-14] MEDS ORDERED: Insulin LISPRO 300 UNITS/3 ML VIAL SQ SCH (18:00)
[2018-01-15] MEDS: Ipratropium/Albuterol Neb 3 ML IH SCH ×7 (00:05→23:22)
[2018-01-15] MEDS: Metoclopramide 10 MG/2 ML VIAL IVP SCH ×2 (04:19→08:28)
[2018-01-15] MEDS: *HR* Heparin 5,000 UNIT/ML VIAL SQ SCH ×2 (05:21→16:59)
[2018-01-15] MEDS: Budesonide/Formoterol 160/4.5 MDI IH SCH ×2 (07:40→20:18)
--- NOTE | 2018-01-15 07:43 | Internal Med Progress Note ---
<Alberto Guzman - Last Filed: 01/15/18 16:41> Date of Encounter: 01/15/18 Time of Encounter: 08:10 - Assessment and plan (1) Metabolic encephalopathy Current Visit: Yes Status: Acute Assessment and plan: Metabolic encephalopathy which appears to have improved Patient is mentating at or close to baseline He is having continued difficulty sleeping at night which could impact mental status Neurology recommends outpatient follow-up (2) Acute respiratory failure Current Visit: Yes Status: Acute Assessment and plan: s/p extubation Patient is oxygenating and ventilating appropriately at this time May require overnight BiPAP vs O2 Continue duonebs Qualifiers: Respiratory failure complication: hypoxia and hypercapnia Qualified Code(s) : J96.01 - Acute respiratory failure with hypoxia; J96.02 - Acute respiratory failure with hypercapnia (3) Lactic acidosis Current Visit: Yes Status: Resolved (4) Leukocytosis Current Visit: Yes Status: Resolved Qualifiers: Leukocytosis type: unspecified Qualified Code(s): D72.829 - Elevated white blood cell count, unspecified (5) Prostate cancer Current Visit: Yes Status: Chronic Assessment and plan: Personal history of chronic prostate cancer Follow-up as outpatient (6) Colon cancer Current Visit: Yes Status: Suspected Assessment and plan: Personal history of colon cancer Not seeking treatment at this time Follow-up as outpatient Qualifiers: Colon location: unspecified part of colon Qualified Code(s): C18.9 - Malignant neoplasm of colon, unspecified (7) Alcohol withdrawal Current Visit: Yes Status: Acute Assessment and plan: History of severe alcoholism Patient had seizures on this admission, however unknown if due to anoxic brain injury vs ETOH withdrawal We will continue PRN Ativan Continue nutrition supplementation and vitamins Qualifiers: Complication of substance-induced condition: uncomplicated Qualified Code(s ): F10.230 - Alcohol dependence with withdrawal, uncomplicated (8) Hyperammonemia Current Visit: Yes Status: Acute Assessment and plan: Continue lactulose at this time (9) Goals of care, counseling/discussion Current Visit: Yes Status: Acute Assessment and plan: Palliative is on board (10) DVT prophylaxis Current Visit: Yes Status: Acute Assessment and plan: SQ Heparin (11) Observed seizure-like activity Current Visit: Yes Status: Acute Assessment and plan: Seizure activity free for at least 24hours Per neurology, continue Depakote 500mg BID - Time Spent With Patient Total time spent is greater than 50% in coordination of care (as documented) at patient's floor/unit and/or counseling patient: - Subjective Interval history: The patient is seen and examined at bedside. He is alert and conversant today, and responds appropriately to commands and questions. He is with a sitter in his room who states that he did not sleep last night, and he may be having issues with sleep in general. - Constitutional Vitals: Temp Pulse Resp BP Pulse Ox 97.7 F 97 20 129/92 100 01/15/18 03:54 01/15/18 03:54 01/15/18 07:41 01/15/18 03:54 01/15/18 07:41 Exam: Gen: Vitals noted. No acute distress. HEENT: PERRL/EOMI, oropharynx clear, Normocephalic, atraumatic Neck: Supple. No adenopathy. Cardiac: RRR, no murmur, +S1/S2 Pulmonary: Intermittent wheezes throughout but otherwise clear to auscultation Abdomen: soft, nontender, BS noted, no guarding Back: Nontender throughout. MSK: ROM intact, no joint swelling noted Extremities: no BLE edema, nontender calf, no cyanosis or clubbing Neuro: A&Ox2, moves all extremities, no focal deficits to be noted. I did not witness any myoclonic episodes Psych: Agitated Internal Medicine: Result - Labs CBC & Chem 7: 01/13/18 04:00 01/13/18 16:15 - ABG Interpretation ABG results: ABG ABG pH 7.37 pH Units (7.32-7.45) 01/12/18 06:01 ABG pCO2 55 mmHg (35-45) H 01/12/18 06:01 ABG pO2 83 mmHg (85-104) L 01/12/18 06:01 ABG O2 Saturation 95 % (95-98) 01/12/18 06:01 PT/INR, D-dimer PT 10.4 Seconds (9.4-12.1) 01/06/18 12:28 Consult Discharge Plan - Plan Referrals: NONE,PCP [Primary Care Provider] - <David Oliva - Last Filed: 01/15/18 17:55> Date of Encounter: 01/15/18 - Assessment and plan (1) Acute hepatic encephalopathy Current Visit: Yes Status: Acute (2) Metabolic encephalopathy Current Visit: Yes Status: Acute (3) Acute respiratory failure Current Visit: Yes Status: Acute Qualifiers: Respiratory failure complication: hypoxia and hypercapnia Qualified Code(s) : J96.01 - Acute respiratory failure with hypoxia; J96.02 - Acute respiratory failure with hypercapnia (4) Lactic acidosis Current Visit: Yes Status: Resolved (5) Leukocytosis Current Visit: Yes Status: Resolved Qualifiers: Leukocytosis type: unspecified Qualified Code(s): D72.829 - Elevated white blood cell count, unspecified (6) Prostate cancer Current Visit: Yes Status: Chronic (7) Colon cancer Current Visit: Yes Status: Suspected Qualifiers: Colon location: unspecified part of colon Qualified Code(s): C18.9 - Malignant neoplasm of colon, unspecified (8) DVT prophylaxis Current Visit: Yes Status: Acute (9) Alcohol withdrawal Current Visit: Yes Status: Acute Qualifiers: Complication of substance-induced condition: uncomplicated Qualified Code(s ): F10.230 - Alcohol dependence with withdrawal, uncomplicated (10) Hyperammonemia Current Visit: Yes Status: Acute (11) Goals of care, counseling/discussion Current Visit: Yes Status: Acute (12) Observed seizure-like activity Current Visit: Yes Status: Acute (13) Chronic diastolic (congestive) heart failure Current Visit: Yes Status: Chronic - Time Spent With Patient Total time spent is greater than 50% in coordination of care (as documented) at patient's floor/unit and/or counseling patient: - Constitutional Vitals: Temp Pulse Resp BP Pulse Ox 98.2 F 95 18 139/74 99 01/15/18 15:52 01/15/18 15:52 01/15/18 16:10 01/15/18 15:52 01/15/18 16:10 Internal Medicine: Result - Labs CBC & Chem 7: 01/13/18 04:00 01/13/18 16:15 - ABG Interpretation ABG results: ABG ABG pH 7.37 pH Units (7.32-7.45) 01/12/18 06:01 ABG pCO2 55 mmHg (35-45) H 01/12/18 06:01 ABG pO2 83 mmHg (85-104) L 01/12/18 06:01 ABG O2 Saturation 95 % (95-98) 01/12/18 06:01 PT/INR, D-dimer PT 10.4 Seconds (9.4-12.1) 01/06/18 12:28 - Attending Attestation I examined this patient and my medical decision-making was reviewed with the Resident Physician on 01/15/18. I agree with the documented findings, disposition and treatment plan as described except to the extent set forth below. Mr Felder is currently admitted for acute respiratory and encephalopathy. He remains moderate to high risk due to potential for worsening clinical status. Mr Felder appears to be more oriented today. No fever or chills. Breathing better today. No CP or worsened dyspnea. Will not take Lactulose as does not want to have increased bowel movements. Exam alert Comfortable Appears oriented at this time Heart reg Mucus membranes dry Lungs with few rhonchi but no wheeze Abd soft I/P 1. Hepatic encephalopathy - won't take lactulose so will start Rifaximin. 2. ETOH withdrawal 3. Resp failure improving. Further diagnoses and plan as above.
[2018-01-15] MEDS: Aspirin Enteric Coated 81 MG Tablet PO SCH (08:26)
[2018-01-15] MEDS: Lactulose Oral Soln 20 GM/30 ML UDC GTUBE SCH (08:27)
[2018-01-15] MEDS: Insulin LISPRO 300 UNITS/3 ML VIAL SQ SCH ×4 (08:28→21:58)
[2018-01-15] MEDS ORDERED: Pantoprazole 40 MG VIAL IVP SCH (09:00)
[2018-01-15] MEDS ORDERED: Thiamine (B-1) 100 MG in D5% in Water 50 ML IVPB SCH (09:00)
--- NOTE | 2018-01-15 09:17 | Palliative Progress Note ---
Date of Encounter: 01/15/18 Time of Encounter: 09:15 - Assessment and plan (1) Generalized weakness Current Visit: Yes Status: Acute Assessment and plan: PT/OT consult. Suspect he will need rehab. (2) Metabolic encephalopathy Current Visit: Yes Status: Acute Assessment and plan: Still continues with restless, agitated at times, and implusive, but is alert and oriented and follows commands. Can answer questions pertinent to his history. (3) Acute respiratory failure Current Visit: Yes Status: Acute Qualifiers: Respiratory failure complication: hypoxia and hypercapnia Qualified Code(s) : J96.01 - Acute respiratory failure with hypoxia; J96.02 - Acute respiratory failure with hypercapnia (4) Alcohol withdrawal Current Visit: Yes Status: Acute Assessment and plan: Resolved. Qualifiers: Complication of substance-induced condition: uncomplicated Qualified Code(s ): F10.230 - Alcohol dependence with withdrawal, uncomplicated (5) Goals of care, counseling/discussion Current Visit: Yes Status: Acute Assessment and plan: Will attempt to meet with Bradly when he arrives. D/W patient that he will likely require rehabilitation. D/W pick and shovel worker Dwight Beaulieu - [facility]. Still hoping to complete POA when Bradly arrives. Patient is still verbally stating that he would want Bradly to make decisions. Continue to follow. - Time Spent With Patient Total time spent is greater than 50% in coordination of care (as documented) at patient's floor/unit and/or counseling patient: - Subjective Interval history: Patient awake and alert, restless. Impulsive behavior at times. Sitter at bedside. Denies pain or discomfort. Follows commands. - Constitutional Vitals: Abnormal lab results RBC 2.91 M/mcL (4.19-5.50) L 01/13/18 04:00 Hgb 9.6 g/dL (12.9-16.9) L 01/13/18 04:00 Hct 29.0 % (37.5-50.1) L 01/13/18 04:00 APTT 37.0 Seconds (26.0-36.0) H 01/06/18 12:28 ABG pCO2 55 mmHg (35-45) H 01/12/18 06:01 ABG pO2 83 mmHg (85-104) L 01/12/18 06:01 ABG HCO3 31 mEq/L (21-27) H 01/12/18 06:01 ABG Total CO2 33 mEq/L (20-26) H 01/12/18 06:01 ABG Base Excess 5 mEq/L (-2 to 3) H 01/12/18 06:01 Sodium 148 mEq/L (136-145) H 01/13/18 04:00 Carbon Dioxide 32 mEq/L (23-29) H 01/13/18 04:00 Creatinine 0.69 mg/dL (0.70-1.30) L 01/13/18 04:00 Hemoglobin A1c 6.1 % (-5.6) H 01/08/18 12:16 Calculated Osmolality 307 (280-300) H 01/13/18 04:00 AST 45 Units/L (13-39) H 01/13/18 04:00 Alkaline Phosphatase 107 Units/L (34-104) H 01/13/18 04:00 Serum Total Protein 5.3 g/dL (6.4-8.9) L 01/13/18 04:00 Albumin 2.9 g/dL (3.5-5.7) L 01/13/18 04:00 Prolactin 26.30 ng/mL (3.00-14.70) H 01/08/18 07:08 Ur Leukocyte Esterase Trace (Negative) H 01/06/18 12:30 Ur Squamous Epith Cells Many per lpf (None-Few) H 01/06/18 12:30 Ur Culture Indicated? NO. (NO) A 01/06/18 12:30 Vancomycin Trough 15 mcg/mL (5-10) H 01/08/18 12:16 Ethyl Alcohol 11 mg/dL (Less than 10) H 01/06/18 12:28 General appearance: Present: no acute distress - Respiratory Respiratory exam: Present: decreased breath sounds Additional comments: Expiratory wheezes throughout - Cardiovascular Cardiovascular exam: Present: +S1, +S2 - GI/Abdominal GI/Abdominal exam: Present: normal bowel sounds, soft - Extremities Exam Extremities exam: Present: normal capillary refill, normal inspection - Neurological Exam Neurological exam: Present: alert Additional comments: Oriented to name and place - needs reoriented to time and situation. Thought he was here for cancer treatment. Follows one step commands. - Psychiatric Psychiatric exam: Present: normal affect, normal mood - Skin Skin exam: Present: dry, warm Palliative Quality Palliative Quality: Screen for Code Status: NA (No family present), Screen for Goals of Care: NA, Screen for Pain: Yes, If Pain Regimen Started, Initiate Bowel Regimen: NA, Screen for Nausea/Vomitting: NA Code Status: 01/06/18 14:15 Resuscitation Status: Active [RES] Routine Comment: Resuscitation Status: Full Code Resuscitation Status: Active [RES] Routine Comment: Per brother Resuscitation Status: DNR-Comfort Care-Arrest - Labs CBC & Chem 7: 01/13/18 04:00 01/13/18 16:15 Labs: Laboratory Results - last 24 hr 01/14/18 01/14/18 01/14/18 06:13 11:34 15:55 POC Glucose 89 120 H 108 H 01/14/18 21:04 POC Glucose 94 - ABG Interpretation ABG results: ABG ABG pH 7.37 pH Units (7.32-7.45) 01/12/18 06:01 ABG pCO2 55 mmHg (35-45) H 01/12/18 06:01 ABG pO2 83 mmHg (85-104) L 01/12/18 06:01 ABG O2 Saturation 95 % (95-98) 01/12/18 06:01 PT/INR, D-dimer PT 10.4 Seconds (9.4-12.1) 01/06/18 12:28 Consult Discharge Plan - Plan Referrals: NONE,PCP [Primary Care Provider] -
[2018-01-15] MEDS: Valproic Acid INJ 500 MG in 0.9 % Sodium Chloride 100 ML IVPB SCH (10:26)
[2018-01-15] MEDS ORDERED: *HR* LORazepam 1 MG TABLET PO PRN (14:03)
--- NOTE | 2018-01-15 15:23 | Neurology Progress Note ---
Date of Encounter: 01/15/18 Time of Encounter: 15:21 Assessment and Plan (1) Metabolic encephalopathy Current Visit: Yes Status: Acute Status post metabolic encephalopathy likely due to anoxic brain injury. However he is recovering nicely and seems to be close to his regular baseline. He has not had any further seizure activity. Myoclonic seizures are generally an ominous sign in the face of cerebral anoxia. However he seems to be recovering well. I would recommend maintaining the valproate at 500 mg twice a day. I will follow-up with him in my office after few weeks. I might anticipate ordering another EEG at that time. If expenses no further seizure activity and may decide to taper him off the valproate. I will reevaluate him at your request. Subjective Principal diagnosis: Acute respiratory failure Interval history: The pleasure of following up with Mr. Rios today regarding prior metabolic encephalopathy perhaps secondary to brain anoxia. He experienced respiratory failure and was subsequently intubated. Several days ago he extubated himself and is been able to remain off the ventilator. He is now awake and alert but likely has baseline confusion. He has not had any further seizure activity. He is still on the valproate which was started for the myoclonic seizure activity. Objective - Constitutional Vitals: Temp Pulse Resp BP Pulse Ox 98.4 F 91 22 146/75 100 01/15/18 14:33 01/15/18 14:33 01/15/18 14:33 01/15/18 14:33 01/15/18 14:33 - Neurological Exam Motor Examination: Present: other (There are no focal or lateralized deficits from a neuromuscular perspective. He has good strength of the upper and lower extremities. No involuntary movements are present.) Sensation intact: Present: intact Mental Status Examination: Present: awake, alert, oriented to person, oriented to place (At times however he does speak with loose association. He may have some baseline dementia.) Cranial nerve examination: Present: PERRL, EOMI, sensory to face intact, mastication intact, no facial asymmetry is present. Absent: no dysarthria ( Speech is dysarthric.) Results - Laboratory Findings CBC and BMP: 01/13/18 04:00 01/13/18 16:15 Abnormal lab findings: Abnormal lab results RBC 2.91 M/mcL (4.19-5.50) L 01/13/18 04:00 Hgb 9.6 g/dL (12.9-16.9) L 01/13/18 04:00 Hct 29.0 % (37.5-50.1) L 01/13/18 04:00 APTT 37.0 Seconds (26.0-36.0) H 01/06/18 12:28 ABG pCO2 55 mmHg (35-45) H 01/12/18 06:01 ABG pO2 83 mmHg (85-104) L 01/12/18 06:01 ABG HCO3 31 mEq/L (21-27) H 01/12/18 06:01 ABG Total CO2 33 mEq/L (20-26) H 01/12/18 06:01 ABG Base Excess 5 mEq/L (-2 to 3) H 01/12/18 06:01 Sodium 148 mEq/L (136-145) H 01/13/18 04:00 Carbon Dioxide 32 mEq/L (23-29) H 01/13/18 04:00 Creatinine 0.69 mg/dL (0.70-1.30) L 01/13/18 04:00 Hemoglobin A1c 6.1 % (-5.6) H 01/08/18 12:16 Calculated Osmolality 307 (280-300) H 01/13/18 04:00 AST 45 Units/L (13-39) H 01/13/18 04:00 Alkaline Phosphatase 107 Units/L (34-104) H 01/13/18 04:00 Serum Total Protein 5.3 g/dL (6.4-8.9) L 01/13/18 04:00 Albumin 2.9 g/dL (3.5-5.7) L 01/13/18 04:00 Prolactin 26.30 ng/mL (3.00-14.70) H 01/08/18 07:08 Ur Leukocyte Esterase Trace (Negative) H 01/06/18 12:30 Ur Squamous Epith Cells Many per lpf (None-Few) H 01/06/18 12:30 Ur Culture Indicated? NO. (NO) A 01/06/18 12:30 Vancomycin Trough 15 mcg/mL (5-10) H 01/08/18 12:16 Ethyl Alcohol 11 mg/dL (Less than 10) H 01/06/18 12:28 Consult Discharge Plan - Plan Referrals: NONE,PCP [Primary Care Provider] -
[2018-01-15] MEDS: Valproic Acid 250 MG CAPSULE PO SCH (16:54)
[2018-01-15] MEDS: Lactulose Oral Soln 20 GM/30 ML UDC PO SCH (21:57)
[2018-01-16] MEDS ORDERED: Haloperidol Lactate 5 MG/ML VIAL IVP ONE (04:21)
[2018-01-16] MEDS: Ipratropium/Albuterol Neb 3 ML IH SCH ×6 (04:55→23:01)
[2018-01-16 07:55] LABS: Alanine Aminotransferase 37 Units/L (7-52); Albumin 3.3 g/dL (3.5-5.7); Albumin/Globulin Ratio 1.4 (1.1-2.2); Alkaline Phosphatase 128 Units/L (34-104); Aspartate Amino Transferase 59 Units/L (13-39); BUN/Creatinine Ratio 23 (6-26); Bilirubin,Total 0.7 mg/dL (0.3-1.0); Blood Urea Nitrogen 14 mg/dL (8-23); Calcium 9.5 mg/dL (8.6-10.3); Carbon Dioxide 36 mEq/L (23-29); Chloride 106 mEq/L (98-107); Globulin 2.3 g/dL (2.4-3.5); Glucose 93 mg/dL (70-105); Osmolality,Calculated 318 (280-300); Potassium 3.8 mEq/L (3.5-5.1); Sodium 154 mEq/L (136-145); Total Protein 5.6 g/dL (6.4-8.9); eGFR For African Americans > 60 (> 60); eGFR For Non-African Americans > 60 (> 60)
--- NOTE | 2018-01-16 08:09 | Discharge Summary ---
Date of Encounter: 01/16/18 - Discharge Diagnosis (1) Metabolic encephalopathy Status: Acute (2) Acute respiratory failure Status: Acute Qualifiers: Respiratory failure complication: hypoxia and hypercapnia Qualified Code(s) : J96.01 - Acute respiratory failure with hypoxia; J96.02 - Acute respiratory failure with hypercapnia (3) Lactic acidosis Status: Resolved (4) Leukocytosis Status: Resolved Qualifiers: Leukocytosis type: unspecified Qualified Code(s): D72.829 - Elevated white blood cell count, unspecified (5) Prostate cancer Status: Chronic (6) Colon cancer Status: Suspected Qualifiers: Colon location: unspecified part of colon Qualified Code(s): C18.9 - Malignant neoplasm of colon, unspecified (7) DVT prophylaxis Status: Acute (8) Alcohol withdrawal Status: Acute Qualifiers: Complication of substance-induced condition: uncomplicated Qualified Code(s ): F10.230 - Alcohol dependence with withdrawal, uncomplicated (9) Hyperammonemia Status: Acute (10) Goals of care, counseling/discussion Status: Acute (11) Observed seizure-like activity Status: Acute (12) Acute hepatic encephalopathy Status: Acute (13) Chronic diastolic (congestive) heart failure Status: Chronic Hospital course: Mr. Felder is a 67 year old male - Time Spent with Patient Total time spent providing and/or coordinating discharge services: - Discharge Medications Home Medications: Ibuprofen [Motrin] 600 mg PO Q6HR #20 tablet 07/28/15 [Rx] predniSONE [PredniSONE] 60 mg PO DAILY #30 tablet 07/28/15 [Rx] Ondansetron ODT [Zofran ODT] 4 mg SL Q6HR #12 tab.rapdis 04/07/16 [Rx] levoFLOXacin [Levaquin] 250 mg PO DAILY #5 tablet 04/07/16 [Rx] Aspirin [Lo-Dose Aspirin EC] 81 mg PO DAILY 01/06/18 [History] Baclofen 20 mg PO TID PRN 01/06/18 [History] Budesonide/Formoterol 160/4.5 [Symbicort 160/4.5] 2 puff IH BIDR 01/06/18 [ History] Cetirizine HCl [All Day Allergy] 10 mg PO DAILY 01/06/18 [History] Cholecalciferol (D-3) [Vitamin D] 2,000 unit PO DAILY 01/06/18 [History] Folic Acid 1 mg PO DAILY 01/06/18 [History] Gabapentin [Neurontin] 900 mg PO TID 01/06/18 [History] Ipratropium/Albuterol Neb [Duoneb] 3 ml IH TID 01/06/18 [History] Melatonin [Melatin] 3 mg PO HS 01/06/18 [History] Meloxicam [Mobic] 15 mg PO DAILY 01/06/18 [History] Metoprolol [Lopressor] 12.5 mg PO BID 01/06/18 [History] Multivit-Min/FA/Lycopen/Lutein [A [employer] Multivit Tab] 1 tab PO DAILY 02/18 [History] Ranitidine HCl [Acid Remote Mortgage Underwriter] 150 mg PO BID 01/06/18 [History] Sildenafil Citrate 100 mg PO DAILY PRN 01/06/18 [History] Simvastatin [Zocor] 20 mg PO HS 01/06/18 [History] Thiamine (B-1) [Vitamin B-1] 100 mg PO DAILY 01/06/18 [History] Allergies/Adverse Reactions: 3 Allergy/AdvReac Type Severity Reaction Status Date / Time No Known Allergies Allergy Verified 04/07/16 18:58 Date of admission: 01/06/18 13:24 Primary care physician: PCP NONE Consults: 01/06/18 18:26 Consult to Pulmonology [CONS] Routine Consulting Provider: [facility] Reason for Consult: ?DT with hyotension to rule out sepsis Call Completed: Yes 01/07/18 13:31 Consult to Palliative Care [CONS] Routine Comment: Consulting Provider: Palliative Care Maureen Reason for Consult: goals of care Call Completed: Yes 01/08/18 07:58 Consult to Neurology [CONS] Routine Consulting Provider: Neurology [facility] Reason for Consult: seizures Call Completed: Yes 01/08/18 11:21 Consult to Interpret Exam [CONS] Routine Consulting Provider: Jessi Elias I Consult to Interpret Exam: Interpret EEG 01/13/18 10:46 Consult to Speech Therapy [CONS] Routine Comment: Evaluate, develop and implement POC Reason for Consult: swallow evaluation Call Completed: No 01/15/18 09:12 Consult to Physical Therapy [CONS] Routine Comment: Evaluate, develop and implement POC Reason for Consult: generalized weakness, eval and treat. Eval for Rehab Does patient have active BEDREST order?: No Is patient medically & hemodynamically stable?: Yes 01/15/18 09:14 Consult to Occupational Therapy [CONS] Routine Comment: Evaluate, develop and implement POC Reason for Consult: eval for rehab and treat Does patient have active BEDREST order?: No Is patient medically & hemodynamically stable?: Yes - Constitutional Vitals: Temp Pulse Resp BP Pulse Ox 97.6 F 80 18 151/88 95 01/16/18 07:21 01/16/18 07:21 01/16/18 07:21 01/16/18 07:21 01/16/18 07:21 - Patient Status Condition: Critical - Discharge Instructions Follow Up With: NONE,PCP [Primary Care Provider] -
[2018-01-16] MEDS: *HR* Heparin 5,000 UNIT/ML VIAL SQ SCH ×2 (09:07→16:29)
[2018-01-16] MEDS: Folic Acid 1 MG TABLET PO SCH (09:08)
[2018-01-16] MEDS: Valproic Acid 250 MG CAPSULE PO SCH ×2 (09:09→16:29)
[2018-01-16] MEDS: Aspirin Enteric Coated 81 MG Tablet PO SCH (09:09)
[2018-01-16] MEDS: Thiamine (B-1) 100 MG TABLET PO SCH (09:09)
[2018-01-16] MEDS: Lactulose Oral Soln 20 GM/30 ML UDC PO SCH ×3 (09:10→23:10)
[2018-01-16] MEDS: Insulin LISPRO 300 UNITS/3 ML VIAL SQ SCH ×4 (09:15→22:59)
--- NOTE | 2018-01-16 09:47 | Event Note ---
Date of Encounter: 01/16/18 Time of Encounter: 09:40 Patient awake and alert, no complaints. Na+ up to 154. Thickened fluid restriction has been lifted and hopefully pt will have increased intake. D/W Dr. Oliva and Dr. Guzman. Palliative not currently managing any symptoms - will sign off. POA and code status have been established. Dwight Beaulieu working with [facility] for D[facility]C plan - [facility] Please call if any questions and thank you for allowing us to participate in pt' s care.
--- NOTE | 2018-01-16 10:42 | Internal Med Progress Note ---
Addendum entered and electronically signed by Alberto Guzman DO 01/16/18 16: 30: A/P Hypernatremia likely secondary to decreased intake of free water Encouraged to drink 1L Free water today Monitor Repeat BMP tomorrow Original Note: <Alberto Guzman - Last Filed: 01/16/18 16:25> Date of Encounter: 01/16/18 Time of Encounter: 08:30 - Assessment and plan (1) Metabolic encephalopathy Current Visit: Yes Status: Resolved Assessment and plan: Metabolic encephalopathy which appears to have improved Patient is mentating at or close to baseline He is having continued difficulty sleeping at night which could impact mental status Neurology recommends outpatient follow-up (2) Acute respiratory failure Current Visit: Yes Status: Acute Assessment and plan: s/p extubation Patient is oxygenating and ventilating appropriately at this time May require overnight BiPAP vs O2 Continue duonebs Qualifiers: Respiratory failure complication: hypoxia and hypercapnia Qualified Code(s) : J96.01 - Acute respiratory failure with hypoxia; J96.02 - Acute respiratory failure with hypercapnia (3) Leukocytosis Current Visit: Yes Status: Resolved Qualifiers: Leukocytosis type: unspecified Qualified Code(s): D72.829 - Elevated white blood cell count, unspecified (4) Prostate cancer Current Visit: Yes Status: Chronic Assessment and plan: Personal history of chronic prostate cancer Follow-up as outpatient (5) Colon cancer Current Visit: Yes Status: Suspected Assessment and plan: Personal history of colon cancer Not seeking treatment at this time Follow-up as outpatient Qualifiers: Colon location: unspecified part of colon Qualified Code(s): C18.9 - Malignant neoplasm of colon, unspecified (6) Alcohol withdrawal Current Visit: Yes Status: Acute Assessment and plan: History of severe alcoholism Patient had seizures on this admission, however unknown if due to anoxic brain injury vs ETOH withdrawal We will continue PRN Ativan Continue nutrition supplementation and vitamins Qualifiers: Complication of substance-induced condition: uncomplicated Qualified Code(s ): F10.230 - Alcohol dependence with withdrawal, uncomplicated (7) Hyperammonemia Current Visit: Yes Status: Acute Assessment and plan: Continue lactulose at this time (8) Goals of care, counseling/discussion Current Visit: Yes Status: Acute Assessment and plan: Palliative is on board (9) Observed seizure-like activity Current Visit: Yes Status: Acute Assessment and plan: Seizure activity free for at least 24hours Per neurology, continue Depakote 500mg BID (10) Acute hepatic encephalopathy Current Visit: Yes Status: Acute Assessment and plan: Patient is receiving Lactulose Occasionally refuses medication (11) DVT prophylaxis Current Visit: Yes Status: Acute Assessment and plan: SQ Heparin - Time Spent With Patient Total time spent is greater than 50% in coordination of care (as documented) at patient's floor/unit and/or counseling patient: 25 - 35 minutes - Subjective Interval history: The patient is seen and examined at bedside. He is alert and conversant today, and responds appropriately to commands and questions. He apparently slept better than he had the night before. He has no acute complaints this morning. - Constitutional Vitals: Temp Pulse Resp BP Pulse Ox 97.6 F 80 18 151/88 95 01/16/18 07:21 01/16/18 07:21 01/16/18 07:21 01/16/18 07:21 01/16/18 07:21 Exam: Gen: Vitals noted. No acute distress. HEENT: oropharynx clear, Normocephalic, atraumatic Neck: Supple. No adenopathy. Cardiac: RRR, no murmur, +S1/S2 Pulmonary: Intermittent wheezes throughout but otherwise clear to auscultation Abdomen: soft, nontender, BS noted, no guarding Back: Nontender throughout. MSK: ROM intact, no joint swelling noted Extremities: no BLE edema, nontender calf, no cyanosis or clubbing Neuro: A&Ox2, moves all extremities, no focal deficits to be noted. I did not witness any myoclonic episodes Psych: In good spirits Internal Medicine: Result - Labs CBC & Chem 7: 01/13/18 04:00 01/16/18 07:19 Labs: BMP 01/16/18 07:19 Sodium 154 H Potassium 3.8 Chloride 106 Carbon Dioxide 36 H BUN 14 Creatinine 0.61 L Glucose 93 Calcium 9.5 Liver Function 01/16/18 Range/Units 07:19 Total Bilirubin 0.7 (0.3-1.0) mg/dL AST 59 H (13-39) Units/L ALT 37 (7-52) Units/L Alkaline Phosphatase 128 H (34-104) Units/L Albumin 3.3 L (3.5-5.7) g/dL - ABG Interpretation ABG results: ABG ABG pH 7.37 pH Units (7.32-7.45) 01/12/18 06:01 ABG pCO2 55 mmHg (35-45) H 01/12/18 06:01 ABG pO2 83 mmHg (85-104) L 01/12/18 06:01 ABG O2 Saturation 95 % (95-98) 01/12/18 06:01 PT/INR, D-dimer PT 10.4 Seconds (9.4-12.1) 01/06/18 12:28 Consult Discharge Plan - Plan Referrals: NONE,PCP [Primary Care Provider] - <David Oliva - Last Filed: 01/16/18 17:59> Date of Encounter: 01/16/18 - Assessment and plan (1) Hypernatremia Current Visit: Yes Status: Acute (2) Acute hepatic encephalopathy Current Visit: Yes Status: Acute (3) Metabolic encephalopathy Current Visit: Yes Status: Resolved (4) Acute respiratory failure Current Visit: Yes Status: Acute Qualifiers: Respiratory failure complication: hypoxia and hypercapnia Qualified Code(s) : J96.01 - Acute respiratory failure with hypoxia; J96.02 - Acute respiratory failure with hypercapnia (5) Lactic acidosis Current Visit: Yes Status: Resolved (6) Leukocytosis Current Visit: Yes Status: Resolved Qualifiers: Leukocytosis type: unspecified Qualified Code(s): D72.829 - Elevated white blood cell count, unspecified (7) Prostate cancer Current Visit: Yes Status: Chronic (8) Colon cancer Current Visit: Yes Status: Suspected Qualifiers: Colon location: unspecified part of colon Qualified Code(s): C18.9 - Malignant neoplasm of colon, unspecified (9) DVT prophylaxis Current Visit: Yes Status: Acute (10) Alcohol withdrawal Current Visit: Yes Status: Acute Qualifiers: Complication of substance-induced condition: uncomplicated Qualified Code(s ): F10.230 - Alcohol dependence with withdrawal, uncomplicated (11) Hyperammonemia Current Visit: Yes Status: Acute (12) Goals of care, counseling/discussion Current Visit: Yes Status: Acute (13) Observed seizure-like activity Current Visit: Yes Status: Acute (14) Chronic diastolic (congestive) heart failure Current Visit: Yes Status: Chronic - Time Spent With Patient Total time spent is greater than 50% in coordination of care (as documented) at patient's floor/unit and/or counseling patient: - Constitutional Vitals: Temp Pulse Resp BP Pulse Ox 97.6 F 91 20 159/91 95 01/16/18 07:21 01/16/18 11:07 01/16/18 11:07 01/16/18 11:07 01/16/18 11:07 Internal Medicine: Result - Labs CBC & Chem 7: 01/13/18 04:00 01/16/18 07:19 Labs: BMP 01/16/18 07:19 Sodium 154 H Potassium 3.8 Chloride 106 Carbon Dioxide 36 H BUN 14 Creatinine 0.61 L Glucose 93 Calcium 9.5 Liver Function 01/16/18 Range/Units 07:19 Total Bilirubin 0.7 (0.3-1.0) mg/dL AST 59 H (13-39) Units/L ALT 37 (7-52) Units/L Alkaline Phosphatase 128 H (34-104) Units/L Albumin 3.3 L (3.5-5.7) g/dL - ABG Interpretation ABG results: ABG ABG pH 7.37 pH Units (7.32-7.45) 01/12/18 06:01 ABG pCO2 55 mmHg (35-45) H 01/12/18 06:01 ABG pO2 83 mmHg (85-104) L 01/12/18 06:01 ABG O2 Saturation 95 % (95-98) 01/12/18 06:01 PT/INR, D-dimer PT 10.4 Seconds (9.4-12.1) 01/06/18 12:28 - Attending Attestation I examined this patient and my medical decision-making was reviewed with the Resident Physician on 01/16/18. I agree with the documented findings, disposition and treatment plan as described except to the extent set forth below. Mr Felder is currently admitted for acute resp failure and alcoholic encephalopathy. He remains moderate to high risk due to potential for worsening clinical status. Mr Felder did not sleep well last night. Sodium high today. No fever or chills. Intermittent confusion persists. Now able to take thin liquids so anticipate will have increased fluid intake. Exam Alert. Comfortable Mucus membranes dry Heart reg No wheeze Abd soft I/P 1. Hypernatremia 2. Hepatic encephalopathy Further diagnoses and plan as above.
[2018-01-16] MEDS: Budesonide/Formoterol 160/4.5 MDI IH SCH ×2 (11:03→19:43)
[2018-01-17] MEDS: Ipratropium/Albuterol Neb 3 ML IH SCH ×6 (03:05→23:42)
[2018-01-17 04:49] LABS: Basophils % 0.3 %; Eosinophils # 0.1 K/mcL (0.0-0.6); Hematocrit 31.4 % (37.5-50.1); Hemoglobin 10.1 g/dL (12.9-16.9); Immature Granulocytes % 0.9 % (0-4); Lymphocytes # 0.8 K/mcL (0.6-4.6); Lymphocytes % 8.6 %; Mean Corpuscular HGB Conc 32.2 g/dL (31.6-35.5); Mean Corpuscular Hemoglobin 32.5 pg (28.0-33.3); Mean Platelet Volume 10.2 fL (9.4-12.4); Monocytes # 0.7 K/mcL (0.0-1.3); Monocytes % 6.8 %; Nucleated Red Blood Cells 0.4 /100 WBC (0); Platelet Count 136 K/mcL (140-400); Red Blood Count 3.11 M/mcL (4.19-5.50); Red Cell Distribution Width 14.1 % (11.5-14.5); Segmented Neutrophils % 82.4 %
[2018-01-17] MEDS: *HR* Heparin 5,000 UNIT/ML VIAL SQ SCH ×2 (05:00→16:25)
[2018-01-17 05:16] LABS: BUN/Creatinine Ratio 27 (6-26); Blood Urea Nitrogen 15 mg/dL (8-23); Calcium 9.3 mg/dL (8.6-10.3); Carbon Dioxide 38 mEq/L (23-29); Chloride 102 mEq/L (98-107); Glucose 121 mg/dL (70-105); Osmolality,Calculated 308 (280-300); Potassium 3.4 mEq/L (3.5-5.1); Sodium 148 mEq/L (136-145); eGFR For African Americans > 60 (> 60); eGFR For Non-African Americans > 60 (> 60)
[2018-01-17] MEDS: Budesonide/Formoterol 160/4.5 MDI IH SCH ×2 (07:43→19:39)
[2018-01-17] MEDS: Folic Acid 1 MG TABLET PO SCH (08:32)
[2018-01-17] MEDS: Lactulose Oral Soln 20 GM/30 ML UDC PO SCH ×3 (08:32→20:38)
[2018-01-17] MEDS: Potassium Chloride Elixir 20 MEQ/15 ML UDC PO SCH (08:32)
[2018-01-17] MEDS: Thiamine (B-1) 100 MG TABLET PO SCH (08:35)
[2018-01-17] MEDS: Valproic Acid 250 MG CAPSULE PO SCH ×2 (08:35→16:25)
[2018-01-17] MEDS: Aspirin Enteric Coated 81 MG Tablet PO SCH (08:35)
[2018-01-17 08:36] LABS: VBG HCO3 42 mEq/L (21-27); VBG PCO2 76 mmHg (41-51); VBG PH 7.35 pH Units (7.32-7.42); VBG PO2 50 mmHg (25-50)
[2018-01-17] MEDS: Insulin LISPRO 300 UNITS/3 ML VIAL SQ SCH ×4 (08:36→20:39)
[2018-01-17] MEDS ORDERED: Furosemide 20 MG/2 ML VIAL IVP ONE (10:52)
--- NOTE | 2018-01-17 11:09 | Internal Med Progress Note ---
<David Oliva - Last Filed: 01/17/18 14:26> Date of Encounter: 01/17/18 - Assessment and plan (1) Acute respiratory failure Current Visit: Yes Status: Acute Qualifiers: Respiratory failure complication: hypoxia and hypercapnia Qualified Code(s) : J96.01 - Acute respiratory failure with hypoxia; J96.02 - Acute respiratory failure with hypercapnia (2) Hypernatremia Current Visit: Yes Status: Acute (3) Acute hepatic encephalopathy Current Visit: Yes Status: Acute (4) Metabolic encephalopathy Current Visit: Yes Status: Resolved (5) Lactic acidosis Current Visit: Yes Status: Resolved (6) Leukocytosis Current Visit: Yes Status: Resolved Qualifiers: Leukocytosis type: unspecified Qualified Code(s): D72.829 - Elevated white blood cell count, unspecified (7) Prostate cancer Current Visit: Yes Status: Chronic (8) Colon cancer Current Visit: Yes Status: Suspected Qualifiers: Colon location: unspecified part of colon Qualified Code(s): C18.9 - Malignant neoplasm of colon, unspecified (9) DVT prophylaxis Current Visit: Yes Status: Acute (10) Alcohol withdrawal Current Visit: Yes Status: Acute Qualifiers: Complication of substance-induced condition: uncomplicated Qualified Code(s ): F10.230 - Alcohol dependence with withdrawal, uncomplicated (11) Hyperammonemia Current Visit: Yes Status: Acute (12) Goals of care, counseling/discussion Current Visit: Yes Status: Acute (13) Observed seizure-like activity Current Visit: Yes Status: Acute (14) Chronic diastolic (congestive) heart failure Current Visit: Yes Status: Chronic - Time Spent With Patient Total time spent is greater than 50% in coordination of care (as documented) at patient's floor/unit and/or counseling patient: - Constitutional Vitals: Temp Pulse Resp BP Pulse Ox 97.8 F 88 20 112/62 96 01/17/18 10:51 01/17/18 10:51 01/17/18 10:51 01/17/18 10:51 01/17/18 10:51 Internal Medicine: Result - Labs CBC & Chem 7: 01/17/18 04:19 01/17/18 04:19 Labs: Short CBC 01/17/18 Range/Units 04:19 WBC 9.7 (4.3-11.1) K/mcL Hgb 10.1 L (12.9-16.9) g/dL Hct 31.4 L (37.5-50.1) % Plt Count 136 L (140-400) K/mcL Neutrophils # 8.0 (1.6-8.9) K/mcL BMP 01/17/18 04:19 Sodium 148 H Potassium 3.4 L Chloride 102 Carbon Dioxide 38 H BUN 15 Creatinine 0.55 L Glucose 121 H Calcium 9.3 - ABG Interpretation ABG results: ABG ABG pH 7.37 pH Units (7.32-7.45) 01/12/18 06:01 ABG pCO2 55 mmHg (35-45) H 01/12/18 06:01 ABG pO2 83 mmHg (85-104) L 01/12/18 06:01 ABG O2 Saturation 95 % (95-98) 01/12/18 06:01 PT/INR, D-dimer PT 10.4 Seconds (9.4-12.1) 01/06/18 12:28 - Impressions Impressions Videofluoroscopic Swallow 01/17/18 08:57 IMPRESSION: 1. Intermittent laryngeal penetration with the thin barium. Please see separate speech pathology report for full discussion of findings and recommendations. D/ / Pj Farah MD / Pj Farah MD Interpreting Provider: Pj Farah MD Chest X-Ray 01/17/18 09:49 IMPRESSION: Small bilateral pleural effusions mild pulmonary edema. Bibasilar atelectasis. D/ / Shannon Merrill MD / Shannon Merrill MD Interpreting Provider: Shannon Merrill MD Consult Discharge Plan - Plan Referrals: NONE,PCP [Primary Care Provider] - - Attending Attestation I examined this patient and my medical decision-making was reviewed with the Resident Physician on 01/17/18. I agree with the documented findings, disposition and treatment plan as described except to the extent set forth below. Mr Felder is currently admitted for respiratory failure and ETOH. He remains moderate to high risk due to potential for worsening clinical status. Mr Felder is alert at this time. He said he slept well last night. No fever. Has not been on bipap. Exam alert. Comfortable Mucus membranes dry Heart distant Lungs with rhonchi Abd soft I/P 1. Resp failure - recheck CXR. Check MBS to r/o aspiration Bipap 2. ETOH Further diagnoses and plan as above. <Alberto Guzman - Last Filed: 01/17/18 15:49> Date of Encounter: 01/17/18 Time of Encounter: 08:00 - Assessment and plan (1) Acute and chronic respiratory failure Current Visit: Yes Status: Acute Assessment and plan: s/p extubation Patient is oxygenating and ventilating appropriately at this time May require overnight BiPAP vs O2 Continue duonebs Update 01/17 Acute on chronic respiratory failure with hypoxia and hypercapnia Patient's bicarb has been trending up VBG this morning shows pCO2 76, started BiPAP We will do BiPAP qualification tonight, ABG in the morning (2) Hypernatremia Current Visit: Yes Status: Acute Assessment and plan: Serum sodium 148 on BMP Improved from prior day Continue to encourage free water (3) Prostate cancer Current Visit: Yes Status: Chronic Assessment and plan: Personal history of chronic prostate cancer Follow-up as outpatient (4) Colon cancer Current Visit: Yes Status: Suspected Assessment and plan: Personal history of colon cancer Not seeking treatment at this time Follow-up as outpatient Qualifiers: Colon location: unspecified part of colon Qualified Code(s): C18.9 - Malignant neoplasm of colon, unspecified (5) Alcohol withdrawal Current Visit: Yes Status: Acute Assessment and plan: History of severe alcoholism Patient had seizures on this admission, however unknown if due to anoxic brain injury vs ETOH withdrawal We will continue PRN Ativan Continue nutrition supplementation and vitamins Qualifiers: Complication of substance-induced condition: uncomplicated Qualified Code(s ): F10.230 - Alcohol dependence with withdrawal, uncomplicated (6) Hyperammonemia Current Visit: Yes Status: Acute Assessment and plan: Continue lactulose at this time (7) DVT prophylaxis Current Visit: Yes Status: Acute Assessment and plan: SQ Heparin (8) Metabolic encephalopathy Current Visit: Yes Status: Resolved Assessment and plan: Metabolic encephalopathy which appears to have improved Patient is mentating at or close to baseline He is having continued difficulty sleeping at night which could impact mental status Neurology recommends outpatient follow-up - Time Spent With Patient Total time spent is greater than 50% in coordination of care (as documented) at patient's floor/unit and/or counseling patient: - Subjective Interval history: The patient is seen and examined at bedside. He is alert and conversant today, and responds appropriately to commands and questions. He says says that he slept well overnight. - Constitutional Vitals: Temp Pulse Resp BP Pulse Ox 97.8 F 88 20 112/62 96 01/17/18 10:51 01/17/18 10:51 01/17/18 10:51 01/17/18 10:51 01/17/18 10:51 Exam: Gen: Vitals noted. No acute distress. HEENT: oropharynx clear, Normocephalic, atraumatic Neck: Supple. No adenopathy. Cardiac: RRR but rapid , no murmur, +S1/S2 Pulmonary: Substantially rhochorous throughout on both inspiration and expiration Abdomen: soft, nontender, BS noted, no guarding Back: Nontender throughout. MSK: ROM intact, no joint swelling noted Extremities: no BLE edema, nontender calf, no cyanosis or clubbing Neuro: A&Ox3, moves all extremities, no focal deficits to be noted. Psych: In good spirits Internal Medicine: Result - Labs CBC & Chem 7: 01/17/18 04:19 01/17/18 04:19 Labs: Short CBC 01/17/18 Range/Units 04:19 WBC 9.7 (4.3-11.1) K/mcL Hgb 10.1 L (12.9-16.9) g/dL Hct 31.4 L (37.5-50.1) % Plt Count 136 L (140-400) K/mcL Neutrophils # 8.0 (1.6-8.9) K/mcL BMP 01/17/18 04:19 Sodium 148 H Potassium 3.4 L Chloride 102 Carbon Dioxide 38 H BUN 15 Creatinine 0.55 L Glucose 121 H Calcium 9.3 - ABG Interpretation ABG results: ABG ABG pH 7.37 pH Units (7.32-7.45) 01/12/18 06:01 ABG pCO2 55 mmHg (35-45) H 01/12/18 06:01 ABG pO2 83 mmHg (85-104) L 01/12/18 06:01 ABG O2 Saturation 95 % (95-98) 01/12/18 06:01 PT/INR, D-dimer PT 10.4 Seconds (9.4-12.1) 01/06/18 12:28 - Impressions Impressions Chest X-Ray 01/17/18 09:49
[2018-01-18] MEDS: Ipratropium/Albuterol Neb 3 ML IH SCH ×6 (03:53→23:24)
[2018-01-18 04:53] LABS: ABG Base Excess 16 mEq/L (-2 to 3); ABG HCO3 42 mEq/L (21-27); ABG Oxygen Saturation 95 % (95-98); ABG PCO2 58 mmHg (35-45); ABG PH 7.47 pH Units (7.32-7.45); ABG PO2 71 mmHg (85-104); ABG TCO2 44 mEq/L (20-26)
[2018-01-18 05:18] LABS: Alanine Aminotransferase 26 Units/L (7-52); Albumin 2.7 g/dL (3.5-5.7); Albumin/Globulin Ratio 1.1 (1.1-2.2); Alkaline Phosphatase 110 Units/L (34-104); Aspartate Amino Transferase 30 Units/L (13-39); BUN/Creatinine Ratio 23 (6-26); Bilirubin,Total 0.5 mg/dL (0.3-1.0); Blood Urea Nitrogen 11 mg/dL (8-23); Carbon Dioxide 39 mEq/L (23-29); Chloride 101 mEq/L (98-107); Globulin 2.5 g/dL (2.4-3.5); Glucose 111 mg/dL (70-105); Osmolality,Calculated 304 (280-300); Potassium 3.3 mEq/L (3.5-5.1); Sodium 147 mEq/L (136-145); Total Protein 5.2 g/dL (6.4-8.9); eGFR For African Americans > 60 (> 60); eGFR For Non-African Americans > 60 (> 60)
[2018-01-18] MEDS: *HR* Heparin 5,000 UNIT/ML VIAL SQ SCH ×2 (05:58→16:35)
[2018-01-18] MEDS: Budesonide/Formoterol 160/4.5 MDI IH SCH ×2 (07:35→20:20)
[2018-01-18 09:07] LABS: Basophils % 0.3 %; Eosinophils # 0.2 K/mcL (0.0-0.6); Eosinophils % 1.6 %; Hematocrit 32.7 % (37.5-50.1); Hemoglobin 10.7 g/dL (12.9-16.9); Immature Granulocytes % 0.6 % (0-4); Lymphocytes # 1.2 K/mcL (0.6-4.6); Lymphocytes % 9.2 %; Mean Corpuscular HGB Conc 32.7 g/dL (31.6-35.5); Mean Corpuscular Hemoglobin 32.3 pg (28.0-33.3); Mean Corpuscular Volume 98.8 fL (83.0-100.0); Mean Platelet Volume 9.9 fL (9.4-12.4); Monocytes # 0.8 K/mcL (0.0-1.3); Monocytes % 6.4 %; Neutrophils # 10.6 K/mcL (1.6-8.9); Platelet Count 151 K/mcL (140-400); Red Blood Count 3.31 M/mcL (4.19-5.50); Red Cell Distribution Width 13.9 % (11.5-14.5); Segmented Neutrophils % 81.9 %
--- NOTE | 2018-01-18 09:09 | Internal Med Progress Note ---
<Alberto Guzman - Last Filed: 01/18/18 09:09> Date of Encounter: 01/18/18 - Assessment and plan (1) Acute and chronic respiratory failure Current Visit: Yes Status: Acute (2) Hypernatremia Current Visit: Yes Status: Acute (3) Prostate cancer Current Visit: Yes Status: Chronic (4) Colon cancer Current Visit: Yes Status: Suspected Qualifiers: Colon location: unspecified part of colon Qualified Code(s): C18.9 - Malignant neoplasm of colon, unspecified (5) Alcohol withdrawal Current Visit: Yes Status: Acute Qualifiers: Complication of substance-induced condition: uncomplicated Qualified Code(s ): F10.230 - Alcohol dependence with withdrawal, uncomplicated (6) Hyperammonemia Current Visit: Yes Status: Acute (7) DVT prophylaxis Current Visit: Yes Status: Acute (8) Metabolic encephalopathy Current Visit: Yes Status: Resolved - Time Spent With Patient Total time spent is greater than 50% in coordination of care (as documented) at patient's floor/unit and/or counseling patient: - Subjective Interval history: The patient is seen and examined at bedside. He is alert and conversant today, and responds appropriately to commands and questions. He says says that he slept well overnight. - Constitutional Vitals: Temp Pulse Resp BP Pulse Ox 98.3 F 103 24 148/81 92 01/18/18 07:27 01/18/18 07:27 01/18/18 07:27 01/18/18 07:27 01/18/18 07:27 Internal Medicine: Result - Labs CBC & Chem 7: 01/18/18 08:35 01/18/18 04:43 Labs: Short CBC 01/18/18 Range/Units 08:35 WBC 13.0 H (4.3-11.1) K/mcL Hgb 10.7 L (12.9-16.9) g/dL Hct 32.7 L (37.5-50.1) % Plt Count 151 (140-400) K/mcL Neutrophils # 10.6 H (1.6-8.9) K/mcL BMP 01/18/18 04:43 Sodium 147 H Potassium 3.3 L Chloride 101 Carbon Dioxide 39 H BUN 11 Creatinine 0.47 L Glucose 111 H Calcium 9.0 Liver Function 01/18/18 Range/Units 04:43 Total Bilirubin 0.5 (0.3-1.0) mg/dL AST 30 (13-39) Units/L ALT 26 (7-52) Units/L Alkaline Phosphatase 110 H (34-104) Units/L Albumin 2.7 L (3.5-5.7) g/dL - ABG Interpretation ABG results: ABG ABG pH 7.47 pH Units (7.32-7.45) H 01/18/18 04:48 ABG pCO2 58 mmHg (35-45) H 01/18/18 04:48 ABG pO2 71 mmHg (85-104) L 01/18/18 04:48 ABG O2 Saturation 95 % (95-98) 01/18/18 04:48 PT/INR, D-dimer PT 10.4 Seconds (9.4-12.1) 01/06/18 12:28 - Impressions Impressions Videofluoroscopic Swallow 01/17/18 08:57 IMPRESSION: 1. Intermittent laryngeal penetration with the thin barium. Please see separate speech pathology report for full discussion of findings and recommendations. D/ / Pj Farah MD / Pj Farah MD Interpreting Provider: Pj Farah MD Chest X-Ray 01/17/18 09:49 IMPRESSION: Small bilateral pleural effusions mild pulmonary edema. Bibasilar atelectasis. D/ / Shannon Merrill MD / Shannon Merrill MD Interpreting Provider: Shannon Merrill MD Consult Discharge Plan - Plan Referrals: NONE,PCP [Primary Care Provider] - <Julio Marks - Last Filed: 01/18/18 15:32> Date of Encounter: 01/18/18 Time of Encounter: 15:32 - Assessment and plan (1) Metabolic encephalopathy Current Visit: Yes Status: Resolved Assessment and plan: Patient is alert and oriented 2. He had no acute events overnight. Currently were waiting for placement. Plan is to discharge to [place]. (2) Alcohol withdrawal Current Visit: Yes Status: Resolved Assessment and plan: Resolved. Continue folic acid and and thiamine. Ativan when necessary. Qualifiers: Complication of substance-induced condition: uncomplicated Qualified Code(s ): F10.230 - Alcohol dependence with withdrawal, uncomplicated (3) Hyperammonemia Current Visit: Yes Status: Acute Assessment and plan: Continue lactulose. (4) Hypernatremia Current Visit: Yes Status: Acute Assessment and plan: Improving. Increase free water intake. (5) Prostate cancer Current Visit: Yes Status: Chronic (6) Colon cancer Current Visit: Yes Status: Suspected Qualifiers: Colon location: unspecified part of colon Qualified Code(s): C18.9 - Malignant neoplasm of colon, unspecified (7) DVT prophylaxis Current Visit: Yes Status: Acute Assessment and plan: Subcutaneous heparin (8) Acute and chronic respiratory failure Current Visit: Yes Status: Resolved Assessment and plan: Resolved. Status post extubation. He qualified for BIPAP. [facility] can set this up for outpatient. Qualifiers: Respiratory failure complication: hypoxia and hypercapnia Qualified Code(s) : J96.21 - Acute and chronic respiratory failure with hypoxia; J96.22 - Acute and chronic respiratory failure with hypercapnia - Time Spent With Patient Total time spent is greater than 50% in coordination of care (as documented) at patient's floor/unit and/or counseling patient: - Constitutional Vitals: Temp Pulse Resp BP Pulse Ox 97.5 F L 84 16 145/65 88 01/18/18 15:17 01/18/18 15:17 01/18/18 15:17 01/18/18 15:17 01/18/18 15:17 General appearance: Present: A&O X 2 - Other Additional findings: General: Pleasant without distress Heart: Regular rate and rhythm with no murmur Lungs: Diminished with rhonchi in the left upper lobe Abdomen: Soft nontender, nondistended positive bowel sounds Skin: warm and dry, absent rash Extremities: Absent pedal edema, Neuro: Alert oriented 2 Vascular: Pedal and radial pulses 2 out of 4 Internal Medicine: Result - Labs CBC & Chem 7: 01/18/18 08:35 01/18/18 04:43 Labs: Short CBC 01/18/18 Range/Units 08:35 WBC 13.0 H (4.3-11.1) K/mcL Hgb 10.7 L (12.9-16.9) g/dL Hct 32.7 L (37.5-50.1) % Plt Count 151 (140-400) K/mcL Neutrophils # 10.6 H (1.6-8.9) K/mcL BMP 01/18/18 04:43 Sodium 147 H Potassium 3.3 L Chloride 101 Carbon Dioxide 39 H BUN 11 Creatinine 0.47 L Glucose 111 H Calcium 9.0 Liver Function 01/18/18 Range/Units 04:43 Total Bilirubin 0.5 (0.3-1.0) mg/dL AST 30 (13-39) Units/L ALT 26 (7-52) Units/L Alkaline Phosphatase 110 H (34-104) Units/L Albumin 2.7 L (3.5-5.7) g/dL - ABG Interpretation ABG results: ABG ABG pH 7.47 pH Units (7.32-7.45) H 01/18/18 04:48 ABG pCO2 58 mmHg (35-45) H 01/18/18 04:48 ABG pO2 71 mmHg (85-104) L 01/18/18 04:48 ABG O2 Saturation 95 % (95-98) 01/18/18 04:48 PT/INR, D-dimer PT 10.4 Seconds (9.4-12.1) 01/06/18 12:28 <David Oliva - Last Filed: 01/18/18 17:46> Date of Encounter: 01/18/18 - Assessment and plan (1) Metabolic encephalopathy Current Visit: Yes Status: Resolved (2) Acute and chronic respiratory failure Current Visit: Yes Status: Resolved Qualifiers: Respiratory failure complication: hypoxia and hypercapnia Qualified Code(s) : J96.21 - Acute and chronic respiratory failure with hypoxia; J96.22 - Acute and chronic respiratory failure with hypercapnia (3) Hypernatremia Current Visit: Yes Status: Acute (4) Acute hepatic encephalopathy Current Visit: Yes Status: Acute (5) Prostate cancer Current Visit: Yes Status: Chronic (6) Colon cancer Current Visit: Yes Status: Suspected Qualifiers: Colon location: unspecified part of colon Qualified Code(s): C18.9 - Malignant neoplasm of colon, unspecified (7) DVT prophylaxis Current Visit: Yes Status: Acute (8) Alcohol withdrawal Current Visit: Yes Status: Resolved Qualifiers: Complication of substance-induced condition: uncomplicated Qualified Code(s ): F10.230 - Alcohol dependence with withdrawal, uncomplicated (9) Hyperammonemia Current Visit: Yes Status: Acute (10) Chronic diastolic (congestive) heart failure Current Visit: Yes Status: Chronic - Time Spent With Patient Total time spent is greater than 50% in coordination of care (as documented) at patient's floor/unit and/or counseling patient: - Constitutional Vitals: Temp Pulse Resp BP Pulse Ox 97.5 F L 84 16 145/65 97 01/18/18 15:17 01/18/18 15:17 01/18/18 15:42 01/18/18 15:17 01/18/18 15:42 Internal Medicine: Result - Labs CBC & Chem 7: 01/18/18 08:35 01/18/18 04:43 Labs: Short CBC 01/18/18 Range/Units 08:35 WBC 13.0 H (4.3-11.1) K/mcL Hgb 10.7 L (12.9-16.9) g/dL Hct 32.7 L (37.5-50.1) % Plt Count 151 (140-400) K/mcL Neutrophils # 10.6 H (1.6-8.9) K/mcL BMP 01/18/18 04:43 Sodium 147 H Potassium 3.3 L Chloride 101 Carbon Dioxide 39 H BUN 11 Creatinine 0.47 L Glucose 111 H Calcium 9.0 Liver Function 01/18/18 Range/Units 04:43 Total Bilirubin 0.5 (0.3-1.0) mg/dL AST 30 (13-39) Units/L ALT 26 (7-52) Units/L Alkaline Phosphatase 110 H (34-104) Units/L Albumin 2.7 L (3.5-5.7) g/dL - ABG Interpretation ABG results: ABG ABG pH 7.47 pH Units (7.32-7.45) H 01/18/18 04:48 ABG pCO2 58 mmHg (35-45) H 01/18/18 04:48 ABG pO2 71 mmHg (85-104) L 01/18/18 04:48 ABG O2 Saturation 95 % (95-98) 01/18/18 04:48 PT/INR, D-dimer PT 10.4 Seconds (9.4-12.1) 01/06/18 12:28 - Attending Attestation I examined this patient and my medical decision-making was reviewed with the Resident Physician on 01/18/18. I agree with the documented findings, disposition and treatment plan as described except to the extent set forth below. Mr Felder is currently admitted for resp failure and ETOH withdrawal. He remains moderate to high risk due to potential for worsening clinical status. Mr Felder is somewhat confused this AM. He feels his breathing is better. No CP. No fever or chills. Sodium stable. Exam alert Comfortable Mucus membranes dry Heart irreg Lungs with scattered rhonchi Abd soft I/P 1. Encephalopathy 2. Resp failure Working on d/c planning. Further diagnoses and plan as above.
[2018-01-18] MEDS: Thiamine (B-1) 100 MG TABLET PO SCH (09:27)
[2018-01-18] MEDS: Lactulose Oral Soln 20 GM/30 ML UDC PO SCH ×3 (09:28→22:48)
[2018-01-18] MEDS: Potassium Chloride Elixir 20 MEQ/15 ML UDC PO SCH (09:28)
[2018-01-18] MEDS: Aspirin Enteric Coated 81 MG Tablet PO SCH (09:28)
[2018-01-18] MEDS: Valproic Acid 250 MG CAPSULE PO SCH ×2 (09:35→16:35)
[2018-01-18] MEDS: Folic Acid 1 MG TABLET PO SCH (09:36)
[2018-01-18] MEDS: Insulin LISPRO 300 UNITS/3 ML VIAL SQ SCH ×4 (09:36→22:58)
[2018-01-18] MEDS ORDERED: Potassium Chloride Elixir 20 MEQ/15 ML UDC PO SCH (14:30)
--- NOTE | 2018-01-18 23:08 | Electrocardiograph Report ---
[place] [id number] Test Date: 2018-01-17 Pat Name: Anna Felder Department: 111 Room: [id number] Gender: M [employer]: : 1950 Requested By: Alberto Guzman Order Number: [id number] Reading MD: Angy Howell Measurements Intervals [place] Rate: 103 P: 49 [place]: 169 QRS: 47 QRSD: 78 T: 53 QT: 347 QTc: 407 Interpretive Statements SINUS TACHYCARDIA WITH FREQUENT SUPRAVENTRICULAR PREMATURE COMPLEXES ABNORMAL RHYTHM ECG Electronically Signed On 01-18-2018 23:06:39 EDT by Angy Howell
[2018-01-19] MEDS: Ipratropium/Albuterol Neb 3 ML IH SCH ×6 (03:39→23:28)
[2018-01-19 05:23] LABS: BUN/Creatinine Ratio 13 (6-26); Blood Urea Nitrogen 7 mg/dL (8-23); Calcium 9.4 mg/dL (8.6-10.3); Carbon Dioxide 36 mEq/L (23-29); Chloride 102 mEq/L (98-107); Glucose 99 mg/dL (70-105); Osmolality,Calculated 298 (280-300); Potassium 3.7 mEq/L (3.5-5.1); Sodium 145 mEq/L (136-145); eGFR For African Americans > 60 (> 60); eGFR For Non-African Americans > 60 (> 60)
[2018-01-19] MEDS: *HR* Heparin 5,000 UNIT/ML VIAL SQ SCH ×2 (06:48→18:25)
[2018-01-19] MEDS: Budesonide/Formoterol 160/4.5 MDI IH SCH ×2 (07:19→19:45)
--- NOTE | 2018-01-19 07:56 | Internal Med Progress Note ---
<Julio Marks - Last Filed: 01/19/18 07:53> Date of Encounter: 01/19/18 Time of Encounter: 07:53 - Assessment and plan (1) Metabolic encephalopathy Current Visit: Yes Status: Resolved Assessment and plan: Patient is alert and oriented 2. He had no acute events overnight. Currently were waiting for placement. Plan is to discharge to [place]. (2) Prostate cancer Current Visit: Yes Status: Chronic Assessment and plan: Personal history of chronic prostate cancer Follow-up as outpatient (3) Colon cancer Current Visit: Yes Status: Suspected Assessment and plan: Personal history of colon cancer Not seeking treatment at this time Follow-up as outpatient Qualifiers: Colon location: unspecified part of colon Qualified Code(s): C18.9 - Malignant neoplasm of colon, unspecified (4) DVT prophylaxis Current Visit: Yes Status: Acute Assessment and plan: Subcutaneous heparin (5) Alcohol withdrawal Current Visit: Yes Status: Resolved Assessment and plan: Resolved. Continue folic acid and and thiamine. Ativan when necessary. on depakote as he had withdrawal seizures. Qualifiers: Complication of substance-induced condition: uncomplicated Qualified Code(s ): F10.230 - Alcohol dependence with withdrawal, uncomplicated (6) Hyperammonemia Current Visit: Yes Status: Acute Assessment and plan: Continue lactulose. (7) Acute hepatic encephalopathy Current Visit: Yes Status: Acute Assessment and plan: Patient is receiving Lactulose Occasionally refuses medication (8) Chronic diastolic (congestive) heart failure Current Visit: Yes Status: Chronic (9) Hypernatremia Current Visit: Yes Status: Resolved Assessment and plan: Resolved. Continue current diet. (10) Acute and chronic respiratory failure Current Visit: Yes Status: Resolved Assessment and plan: Resolved. Status post extubation. He qualified for BIPAP. [facility] can set this up for outpatient. Qualifiers: Respiratory failure complication: hypoxia and hypercapnia Qualified Code(s) : J96.21 - Acute and chronic respiratory failure with hypoxia; J96.22 - Acute and chronic respiratory failure with hypercapnia - Time Spent With Patient Total time spent is greater than 50% in coordination of care (as documented) at patient's floor/unit and/or counseling patient: - Subjective Interval history: No acute events overnight. Patient lying in bed comfortable without any complaints. He is tolerating his diet. [facility] - Constitutional Vitals: Temp Pulse Resp BP Pulse Ox 98.4 F 70 16 150/82 100 01/19/18 05:00 01/19/18 05:00 01/19/18 05:00 01/19/18 05:00 01/19/18 05:00 General appearance: Present: A&O X 2 - Other Additional findings: General: Pleasant without distress Heart: Regular rate and rhythm with no murmur Lungs: Diminished with mild expiratory rhonchi Abdomen: Soft nontender, nondistended positive bowel sounds Skin: warm and dry, absent rash Extremities: Absent pedal edema, Neuro: Alert oriented 2 Vascular: Pedal and radial pulses 2 out of 4 Internal Medicine: Result - Labs CBC & Chem 7: 01/18/18 08:35 01/19/18 03:33 Labs: Short CBC 01/18/18 Range/Units 08:35 WBC 13.0 H (4.3-11.1) K/mcL Hgb 10.7 L (12.9-16.9) g/dL Hct 32.7 L (37.5-50.1) % Plt Count 151 (140-400) K/mcL Neutrophils # 10.6 H (1.6-8.9) K/mcL BMP 01/19/18 03:33 Sodium 145 Potassium 3.7 Chloride 102 Carbon Dioxide 36 H BUN 7 L Creatinine 0.53 L Glucose 99 Calcium 9.4 - ABG Interpretation ABG results: ABG ABG pH 7.47 pH Units (7.32-7.45) H 01/18/18 04:48 ABG pCO2 58 mmHg (35-45) H 01/18/18 04:48 ABG pO2 71 mmHg (85-104) L 01/18/18 04:48 ABG O2 Saturation 95 % (95-98) 01/18/18 04:48 PT/INR, D-dimer PT 10.4 Seconds (9.4-12.1) 01/06/18 12:28 Consult Discharge Plan - Plan Referrals: NONE,PCP [Primary Care Provider] - <David Oliva - Last Filed: 01/19/18 14:02> Date of Encounter: 01/19/18 - Assessment and plan (1) Metabolic encephalopathy Current Visit: Yes Status: Resolved (2) Acute and chronic respiratory failure Current Visit: Yes Status: Resolved Qualifiers: Respiratory failure complication: hypoxia and hypercapnia Qualified Code(s) : J96.21 - Acute and chronic respiratory failure with hypoxia; J96.22 - Acute and chronic respiratory failure with hypercapnia (3) Hypernatremia Current Visit: Yes Status: Resolved (4) Acute hepatic encephalopathy Current Visit: Yes Status: Acute (5) Prostate cancer Current Visit: Yes Status: Chronic (6) Colon cancer Current Visit: Yes Status: Suspected Qualifiers: Colon location: unspecified part of colon Qualified Code(s): C18.9 - Malignant neoplasm of colon, unspecified (7) DVT prophylaxis Current Visit: Yes Status: Acute (8) Alcohol withdrawal Current Visit: Yes Status: Resolved Qualifiers: Complication of substance-induced condition: uncomplicated Qualified Code(s ): F10.230 - Alcohol dependence with withdrawal, uncomplicated (9) Hyperammonemia Current Visit: Yes Status: Acute (10) Chronic diastolic (congestive) heart failure Current Visit: Yes Status: Chronic - Time Spent With Patient Total time spent is greater than 50% in coordination of care (as documented) at patient's floor/unit and/or counseling patient: - Constitutional Vitals: Temp Pulse Resp BP Pulse Ox 98.2 F 95 16 151/76 98 01/19/18 11:29 01/19/18 11:29 01/19/18 11:29 01/19/18 11:29 01/19/18 11:29 Internal Medicine: Result - Labs CBC & Chem 7: 01/18/18 08:35 01/19/18 03:33 Labs: BMP 01/19/18 03:33 Sodium 145 Potassium 3.7 Chloride 102 Carbon Dioxide 36 H BUN 7 L Creatinine 0.53 L Glucose 99 Calcium 9.4 - ABG Interpretation ABG results: ABG ABG pH 7.47 pH Units (7.32-7.45) H 01/18/18 04:48 ABG pCO2 58 mmHg (35-45) H 01/18/18 04:48 ABG pO2 71 mmHg (85-104) L 01/18/18 04:48 ABG O2 Saturation 95 % (95-98) 01/18/18 04:48 PT/INR, D-dimer PT 10.4 Seconds (9.4-12.1) 01/06/18 12:28 - Attending Attestation I examined this patient and my medical decision-making was reviewed with the Resident Physician on 01/19/2018. I agree with the documented findings, disposition and treatment plan as described except to the extent set forth below. Mr Felder is currently admitted for acute resp failure and encephalopathy. He remains moderate risk today. Mr Felder feels OK. No fever or chills. Breathing overall better. Appears to be less confused today. Exam alert Comfortable at this time Mucus membranes dry Heart distant and not tachy Lungs clearer today Abd soft I/P 1. Resp failure - stable now 2. Encephalopathy 3. Hypernatremia - improved today Further diagnoses and plan as above.
[2018-01-19] MEDS: Thiamine (B-1) 100 MG TABLET PO SCH (10:50)
[2018-01-19] MEDS: Valproic Acid 250 MG CAPSULE PO SCH ×2 (10:51→15:44)
[2018-01-19] MEDS: Aspirin Enteric Coated 81 MG Tablet PO SCH (10:51)
[2018-01-19] MEDS: Folic Acid 1 MG TABLET PO SCH (10:59)
[2018-01-19] MEDS: Lactulose Oral Soln 20 GM/30 ML UDC PO SCH ×3 (10:59→22:40)
[2018-01-19] MEDS: Potassium Chloride Elixir 20 MEQ/15 ML UDC PO SCH (10:59)
[2018-01-19] MEDS: Insulin LISPRO 300 UNITS/3 ML VIAL SQ SCH ×4 (11:00→22:38)
[2018-01-20] MEDS: Ipratropium/Albuterol Neb 3 ML IH SCH ×5 (03:40→20:08)
[2018-01-20] MEDS: *HR* Heparin 5,000 UNIT/ML VIAL SQ SCH ×2 (06:21→17:42)
[2018-01-20] MEDS: Budesonide/Formoterol 160/4.5 MDI IH SCH ×2 (07:45→20:08)
--- NOTE | 2018-01-20 09:25 | Internal Med Progress Note ---
<Julio Marks - Last Filed: 01/20/18 09:19> Date of Encounter: 01/20/18 Time of Encounter: 09:19 - Assessment and plan (1) Metabolic encephalopathy Current Visit: Yes Status: Resolved Assessment and plan: Patient is alert and oriented 2. He had no acute events overnight. Currently we are still awaiting for placement. Plan is to discharge to [facility]. (2) Prostate cancer Current Visit: Yes Status: Chronic Assessment and plan: Personal history of chronic prostate cancer Follow-up as outpatient (3) Colon cancer Current Visit: Yes Status: Suspected Assessment and plan: Personal history of colon cancer Not seeking treatment at this time Follow-up as outpatient Qualifiers: Colon location: unspecified part of colon Qualified Code(s): C18.9 - Malignant neoplasm of colon, unspecified (4) DVT prophylaxis Current Visit: Yes Status: Acute Assessment and plan: Subcutaneous heparin (5) Alcohol withdrawal Current Visit: Yes Status: Resolved Assessment and plan: Resolved. Continue folic acid and and thiamine. Ativan when necessary. on depakote as he had withdrawal seizures. Qualifiers: Complication of substance-induced condition: uncomplicated Qualified Code(s ): F10.230 - Alcohol dependence with withdrawal, uncomplicated (6) Hyperammonemia Current Visit: Yes Status: Acute Assessment and plan: Continue lactulose. (7) Acute hepatic encephalopathy Current Visit: Yes Status: Resolved Assessment and plan: Patient is receiving Lactulose (8) Chronic diastolic (congestive) heart failure Current Visit: Yes Status: Chronic (9) Hypernatremia Current Visit: Yes Status: Resolved Assessment and plan: Resolved. Continue current diet. (10) Acute and chronic respiratory failure Current Visit: Yes Status: Resolved Assessment and plan: Resolved. Status post extubation. He qualified for BIPAP. [facility] can set this up for outpatient. Qualifiers: Respiratory failure complication: hypoxia and hypercapnia Qualified Code(s) : J96.21 - Acute and chronic respiratory failure with hypoxia; J96.22 - Acute and chronic respiratory failure with hypercapnia - Time Spent With Patient Total time spent is greater than 50% in coordination of care (as documented) at patient's floor/unit and/or counseling patient: - Subjective Interval history: No acute events overnight. Patient comfortable, asleep when entering the room. [facility] - Constitutional Vitals: Temp Pulse Resp BP Pulse Ox 98.0 F 87 18 135/65 98 01/20/18 06:31 01/20/18 06:31 01/20/18 07:45 01/20/18 06:31 01/20/18 07:45 General appearance: Present: A&O X 2 - Other Additional findings: General: Pleasant without distress Heart: Regular rate and rhythm with no murmur Lungs: Clear to auscultation bilaterally Abdomen: Soft nontender, nondistended positive bowel sounds Skin: warm and dry, absent rash Extremities: Absent pedal edema, Neuro: Alert oriented 2 Vascular: Pedal and radial pulses 2 out of 4 Internal Medicine: Result - Labs CBC & Chem 7: 01/18/18 08:35 01/19/18 03:33 - ABG Interpretation ABG results: ABG ABG pH 7.47 pH Units (7.32-7.45) H 01/18/18 04:48 ABG pCO2 58 mmHg (35-45) H 01/18/18 04:48 ABG pO2 71 mmHg (85-104) L 01/18/18 04:48 ABG O2 Saturation 95 % (95-98) 01/18/18 04:48 PT/INR, D-dimer PT 10.4 Seconds (9.4-12.1) 01/06/18 12:28 Consult Discharge Plan - Plan Referrals: NONE,PCP [Primary Care Provider] - <David Oliva - Last Filed: 01/20/18 13:06> Date of Encounter: 01/20/18 - Assessment and plan (1) Acute hepatic encephalopathy Current Visit: Yes Status: Resolved (2) Acute and chronic respiratory failure Current Visit: Yes Status: Resolved Qualifiers: Respiratory failure complication: hypoxia and hypercapnia Qualified Code(s) : J96.21 - Acute and chronic respiratory failure with hypoxia; J96.22 - Acute and chronic respiratory failure with hypercapnia (3) Metabolic encephalopathy Current Visit: Yes Status: Resolved (4) Hypernatremia Current Visit: Yes Status: Resolved (5) Prostate cancer Current Visit: Yes Status: Chronic (6) Colon cancer Current Visit: Yes Status: Suspected Qualifiers: Colon location: unspecified part of colon Qualified Code(s): C18.9 - Malignant neoplasm of colon, unspecified (7) Alcohol withdrawal Current Visit: Yes Status: Resolved Qualifiers: Complication of substance-induced condition: uncomplicated Qualified Code(s ): F10.230 - Alcohol dependence with withdrawal, uncomplicated (8) Hyperammonemia Current Visit: Yes Status: Acute (9) Chronic diastolic (congestive) heart failure Current Visit: Yes Status: Chronic (10) DVT prophylaxis Current Visit: Yes Status: Acute - Time Spent With Patient Total time spent is greater than 50% in coordination of care (as documented) at patient's floor/unit and/or counseling patient: - Constitutional Vitals: Temp Pulse Resp BP Pulse Ox 98.0 F 87 18 135/65 93 01/20/18 06:31 01/20/18 06:31 01/20/18 11:07 01/20/18 06:31 01/20/18 11:07 Internal Medicine: Result - Labs CBC & Chem 7: 01/18/18 08:35 01/19/18 03:33 - ABG Interpretation ABG results: ABG ABG pH 7.47 pH Units (7.32-7.45) H 01/18/18 04:48 ABG pCO2 58 mmHg (35-45) H 01/18/18 04:48 ABG pO2 71 mmHg (85-104) L 01/18/18 04:48 ABG O2 Saturation 95 % (95-98) 01/18/18 04:48 PT/INR, D-dimer PT 10.4 Seconds (9.4-12.1) 01/06/18 12:28 - Attending Attestation I examined this patient and my medical decision-making was reviewed with the Resident Physician on 01/20/18. I agree with the documented findings, disposition and treatment plan as described except to the extent set forth below. Mr Felder is currently admitted for acute encephalopathy and respiratory failure. He remains moderate risk at this time. Mr Felder is feeling OK. No fever or chills. Orientation improved today. No new issues overnight. Exam Alert Comfortable Mucus membranes dry Heart not tachy at this time. Lungs diminished Abd soft I/P 1. Resp failure 2. Encephalopathy on Rifaxamin Further diagnoses and plan as above,
[2018-01-20] MEDS: Thiamine (B-1) 100 MG TABLET PO SCH (09:31)
[2018-01-20] MEDS: Folic Acid 1 MG TABLET PO SCH (09:33)
[2018-01-20] MEDS: Aspirin Enteric Coated 81 MG Tablet PO SCH (09:33)
[2018-01-20] MEDS: Valproic Acid 250 MG CAPSULE PO SCH ×2 (09:33→15:56)
[2018-01-20] MEDS: Potassium Chloride Elixir 20 MEQ/15 ML UDC PO SCH (09:33)
[2018-01-20] MEDS: Lactulose Oral Soln 20 GM/30 ML UDC PO SCH ×3 (09:33→22:27)
[2018-01-20] MEDS: Insulin LISPRO 300 UNITS/3 ML VIAL SQ SCH ×4 (09:34→22:26)
[2018-01-20] MEDS ORDERED: Acetaminophen 325 MG TABLET PO PRN (15:23)
[2018-01-21] MEDS: Ipratropium/Albuterol Neb 3 ML IH SCH ×5 (00:20→15:48)
[2018-01-21] MEDS: *HR* Heparin 5,000 UNIT/ML VIAL SQ SCH (06:12)
[2018-01-21] MEDS: Budesonide/Formoterol 160/4.5 MDI IH SCH (07:30)
[2018-01-21 07:45] VITALS: BP 140/74
[2018-01-21] MEDS ORDERED: DiphenhydraMINE CREAM 28.4 GM TUBE TP PRN (09:56)
[2018-01-21] MEDS: Folic Acid 1 MG TABLET PO SCH (10:05)
[2018-01-21] MEDS: Valproic Acid 250 MG CAPSULE PO SCH (10:06)
[2018-01-21] MEDS: Potassium Chloride Elixir 20 MEQ/15 ML UDC PO SCH (10:06)
[2018-01-21] MEDS: Aspirin Enteric Coated 81 MG Tablet PO SCH (10:06)
[2018-01-21] MEDS: Thiamine (B-1) 100 MG TABLET PO SCH (10:06)
[2018-01-21] MEDS: Insulin LISPRO 300 UNITS/3 ML VIAL SQ SCH (10:06)
[2018-01-21] MEDS: Lactulose Oral Soln 20 GM/30 ML UDC PO SCH (10:06)
--- NOTE | 2018-01-21 11:32 | Discharge Summary ---
<Alberto Guzman - Last Filed: 01/21/18 14:52> - NOTES TO OUTPATIENT PROVIDER Notes to Outpatient Provider: The patient is at high risk of aspiration due to chronic alcohol abuse and dysphagia. He will require close follow-up for resolution of pneumonia. Additionally, he does have elevated ammonia due to chronic liver disease, requiring addition of lactulose and Rifaximin. Also discharged on BiPAP for sleep Date of Encounter: 01/21/18 Time of Encounter: 09:00 - Discharge Diagnosis (1) Metabolic encephalopathy Priority: Secondary Status: Resolved Assessment and Plan: Patient is alert and oriented 2. He had no acute events overnight. The patient would benefit from inpatient rehab at the [facility], however he has denied this treatment. He will be discharged to home with home health (2) Prostate cancer Priority: Secondary Status: Chronic Assessment and Plan: Personal history of chronic prostate cancer Follow-up as outpatient (3) Colon cancer Priority: Secondary Status: Suspected Assessment and Plan: Personal history of colon cancer Not seeking treatment at this time Follow-up as outpatient Qualifiers: Colon location: unspecified part of colon Qualified Code(s): C18.9 - Malignant neoplasm of colon, unspecified (4) Chronic diastolic (congestive) heart failure Priority: Secondary Status: Chronic (5) Alcohol withdrawal Priority: Secondary Status: Resolved Assessment and Plan: Resolved. Discharged on depakote as he had withdrawal seizures. Qualifiers: Complication of substance-induced condition: uncomplicated Qualified Code(s ): F10.230 - Alcohol dependence with withdrawal, uncomplicated (6) Hyperammonemia Priority: Secondary Status: Acute Assessment and Plan: Continue lactulose + rifaximin as outpatient (7) Hypernatremia Priority: Secondary Status: Resolved Assessment and Plan: Resolved. Continue current diet. (8) Acute and chronic respiratory failure Priority: Primary Status: Resolved Assessment and Plan: Resolved. Status post extubation. He qualified for BIPAP. [facility] can set this up for outpatient. Patient is at high risk for recurrent respiratory failure and subsequent readmission due to compliance issues. Qualifiers: Respiratory failure complication: hypoxia and hypercapnia Qualified Code(s) : J96.21 - Acute and chronic respiratory failure with hypoxia; J96.22 - Acute and chronic respiratory failure with hypercapnia Hospital course: Mr. Felder is a 67 year old male - Time Spent with Patient Total time spent providing and/or coordinating discharge services: - Discharge Medications Prescriptions: Albuterol Neb [Proventil Neb] 2.5 mg IH Q2H PRN #1 pack PRN Reason: Shortness Of Breath/Wheezing Budesonide/Formoterol 160/4.5 [Symbicort 160/4.5] 2 puff IH BIDR #2 inhaler DiphenhydraMINE [Benadryl] 1 appl TP TID PRN #1 tube PRN Reason: Itching Lactulose 30 gm PO TID #90 udc Rifaximin [Xifaxan] 550 mg PO BID #60 tablet Valproic Acid [Depakene] 500 mg PO BIDWM #60 capsule Home Medications: Ibuprofen [Motrin] 600 mg PO Q6HR #20 tablet 07/28/15 [Rx] Ondansetron ODT [Zofran ODT] 4 mg SL Q6HR #12 tab.rapdis 04/07/16 [Rx] Aspirin [Lo-Dose Aspirin EC] 81 mg PO DAILY 01/06/18 [History] Baclofen 20 mg PO TID PRN 01/06/18 [History] Budesonide/Formoterol 160/4.5 [Symbicort 160/4.5] 2 puff IH BIDR 01/06/18 [ History] Cetirizine HCl [All Day Allergy] 10 mg PO DAILY 01/06/18 [History] Cholecalciferol (D-3) [Vitamin D] 2,000 unit PO DAILY 01/06/18 [History] Folic Acid 1 mg PO DAILY 01/06/18 [History] Gabapentin [Neurontin] 900 mg PO TID 01/06/18 [History] Ipratropium/Albuterol Neb [Duoneb] 3 ml IH TID 01/06/18 [History] Melatonin [Melatin] 3 mg PO HS 01/06/18 [History] Meloxicam [Mobic] 15 mg PO DAILY 01/06/18 [History] Metoprolol [Lopressor] 12.5 mg PO BID 01/06/18 [History] Multivit-Min/FA/Lycopen/Lutein [A Thru Z Select Multivit Tab] 1 tab PO DAILY 02/18 [History] Ranitidine HCl [Acid Toe Sewer] 150 mg PO BID 01/06/18 [History] Sildenafil Citrate 100 mg PO DAILY PRN 01/06/18 [History] Simvastatin [Zocor] 20 mg PO HS 01/06/18 [History] Thiamine (B-1) [Vitamin B-1] 100 mg PO DAILY 01/06/18 [History] Albuterol Neb [Proventil Neb] 2.5 mg IH Q2H PRN #1 pack 01/21/18 [Rx] Budesonide/Formoterol 160/4.5 [Symbicort 160/4.5] 2 puff IH BIDR #2 inhaler [Rx] DiphenhydraMINE [Benadryl] 1 appl TP TID PRN #1 tube 01/21/18 [Rx] Lactulose 30 gm PO TID #90 udc 01/21/18 [Rx] Rifaximin [Xifaxan] 550 mg PO BID #60 tablet 01/21/18 [Rx] Valproic Acid [Depakene] 500 mg PO BIDWM #60 capsule 01/21/18 [Rx] Allergies/Adverse Reactions: 3 Allergy/AdvReac Type Severity Reaction Status Date / Time No Known Allergies Allergy Verified 04/07/16 18:58 Date of admission: 01/06/18 13:24 Primary care physician: PCP NONE Consults: 01/06/18 18:26 Consult to Pulmonology [CONS] Routine Consulting Provider: [facility] Reason for Consult: ?DT with hyotension to rule out sepsis Call Completed: Yes 01/07/18 13:31 Consult to Palliative Care [CONS] Routine Comment: Consulting Provider: Palliative [facility] [place] Reason for Consult: goals of care Call Completed: Yes 01/08/18 07:58 Consult to Neurology [CONS] Routine Consulting Provider: [facility] Reason for Consult: seizures Call Completed: Yes 01/08/18 11:21 Consult to Interpret Exam [CONS] Routine Consulting Provider: Jessi Elias I Consult to Interpret Exam: Interpret EEG 01/13/18 10:46 Consult to Speech Therapy [CONS] Routine Comment: Evaluate, develop and implement POC Reason for Consult: swallow evaluation Call Completed: No 01/15/18 09:12 Consult to Physical Therapy [CONS] Routine Comment: Evaluate, develop and implement POC Reason for Consult: generalized weakness, eval and treat. Eval for Rehab Does patient have active BEDREST order?: No Is patient medically & hemodynamically stable?: Yes 01/15/18 09:14 Consult to Occupational Therapy [CONS] Routine Comment: Evaluate, develop and implement POC Reason for Consult: eval for rehab and treat Does patient have active BEDREST order?: No Is patient medically & hemodynamically stable?: Yes Discharging clinician: Alberto Guzman Anticipated date of discharge: 01/21/18 - Constitutional Vitals: Temp Pulse Resp BP Pulse Ox 97.7 F 71 15 140/74 98 01/21/18 07:44 01/21/18 07:44 01/21/18 07:44 01/21/18 07:44 01/21/18 07:44 General appearance: Present: A&O X 2 Exam: General: Pleasant without distress Heart: Regular rate and rhythm with no murmur Lungs: Mild crackles on auscultation b/l Abdomen: Soft nontender, nondistended positive bowel sounds Skin: warm and dry, pruritic papular rash on back, appears to be contact dermatitis Extremities: Absent pedal edema, Neuro: Alert oriented 2 Vascular: Pedal and radial pulses 2 out of 4 - Patient Status Disposition: Home Health Service Condition: Critical Overall status at discharge: patient is progressing back to baseline - Discharge Instructions Instructions: Using Oxygen at Home (DC), Chronic Obstructive Pulmonary Disease (DC), Alcohol Withdrawal (DC) [facility] - 01/25/18 12:30 pm Additional Instructions: The patient should follow-up with primary care in 2-3 days Continue strict diet regimen, including nectar thickened liquids. Drinking thin liquids is highly likely to result in aspiration, which may cause further lung infection. Avoid alcoholic beverages Use BiPAP every night while sleeping, and during all naps as directed. Wear Home oxygen at 2L continuous. Portable tanks when going places and concentrator in the house. Monitor blood pressure Return to ED for recurrent symptoms, chest pains, shortness of breath, loss of consciousness We set [facility] up with [facility]. - Diet and Activity Activity: as per physical therapy, increase activity as tolerated Diet: other ([place] thick liquids) <David Oliva - Last Filed: 01/21/18 19:16> Date of Encounter: 01/21/18 - Discharge Diagnosis (1) Acute and chronic respiratory failure Status: Resolved Qualifiers: Respiratory failure complication: hypoxia and hypercapnia Qualified Code(s) : J96.21 - Acute and chronic respiratory failure with hypoxia; J96.22 - Acute and chronic respiratory failure with hypercapnia (2) Acute hepatic encephalopathy Priority: Secondary Status: Resolved (3) Metabolic encephalopathy Status: Resolved (4) Prostate cancer Status: Chronic (5) Colon cancer Status: Suspected Qualifiers: Colon location: unspecified part of colon Qualified Code(s): C18.9 - Malignant neoplasm of colon, unspecified (6) Alcohol withdrawal Status: Resolved Qualifiers: Complication of substance-induced condition: uncomplicated Qualified Code(s ): F10.230 - Alcohol dependence with withdrawal, uncomplicated (7) Hyperammonemia Status: Acute (8) Chronic diastolic (congestive) heart failure Status: Chronic (9) Hypernatremia Status: Resolved (10) Tobacco abuse Priority: Secondary Status: Chronic Hospital course: Mr. Felder is a 67 year old male - Time Spent with Patient Total time spent providing and/or coordinating discharge services: 39min Date of admission: 01/06/18 13:24 Primary care physician: PCP NONE Consults: 01/06/18 18:26 Consult to Pulmonology [CONS] Routine Consulting Provider: [facility] Reason for Consult: ?DT with hyotension to rule out sepsis Call Completed: Yes 01/07/18 13:31 Consult to Palliative Care [CONS] Routine Comment: Consulting Provider: Pall[facility] [place] Reason for Consult: goals of care Call Completed: Yes 01/08/18 07:58 Consult to Neurology [CONS] Routine Consulting Provider: [facility] [place] [facility] Reason for Consult: seizures Call Completed: Yes 01/08/18 11:21 Consult to Interpret Exam [CONS] Routine Consulting Provider: Jessi Elias I Consult to Interpret Exam: Interpret EEG 01/13/18 10:46 Consult to Speech Therapy [CONS] Routine Comment: Evaluate, develop and implement POC Reason for Consult: swallow evaluation Call Completed: No 01/15/18 09:12 Consult to Physical Therapy [CONS] Routine Comment: Evaluate, develop and implement POC Reason for Consult: generalized weakness, eval and treat. Eval for Rehab Does patient have active BEDREST order?: No Is patient medically & hemodynamically stable?: Yes 01/15/18 09:14 Consult to Occupational Therapy [CONS] Routine Comment: Evaluate, develop and implement POC Reason for Consult: eval for rehab and treat Does patient have active BEDREST order?: No Is patient medically & hemodynamically stable?: Yes - Constitutional Vitals: Temp Pulse Resp BP Pulse Ox 97.7 F 71 15 140/74 96 01/21/18 07:44 01/21/18 07:44 01/21/18 11:21 01/21/18 07:44 01/21/18 12:08 - Attending Attestation I examined this patient and my medical decision-making was reviewed with the Resident Physician on 01/21/18. I agree with the documented findings, disposition and treatment plan as described except to the extent set forth below. Mr Felder has been admitted for acute resp failure and hepatic encephalopathy. He has had a prolonged course but at this time is at baseline mentation. He is afebrile and ready for discharge home. Exam alert Comfortable Mucus membranes dry Heart irreg and not tachy No wheeze Plan D/C home today Addendum entered and electronically signed by Alberto Guzman DO 01/21/18 15: 09: Addendum for hospital course The patient was initially admitted from the ED with acute respiratory distress and failure requiring intubation. At that time there is concern for altered mental status which have been going on for approximately 24 hours. He was initially in the ICU until he was able to be extubated and he was transferred to stepdown unit. Throughout the course of his hospital stay he has been treated for various pneumonias particularly including aspiration pneumonia. Speech therapy was heavily involved in this case and determined that he would be unable to swallow thin liquids. The patient throughout his course here also experienced multiple seizures which are suspected to be due to alcohol withdrawal as the patient is a heavy drinker. He was placed on Depakote for seizure prophylaxis, however it is likely that the patient will resume drinking when he gets home. At the end of his hospital stay, the patient's pneumonia seems to have resolved and he seems to be doing much better clinically. At the time of discharge the patient was recommended to go to inpatient rehabilitation however he did refuse and his family was present for this refusal. Instead he will go home under the supervision of his girlfriend as well as his brother who will stop in periodically. For more specific information regarding the patient's hospital course please see individualized assessments and plans.
--- NOTE | 2018-01-21 11:43 | Physician Discharge Referral ---
Home Health/Hosp Referral Info Transfer to: Home Health Attending Provider: David Oliva DO Provider in Charge Post Discharge: PCP - Diagnosis (1) Acute and chronic respiratory failure Priority: Primary Status: Resolved (2) Metabolic encephalopathy Priority: Secondary Status: Resolved (3) Prostate cancer Priority: Secondary Status: Chronic (4) Colon cancer Priority: Secondary Status: Suspected (5) Alcohol withdrawal Priority: Secondary Status: Resolved (6) Hyperammonemia Priority: Secondary Status: Acute (7) Acute hepatic encephalopathy Priority: Secondary Status: Resolved (8) Chronic diastolic (congestive) heart failure Priority: Secondary Status: Chronic (9) Hypernatremia Priority: Secondary Status: Resolved (10) Aspiration pneumonia Priority: Secondary Status: Acute - Respiratory Orders Smoking Cessation: Smoking cessation has been advised. For more information, call the [employer] Tobacco Quit Line at 4-284-QIVD-NOW. - Diet/Nutrition Diet/Nutrition Orders: Regular ([place] thick liquids, NO THIN LIQUIDS) - Activity Activity Orders: Up ad arleen, Ambulate - Services Needed Following services are medically necessary services: Nursing, Home Health Aide, Physical Therapy, Occupational Therapy - Transfer Medications Prescriptions: Albuterol Neb [Proventil Neb] 2.5 mg IH Q2H PRN #1 pack PRN Reason: Shortness Of Breath/Wheezing Budesonide/Formoterol 160/4.5 [Symbicort 160/4.5] 2 puff IH BIDR #2 inhaler DiphenhydraMINE [Benadryl] 1 appl TP TID PRN #1 tube PRN Reason: Itching Lactulose 30 gm PO TID #90 udc Valproic Acid [Depakene] 500 mg PO BIDWM #60 capsule Home Medications: Ibuprofen [Motrin] 600 mg PO Q6HR #20 tablet 07/28/15 [Rx] Ondansetron ODT [Zofran ODT] 4 mg SL Q6HR #12 tab.rapdis 04/07/16 [Rx] Aspirin [Lo-Dose Aspirin EC] 81 mg PO DAILY 01/06/18 [History] Baclofen 20 mg PO TID PRN 01/06/18 [History] Budesonide/Formoterol 160/4.5 [Symbicort 160/4.5] 2 puff IH BIDR 01/06/18 [ History] Cetirizine HCl [All Day Allergy] 10 mg PO DAILY 01/06/18 [History] Cholecalciferol (D-3) [Vitamin D] 2,000 unit PO DAILY 01/06/18 [History] Folic Acid 1 mg PO DAILY 01/06/18 [History] Gabapentin [Neurontin] 900 mg PO TID 01/06/18 [History] Ipratropium/Albuterol Neb [Duoneb] 3 ml IH TID 01/06/18 [History] Melatonin [Melatin] 3 mg PO HS 01/06/18 [History] Meloxicam [Mobic] 15 mg PO DAILY 01/06/18 [History] Metoprolol [Lopressor] 12.5 mg PO BID 01/06/18 [History] Multivit-Min/FA/Lycopen/Lutein [A Thru Z Select Multivit Tab] 1 tab PO DAILY 02/18 [History] Ranitidine HCl [Acid Certified Technician] 150 mg PO BID 01/06/18 [History] Sildenafil Citrate 100 mg PO DAILY PRN 01/06/18 [History] Simvastatin [Zocor] 20 mg PO HS 01/06/18 [History] Thiamine (B-1) [Vitamin B-1] 100 mg PO DAILY 01/06/18 [History] Albuterol Neb [Proventil Neb] 2.5 mg IH Q2H PRN #1 pack 01/21/18 [Rx] Budesonide/Formoterol 160/4.5 [Symbicort 160/4.5] 2 puff IH BIDR #2 inhaler [Rx] DiphenhydraMINE [Benadryl] 1 appl TP TID PRN #1 tube 01/21/18 [Rx] Lactulose 30 gm PO TID #90 udc 01/21/18 [Rx] Valproic Acid [Depakene] 500 mg PO BIDWM #60 capsule 01/21/18 [Rx] Allergies/Adverse Reactions: 3 Allergy/AdvReac Type Severity Reaction Status Date / Time No Known Allergies Allergy Verified 04/07/16 18:58 Certification: Further, I certify that my clinical findings support that this patient is homebound (i.e. absences from home require considerable and taxing effort and are for medical reasons or hoahaoism services or infrequently or short duration when for other reasons) because: Homebound Reason: Absences from home are contraindicated except to recieve medical care, Leaving home requires considerable and taxing effort due to condition, Severity of cardiac or pulmonary status limits activity tolerance Attestation: My signature below is to certify that this patient is under my care and that I, or nurse practitioner, or a physician's graduate assistant working with me, has a face-to -face encounter with this patient.
== END 2018-01-21 16:59 | disposition home health service (06) | DRG 207 ==
LOC: EMEROO 12:14 → SUATTDRO 13:24 → ICNU 13:24 → MERGE 13:24 → ICNU 14:20 → 2NENU 01-14 18:28
PROVIDERS: ADMIT Internal Medicine; ATTEND Internal Medicine

== ENCOUNTER 2018-02-04 10:54 | Inpatient (IN) ==
[~2018-02-04 10:54] MED LIST changes: -*HR* EPINEPHrine 1 MG/10 ML SYRINGE IVP ONE; +*HR* Etomidate 20 MG/10 ML AMPUL IVP ONE; +*HR* Midazolam HCl 5 MG/5 ML VIAL IVP ONE; +*HR* Rocuronium Bromide 100 MG/10 ML VIAL IVC ONE
--- NOTE | 2018-02-04 11:12 | Emergency Department Note ---
Disposition Clinical Impression: Hypercarbia, Hyperammonemia Anemia Qualifiers: Anemia type: unspecified type Qualified Code(s): D64.9 - Anemia, unspecified Acute exacerbation of CHF (congestive heart failure) Qualifiers: Heart failure type: combined systolic and diastolic Qualified Code(s): I50.43 - Acute on chronic combined systolic (congestive) and diastolic (congestive) heart failure Acute respiratory failure Qualifiers: Respiratory failure complication: hypercapnia Qualified Code(s): J96.02 - Acute respiratory failure with hypercapnia Disposition: Admitted As Inpatient Condition: Critical Time of Disposition: 14:17 General Adult HPI - General Chief complaint: ED Fall Stated complaint: Unresponsive Time Seen by Provider: 02/04/18 10:58 Source: EMS Mode of arrival: EMS Limitations: altered mental status Nursing Notes Reviewed: Yes Vital Signs Reviewed: Yes - History of Present Illness HPI Narrative: 67-year-old male with history of COPD, cirrhosis of the liver, hypertension, CAD , arrives to the emergency department being found unresponsive by an unknown family member. EMS reported the patient was laying on the ground and had an SPO2 of 82% on room air. The parent patient apparently needs to wearing oxygen time. He quickly increased his O2 saturation to 95% on 2 L nasal cannula. In addition the patient was not really responsive and very confused. He was very somnolent where he had intermittent episodes where he would wake up and then he would fall back asleep. The patient states he is just tired. He denies any specific complaints at this time. It is noted the patient did have a fall roughly 1 day ago with a small superficial laceration to his forehead. In addition the patient has numerous abrasions on bilateral lower extremities as well as 2+ pitting pedal edema bilaterally. The patient denies any complaints other than just feeling tired. He is somnolent but is easily arousable. He is currently protecting his airway and 100% on 4 L nasal cannula. - Related Data Home Medications Medication Instructions Recorded Confirmed Aspirin [Lo-Dose Aspirin EC] 81 mg PO DAILY 01/06/18 01/24/18 Baclofen 20 mg PO TID PRN 01/06/18 01/24/18 Cetirizine HCl [All Day Allergy] 10 mg PO DAILY 01/06/18 01/24/18 Cholecalciferol (D-3) [Vitamin D] 2,000 unit PO DAILY 01/06/18 01/24/18 Folic Acid 1 mg PO DAILY 01/06/18 01/24/18 Gabapentin [Neurontin] 900 mg PO TID 01/06/18 01/24/18 Ipratropium/Albuterol Neb [Duoneb] 3 ml IH TID 01/06/18 01/24/18 Melatonin [Melatin] 3 mg PO HS 01/06/18 01/24/18 Meloxicam [Mobic] 15 mg PO DAILY 01/06/18 01/24/18 Metoprolol [Lopressor] 12.5 mg PO BID 01/06/18 01/24/18 Multivit-Min/FA/Lycopen/Lutein [A 1 tab PO DAILY 01/06/18 01/24/18 Thru Z Select Multivit Tab] Ranitidine HCl [Acid It Help Desk Technician] 150 mg PO BID 01/06/18 01/24/18 Sildenafil Citrate 100 mg PO DAILY PRN 01/06/18 01/24/18 Simvastatin [Zocor] 20 mg PO HS 01/06/18 01/24/18 Thiamine (B-1) [Vitamin B-1] 100 mg PO DAILY 01/06/18 01/24/18 Previous Rx's Medication Instructions Recorded Ibuprofen [Motrin] 600 mg PO Q6HR #20 tablet 07/28/15 Ondansetron ODT [Zofran ODT] 4 mg SL Q6HR #12 tab.rapdis 04/07/16 Albuterol Neb [Proventil Neb] 2.5 mg IH Q2H PRN #1 pack 01/21/18 Budesonide/Formoterol 160/4.5 2 puff IH BIDR #2 inhaler 01/21/18 [Symbicort 160/4.5] DiphenhydraMINE [Benadryl] 1 appl TP TID PRN #1 tube 01/21/18 Lactulose 30 gm PO TID #90 udc 01/21/18 Rifaximin [Xifaxan] 550 mg PO BID #60 tablet 01/21/18 Valproic Acid [Depakene] 500 mg PO BIDWM #60 capsule 01/21/18 Allergies Allergy/AdvReac Type Severity Reaction Status Date / Time No Known Allergies Allergy Verified 01/24/18 16:01 All systems ED: reviewed and negative except as stated. Constitutional: Denies: fever, chills ENT ED: Denies: congestion Cardiovascular: Denies: chest pain Respiratory: Reports: dyspnea Gastrointestinal: Denies: abdominal pain Genitourinary: Denies: urgency, dysuria Musculoskeletal: Denies: back pain Neurological: Reports: confusion Past Medical History - Past Medical History Attestation: Yes The following information was validated with the patient. Source: patient Medical history: Reports: arthritis, hypertension, liver disease, cirrhosis, cancer, COPD Surgical history: Reports: orthopedic, other Psychiatric history: Reports: no psych history - Social History Smoking Status: Current every day smoker Smokeless Tobacco Status: No Alcohol use: Reports: heavy, recent Drug use: Reports: none Physical Exam - General Limitations: altered mental status General appearance: alert, in distress (mild respiratory) - Head Head exam: normocephalic, normal inspection, other (Numerous abrasions) - Eye Eye exam: Present: normal appearance, PERRL, EOMI - ENT ENT exam: normal exam, normal oropharynx, mucous membranes moist - Neck Neck exam: Present: normal inspection, full ROM, trachea midline - Chest Chest inspection: Present: normal inspection, symmetric chest wall rise - Respiratory Respiratory exam: Present: other (Coarse breath sounds) - Cardiovascular Cardiovascular exam: Present: regular rate, normal rhythm, normal heart sounds - Abdominal Exam Abdominal exam: Present: soft, Non-Tender. Absent: tenderness, distention, guarding, rebound, rigidity - Extremities Exam Extremities exam: Present: full ROM, pedal edema (2+). Absent: tenderness - Neurological Exam Neurological exam: Present: other (Somnolent but arousable) - Expanded Neurological Exam Patient oriented to: Present: person, place Speech: Present: fluid speech Cranial nerves: EOM function (II, III, IV, ): Normal, facial sensation (V): Normal, facial palsy (VII): Normal Motor strength - LUE: 3/5 Motor strength - RUE: 3/5 Motor strength - LLE: 3/5 Motor strength - RLE: 3/5 Coma Scale Eye Opening: To Voice Coma Scale Motor Response: Obeys Commands Coma Scale Verbal Response: Confused Coma Scale Total: 13 Course - Reevaluation(s) Reevaluation #1: Patient acutely worsened in mental status. He began to decline was not protecting his airway. At that time the patient was intubated. We will admit the patient to the ICU at this time. Time: 14:16 Vital Signs Temperature 97.6 F 02/04/18 10:57 Pulse Rate 70 02/04/18 10:57 Respiratory Rate 22 02/04/18 10:57 Blood Pressure 166/80 02/04/18 10:57 O2 Sat by Pulse Oximetry 100 02/04/18 10:57 Temperature 97.6 F 02/04/18 10:57 Pulse Rate 56 02/04/18 14:12 Respiratory Rate 12 02/04/18 14:12 Blood Pressure 165/92 02/04/18 14:12 O2 Sat by Pulse Oximetry 100 02/04/18 14:12 Oxygen Delivery Oxygen Delivery Ventilator Procedures - Intubation Time out performed: Yes sedative: Etomidate Mg Given: 20 paralytic: Rocuronium Mg Given: 70 Laryngoscope: Enrrique ET Tube Size: 7.5 ET Tube Uncuffed: No Tube Secured Depth (cm): 22 Tube Secured Location: lips Tube Placement Confirmation: visualized tube passing through cords, equal breath sounds bilaterally, no breath sounds over epigastrium, confirmation by capnometry Patient Tolerated Procedure: well, no complications Intubation Complications: none Medical Decision Making - MDM Narrative Medical decision making narrative: Patient's workup in the emergency department demonstrates elevation in his ammonia as well as CO2. The patient does have an elevated BNP consistent with CHF exacerbation. Given the patient's mental status as well as respiratory status upon arrival, we will admit the patient to the hospital. He is currently protecting his airway and maintaining good O2 saturations on BiPAP. The patient also was noted to have a right lower lobe atelectasis versus pneumonia. He was given 750 mg of levofloxacin. The patient will be admitted to the hospital at this time. Accepted by Dr. Cardona. - Lab Data Lab results reviewed: Yes I reviewed the patient's lab results. Result diagrams: 02/04/18 11:02 02/04/18 11:02 Lab Results 02/04/18 02/04/18 02/04/18 Range/Units 11:02 11:02 11:02 WBC 15.1 H (4.3-11.1) K/mcL RBC 3.09 L (4.19-5.50) M/mcL Hgb 9.7 L (12.9-16.9) g/dL Hct 30.8 L (37.5-50.1) % MCV 99.7 (83.0-100.0) fL MCH 31.4 (28.0-33.3) pg MCHC 31.5 L (31.6-35.5) g/dL RDW 15.0 H (11.5-14.5) % Plt Count 252 (140-400) K/mcL MPV 10.2 (9.4-12.4) fL Immature Gran % 1.0 (0-4) % Seg Neutrophils % 79.4 % Lymphocytes % 9.2 % Monocytes % 7.6 % Eosinophils % 2.4 % Basophils % 0.4 % Neutrophils # 12.0 H (1.6-8.9) K/mcL Lymphocytes # 1.4 (0.6-4.6) K/mcL Monocytes # 1.2 (0.0-1.3) K/mcL Eosinophils # 0.4 (0.0-0.6) K/mcL Basophils # 0.1 (0.0-0.2) K/mcL Sample Site ABG pH (7.32-7.45) pH Units ABG pCO2 (35-45) mmHg ABG pO2 (85-104) mmHg ABG HCO3 (21-27) mEq/L ABG Total CO2 (20-26) mEq/L ABG O2 Saturation (95-98) % ABG Base Excess (-2 to 3) mEq/L Carboxyhemoglobin (0-5) % O2 Delivery Device Inspired O2 (1-15=lpm eg24-236=%) PEEP cm H2O Pressure Support cm H2O Sodium 143 (136-145) mEq/L Potassium 4.2 (3.5-5.1) mEq/L Chloride 100 (98-107) mEq/L Carbon Dioxide 38 H (23-29) mEq/L BUN 5 L (8-23) mg/dL Creatinine 0.81 (0.70-1.30) mg/dL Est GFR ( Amer) > 60 (> 60) Est GFR (Non-Af Amer) > 60 (> 60) BUN/Creatinine Ratio 6 (6-26) Glucose 101 (70-105) mg/dL Calculated Osmolality 293 (280-300) Lactic Acid (0.5-2.2) mmol/L Calcium 9.7 (8.6-10.3) mg/dL Total Bilirubin 0.4 (0.3-1.0) mg/dL AST 20 (13-39) Units/L ALT 17 (7-52) Units/L Alkaline Phosphatase 126 H (34-104) Units/L Ammonia (16-53) mcmol/L Troponin I < 0.03 (< 0.04) ng/mL B-Natriuretic Peptide 1642 H (Less than 100) pg/mL Serum Total Protein 5.6 L (6.4-8.9) g/dL Albumin 3.2 L (3.5-5.7) g/dL Globulin 2.4 (2.4-3.5) g/dL Albumin/Globulin Ratio 1.3 (1.1-2.2) Urine Color (Yellow) Urine Clarity (Clear) Urine pH (5.0-8.0) pH Units Ur Specific [place] (1.010-1.025) Urine Protein (Neg-Trace) mg/dL Urine Glucose (UA) (Normal) mg/dL Urine Ketones (Negative) mg/dL Urine Blood (Negative) Urine Nitrite (Negative) Urine Bilirubin (Negative) Urine Urobilinogen (Normal) mg/dL Ur Leukocyte Esterase (Negative) Ur Culture Indicated? (NO) 02/04/18 02/04/18 02/04/18 Range/Units 11:07 11:08 11:08 WBC (4.3-11.1) K/mcL RBC (4.19-5.50) M/mcL Hgb (12.9-16.9) g/dL Hct (37.5-50.1) % MCV (83.0-100.0) fL MCH (28.0-33.3) pg MCHC (31.6-35.5) g/dL RDW (11.5-14.5) % Plt Count (140-400) K/mcL MPV (9.4-12.4) fL Immature Gran % (0-4) % Seg Neutrophils % % Lymphocytes % % Monocytes % % Eosinophils % % Basophils % % Neutrophils # (1.6-8.9) K/mcL Lymphocytes # (0.6-4.6) K/mcL Monocytes # (0.0-1.3) K/mcL Eosinophils # (0.0-0.6) K/mcL Basophils # (0.0-0.2) K/mcL Sample Site ABG pH (7.32-7.45) pH Units ABG pCO2 (35-45) mmHg ABG pO2 (85-104) mmHg ABG HCO3 (21-27) mEq/L ABG Total CO2 (20-26) mEq/L ABG O2 Saturation (95-98) % ABG Base Excess (-2 to 3) mEq/L Carboxyhemoglobin (0-5) % O2 Delivery Device Inspired O2 (1-15=lpm ne15-330=%) PEEP cm H2O Pressure Support cm H2O Sodium (136-145) mEq/L Potassium (3.5-5.1) mEq/L Chloride (98-107) mEq/L Carbon Dioxide (23-29) mEq/L BUN (8-23) mg/dL Creatinine (0.70-1.30) mg/dL Est GFR ( Amer) (> 60) Est GFR (Non-Af Amer) (> 60) BUN/Creatinine Ratio (6-26) Glucose (70-105) mg/dL Calculated Osmolality (280-300) Lactic Acid 0.8 (0.5-2.2) mmol/L Calcium (8.6-10.3) mg/dL Total Bilirubin (0.3-1.0) mg/dL AST (13-39) Units/L ALT (7-52) Units/L Alkaline Phosphatase (34-104) Units/L Ammonia 58 H (16-53) mcmol/L Troponin I (< 0.04) ng/mL B-Natriuretic Peptide (Less than 100) pg/mL Serum Total Protein (6.4-8.9) g/dL Albumin (3.5-5.7) g/dL Globulin (2.4-3.5) g/dL Albumin/Globulin Ratio (1.1-2.2) Urine Color Yellow (Yellow) Urine Clarity Clear (Clear) Urine pH 7.0 (5.0-8.0) pH Units Ur Specific [place] 1.009 L (1.010-1.025) Urine Protein Negative (Neg-Trace) mg/dL Urine Glucose (UA) Normal (Normal) mg/dL Urine Ketones Negative (Negative) mg/dL Urine Blood Negative (Negative) Urine Nitrite Negative (Negative) Urine Bilirubin Negative (Negative) Urine Urobilinogen Normal (Normal) mg/dL Ur Leukocyte Esterase Negative (Negative) Ur Culture Indicated? NO (NO) 02/04/18 02/04/18 02/04/18 Range/Units 11:17 11:35 13:55 WBC (4.3-11.1) K/mcL RBC (4.19-5.50) M/mcL Hgb (12.9-16.9) g/dL Hct (37.5-50.1) % MCV (83.0-100.0) fL MCH (28.0-33.3) pg MCHC (31.6-35.5) g/dL RDW (11.5-14.5) % Plt Count (140-400) K/mcL MPV (9.4-12.4) fL Immature Gran % (0-4) % Seg Neutrophils % % Lymphocytes % % Monocytes % % Eosinophils % % Basophils % % Neutrophils # (1.6-8.9) K/mcL Lymphocytes # (0.6-4.6) K/mcL Monocytes # (0.0-1.3) K/mcL Eosinophils # (0.0-0.6) K/mcL Basophils # (0.0-0.2) K/mcL Sample Site L Radial L Radial ABG pH 7.37 7.41 (7.32-7.45) pH Units ABG pCO2 74 H* 63 H (35-45) mmHg ABG pO2 191 H 90 D (85-104) mmHg ABG HCO3 42 H 40 H (21-27) mEq/L ABG Total CO2 45 H 42 H (20-26) mEq/L ABG O2 Saturation 100 H 97 (95-98) % ABG Base Excess 15 H 13 H (-2 to 3) mEq/L Carboxyhemoglobin 5.7 H (0-5) % O2 Delivery Device Cannula BiPAP Inspired O2 36.0 28.0 (1-15=lpm uy01-735=%) PEEP 6 cm H2O Pressure Support 12 cm H2O Sodium (136-145) mEq/L Potassium (3.5-5.1) mEq/L Chloride (98-107) mEq/L Carbon Dioxide (23-29) mEq/L BUN (8-23) mg/dL Creatinine (0.70-1.30) mg/dL Est GFR ( Amer) (> 60) Est GFR (Non-Af Amer) (> 60) BUN/Creatinine Ratio (6-26) Glucose (70-105) mg/dL Calculated Osmolality (280-300) Lactic Acid (0.5-2.2) mmol/L Calcium (8.6-10.3) mg/dL Total Bilirubin (0.3-1.0) mg/dL AST (13-39) Units/L ALT (7-52) Units/L Alkaline Phosphatase (34-104) Units/L Ammonia (16-53) mcmol/L Troponin I (< 0.04) ng/mL B-Natriuretic Peptide (Less than 100) pg/mL Serum Total Protein (6.4-8.9) g/dL Albumin (3.5-5.7) g/dL Globulin (2.4-3.5) g/dL Albumin/Globulin Ratio (1.1-2.2) Urine Color (Yellow) Urine Clarity (Clear) Urine pH (5.0-8.0) pH Units Ur Specific [place] (1.010-1.025) Urine Protein (Neg-Trace) mg/dL Urine Glucose (UA) (Normal) mg/dL Urine Ketones (Negative) mg/dL Urine Blood (Negative) Urine Nitrite (Negative) Urine Bilirubin (Negative) Urine Urobilinogen (Normal) mg/dL Ur Leukocyte Esterase (Negative) Ur Culture Indicated? (NO) - Radiology Data Radiology results reviewed: Yes I reviewed the patient's radiology results. Head CT 02/04/18 11:02 IMPRESSION: 1. Mild diffuse atrophy. Mild chronic small vessel ischemic white matter disease. Atherosclerotic calcification of the vasculature. If there is clinical concern for acute on chronic ischemia, an MRI with diffusion-weighted imaging would be a more sensitive exam assuming there are no contraindications to MRI. 2. No clear evidence for acute intracranial hemorrhage or midline shift. 3. Mild soft tissue swelling of the left frontal scalp. D/ / 02/04/2018 12:15:39 Enrique De La Fuente MD / silvio Interpreting Provider: Enrique De La Fuente MD Chest X-Ray 02/04/18 11:03 IMPRESSION: Minor bibasilar opacity, atelectasis versus pneumonia. D/ / Kendrick Contreras MD / Kendrick Contreras MD Interpreting Provider: Kendrick Contreras MD - EKG Data EKG #1 EKG attestation: Yes I reviewed and interpreted this EKG. EKG results narrative: Heart rate 69 beats for minute. Normal sinus rhythm. No ST elevation or ST depression noted. No acute changes noted.
[2018-02-04 11:22] LABS: ABG Base Excess 15 mEq/L (-2 to 3); ABG HCO3 42 mEq/L (21-27); ABG Oxygen Saturation 100 % (95-98); ABG PCO2 74 mmHg (35-45); ABG PH 7.37 pH Units (7.32-7.45); ABG PO2 191 mmHg (85-104); ABG TCO2 45 mEq/L (20-26)
[2018-02-04 11:22] LABS: Bilirubin,Urine Negative (Negative); Blood,Urine Negative (Negative); Clarity,Urine Clear (Clear); Color,Urine Yellow (Yellow); Glucose,Urine (UA) Normal (Normal); Ketones,Urine Negative (Negative); Leukocyte Esterase,Urine Negative (Negative); Nitrite,Urine Negative (Negative); Protein,Urine Negative (Neg-Trace); Specific Gravity,Urine 1.009 (1.010-1.025); Urobilinogen,Urine Normal (Normal)
[2018-02-04 11:31] LABS: Basophils # 0.1 K/mcL (0.0-0.2); Basophils % 0.4 %; Eosinophils # 0.4 K/mcL (0.0-0.6); Eosinophils % 2.4 %; Hematocrit 30.8 % (37.5-50.1); Hemoglobin 9.7 g/dL (12.9-16.9); Lymphocytes # 1.4 K/mcL (0.6-4.6); Lymphocytes % 9.2 %; Mean Corpuscular HGB Conc 31.5 g/dL (31.6-35.5); Mean Corpuscular Hemoglobin 31.4 pg (28.0-33.3); Mean Corpuscular Volume 99.7 fL (83.0-100.0); Mean Platelet Volume 10.2 fL (9.4-12.4); Monocytes # 1.2 K/mcL (0.0-1.3); Monocytes % 7.6 %; Platelet Count 252 K/mcL (140-400); Red Blood Count 3.09 M/mcL (4.19-5.50); Segmented Neutrophils % 79.4 %
[2018-02-04 11:42] LABS: Alanine Aminotransferase 17 Units/L (7-52); Albumin 3.2 g/dL (3.5-5.7); Albumin/Globulin Ratio 1.3 (1.1-2.2); Alkaline Phosphatase 126 Units/L (34-104); Aspartate Amino Transferase 20 Units/L (13-39); BUN/Creatinine Ratio 6 (6-26); Bilirubin,Total 0.4 mg/dL (0.3-1.0); Blood Urea Nitrogen 5 mg/dL (8-23); Calcium 9.7 mg/dL (8.6-10.3); Carbon Dioxide 38 mEq/L (23-29); Chloride 100 mEq/L (98-107); Globulin 2.4 g/dL (2.4-3.5); Glucose 101 mg/dL (70-105); Osmolality,Calculated 293 (280-300); Potassium 4.2 mEq/L (3.5-5.1); Sodium 143 mEq/L (136-145); Total Protein 5.6 g/dL (6.4-8.9); eGFR For African Americans > 60 (> 60); eGFR For Non-African Americans > 60 (> 60)
[2018-02-04 11:43] LABS: Troponin I < 0.03 ng/mL (< 0.04)
--- NOTE | 2018-02-04 11:49 | Emergency Department Note ---
Disposition Clinical Impression: Hypercarbia, Hyperammonemia Anemia Qualifiers: Anemia type: unspecified type Qualified Code(s): D64.9 - Anemia, unspecified Acute exacerbation of CHF (congestive heart failure) Qualifiers: Heart failure type: combined systolic and diastolic Qualified Code(s): I50.43 - Acute on chronic combined systolic (congestive) and diastolic (congestive) heart failure Disposition: Admitted As Inpatient Condition: Undetermined General Adult HPI - General Chief complaint: ED Fall Stated complaint: Unresponsive Time Seen by Provider: 02/04/18 10:58 Source: EMS Mode of arrival: EMS Limitations: altered mental status - History of Present Illness Pain Scale: 0 - Related Data Home Medications Medication Instructions Recorded Confirmed Aspirin [Lo-Dose Aspirin EC] 81 mg PO DAILY 01/06/18 01/24/18 Baclofen 20 mg PO TID PRN 01/06/18 01/24/18 Cetirizine HCl [All Day Allergy] 10 mg PO DAILY 01/06/18 01/24/18 Cholecalciferol (D-3) [Vitamin D] 2,000 unit PO DAILY 01/06/18 01/24/18 Folic Acid 1 mg PO DAILY 01/06/18 01/24/18 Gabapentin [Neurontin] 900 mg PO TID 01/06/18 01/24/18 Ipratropium/Albuterol Neb [Duoneb] 3 ml IH TID 01/06/18 01/24/18 Melatonin [Melatin] 3 mg PO HS 01/06/18 01/24/18 Meloxicam [Mobic] 15 mg PO DAILY 01/06/18 01/24/18 Metoprolol [Lopressor] 12.5 mg PO BID 01/06/18 01/24/18 Multivit-Min/FA/Lycopen/Lutein [A 1 tab PO DAILY 01/06/18 01/24/18 Thru Z Select Multivit Tab] Ranitidine HCl [Acid Oil Separator] 150 mg PO BID 01/06/18 01/24/18 Sildenafil Citrate 100 mg PO DAILY PRN 01/06/18 01/24/18 Simvastatin [Zocor] 20 mg PO HS 01/06/18 01/24/18 Thiamine (B-1) [Vitamin B-1] 100 mg PO DAILY 01/06/18 01/24/18 Previous Rx's Medication Instructions Recorded Ibuprofen [Motrin] 600 mg PO Q6HR #20 tablet 07/28/15 Ondansetron ODT [Zofran ODT] 4 mg SL Q6HR #12 tab.rapdis 04/07/16 Albuterol Neb [Proventil Neb] 2.5 mg IH Q2H PRN #1 pack 01/21/18 Budesonide/Formoterol 160/4.5 2 puff IH BIDR #2 inhaler 01/21/18 [Symbicort 160/4.5] DiphenhydraMINE [Benadryl] 1 appl TP TID PRN #1 tube 01/21/18 Lactulose 30 gm PO TID #90 udc 01/21/18 Rifaximin [Xifaxan] 550 mg PO BID #60 tablet 01/21/18 Valproic Acid [Depakene] 500 mg PO BIDWM #60 capsule 01/21/18 Allergies Allergy/AdvReac Type Severity Reaction Status Date / Time No Known Allergies Allergy Verified 01/24/18 16:01 Constitutional: Denies: fever, chills ENT ED: Denies: congestion Cardiovascular: Denies: chest pain Respiratory: Reports: dyspnea Gastrointestinal: Denies: abdominal pain Genitourinary: Denies: urgency, dysuria Musculoskeletal: Denies: back pain Neurological: Reports: confusion Past Medical History - Past Medical History Medical history: Reports: arthritis, hypertension, liver disease, cirrhosis, cancer, COPD Surgical history: Reports: orthopedic, other Psychiatric history: Reports: no psych history - Social History Smoking Status: Current every day smoker Smokeless Tobacco Status: No Alcohol use: Reports: heavy, recent Drug use: Reports: none Physical Exam - General Limitations: altered mental status General appearance: alert, in distress (mild respiratory) Course - Reevaluation(s) Reevaluation #1: due to acute change in mental status and airway proection concerns we have intubated patinet. ICU attending, Dr. Xie has been updatd and accepts patinet for admission Time: 14:07 Vital Signs Temperature 97.6 F 02/04/18 10:57 Pulse Rate 70 02/04/18 10:57 Respiratory Rate 22 02/04/18 10:57 Blood Pressure 166/80 02/04/18 10:57 O2 Sat by Pulse Oximetry 100 02/04/18 10:57 Temperature 97.6 F 02/04/18 10:57 Pulse Rate 66 02/04/18 11:30 Respiratory Rate 15 02/04/18 13:20 Blood Pressure 130/65 02/04/18 13:20 O2 Sat by Pulse Oximetry 98 02/04/18 13:20 Oxygen Delivery Oxygen Delivery Bipap Medical Decision Making - Lab Data Result diagrams: 02/04/18 11:02 02/04/18 11:02 Lab Results 02/04/18 02/04/18 02/04/18 Range/Units 11:02 11:02 11:02 WBC 15.1 H (4.3-11.1) K/mcL RBC 3.09 L (4.19-5.50) M/mcL Hgb 9.7 L (12.9-16.9) g/dL Hct 30.8 L (37.5-50.1) % MCV 99.7 (83.0-100.0) fL MCH 31.4 (28.0-33.3) pg MCHC 31.5 L (31.6-35.5) g/dL RDW 15.0 H (11.5-14.5) % Plt Count 252 (140-400) K/mcL MPV 10.2 (9.4-12.4) fL Immature Gran % 1.0 (0-4) % Seg Neutrophils % 79.4 % Lymphocytes % 9.2 % Monocytes % 7.6 % Eosinophils % 2.4 % Basophils % 0.4 % Neutrophils # 12.0 H (1.6-8.9) K/mcL Lymphocytes # 1.4 (0.6-4.6) K/mcL Monocytes # 1.2 (0.0-1.3) K/mcL Eosinophils # 0.4 (0.0-0.6) K/mcL Basophils # 0.1 (0.0-0.2) K/mcL Sample Site ABG pH (7.32-7.45) pH Units ABG pCO2 (35-45) mmHg ABG pO2 (85-104) mmHg ABG HCO3 (21-27) mEq/L ABG Total CO2 (20-26) mEq/L ABG O2 Saturation (95-98) % ABG Base Excess (-2 to 3) mEq/L Carboxyhemoglobin (0-5) % O2 Delivery Device Inspired O2 (1-15=lpm [id number]=%) PEEP cm H2O Pressure Support cm H2O Sodium 143 (136-145) mEq/L Potassium 4.2 (3.5-5.1) mEq/L Chloride 100 (98-107) mEq/L Carbon Dioxide 38 H (23-29) mEq/L BUN 5 L (8-23) mg/dL Creatinine 0.81 (0.70-1.30) mg/dL Est GFR ( Amer) > 60 (> 60) Est GFR (Non-Af Amer) > 60 (> 60) BUN/Creatinine Ratio 6 (6-26) Glucose 101 (70-105) mg/dL Calculated Osmolality 293 (280-300) Lactic Acid (0.5-2.2) mmol/L Calcium 9.7 (8.6-10.3) mg/dL Total Bilirubin 0.4 (0.3-1.0) mg/dL AST 20 (13-39) Units/L ALT 17 (7-52) Units/L Alkaline Phosphatase 126 H (34-104) Units/L Ammonia (16-53) mcmol/L Troponin I < 0.03 (< 0.04) ng/mL B-Natriuretic Peptide 1642 H (Less than 100) pg/mL Serum Total Protein 5.6 L (6.4-8.9) g/dL Albumin 3.2 L (3.5-5.7) g/dL Globulin 2.4 (2.4-3.5) g/dL Albumin/Globulin Ratio 1.3 (1.1-2.2) Urine Color (Yellow) Urine Clarity (Clear) Urine pH (5.0-8.0) pH Units Ur Specific [place] (1.010-1.025) Urine Protein (Neg-Trace) mg/dL Urine Glucose (UA) (Normal) mg/dL Urine Ketones (Negative) mg/dL Urine Blood (Negative) Urine Nitrite (Negative) Urine Bilirubin (Negative) Urine Urobilinogen (Normal) mg/dL Ur Leukocyte Esterase (Negative) Ur Culture Indicated? (NO) 02/04/18 02/04/18 02/04/18 Range/Units 11:07 11:08 11:08 WBC (4.3-11.1) K/mcL RBC (4.19-5.50) M/mcL Hgb (12.9-16.9) g/dL Hct (37.5-50.1) % MCV (83.0-100.0) fL MCH (28.0-33.3) pg MCHC (31.6-35.5) g/dL RDW (11.5-14.5) % Plt Count (140-400) K/mcL MPV (9.4-12.4) fL Immature Gran % (0-4) % Seg Neutrophils % % Lymphocytes % % Monocytes % % Eosinophils % % Basophils % % Neutrophils # (1.6-8.9) K/mcL Lymphocytes # (0.6-4.6) K/mcL Monocytes # (0.0-1.3) K/mcL Eosinophils # (0.0-0.6) K/mcL Basophils # (0.0-0.2) K/mcL Sample Site ABG pH (7.32-7.45) pH Units ABG pCO2 (35-45) mmHg ABG pO2 (85-104) mmHg ABG HCO3 (21-27) mEq/L ABG Total CO2 (20-26) mEq/L ABG O2 Saturation (95-98) % ABG Base Excess (-2 to 3) mEq/L Carboxyhemoglobin (0-5) % O2 Delivery Device Inspired O2 (1-15=lpm [id number]=%) PEEP cm H2O Pressure Support cm H2O Sodium (136-145) mEq/L Potassium (3.5-5.1) mEq/L Chloride (98-107) mEq/L Carbon Dioxide (23-29) mEq/L BUN (8-23) mg/dL Creatinine (0.70-1.30) mg/dL Est GFR ( Amer) (> 60) Est GFR (Non-Af Amer) (> 60) BUN/Creatinine Ratio (6-26) Glucose (70-105) mg/dL Calculated Osmolality (280-300) Lactic Acid 0.8 (0.5-2.2) mmol/L Calcium (8.6-10.3) mg/dL Total Bilirubin (0.3-1.0) mg/dL AST (13-39) Units/L ALT (7-52) Units/L Alkaline Phosphatase (34-104) Units/L Ammonia 58 H (16-53) mcmol/L Troponin I (< 0.04) ng/mL B-Natriuretic Peptide (Less than 100) pg/mL Serum Total Protein (6.4-8.9) g/dL Albumin (3.5-5.7) g/dL Globulin (2.4-3.5) g/dL Albumin/Globulin Ratio (1.1-2.2) Urine Color Yellow (Yellow) Urine Clarity Clear (Clear) Urine pH 7.0 (5.0-8.0) pH Units Ur Specific [place] 1.009 L (1.010-1.025) Urine Protein Negative (Neg-Trace) mg/dL Urine Glucose (UA) Normal (Normal) mg/dL Urine Ketones Negative (Negative) mg/dL Urine Blood Negative (Negative) Urine Nitrite Negative (Negative) Urine Bilirubin Negative (Negative) Urine Urobilinogen Normal (Normal) mg/dL Ur Leukocyte Esterase Negative (Negative) Ur Culture Indicated? NO (NO) 02/04/18 02/04/18 02/04/18 Range/Units 11:17 11:35 13:55 WBC (4.3-11.1) K/mcL RBC (4.19-5.50) M/mcL Hgb (12.9-16.9) g/dL Hct (37.5-50.1) % MCV (83.0-100.0) fL MCH (28.0-33.3) pg MCHC (31.6-35.5) g/dL RDW (11.5-14.5) % Plt Count (140-400) K/mcL MPV (9.4-12.4) fL Immature Gran % (0-4) % Seg Neutrophils % % Lymphocytes % % Monocytes % % Eosinophils % % Basophils % % Neutrophils # (1.6-8.9) K/mcL Lymphocytes # (0.6-4.6) K/mcL Monocytes # (0.0-1.3) K/mcL Eosinophils # (0.0-0.6) K/mcL Basophils # (0.0-0.2) K/mcL Sample Site L Radial L Radial ABG pH 7.37 7.41 (7.32-7.45) pH Units ABG pCO2 74 H* 63 H (35-45) mmHg ABG pO2 191 H 90 D (85-104) mmHg ABG HCO3 42 H 40 H (21-27) mEq/L ABG Total CO2 45 H 42 H (20-26) mEq/L ABG O2 Saturation 100 H 97 (95-98) % ABG Base Excess 15 H 13 H (-2 to 3) mEq/L Carboxyhemoglobin 5.7 H (0-5) % O2 Delivery Device Cannula BiPAP Inspired O2 36.0 28.0 (1-15=lpm [id number]=%) PEEP 6 cm H2O Pressure Support 12 cm H2O Sodium (136-145) mEq/L Potassium (3.5-5.1) mEq/L Chloride (98-107) mEq/L Carbon Dioxide (23-29) mEq/L BUN (8-23) mg/dL Creatinine (0.70-1.30) mg/dL Est GFR ( Amer) (> 60) Est GFR (Non-Af Amer) (> 60) BUN/Creatinine Ratio (6-26) Glucose (70-105) mg/dL Calculated Osmolality (280-300) Lactic Acid (0.5-2.2) mmol/L Calcium (8.6-10.3) mg/dL Total Bilirubin (0.3-1.0) mg/dL AST (13-39) Units/L ALT (7-52) Units/L Alkaline Phosphatase (34-104) Units/L Ammonia (16-53) mcmol/L Troponin I (< 0.04) ng/mL B-Natriuretic Peptide (Less than 100) pg/mL Serum Total Protein (6.4-8.9) g/dL Albumin (3.5-5.7) g/dL Globulin (2.4-3.5) g/dL Albumin/Globulin Ratio (1.1-2.2) Urine Color (Yellow) Urine Clarity (Clear) Urine pH (5.0-8.0) pH Units Ur Specific [place] (1.010-1.025) Urine Protein (Neg-Trace) mg/dL Urine Glucose (UA) (Normal) mg/dL Urine Ketones (Negative) mg/dL Urine Blood (Negative) Urine Nitrite (Negative) Urine Bilirubin (Negative) Urine Urobilinogen (Normal) mg/dL Ur Leukocyte Esterase (Negative) Ur Culture Indicated? (NO) Attestation Statement - Attestation Attestation: I examined this patient and my medical decision-making was reviewed with the Resident Physician. I agree with the documented findings, disposition and treatment plan as described except to the extent set forth below. 67 year old male presents to the ED with complaints of dyspnea, AMS, and flunctuating unresponisve nature. He is hypercarbic and we have placed him on bipap and will monitor repsiratory status as he awakens to voice but quickly falls asleep if not stimulated. He states that he is tired because he did not sleep last night and he just really wants to go to sleep. We will do sepsis/AMS workup on patient and admit to medicine. We will also closely monitor respiratory status and admit if he continues to become more hypercarbic
[2018-02-04] MEDS ORDERED: Lactulose Oral Soln 20 GM/30 ML UDC PO ONE (11:50)
[2018-02-04] MEDS ORDERED: Levofloxacin 750 MG/150 ML 750 MG/150 ML BAG IVPB ONE (12:23)
[2018-02-04] MEDS ORDERED: Furosemide 20 MG/2 ML VIAL IVP ONE (12:24)
[2018-02-04 13:59] LABS: ABG Base Excess 13 mEq/L (-2 to 3); ABG HCO3 40 mEq/L (21-27); ABG Oxygen Saturation 97 % (95-98); ABG PCO2 63 mmHg (35-45); ABG PH 7.41 pH Units (7.32-7.45); ABG PO2 90 mmHg (85-104); ABG TCO2 42 mEq/L (20-26); Blood Gas PEEP 6 cm H2O; Blood Gas Pressure Support 12 cm H2O
[2018-02-04] MEDS ORDERED: *HR* LORazepam 2 MG/ML VIAL IVP PRN (14:16)
[2018-02-04] MEDS ORDERED: Naloxone 0.4 MG/ML INJ IVP PRN (14:16)
[2018-02-04] MEDS ORDERED: Ketorolac 15 MG/ML VIAL IVP PRN (14:16)
[2018-02-04] MEDS ORDERED: Ondansetron 4 MG/2 ML VIAL IVP PRN (14:16)
--- NOTE | 2018-02-04 14:22 | Internal Med History&Physical ---
Date of Encounter: 02/04/18 Time of Encounter: 14:20 Internal Medicine - H&P: HPI Chief complaint: Unresponsive Admitted From: Emergency Dept History of present illness: Mr. Felder is a 67 year old male with a past medical history of cirrhosis, COPD oxygen dependent, diastolic CHF, alcohol abuse, tobacco abuse who was recently discharged from this hospital last month where he was intubated, was found to be unresponsive saturating down to 70s at home, laying on the ground, was extremely confused, fell 1 day ago according to records and has a ulceration in his left for head, patient has been having increased leg edema. ABG showed a pH of 7.37 PCO2 of 74 PO2 of 191, ammonia level was 58, chest x- ray showed bibasilar opacities ossicle pneumonia, CT scan of the head showed mild diffuse atrophy with chronic small vessel ischemic disease in the left scalp swelling. White blood cell count is 15.1, the patient was on a BiPAP and received Levaquin. Upon my examination the patient was completely unresponsive even on a BiPAP. Discussed the case with the ER physician and Dr. Jeffries, the patient will be intubated and sent to the ICU for airway protection and administration of lactulose Past Med Surg Social Fam HX - Past Medical History Medical history: arthritis, cancer (Prostate), cirrhosis, COPD (Oxygen dependent using 2 L at home), hypertension, liver disease, other (History of hepatic encephalopathy, CAD, GERD, neuropathy, diastolic CHF, alcohol abuse and tobacco abuse) Additional medical history: Prostate and colon cancer Psychiatric history: no psych history - Past Surgical History Surgical History: orthopedic, other - Social History Smoking Status: Current every day smoker Packs per day: 1 Smokeless Tobacco Status: No Alcohol use: heavy, recent Drug use: none - Additional Family History Additional family history: Unable to be obtained Internal Medicine - H&P: Meds Ibuprofen [Motrin] 600 mg PO Q6HR #20 tablet 07/28/15 [Rx] Ondansetron ODT [Zofran ODT] 4 mg SL Q6HR #12 tab.rapdis 04/07/16 [Rx] Aspirin [Lo-Dose Aspirin EC] 81 mg PO DAILY 01/06/18 [History] Baclofen 20 mg PO TID PRN 01/06/18 [History] Cetirizine HCl [All Day Allergy] 10 mg PO DAILY 01/06/18 [History] Cholecalciferol (D-3) [Vitamin D] 2,000 unit PO DAILY 01/06/18 [History] Folic Acid 1 mg PO DAILY 01/06/18 [History] Gabapentin [Neurontin] 900 mg PO TID 01/06/18 [History] Ipratropium/Albuterol Neb [Duoneb] 3 ml IH TID 01/06/18 [History] Melatonin [Melatin] 3 mg PO HS 01/06/18 [History] Meloxicam [Mobic] 15 mg PO DAILY 01/06/18 [History] Metoprolol [Lopressor] 12.5 mg PO BID 01/06/18 [History] Multivit-Min/FA/Lycopen/Lutein [A Thru Z Select Multivit Tab] 1 tab PO DAILY 02/18 [History] Ranitidine HCl [Acid Behavioral Health Case Manager] 150 mg PO BID 01/06/18 [History] Sildenafil Citrate 100 mg PO DAILY PRN 01/06/18 [History] Simvastatin [Zocor] 20 mg PO HS 01/06/18 [History] Thiamine (B-1) [Vitamin B-1] 100 mg PO DAILY 01/06/18 [History] Albuterol Neb [Proventil Neb] 2.5 mg IH Q2H PRN #1 pack 01/21/18 [Rx] Budesonide/Formoterol 160/4.5 [Symbicort 160/4.5] 2 puff IH BIDR #2 inhaler [Rx] DiphenhydraMINE [Benadryl] 1 appl TP TID PRN #1 tube 01/21/18 [Rx] Lactulose 30 gm PO TID #90 udc 01/21/18 [Rx] Rifaximin [Xifaxan] 550 mg PO BID #60 tablet 01/21/18 [Rx] Valproic Acid [Depakene] 500 mg PO BIDWM #60 capsule 01/21/18 [Rx] 3 Allergy/AdvReac Type Severity Reaction Status Date / Time No Known Allergies Allergy Verified 01/24/18 16:01 All Systems PM: A 10-system review of systems was performed and is negative for pertinent findings except as documented above in the HPI. Review of systems: Unable to be completed due to the patient's status - Constitutional Vitals: Temp Pulse Resp BP Pulse Ox 97.6 F 56 12 165/92 100 02/04/18 10:57 02/04/18 14:12 02/04/18 14:12 02/04/18 14:12 02/04/18 14:12 General appearance: Present: A&O X 0 - Head Head exam: Present: atraumatic, normocephalic - Eye Eye exam: Present: PERRL, conjuntiva pink, sclera anicteric Pupils: Present: PERRL - Neck Neck exam general surgery: Present: supple, trachea midline. Absent: lymphadenopathy - Respiratory Respiratory exam: Present: CTAB, rales (Very diminished breath sounds with bibasilar crackles and minimal wheezing). Absent: accessory muscle use, rhonchi , wheezes - Cardiovascular Cardiovascular exam: Present: RRR, +S1, +S2. Absent: diastolic murmur, gallop, rubs, systolic murmur - GI/Abdominal GI/Abdominal exam: Present: distended, normal bowel sounds, soft, no peritoneal signs. Absent: tenderness - Extremities Exam Extremities exam: Present: warm, radial pulses palpable and symmetrical. Absent : calf tenderness, cyanotic, pedal edema - Neurological Exam Neurological exam: Absent: CN II-XII intact, oriented X3, no focal deficits, pronater drift, facial droop, speech deficit Additional comments: Pupils were pinpointed and sluggish BiPAP in place - Skin Skin exam: Present: dry. Absent: intact Additional comments: Unresponsive, small left forehead laceration Internal Med - H&P Results - Labs CBC & Chem 7: 02/04/18 11:02 02/04/18 11:02 - Assessment and plan (1) Acute exacerbation of CHF (congestive heart failure) Current Visit: Yes Status: Acute Assessment and plan: Acute on chronic hypoxic hypercapnic respiratory failure secondary to combination of hepatic encephalopathy, diastolic CHF and acute COPD possibly secondary to healthcare associated pneumonia present upon admission The patient will be intubated start Solu-Medrol, Lasix IV, strict I's and O's and daily weight Start lactulose through OG tube Levaquin and cefepime Protonix IV for GI prophylaxis and sequential compression devices for DVT prophylaxis. The patient will be admitted as inpatient, expected to stay more than 2 midnights. Full code. Time spent in this critical care admission 40 minutes Qualifiers: Heart failure type: diastolic Qualified Code(s): I50.33 - Acute on chronic diastolic (congestive) heart failure (2) Acute respiratory failure Current Visit: Yes Status: Acute Qualifiers: Respiratory failure complication: hypercapnia Qualified Code(s): J96.02 - Acute respiratory failure with hypercapnia (3) Hyperammonemia Current Visit: Yes Status: Acute Assessment and plan: Continue Xifaxan and lactulose (4) Acute and chronic respiratory failure Current Visit: No Status: Acute Qualifiers: Respiratory failure complication: hypoxia and hypercapnia Qualified Code(s) : J96.21 - Acute and chronic respiratory failure with hypoxia; J96.22 - Acute and chronic respiratory failure with hypercapnia (5) Prostate cancer Current Visit: No Status: Chronic (6) Tobacco abuse Current Visit: No Status: Chronic Assessment and plan: Nicotine patch (7) Acute hepatic encephalopathy Current Visit: No Status: Resolved - Time Spent With Patient Total time spent is greater than 50% in coordination of care (as documented) at patient's floor/unit and/or counseling patient:
--- NOTE | 2018-02-04 15:04 | Pulmonology Consult Note ---
<SimimichaelEstrella M - Last Filed: 02/04/18 15:19> Date of Encounter: 02/04/18 Medications and Allergies Ibuprofen [Motrin] 600 mg PO Q6HR #20 tablet 07/28/15 [Rx] Aspirin [Lo-Dose Aspirin EC] 81 mg PO DAILY 01/06/18 [History] Baclofen 20 mg PO TID PRN 01/06/18 [History] Cetirizine HCl [All Day Allergy] 10 mg PO DAILY 01/06/18 [History] Cholecalciferol (D-3) [Vitamin D] 2,000 unit PO DAILY 01/06/18 [History] Folic Acid 1 mg PO DAILY 01/06/18 [History] Ipratropium/Albuterol Neb [Duoneb] 3 ml IH TID 01/06/18 [History] Melatonin [Melatin] 3 mg PO HS 01/06/18 [History] Metoprolol [Lopressor] 12.5 mg PO BID 01/06/18 [History] Multivit-Min/FA/Lycopen/Lutein [A Thru Z Select Multivit Tab] 1 tab PO DAILY 02/18 [History] Ranitidine HCl [Acid Real Estate Subagent] 150 mg PO BID 01/06/18 [History] Sildenafil Citrate 100 mg PO DAILY PRN 01/06/18 [History] Simvastatin [Zocor] 20 mg PO HS 01/06/18 [History] Thiamine (B-1) [Vitamin B-1] 100 mg PO DAILY 01/06/18 [History] Albuterol Neb [Proventil Neb] 2.5 mg IH Q2H PRN #1 pack 01/21/18 [Rx] DiphenhydraMINE [Benadryl] 1 appl TP TID PRN #1 tube 01/21/18 [Rx] Lactulose 30 gm PO TID #90 udc 01/21/18 [Rx] Rifaximin [Xifaxan] 550 mg PO BID #60 tablet 01/21/18 [Rx] Valproic Acid [Depakene] 500 mg PO BIDWM #60 capsule 01/21/18 [Rx] Fluticasone Propionate Nasal [Flonase] 1 spr NS BID 02/04/18 [History] 3 Allergy/AdvReac Type Severity Reaction Status Date / Time No Known Allergies Allergy Verified 02/04/18 14:22 All Systems: The remainder of the systems were reviewed and are negative Physical Examination Vital Signs: Vital Signs, Last 4 Hours Pulse Resp BP Pulse Ox 02/04/18 14:12 56 12 165/92 100 02/04/18 14:05 12 100 Ventilator Settings Ventilator Settings: Ventilator Settings, Last 8 Hours Ventilator Tidal Volume 500 Setting Ventilator Respiratory Rate 12 Setting Actual Respiratory Rate 12 Positive End Expiratory 5 Pressure Peak Inspiratory Airway 34 Pressure Results - Laboratory Findings CBC and BMP: 02/04/18 11:02 02/04/18 11:02 ABG ABG pH 7.41 pH Units (7.32-7.45) 02/04/18 13:55 ABG pCO2 63 mmHg (35-45) H 02/04/18 13:55 ABG pO2 90 mmHg (85-104) D 02/04/18 13:55 ABG O2 Saturation 97 % (95-98) 02/04/18 13:55 Abnormal lab findings: Abnormal lab results WBC 15.1 K/mcL (4.3-11.1) H 02/04/18 11:02 RBC 3.09 M/mcL (4.19-5.50) L 02/04/18 11:02 Hgb 9.7 g/dL (12.9-16.9) L 02/04/18 11:02 Hct 30.8 % (37.5-50.1) L 02/04/18 11:02 MCHC 31.5 g/dL (31.6-35.5) L 02/04/18 11:02 RDW 15.0 % (11.5-14.5) H 02/04/18 11:02 Neutrophils # 12.0 K/mcL (1.6-8.9) H 02/04/18 11:02 ABG pCO2 63 mmHg (35-45) H 02/04/18 13:55 ABG HCO3 40 mEq/L (21-27) H 02/04/18 13:55 ABG Total CO2 42 mEq/L (20-26) H 02/04/18 13:55 ABG Base Excess 13 mEq/L (-2 to 3) H 02/04/18 13:55 Carboxyhemoglobin 5.7 % (0-5) H 02/04/18 11:35 Carbon Dioxide 38 mEq/L (23-29) H 02/04/18 11:02 BUN 5 mg/dL (8-23) L 02/04/18 11:02 Alkaline Phosphatase 126 Units/L (34-104) H 02/04/18 11:02 Ammonia 58 mcmol/L (16-53) H 02/04/18 11:08 B-Natriuretic Peptide 1642 pg/mL (Less than 100) H 02/04/18 11:02 Serum Total Protein 5.6 g/dL (6.4-8.9) L 02/04/18 11:02 Albumin 3.2 g/dL (3.5-5.7) L 02/04/18 11:02 Ur Specific [place] 1.009 (1.010-1.025) L 02/04/18 11:07 Consult Discharge Plan - Plan [facility]errals: [facility]Primary Care Provider[facility] - - Attending Attestation I examined this patient and my medical decision-making was reviewed with the Resident Physician. I agree with the documented findings, disposition and treatment plan as described except to the extent set forth below. Patient seen and examined. I was called by the hospitalist to evaluate patient in the emergency room regarding this patient which was done with the resident. Labs, radiology, chart personally reviewed. Agree with resident's history and physical, assessment, plan with following comments: TIME CLERK: Patient does not follows commands, Pulmonary: Acceptable oxygenation and ventilation. Acute on chronic respiratory failure fact the area and recommended patient needs to be on invasive mechanical ventilation because of his mental status and evidence of volume overload with pulmonary edema most likely diagnosis with congestive heart failure exacerbation. Patient has poor prognosis and diuresis as tolerated. It is questionable if patient has COPD exacerbation however we will treat him with bronchodilators and l systemic steroid. Reviewed ABG prior to intubation and would have follow-up ABG to adjust vent setting based on result. Cardiovascular: Treatment of congestive heart failure GI: Nutrition per dietary and GI prophylaxis per routine Heme: DVT prophylaxis per routine ID: Continue antibiotics and plan to de-escalation Renal; urine out put and renal funtion reviewed Endorcine: blood glucose is monitored Lines: all lines checked and no evidence of infections Skin: skin care to prevent pressure ulcers per nursing routine care I spent 35 min of Critical Care time with this patient. It involved decision making of high complexity to assess, manipulate, and support vital organ system failure and/or to prevent further life threatening deterioration of the patient' s condition. The time involved in the performance of separately reportable procedures was not counted toward critical care time. <Reddy Grullon - Last Filed: 02/04/18 15:51> Date of Encounter: 02/04/18 Time of Encounter: 15:01 Assessment and Plan (1) Acute exacerbation of CHF (congestive heart failure) Current Visit: Yes Status: Acute 1. Acute respiratory failure with hypercapnia and hypoxia secondary to congestive heart failure. Also complicated by hepatic encephalopathy and COPD exacerbation with possible healthcare acquired pneumonia 2. BNP was elevated, and chest x-ray showed pulmonary edema. Patient's respiratory status worsened while in the emergency department requiring intubation. 3. Continue IV diuresis 4. Strict I/Os Qualifiers: Heart failure type: diastolic Qualified Code(s): I50.33 - Acute on chronic diastolic (congestive) heart failure (2) Acute and chronic respiratory failure Current Visit: No Status: Acute 1. Likely secondary to his acute CHF exacerbation complicated by h/o COPD and possible PNA 2. Patient intubated for altered mental status 3. We will keep 6 mL/kg ideal body weight tidal volume 4. Vent care bundle 5. Continue steroids and ABX for COPD vs. PNA Qualifiers: Respiratory failure complication: hypoxia and hypercapnia Qualified Code(s) : J96.21 - Acute and chronic respiratory failure with hypoxia; J96.22 - Acute and chronic respiratory failure with hypercapnia (3) Acute hepatic encephalopathy Current Visit: No Status: Acute 1. Ammonia 58 2. Continue Lactulose through OGT (4) Leukocytosis Current Visit: No Status: Resolved 1. Questionable pneumonia due to leukocytosis and respiratory symptoms. But is afebrile and not tachycardic. 2. ABX started and will continue for now (Levaquin/Cefepime) 3. Continue to trend Qualifiers: Leukocytosis type: unspecified Qualified Code(s): D72.829 - Elevated white blood cell count, unspecified (5) DVT prophylaxis Current Visit: No Status: Acute 1. SCDs and SQH 2. Protonix for GI History of Present Illness Consult date: 02/04/18 Requesting physician: Baldev Bass Chief complaint: AMS History of present illness: 67-year-old male presented to the ED with AMS and was found unresponsive by family. He has a history of COPD, cirrhosis of the liver, hypertension, and CAD. Per EMS, initial sat 82%. Sats increased to 95% on 2L while in the ED but he reamined minimally responsive and confused. He was protecting his airway and was placed on BiPAP but then became altered quickly and he was eventually intubated. ROS negative in ED prior to intubation other than fatigue. Past Med Surg Social Fam HX - Past Medical History Medical history: arthritis, cancer (Prostate), cirrhosis, COPD (Oxygen dependent using 2 L at home), hypertension, liver disease, other (History of hepatic encephalopathy, CAD, GERD, neuropathy, diastolic CHF, alcohol abuse and tobacco abuse) Additional medical history: Prostate and colon cancer Psychiatric history: no psych history - Past Surgical History Surgical History: orthopedic, other - Social History Smoking Status: Current every day smoker Packs per day: 1 Smokeless Tobacco Status: No Alcohol use: heavy, recent Drug use: none ROS unobtainable: due to endotracheal tube All Systems: The remainder of the systems were reviewed and are negative Physical Examination Vital Signs: Vital Signs, Last 4 Hours Pulse Resp BP Pulse Ox 02/04/18 14:12 56 12 165/92 100 02/04/18 14:05 12 100 General appearance: comatose Eyes: nonicteric ENT: oropharynx moist Neck: supple Effort: normal Inspection: normal Cardiovascular: regular rate and rhythm Gastrointestinal: normoactive bowel sounds Extremities: edema Musculoskeletal: no deformities pupils equal and round, unable to assess due to mental status Ventilator Settings Ventilator Settings: Ventilator Settings, Last 8 Hours Ventilator Tidal Volume 500 Setting Ventilator Respiratory Rate 12 Setting Actual Respiratory Rate 12 Positive End Expiratory 5 Pressure Peak Inspiratory Airway 34 Pressure Results - Laboratory Findings CBC and BMP: 02/04/18 11:02 02/04/18 11:02 ABG ABG pH 7.41 pH Units (7.32-7.45) 02/04/18 13:55 ABG pCO2 63 mmHg (35-45) H 02/04/18 13:55 ABG pO2 90 mmHg (85-104) D 02/04/18 13:55 ABG O2 Saturation 97 % (95-98) 02/04/18 13:55 Abnormal lab findings: Abnormal lab results WBC 15.1 K/mcL (4.3-11.1) H 02/04/18 11:02 RBC 3.09 M/mcL (4.19-5.50) L 02/04/18 11:02 Hgb 9.7 g/dL (12.9-16.9) L 02/04/18 11:02 Hct 30.8 % (37.5-50.1) L 02/04/18 11:02 MCHC 31.5 g/dL (31.6-35.5) L 02/04/18 11:02 RDW 15.0 % (11.5-14.5) H 02/04/18 11:02 Neutrophils # 12.0 K/mcL (1.6-8.9) H 02/04/18 11:02 ABG pCO2 63 mmHg (35-45) H 02/04/18 13:55 ABG HCO3 40 mEq/L (21-27) H 02/04/18 13:55 ABG Total CO2 42 mEq/L (20-26) H 02/04/18 13:55 ABG Base Excess 13 mEq/L (-2 to 3) H 02/04/18 13:55 Carboxyhemoglobin 5.7 % (0-5) H 02/04/18 11:35 Carbon Dioxide 38 mEq/L (23-29) H 02/04/18 11:02 BUN 5 mg/dL (8-23) L 02/04/18 11:02 Alkaline Phosphatase 126 Units/L (34-104) H 02/04/18 11:02 Ammonia 58 mcmol/L (16-53) H 02/04/18 11:08 B-Natriuretic Peptide 1642 pg/mL (Less than 100) H 02/04/18 11:02 Serum Total Protein 5.6 g/dL (6.4-8.9) L 02/04/18 11:02 Albumin 3.2 g/dL (3.5-5.7) L 02/04/18 11:02 Ur Specific [place] 1.009 (1.010-1.025) L 02/04/18 11:07
[2018-02-04] MEDS ORDERED: *HR* Rocuronium Bromide 50 MG/5 ML VIAL IVP ONE (15:32)
[2018-02-04] MEDS ORDERED: *HR* Etomidate 40 MG/20 ML VIAL IVP ONE (15:32)
[2018-02-04] MEDS ORDERED: *HR* Midazolam HCl 5 MG/5 ML VIAL IVP ONE (15:32)
[2018-02-04] MEDS: Cefepime HCl 1,000 MG in Water for inj. (sterile) 20 ML 20 ML IVPB SCH (15:33)
[2018-02-04] MEDS: Propofol 500 MG/50 ML INFUS..BTL IVC SCH ×3 (15:34→22:33)
[2018-02-04] MEDS ORDERED: MethylPREDNISolone 40 MG/ML VIAL IVP SCH (16:00)
[2018-02-04] MEDS ORDERED: Furosemide 20 MG/2 ML VIAL IVP SCH (17:00)
[2018-02-04] MEDS ORDERED: Valproic Acid 250 MG CAPSULE PO SCH (17:00)
--- NOTE | 2018-02-04 17:04 | Electrocardiograph Report ---
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
[2018-02-04 17:41] LABS: ABG Base Excess 16 mEq/L (-2 to 3); ABG HCO3 43 mEq/L (21-27); ABG Oxygen Saturation 100 % (95-98); ABG PCO2 66 mmHg (35-45); ABG PH 7.43 pH Units (7.32-7.45); ABG PO2 254 mmHg (85-104); ABG TCO2 45 mEq/L (20-26); Blood Gas Modality VC; Blood Gas PEEP 5 cm H2O; Blood Gas Respiration Rate 12; Blood Gas VT 500 cc
[2018-02-04] MEDS: Furosemide 40 MG/4 ML VIAL IVP SCH (18:10)
[2018-02-04] MEDS: Lactulose Oral Soln 20 GM/30 ML UDC GTUBE SCH ×2 (18:10→22:34)
[2018-02-04] MEDS: Nicotine 21 MG PATCH.TD24 TD SCH (18:10)
[2018-02-04] MEDS: Pantoprazole 40 MG VIAL IVP SCH (18:11)
[2018-02-04] MEDS: Valproic Acid INJ 500 MG in 0.9 % Sodium Chloride 100 ML IVPB SCH (22:33)
[2018-02-05] MEDS: Propofol 500 MG/50 ML INFUS..BTL IVC SCH ×2 (01:15→05:06)
[2018-02-05] MEDS: Cefepime HCl 1,000 MG in Water for inj. (sterile) 20 ML 20 ML IVPB SCH (05:07)
[2018-02-05 05:59] LABS: Hematocrit 33.1 % (37.5-50.1); Mean Corpuscular HGB Conc 33.2 g/dL (31.6-35.5); Mean Corpuscular Hemoglobin 31.7 pg (28.0-33.3); Mean Corpuscular Volume 95.4 fL (83.0-100.0); Platelet Count 236 K/mcL (140-400); Red Blood Count 3.47 M/mcL (4.19-5.50); Red Cell Distribution Width 14.9 % (11.5-14.5)
[2018-02-05 06:20] LABS: BUN/Creatinine Ratio 8 (6-26); Blood Urea Nitrogen 7 mg/dL (8-23); Calcium 9.3 mg/dL (8.6-10.3); Carbon Dioxide 37 mEq/L (23-29); Chloride 91 mEq/L (98-107); Glucose 84 mg/dL (70-105); Osmolality,Calculated 285 (280-300); Potassium 3.3 mEq/L (3.5-5.1); Sodium 139 mEq/L (136-145); eGFR For African Americans > 60 (> 60); eGFR For Non-African Americans > 60 (> 60)
--- NOTE | 2018-02-05 07:19 | Pulmonology Progress Note ---
<Reddy Grullon - Last Filed: 02/05/18 09:04> Date of Encounter: 02/05/18 Time of Encounter: 07:17 Assessment and Plan (1) Acute exacerbation of CHF (congestive heart failure) Current Visit: Yes Status: Acute 1. Suspected underlying cause of patients acute on chronic respiratory failure. 2. Much improved oxygenation/ventilation overnight 3. On CPAP currently with plan to extubate if tolerates and is able to follow commands 4. Continue IV diuresis 5. Rechecking BNP QAM 6. CXR significantly improved Qualifiers: Heart failure type: diastolic Qualified Code(s): I50.33 - Acute on chronic diastolic (congestive) heart failure (2) Acute and chronic respiratory failure Current Visit: No Status: Acute 1. Multifactorial from CHF/COPD/poss PNA 2. Improving on vent, currently on CPAP with plan to attempt extubation 3. D/C'd steroids yesterday due to suspected primary cause of CHF and not COPD 4. Continuing ABX for poss PNA and leukocytosis 5. Will monitor resp status closely Qualifiers: Respiratory failure complication: hypoxia and hypercapnia Qualified Code(s) : J96.21 - Acute and chronic respiratory failure with hypoxia; J96.22 - Acute and chronic respiratory failure with hypercapnia (3) Acute hepatic encephalopathy Current Visit: No Status: Acute 1. Continue lactulose and Rifaximin 2. Recheck ammonia today and QAM 3. Will reevaluate when extubated and off sedation (4) DVT prophylaxis Current Visit: No Status: Acute 1. SQH and SCDs Subjective Principal diagnosis: CHF Interval history: Patient did well overnight. Currently on CPAP with planned SBT and possible extubation. Objective PUL Vital signs: Last Vital Signs Temp 97.7 F 02/05/18 03:00 Pulse 68 02/05/18 06:00 Resp 12 02/05/18 06:00 BP 108/62 02/05/18 06:00 Pulse Ox 100 02/05/18 06:00 General appearance: other (intubated) Eyes: nonicteric ENT: oropharynx moist Neck: supple Effort: normal Cardiovascular: regular rate and rhythm Gastrointestinal: normoactive bowel sounds Integumentary: normal Extremities: no cyanosis, edema Musculoskeletal: no deformities unable to assess due to mental status Ventilator Settings Ventilator Settings: Ventilator Settings, Last 8 Hours Ventilator Tidal Volume 500 Setting Ventilator Tidal Volume 500 Setting Ventilator Tidal Volume 500 Setting Ventilator Tidal Volume 500 Setting Ventilator Tidal Volume 500 Setting Ventilator Tidal Volume 500 Setting Ventilator Tidal Volume 500 Setting Ventilator Tidal Volume 500 Setting Ventilator Tidal Volume 500 Setting Ventilator Tidal Volume 500 Setting Ventilator Tidal Volume 500 Setting Ventilator Respiratory Rate 12 Setting Ventilator Respiratory Rate 12 Setting Ventilator Respiratory Rate 12 Setting Ventilator Respiratory Rate 12 Setting Ventilator Respiratory Rate 12 Setting Ventilator Respiratory Rate 12 Setting Ventilator Respiratory Rate 12 Setting Ventilator Respiratory Rate 12 Setting Ventilator Respiratory Rate 12 Setting Ventilator Respiratory Rate 12 Setting Ventilator Respiratory Rate 12 Setting Actual Respiratory Rate 12 Actual Respiratory Rate 12 Actual Respiratory Rate 12 Actual Respiratory Rate 12 Actual Respiratory Rate 12 Actual Respiratory Rate 12 Actual Respiratory Rate 12 Actual Respiratory Rate 12 Actual Respiratory Rate 12 Actual Respiratory Rate 12 Actual Respiratory Rate 12 Positive End Expiratory 5 Pressure Positive End Expiratory 5 Pressure Positive End Expiratory 5 Pressure Positive End Expiratory 5 Pressure Positive End Expiratory 5 Pressure Positive End Expiratory 5 Pressure Positive End Expiratory 5 Pressure Positive End Expiratory 5 Pressure Positive End Expiratory 5 Pressure Positive End Expiratory 5 Pressure Positive End Expiratory 5 Pressure Peak Inspiratory Airway 26 Pressure Peak Inspiratory Airway 28 Pressure Peak Inspiratory Airway 36 Pressure Peak Inspiratory Airway 34 Pressure Peak Inspiratory Airway 34 Pressure Peak Inspiratory Airway 36 Pressure Peak Inspiratory Airway 34 Pressure Peak Inspiratory Airway 35 Pressure Peak Inspiratory Airway 36 Pressure Peak Inspiratory Airway 35 Pressure Peak Inspiratory Airway 33 Pressure Results - Laboratory Findings CBC and BMP: 02/05/18 05:49 02/05/18 05:49 ABG ABG pH 7.43 pH Units (7.32-7.45) 02/04/18 17:37 ABG pCO2 66 mmHg (35-45) H 02/04/18 17:37 ABG pO2 254 mmHg (85-104) H D 02/04/18 17:37 ABG O2 Saturation 100 % (95-98) H 02/04/18 17:37 Abnormal lab findings: Abnormal lab results WBC 14.3 K/mcL (4.3-11.1) H 02/05/18 05:49 RBC 3.47 M/mcL (4.19-5.50) L 02/05/18 05:49 Hgb 11.0 g/dL (12.9-16.9) L 02/05/18 05:49 Hct 33.1 % (37.5-50.1) L 02/05/18 05:49 RDW 14.9 % (11.5-14.5) H 02/05/18 05:49 Neutrophils # 12.0 K/mcL (1.6-8.9) H 02/04/18 11:02 ABG pCO2 66 mmHg (35-45) H 02/04/18 17:37 ABG pO2 254 mmHg (85-104) H D 02/04/18 17:37 ABG HCO3 43 mEq/L (21-27) H 02/04/18 17:37 ABG Total CO2 45 mEq/L (20-26) H 02/04/18 17:37 ABG O2 Saturation 100 % (95-98) H 02/04/18 17:37 ABG Base Excess 16 mEq/L (-2 to 3) H 02/04/18 17:37 Carboxyhemoglobin 5.7 % (0-5) H 02/04/18 11:35 Potassium 3.3 mEq/L (3.5-5.1) L 02/05/18 05:49 Chloride 91 mEq/L (98-107) L 02/05/18 05:49 Carbon Dioxide 37 mEq/L (23-29) H 02/05/18 05:49 BUN 7 mg/dL (8-23) L 02/05/18 05:49 Alkaline Phosphatase 126 Units/L (34-104) H 02/04/18 11:02 Ammonia 58 mcmol/L (16-53) H 02/04/18 11:08 B-Natriuretic Peptide 1642 pg/mL (Less than 100) H 02/04/18 11:02 Serum Total Protein 5.6 g/dL (6.4-8.9) L 02/04/18 11:02 Albumin 3.2 g/dL (3.5-5.7) L 02/04/18 11:02 Ur Specific [place] 1.009 (1.010-1.025) L 02/04/18 11:07 - Clinical Findings Intake & Output: Intake & Output 02/04/18 02/04/18 02/05/18 15:59 23:59 07:59 Intake Total 170 / 170 305 / 305 130 / 130 Output Total 1600 / 1600 500 / 500 Balance 170 / 170 -1295 / -1295 -370 / -370 Weight 68 kg Consult Discharge Plan - Plan [facility]errals: [facility] [Primary Care Provider] - <Estrella Xie - Last Filed: 02/05/18 09:10> Date of Encounter: 02/05/18 Objective PUL Vital signs: Last Vital Signs Temp 96.5 F L 02/05/18 08:00 Pulse 89 02/05/18 08:00 Resp 14 02/05/18 08:00 BP 116/91 02/05/18 08:00 Pulse Ox 96 02/05/18 08:00 Ventilator Settings Ventilator Settings: Ventilator Settings, Last 8 Hours Ventilator Tidal Volume 500 Setting Ventilator Tidal Volume 500 Setting Ventilator Tidal Volume 500 Setting Ventilator Tidal Volume 500 Setting Ventilator Tidal Volume 500 Setting Ventilator Tidal Volume 500 Setting Ventilator Tidal Volume 500 Setting Ventilator Tidal Volume 500 Setting Ventilator Respiratory Rate 12 Setting Ventilator Respiratory Rate 12 Setting Ventilator Respiratory Rate 12 Setting Ventilator Respiratory Rate 12 Setting Ventilator Respiratory Rate 12 Setting Ventilator Respiratory Rate 12 Setting Ventilator Respiratory Rate 12 Setting Ventilator Respiratory Rate 12 Setting Actual Respiratory Rate 12 Actual Respiratory Rate 12 Actual Respiratory Rate 12 Actual Respiratory Rate 12 Actual Respiratory Rate 12 Actual Respiratory Rate 12 Actual Respiratory Rate 12 Actual Respiratory Rate 12 Actual Respiratory Rate 12 Positive End Expiratory 5 Pressure Positive End Expiratory 5 Pressure Positive End Expiratory 5 Pressure Positive End Expiratory 5 Pressure Positive End Expiratory 5 Pressure Positive End Expiratory 5 Pressure Positive End Expiratory 5 Pressure Positive End Expiratory 5 Pressure Positive End Expiratory 5 Pressure Peak Inspiratory Airway 16 Pressure Peak Inspiratory Airway 26 Pressure Peak Inspiratory Airway 28 Pressure Peak Inspiratory Airway 36 Pressure Peak Inspiratory Airway 34 Pressure Peak Inspiratory Airway 34 Pressure Peak Inspiratory Airway 36 Pressure Peak Inspiratory Airway 34 Pressure Peak Inspiratory Airway 35 Pressure Results - Laboratory Findings CBC and BMP: 02/05/18 05:49 02/05/18 05:49 ABG ABG pH 7.43 pH Units (7.32-7.45) 02/04/18 17:37 ABG pCO2 66 mmHg (35-45) H 02/04/18 17:37 ABG pO2 254 mmHg (85-104) H D 02/04/18 17:37 ABG O2 Saturation 100 % (95-98) H 02/04/18 17:37 Abnormal lab findings: Abnormal lab results WBC 14.3 K/mcL (4.3-11.1) H 02/05/18 05:49 RBC 3.47 M/mcL (4.19-5.50) L 02/05/18 05:49 Hgb 11.0 g/dL (12.9-16.9) L 02/05/18 05:49 Hct 33.1 % (37.5-50.1) L 02/05/18 05:49 RDW 14.9 % (11.5-14.5) H 02/05/18 05:49 Neutrophils # 12.0 K/mcL (1.6-8.9) H 02/04/18 11:02 ABG pCO2 66 mmHg (35-45) H 02/04/18 17:37 ABG pO2 254 mmHg (85-104) H D 02/04/18 17:37 ABG HCO3 43 mEq/L (21-27) H 02/04/18 17:37 ABG Total CO2 45 mEq/L (20-26) H 02/04/18 17:37 ABG O2 Saturation 100 % (95-98) H 02/04/18 17:37 ABG Base Excess 16 mEq/L (-2 to 3) H 02/04/18 17:37 Carboxyhemoglobin 5.7 % (0-5) H 02/04/18 11:35 Potassium 3.3 mEq/L (3.5-5.1) L 02/05/18 05:49 Chloride 91 mEq/L (98-107) L 02/05/18 05:49 Carbon Dioxide 37 mEq/L (23-29) H 02/05/18 05:49 BUN 7 mg/dL (8-23) L 02/05/18 05:49 Alkaline Phosphatase 126 Units/L (34-104) H 02/04/18 11:02 Ammonia 60 mcmol/L (16-53) H 02/05/18 07:43 B-Natriuretic Peptide 409 pg/mL (Less than 100) H 02/05/18 07:43 Serum Total Protein 5.6 g/dL (6.4-8.9) L 02/04/18 11:02 Albumin 3.2 g/dL (3.5-5.7) L 02/04/18 11:02 Ur Specific [place] 1.009 (1.010-1.025) L 02/04/18 11:07 - Clinical Findings Intake & Output: Intake & Output 02/04/18 02/05/18 02/05/18 23:59 07:59 15:59 Intake Total 305 / 305 130 / 130 Output Total 1600 / 1600 550 / 550 Balance -1295 / -1295 -420 / -420 Weight 68 kg - Attending Attestation I examined this patient and my medical decision-making was reviewed with the Resident Physician. I agree with the documented findings, disposition and treatment plan as described except to the extent set forth below. Patient seen and examined. Labs, radiology, chart personally reviewed. Agree with resident's history and physical, assessment, plan with following comments: RECORDS SUPERVISOR: Patient follows commands and more awake, Pulmonary: Acceptable oxygenation and ventilation and doing good on spontaneous breathing trial plan for extubation Cardiovascular: stable and diuresis as much as possible GI: Nutrition per dietary and GI prophylaxis per routine Heme: DVT prophylaxis per routine ID: Continue antibiotics and plan to de-escalation Renal; urine out put and renal funtion reviewed Endorcine: blood glucose is monitored Lines: all lines checked and no evidence of infections Skin: skin care to prevent pressure ulcers per nursing routine care
[2018-02-05] MEDS: Levofloxacin 750 MG/150 ML 750 MG/150 ML BAG IVPB SCH (08:16)
[2018-02-05] MEDS: Pantoprazole 40 MG VIAL IVP SCH (08:16)
[2018-02-05] MEDS: Furosemide 40 MG/4 ML VIAL IVP SCH ×2 (08:16→17:23)
[2018-02-05] MEDS: Lactulose Oral Soln 20 GM/30 ML UDC GTUBE SCH ×3 (08:19→19:34)
[2018-02-05] MEDS: Nicotine 21 MG PATCH.TD24 TD SCH (09:00)
[2018-02-05] MEDS: *HR* Heparin 5,000 UNIT/ML VIAL SQ SCH ×2 (11:26→17:23)
[2018-02-05] MEDS: Valproic Acid INJ 500 MG in 0.9 % Sodium Chloride 100 ML IVPB SCH ×2 (17:20→20:52)
[2018-02-06 05:26] LABS: Basophils % 0.3 %; Eosinophils # 0.3 K/mcL (0.0-0.6); Eosinophils % 2.3 %; Hematocrit 32.2 % (37.5-50.1); Hemoglobin 11.1 g/dL (12.9-16.9); Lymphocytes # 1.8 K/mcL (0.6-4.6); Lymphocytes % 15.3 %; Mean Corpuscular HGB Conc 34.5 g/dL (31.6-35.5); Mean Corpuscular Hemoglobin 32.6 pg (28.0-33.3); Mean Corpuscular Volume 94.4 fL (83.0-100.0); Mean Platelet Volume 10.6 fL (9.4-12.4); Monocytes # 1.1 K/mcL (0.0-1.3); Monocytes % 9.7 %; Neutrophils # 8.2 K/mcL (1.6-8.9); Platelet Count 236 K/mcL (140-400); Red Blood Count 3.41 M/mcL (4.19-5.50); Red Cell Distribution Width 14.7 % (11.5-14.5); Segmented Neutrophils % 71.4 %
[2018-02-06 05:34] LABS: BUN/Creatinine Ratio 7 (6-26); Blood Urea Nitrogen 6 mg/dL (8-23); Calcium 8.8 mg/dL (8.6-10.3); Carbon Dioxide 36 mEq/L (23-29); Chloride 89 mEq/L (98-107); Glucose 64 mg/dL (70-105); Osmolality,Calculated 290 (280-300); Potassium 3.8 mEq/L (3.5-5.1); Sodium 142 mEq/L (136-145); eGFR For African Americans > 60 (> 60); eGFR For Non-African Americans > 60 (> 60)
[2018-02-06] MEDS: *HR* Heparin 5,000 UNIT/ML VIAL SQ SCH ×2 (06:00→16:31)
[2018-02-06] MEDS: Nicotine 21 MG PATCH.TD24 TD SCH (08:06)
[2018-02-06] MEDS: Furosemide 40 MG/4 ML VIAL IVP SCH ×2 (08:06→16:30)
[2018-02-06] MEDS: Pantoprazole 40 MG VIAL IVP SCH (08:06)
[2018-02-06] MEDS: Valproic Acid INJ 500 MG in 0.9 % Sodium Chloride 100 ML IVPB SCH (08:13)
[2018-02-06] MEDS: Levofloxacin 750 MG/150 ML 750 MG/150 ML BAG IVPB SCH (09:19)
--- NOTE | 2018-02-06 09:34 | Pulmonology Progress Note ---
<Reddy Grullon - Last Filed: 02/06/18 09:31> Date of Encounter: 02/06/18 Time of Encounter: 09:32 Assessment and Plan (1) Acute exacerbation of CHF (congestive heart failure) Current Visit: Yes Status: Acute Suspected underlying cause of patients acute on chronic respiratory failure and has essentially resolved. He has tolerated nasal cannula oxygen while and is mentating well. Plan to transfer from the ICU today Qualifiers: Heart failure type: diastolic Qualified Code(s): I50.33 - Acute on chronic diastolic (congestive) heart failure (2) Acute and chronic respiratory failure Current Visit: No Status: Acute Multifactorial from CHF/COPD/poss PNA. Patient has been off the ventilator for over 24 hours and on nasal cannula. He has been adequately diuresed. We will continue antibiotics for the possibility of pneumonia, hepatic encephalopathy, COPD exacerbation. Qualifiers: Respiratory failure complication: hypoxia and hypercapnia Qualified Code(s) : J96.21 - Acute and chronic respiratory failure with hypoxia; J96.22 - Acute and chronic respiratory failure with hypercapnia (3) Acute hepatic encephalopathy Current Visit: No Status: Acute Continue lactulose and Rifaximin, ammonia is trending down. Patient would likely benefit from a GI consult for further medication recommendations. However, the patient was refusing yesterday. (4) DVT prophylaxis Current Visit: No Status: Acute 1. SQH and SCDs Subjective Principal diagnosis: CHF Interval history: Patient is on incredibly well overnight, has been off CPAP for over 24 hours and is only on nasal cannula. He did have some issues with confusion and agitation last night, which seemed to have resolved. Plan to transfer out of the ICU today Objective PUL Vital signs: Last Vital Signs Temp 98.1 F 02/06/18 07:24 Pulse 95 02/06/18 09:00 Resp 16 02/06/18 09:00 BP 100/58 02/06/18 09:00 Pulse Ox 98 02/06/18 09:00 General appearance: no acute distress, alert Eyes: nonicteric ENT: oropharynx moist Effort: normal Auscultation: bilateral: diminished breath sounds Cardiovascular: regular rate and rhythm, irregular rhythm Gastrointestinal: normoactive bowel sounds, non-distended Integumentary: normal Extremities: no cyanosis, edema Musculoskeletal: no deformities normal mental status mood appropriate, affect normal Results - Laboratory Findings CBC and BMP: 02/06/18 05:04 02/06/18 05:04 ABG ABG pH 7.43 pH Units (7.32-7.45) 02/04/18 17:37 ABG pCO2 66 mmHg (35-45) H 02/04/18 17:37 ABG pO2 254 mmHg (85-104) H D 02/04/18 17:37 ABG O2 Saturation 100 % (95-98) H 02/04/18 17:37 Abnormal lab findings: Abnormal lab results WBC 11.5 K/mcL (4.3-11.1) H 02/06/18 05:04 RBC 3.41 M/mcL (4.19-5.50) L 02/06/18 05:04 Hgb 11.1 g/dL (12.9-16.9) L 02/06/18 05:04 Hct 32.2 % (37.5-50.1) L 02/06/18 05:04 RDW 14.7 % (11.5-14.5) H 02/06/18 05:04 ABG pCO2 66 mmHg (35-45) H 02/04/18 17:37 ABG pO2 254 mmHg (85-104) H D 02/04/18 17:37 ABG HCO3 43 mEq/L (21-27) H 02/04/18 17:37 ABG Total CO2 45 mEq/L (20-26) H 02/04/18 17:37 ABG O2 Saturation 100 % (95-98) H 02/04/18 17:37 ABG Base Excess 16 mEq/L (-2 to 3) H 02/04/18 17:37 Carboxyhemoglobin 5.7 % (0-5) H 02/04/18 11:35 Chloride 89 mEq/L (98-107) L 02/06/18 05:04 Carbon Dioxide 36 mEq/L (23-29) H 02/06/18 05:04 BUN 6 mg/dL (8-23) L 02/06/18 05:04 Glucose 64 mg/dL (70-105) L 02/06/18 05:04 Alkaline Phosphatase 126 Units/L (34-104) H 02/04/18 11:02 Ammonia 56 mcmol/L (16-53) H 02/06/18 04:56 B-Natriuretic Peptide 155 pg/mL (Less than 100) H 02/06/18 05:04 Serum Total Protein 5.6 g/dL (6.4-8.9) L 02/04/18 11:02 Albumin 3.2 g/dL (3.5-5.7) L 02/04/18 11:02 Ur Specific Cinebar 1.009 (1.010-1.025) L 02/04/18 11:07 - Diagnostic Findings Chest x-ray: image reviewed - Clinical Findings Intake & Output: Intake & Output 02/05/18 02/06/18 02/06/18 23:59 07:59 15:59 Intake Total 105 / 105 0 / 0 Output Total 875 / 875 Balance -770 / -770 0 / 0 Weight 65.1 kg - VTE Documentation of Mechanical Device: Intermittent pneumatic compression device Consult Discharge Plan - Plan [facility]: [facility]Primary Care Provider[facility] - <Estrella Xie - Last Filed: 02/06/18 10:58> Date of Encounter: 02/06/18 Objective PUL Vital signs: Last Vital Signs Temp 98.1 F 02/06/18 07:24 Pulse 105 02/06/18 10:00 Resp 20 02/06/18 10:00 BP 89/62 02/06/18 10:00 Pulse Ox 93 02/06/18 10:00 Results - Laboratory Findings CBC and BMP: 02/06/18 05:04 02/06/18 05:04 ABG ABG pH 7.43 pH Units (7.32-7.45) 02/04/18 17:37 ABG pCO2 66 mmHg (35-45) H 02/04/18 17:37 ABG pO2 254 mmHg (85-104) H D 02/04/18 17:37 ABG O2 Saturation 100 % (95-98) H 02/04/18 17:37 Abnormal lab findings: Abnormal lab results WBC 11.5 K/mcL (4.3-11.1) H 02/06/18 05:04 RBC 3.41 M/mcL (4.19-5.50) L 02/06/18 05:04 Hgb 11.1 g/dL (12.9-16.9) L 02/06/18 05:04 Hct 32.2 % (37.5-50.1) L 02/06/18 05:04 RDW 14.7 % (11.5-14.5) H 02/06/18 05:04 ABG pCO2 66 mmHg (35-45) H 02/04/18 17:37 ABG pO2 254 mmHg (85-104) H D 02/04/18 17:37 ABG HCO3 43 mEq/L (21-27) H 02/04/18 17:37 ABG Total CO2 45 mEq/L (20-26) H 02/04/18 17:37 ABG O2 Saturation 100 % (95-98) H 02/04/18 17:37 ABG Base Excess 16 mEq/L (-2 to 3) H 02/04/18 17:37 Carboxyhemoglobin 5.7 % (0-5) H 02/04/18 11:35 Chloride 89 mEq/L (98-107) L 02/06/18 05:04 Carbon Dioxide 36 mEq/L (23-29) H 02/06/18 05:04 BUN 6 mg/dL (8-23) L 02/06/18 05:04 Glucose 64 mg/dL (70-105) L 02/06/18 05:04 Alkaline Phosphatase 126 Units/L (34-104) H 02/04/18 11:02 Ammonia 56 mcmol/L (16-53) H 02/06/18 04:56 B-Natriuretic Peptide 155 pg/mL (Less than 100) H 02/06/18 05:04 Serum Total Protein 5.6 g/dL (6.4-8.9) L 02/04/18 11:02 Albumin 3.2 g/dL (3.5-5.7) L 02/04/18 11:02 Ur Specific Cinebar 1.009 (1.010-1.025) L 02/04/18 11:07 - Clinical Findings Intake & Output: Intake & Output 02/05/18 02/06/18 02/06/18 23:59 07:59 15:59 Intake Total 105 / 105 0 / 0 Output Total 875 / 875 Balance -770 / -770 0 / 0 Weight 65.1 kg - Attending Attestation I examined this patient and my medical decision-making was reviewed with the Resident Physician. I agree with the documented findings, disposition and treatment plan as described except to the extent set forth below. Patient seen and examined. Labs, radiology, chart personally reviewed. Agree with resident's history and physical, assessment, plan with following comments: ROUTE AIDE: Patient follows commands, there is improvement with her current treatment. Pulmonary: Acceptable oxygenation and ventilation Cardiovascular: stable and diuresis as tolerated GI: Nutrition per dietary and GI prophylaxis per routine. Patient will need to be compliant and perhaps hepatology as outpatient. Speech evaluation Heme: DVT prophylaxis per routine ID: Continue antibiotics and plan to de-escalation Renal; urine out put and renal funtion reviewed Endorcine: blood glucose is monitored Lines: all lines checked and no evidence of infections Skin: skin care to prevent pressure ulcers per nursing routine care Physical therapy evaluation and awaiting for a bed.
[2018-02-06] MEDS: Lactulose Oral Soln 20 GM/30 ML UDC GTUBE SCH ×2 (10:37→15:24)
[2018-02-06] MEDS ORDERED: *HR* Metoprolol 5 MG/5 ML VIAL IVP ONE ×2 (10:41→10:47)
[2018-02-06] MEDS ORDERED: Albuterol 2.5 MG/3 ML NEBULIZER IH PRN ×2 (10:51→15:23)
[2018-02-06] MEDS ORDERED: Ipratropium/Albuterol Neb 3 ML IH SCH (15:00)
[2018-02-06] MEDS ORDERED: *HR* LORazepam 2 MG/ML VIAL IVP PRN (15:23)
[2018-02-06] MEDS ORDERED: Ondansetron 4 MG/2 ML VIAL IVP PRN (15:23)
[2018-02-06] MEDS ORDERED: Naloxone 0.4 MG/ML INJ IVP PRN (15:23)
[2018-02-06] MEDS: Ipratropium/Albuterol Neb 3 ML IH SCH (17:29)
--- NOTE | 2018-02-06 18:23 | Electrocardiograph Report ---
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
[2018-02-06] MEDS ORDERED: Melatonin 3 MG TABLET PO SCH (21:00)
[2018-02-06] MEDS ORDERED: Valproic Acid INJ 500 MG in 0.9 % Sodium Chloride 100 ML IVPB SCH (21:00)
[2018-02-06] MEDS ORDERED: Lactulose Oral Soln 20 GM/30 ML UDC GTUBE SCH (21:00)
[2018-02-06] MEDS: Melatonin 3 MG TABLET PO SCH (21:07)
[2018-02-07] MEDS: Ipratropium/Albuterol Neb 3 ML IH SCH ×4 (03:44→23:32)
[2018-02-07] MEDS: *HR* Heparin 5,000 UNIT/ML VIAL SQ SCH ×2 (05:53→16:42)
[2018-02-07] MEDS ORDERED: Folic Acid 1 MG TABLET PO SCH (09:00)
[2018-02-07] MEDS ORDERED: Thiamine (B-1) 100 MG TABLET PO SCH (09:00)
[2018-02-07] MEDS ORDERED: Pantoprazole 40 MG VIAL IVP SCH (09:00)
[2018-02-07] MEDS ORDERED: Cholecalciferol (D-3) 1,000 UNIT TABLET PO SCH (09:00)
[2018-02-07] MEDS ORDERED: Aspirin Enteric Coated 81 MG Tablet PO SCH (09:00)
[2018-02-07] MEDS: Valproic Acid 250 MG CAPSULE PO SCH ×2 (09:11→16:42)
[2018-02-07] MEDS: Folic Acid 1 MG TABLET PO SCH (09:11)
[2018-02-07] MEDS: Levofloxacin 750 MG/150 ML 750 MG/150 ML BAG IVPB SCH (09:13)
[2018-02-07] MEDS: Nicotine 21 MG PATCH.TD24 TD SCH (09:13)
[2018-02-07] MEDS: Furosemide 40 MG/4 ML VIAL IVP SCH ×2 (09:13→20:26)
[2018-02-07] MEDS: Thiamine (B-1) 100 MG TABLET PO SCH (09:13)
[2018-02-07] MEDS: Aspirin Enteric Coated 81 MG Tablet PO SCH (09:14)
[2018-02-07] MEDS: Lactulose Oral Soln 20 GM/30 ML UDC PO SCH ×3 (09:14→20:26)
[2018-02-07] MEDS: Cholecalciferol (D-3) 1,000 UNIT TABLET PO SCH (09:14)
[2018-02-07] MEDS ORDERED: Furosemide 40 MG/4 ML VIAL IVP SCH (11:07)
--- NOTE | 2018-02-07 11:17 | Internal Med Progress Note ---
Date of Encounter: 02/07/18 Time of Encounter: 11:13 - Assessment and plan (1) Acute respiratory failure Current Visit: Yes Status: Acute Assessment and plan: Acute on chronic hypoxic hypercapnic respiratory failure secondary to combination of hepatic encephalopathy, diastolic CHF and acute COPD possibly secondary to healthcare associated pneumonia present upon admission Acute on chronic Currently feeling better KUB 6/5 showed LL airspace disease - Decrease IV Lasix from 40 mg IV BID to 20 mg IV BID - Continue levaquin - Fluid restrict Qualifiers: Respiratory failure complication: hypercapnia Qualified Code(s): J96.02 - Acute respiratory failure with hypercapnia (2) Acute and chronic respiratory failure Current Visit: No Status: Acute Qualifiers: Respiratory failure complication: hypoxia and hypercapnia Qualified Code(s) : J96.21 - Acute and chronic respiratory failure with hypoxia; J96.22 - Acute and chronic respiratory failure with hypercapnia (3) Prostate cancer Current Visit: No Status: Chronic (4) Hyperammonemia Current Visit: Yes Status: Acute Assessment and plan: Continue Xifaxan and lactulose (5) Acute hepatic encephalopathy Current Visit: No Status: Acute Assessment and plan: As above. (6) Tobacco abuse Current Visit: No Status: Chronic Assessment and plan: Nicotine patch (7) Acute exacerbation of CHF (congestive heart failure) Current Visit: Yes Status: Acute Assessment and plan: strict I's and O's and daily weight Continue Lasix Decrease dose Fluid restrict Qualifiers: Heart failure type: diastolic Qualified Code(s): I50.33 - Acute on chronic diastolic (congestive) heart failure - Time Spent With Patient Total time spent is greater than 50% in coordination of care (as documented) at patient's floor/unit and/or counseling patient: - Subjective Interval history: No acute events. Patient emphasizes he is feeling much better and tells me today his leg swelling has decreased significantly. Unable to tell me year, month, president, location. Able to tell me name and situation. - Constitutional Vitals: Temp Pulse Resp BP Pulse Ox 98.6 F 81 16 93/56 97 02/07/18 07:28 02/07/18 07:28 02/07/18 10:05 02/07/18 07:28 02/07/18 10:05 General appearance: Present: A&O X 1 - Head Head exam: Present: atraumatic, normocephalic - Eye Eye exam: Present: PERRL, conjuntiva pink, sclera anicteric Pupils: Present: PERRL - Neck Neck exam general surgery: Present: supple, trachea midline. Absent: lymphadenopathy - Respiratory Respiratory exam: Present: rales. Absent: accessory muscle use, rhonchi, wheezes - Cardiovascular Cardiovascular exam: Present: RRR, +S1, +S2. Absent: diastolic murmur, gallop, rubs, systolic murmur - GI/Abdominal GI/Abdominal exam: Present: normal bowel sounds, soft, no peritoneal signs. Absent: distended, tenderness - Extremities Exam Extremities exam: Present: pedal edema, warm, radial pulses palpable and symmetrical. Absent: calf tenderness, cyanotic - Neurological Exam Neurological exam: Present: CN II-XII intact, oriented X3, no focal deficits. Absent: pronater drift, facial droop, speech deficit - Skin Skin exam: Present: dry, intact Internal Medicine: Result - Labs CBC & Chem 7: 02/06/18 05:04 02/06/18 05:04 - ABG Interpretation ABG results: ABG ABG pH 7.43 pH Units (7.32-7.45) 02/04/18 17:37 ABG pCO2 66 mmHg (35-45) H 02/04/18 17:37 ABG pO2 254 mmHg (85-104) H D 02/04/18 17:37 ABG O2 Saturation 100 % (95-98) H 02/04/18 17:37 - VTE Documentation of Mechanical Device: Intermittent pneumatic compression device Consult Discharge Plan - Plan [facility]errals: [facility]Primary Care Provider[facility] - 02/19/18 9:30 am (Please follow up as schedule....)
[2018-02-07] MEDS: Melatonin 3 MG TABLET PO SCH (20:24)
[2018-02-08] MEDS: *HR* Heparin 5,000 UNIT/ML VIAL SQ SCH ×2 (05:30→16:57)
[2018-02-08 06:43] LABS: Basophils % 0.2 %; Eosinophils # 0.2 K/mcL (0.0-0.6); Eosinophils % 1.7 %; Hematocrit 30.2 % (37.5-50.1); Hemoglobin 9.6 g/dL (12.9-16.9); Immature Granulocytes % 0.7 % (0-4); Lymphocytes # 1.1 K/mcL (0.6-4.6); Lymphocytes % 11.3 %; Mean Corpuscular HGB Conc 31.8 g/dL (31.6-35.5); Mean Corpuscular Hemoglobin 30.8 pg (28.0-33.3); Mean Corpuscular Volume 96.8 fL (83.0-100.0); Mean Platelet Volume 10.2 fL (9.4-12.4); Monocytes # 1.5 K/mcL (0.0-1.3); Monocytes % 15.2 %; Nucleated Red Blood Cells 0.4 /100 WBC (0); Platelet Count 162 K/mcL (140-400); Red Blood Count 3.12 M/mcL (4.19-5.50); Red Cell Distribution Width 15.2 % (11.5-14.5); Segmented Neutrophils % 70.9 %
[2018-02-08 07:19] LABS: BUN/Creatinine Ratio 5 (6-26); Blood Urea Nitrogen 6 mg/dL (8-23); Calcium 8.5 mg/dL (8.6-10.3); Carbon Dioxide 45 mEq/L (23-29); Chloride 89 mEq/L (98-107); Glucose 127 mg/dL (70-105); Osmolality,Calculated 287 (280-300); Potassium 3.2 mEq/L (3.5-5.1); Sodium 139 mEq/L (136-145); eGFR For African Americans > 60 (> 60); eGFR For Non-African Americans 56 (> 60)
[2018-02-08] MEDS: Valproic Acid 250 MG CAPSULE PO SCH ×2 (07:57→16:57)
[2018-02-08] MEDS: Folic Acid 1 MG TABLET PO SCH (07:57)
[2018-02-08] MEDS: Thiamine (B-1) 100 MG TABLET PO SCH (07:57)
[2018-02-08] MEDS: Cholecalciferol (D-3) 1,000 UNIT TABLET PO SCH (07:57)
[2018-02-08] MEDS: Nicotine 21 MG PATCH.TD24 TD SCH (07:58)
[2018-02-08] MEDS: Aspirin Enteric Coated 81 MG Tablet PO SCH (07:58)
[2018-02-08] MEDS: Levofloxacin 750 MG/150 ML 750 MG/150 ML BAG IVPB SCH (07:58)
[2018-02-08] MEDS: Furosemide 40 MG/4 ML VIAL IVP SCH (07:59)
[2018-02-08] MEDS: Lactulose Oral Soln 20 GM/30 ML UDC PO SCH ×3 (07:59→19:40)
[2018-02-08] MEDS ORDERED: Ringers Solution, Lactated 250 ML IVC PRN ×2 (08:14→08:45)
[2018-02-08] MEDS: Ipratropium/Albuterol Neb 3 ML IH SCH ×2 (10:31→16:02)
[2018-02-08 11:26] LABS: ABG Base Excess 20 mEq/L (-2 to 3); ABG HCO3 46 mEq/L (21-27); ABG Oxygen Saturation 96 % (95-98); ABG PCO2 59 mmHg (35-45); ABG PO2 81 mmHg (85-104); ABG TCO2 48 mEq/L (20-26)
--- NOTE | 2018-02-08 11:50 | Internal Med Progress Note ---
Date of Encounter: 02/08/18 Time of Encounter: 11:48 - Assessment and plan (1) Acute respiratory failure Current Visit: Yes Status: Acute Assessment and plan: Acute on chronic hypoxic hypercapnic respiratory failure secondary to: combination of hepatic encephalopathy, diastolic CHF and acute COPD possibly secondary to healthcare associated pneumonia present upon admission. Patient required admission to ICU and intubation. Currently on telemetry floor with gradual improvement. Currently feeling better KUB 6/5 showed LL airspace disease 02/08: Mental status and oxygenation improved bu t patient air movement still poor. May be his baseline. - Holding Lasix today due renal function and decreased chloride - Continue levaquin - Fluid restrict - continue - HOB 45 degrees - Patient high risk and needs close monitoring at this point. - Likely discharge in 1-2 days. - On discharge will need [facility] referral for PT/OT> Qualifiers: Respiratory failure complication: hypercapnia Qualified Code(s): J96.02 - Acute respiratory failure with hypercapnia (2) Acute and chronic respiratory failure Current Visit: No Status: Acute Assessment and plan: As above. Patient able to stay on 2 L for now, home O2 level. Qualifiers: Respiratory failure complication: hypoxia and hypercapnia Qualified Code(s) : J96.21 - Acute and chronic respiratory failure with hypoxia; J96.22 - Acute and chronic respiratory failure with hypercapnia (3) Prostate cancer Current Visit: No Status: Chronic (4) Hyperammonemia Current Visit: Yes Status: Acute Assessment and plan: Continue Xifaxan and lactulose (5) Acute hepatic encephalopathy Current Visit: No Status: Acute Assessment and plan: As above. (6) Tobacco abuse Current Visit: No Status: Chronic Assessment and plan: Nicotine patch (7) Acute exacerbation of CHF (congestive heart failure) Current Visit: Yes Status: Acute Assessment and plan: Plan as above. Qualifiers: Heart failure type: diastolic Qualified Code(s): I50.33 - Acute on chronic diastolic (congestive) heart failure - Time Spent With Patient Total time spent is greater than 50% in coordination of care (as documented) at patient's floor/unit and/or counseling patient: - Subjective Interval history: No acute events. Patient emphasizes he is feeling much better and tells me today his leg swelling has decreased significantly. Unable to tell me year, month, president, location. Able to tell me name and situation. 6/8: He is now aware of person, place, time, situation. States breathing is at baseline. - Constitutional Vitals: Temp Pulse Resp BP Pulse Ox 99.2 F 72 17 94/57 94 02/08/18 11:06 02/08/18 11:06 02/08/18 11:06 02/08/18 11:06 02/08/18 11:06 General appearance: Present: A&O X 3 (improved awareness since yesterday) Exam: CVS: RRR Lungs: Poor inspiratory effort. decreased lung sound, course rales throughout. . No wheezing Abd: soft,NT, ND Ext:1+ nonpitting edema. Internal Medicine: Result - Labs CBC & Chem 7: 02/08/18 06:21 02/08/18 06:21 Labs: Short CBC 02/08/18 Range/Units 06:21 WBC 9.8 (4.3-11.1) K/mcL Hgb 9.6 L D (12.9-16.9) g/dL Hct 30.2 L (37.5-50.1) % Plt Count 162 (140-400) K/mcL Neutrophils # 7.0 (1.6-8.9) K/mcL BMP 02/08/18 06:21 Sodium 139 Potassium 3.2 L Chloride 89 L Carbon Dioxide 45 H* BUN 6 L Creatinine 1.28 Glucose 127 H Calcium 8.5 L - ABG Interpretation ABG results: ABG ABG pH 7.50 pH Units (7.32-7.45) H 02/08/18 11:22 ABG pCO2 59 mmHg (35-45) H 02/08/18 11:22 ABG pO2 81 mmHg (85-104) L 02/08/18 11:22 ABG O2 Saturation 96 % (95-98) 02/08/18 11:22 - VTE Documentation of Mechanical Device: Intermittent pneumatic compression device Consult Discharge Plan - Plan [facility]errals: [facility] [Primary Care Provider] - 02/19/18 9:30 am (Please follow up as schedule....)
[2018-02-08] MEDS: Melatonin 3 MG TABLET PO SCH (19:40)
[2018-02-09] MEDS: Ipratropium/Albuterol Neb 3 ML IH SCH ×3 (00:07→16:29)
[2018-02-09 02:31] LABS: ABG Base Excess 16 mEq/L (-2 to 3); ABG HCO3 41 mEq/L (21-27); ABG Oxygen Saturation 95 % (95-98); ABG PCO2 54 mmHg (35-45); ABG PH 7.49 pH Units (7.32-7.45); ABG PO2 70 mmHg (85-104); ABG TCO2 43 mEq/L (20-26)
[2018-02-09 03:02] LABS: Basophils % 0.2 %; Eosinophils # 0.1 K/mcL (0.0-0.6); Hematocrit 30.5 % (37.5-50.1); Hemoglobin 9.9 g/dL (12.9-16.9); Immature Granulocytes % 0.8 % (0-4); Lymphocytes # 1.1 K/mcL (0.6-4.6); Lymphocytes % 9.9 %; Mean Corpuscular HGB Conc 32.5 g/dL (31.6-35.5); Mean Corpuscular Hemoglobin 31.4 pg (28.0-33.3); Mean Corpuscular Volume 96.8 fL (83.0-100.0); Mean Platelet Volume 9.8 fL (9.4-12.4); Monocytes # 1.4 K/mcL (0.0-1.3); Monocytes % 12.9 %; Platelet Count 137 K/mcL (140-400); Red Blood Count 3.15 M/mcL (4.19-5.50); Segmented Neutrophils % 75.2 %
[2018-02-09 03:28] LABS: BUN/Creatinine Ratio 5 (6-26); Blood Urea Nitrogen 6 mg/dL (8-23); Calcium 8.5 mg/dL (8.6-10.3); Carbon Dioxide 41 mEq/L (23-29); Chloride 91 mEq/L (98-107); Glucose 125 mg/dL (70-105); Osmolality,Calculated 283 (280-300); Potassium 3.2 mEq/L (3.5-5.1); Sodium 137 mEq/L (136-145); eGFR For African Americans > 60 (> 60); eGFR For Non-African Americans > 60 (> 60)
[2018-02-09] MEDS: *HR* Heparin 5,000 UNIT/ML VIAL SQ SCH ×2 (06:16→17:13)
[2018-02-09] MEDS: Lactulose Oral Soln 20 GM/30 ML UDC PO SCH ×3 (08:17→20:26)
[2018-02-09] MEDS: Cholecalciferol (D-3) 1,000 UNIT TABLET PO SCH (08:18)
[2018-02-09] MEDS: Valproic Acid 250 MG CAPSULE PO SCH ×2 (08:18→16:12)
[2018-02-09] MEDS: Aspirin Enteric Coated 81 MG Tablet PO SCH (08:18)
[2018-02-09] MEDS: Nicotine 21 MG PATCH.TD24 TD SCH (08:19)
[2018-02-09] MEDS: Folic Acid 1 MG TABLET PO SCH (08:19)
[2018-02-09] MEDS: levoFLOXacin 750 MG TABLET PO SCH (08:19)
[2018-02-09] MEDS: Thiamine (B-1) 100 MG TABLET PO SCH (08:19)
--- NOTE | 2018-02-09 13:16 | Internal Med Progress Note ---
Date of Encounter: 02/09/18 Time of Encounter: 13:10 - Assessment and plan (1) Acute hepatic encephalopathy Current Visit: No Status: Acute Assessment and plan: He seemed to improve medically but it is noted that he waxes and wanes with episodes of confusion and delusions. - Continued treatment with lactulose and Xifaxan - DC Levaquin and start other antibiotic therapy, possibly source of increased confusion. - I am unsure if he will be able to safely take care of himself at home given his episodes of bizaare behavior and thoughts. His lactulose and Xifaxan need to be compliant to prevent further episodes. PT/OT did recommend SNF. I feel this will be safer alternative for him. (2) Acute respiratory failure Current Visit: Yes Status: Acute Assessment and plan: Acute on chronic hypoxic hypercapnic respiratory failure secondary to: combination of hepatic encephalopathy, diastolic CHF and acute COPD possibly secondary to healthcare associated pneumonia present upon admission. Patient required admission to ICU and intubation. Currently on telemetry floor with gradual improvement. Currently feeling better KUB 6/5 showed LL airspace disease DC Levaquin may be precipitating acute confusion. Switch to Doxycycline - Patient high risk and needs close monitoring at this point. Qualifiers: Respiratory failure complication: hypercapnia Qualified Code(s): J96.02 - Acute respiratory failure with hypercapnia (3) Acute and chronic respiratory failure Current Visit: No Status: Acute Assessment and plan: As above. Patient able to stay on 2 L for now, home O2 level. Qualifiers: Respiratory failure complication: hypoxia and hypercapnia Qualified Code(s) : J96.21 - Acute and chronic respiratory failure with hypoxia; J96.22 - Acute and chronic respiratory failure with hypercapnia (4) Prostate cancer Current Visit: No Status: Chronic (5) Hyperammonemia Current Visit: Yes Status: Acute Assessment and plan: Continue Xifaxan and lactulose (6) Tobacco abuse Current Visit: No Status: Chronic Assessment and plan: Nicotine patch (7) Acute exacerbation of CHF (congestive heart failure) Current Visit: Yes Status: Acute Assessment and plan: Plan as above. Qualifiers: Heart failure type: diastolic Qualified Code(s): I50.33 - Acute on chronic diastolic (congestive) heart failure - Time Spent With Patient Total time spent is greater than 50% in coordination of care (as documented) at patient's floor/unit and/or counseling patient: - Subjective Interval history: No acute events. Patient emphasizes he is feeling much better and tells me today his leg swelling has decreased significantly. Unable to tell me year, month, president, location. Able to tell me name and situation. 02/08: He is now aware of person, place, time, situation. States breathing is at baseline. 02/09: reported that he has been confused overnight. Also nursing today notes that he does have delusional thoughts throughout the morning. To me he is cooperative, and expresses a few episodes of confusion as well. Denies SOB, [place] , chest pain. - Constitutional Vitals: Temp Pulse Resp BP Pulse Ox 99.3 F 82 15 124/68 91 02/09/18 11:19 02/09/18 11:19 02/09/18 11:19 02/09/18 11:02/09/18 11:19 General appearance: Present: A&O X 3 Exam: CVS: RRR Lungs: Poor inspiratory effort. decreased lung sound, course rales throughout. . No wheezing Abd: soft,NT, ND Ext:1+ nonpitting edema. Internal Medicine: Result - Labs CBC & Chem 7: 02/09/18 02:51 02/09/18 02:51 Labs: Short CBC 02/09/18 Range/Units 02:51 WBC 10.6 (4.3-11.1) K/mcL Hgb 9.9 L (12.9-16.9) g/dL Hct 30.5 L (37.5-50.1) % Plt Count 137 L (140-400) K/mcL Neutrophils # 8.0 (1.6-8.9) K/mcL BMP 02/09/18 02:51 Sodium 137 Potassium 3.2 L Chloride 91 L Carbon Dioxide 41 H* BUN 6 L Creatinine 1.12 Glucose 125 H Calcium 8.5 L - ABG Interpretation ABG results: ABG ABG pH 7.49 pH Units (7.32-7.45) H 02/09/18 02:28 ABG pCO2 54 mmHg (35-45) H 02/09/18 02:28 ABG pO2 70 mmHg (85-104) L 02/09/18 02:28 ABG O2 Saturation 95 % (95-98) 02/09/18 02:28 - VTE Documentation of Mechanical Device: Intermittent pneumatic compression device Consult Discharge Plan - Plan [facility]errals: [facility] [Primary Care Provider[facility] - 02/19/18 9:30 am (Please follow up as schedule....)
[2018-02-09] MEDS ORDERED: Nitroglycerin 0.4 MG TAB.SUBL SL PRN (15:18)
[2018-02-09 15:46] LABS: Basophils % 0.2 %; Eosinophils # 0.1 K/mcL (0.0-0.6); Eosinophils % 0.5 %; Hematocrit 31.6 % (37.5-50.1); Immature Granulocytes % 0.7 % (0-4); Mean Corpuscular HGB Conc 31.6 g/dL (31.6-35.5); Mean Corpuscular Hemoglobin 30.7 pg (28.0-33.3); Mean Corpuscular Volume 96.9 fL (83.0-100.0); Mean Platelet Volume 10.4 fL (9.4-12.4); Monocytes # 1.6 K/mcL (0.0-1.3); Neutrophils # 11.4 K/mcL (1.6-8.9); Platelet Count 136 K/mcL (140-400); Red Blood Count 3.26 M/mcL (4.19-5.50); Red Cell Distribution Width 14.9 % (11.5-14.5); Segmented Neutrophils % 80.6 %
[2018-02-09 16:06] LABS: Alanine Aminotransferase 9 Units/L (7-52); Albumin 3.2 g/dL (3.5-5.7); Albumin/Globulin Ratio 1.2 (1.1-2.2); Alkaline Phosphatase 103 Units/L (34-104); Aspartate Amino Transferase 16 Units/L (13-39); BUN/Creatinine Ratio 7 (6-26); Bilirubin,Direct 0.1 mg/dL (0.0-0.2); Bilirubin,Indirect 0.4 mg/dL (0.0-1.2); Bilirubin,Total 0.5 mg/dL (0.3-1.0); Blood Urea Nitrogen 7 mg/dL (8-23); Carbon Dioxide 36 mEq/L (23-29); Chloride 94 mEq/L (98-107); Globulin 2.7 g/dL (2.4-3.5); Glucose 108 mg/dL (70-105); Osmolality,Calculated 283 (280-300); Potassium 3.8 mEq/L (3.5-5.1); Sodium 137 mEq/L (136-145); Total Protein 5.9 g/dL (6.4-8.9); Troponin I < 0.03 ng/mL (< 0.04); eGFR For African Americans > 60 (> 60); eGFR For Non-African Americans > 60 (> 60)
[2018-02-09] MEDS ORDERED: *HR* HYDROcodone/Acet 7.5/325 mg TABLET PO PRN (19:59)
[2018-02-09] MEDS ORDERED: *HR* LORazepam 2 MG/ML VIAL IVP ONE (19:59)
[2018-02-09] MEDS ORDERED: *HR* OxyCODONE/APAP 10/325 TABLET PO PRN (20:00)
[2018-02-09] MEDS: Doxycycline 100 MG CAPSULE PO SCH (20:25)
[2018-02-09] MEDS: Acetaminophen 325 MG TABLET PO PRN (20:25)
[2018-02-09] MEDS: Melatonin 3 MG TABLET PO SCH (20:26)
[2018-02-10] MEDS: Ipratropium/Albuterol Neb 3 ML IH SCH ×3 (02:25→16:00)
[2018-02-10] MEDS: Acetaminophen 325 MG TABLET PO PRN ×2 (04:04→17:56)
[2018-02-10] MEDS: *HR* Heparin 5,000 UNIT/ML VIAL SQ SCH ×2 (05:59→16:48)
[2018-02-10 08:04] LABS: Basophils % 0.3 %; Eosinophils # 0.1 K/mcL (0.0-0.6); Eosinophils % 0.5 %; Hematocrit 29.1 % (37.5-50.1); Hemoglobin 9.4 g/dL (12.9-16.9); Immature Granulocytes % 0.6 % (0-4); Lymphocytes # 1.3 K/mcL (0.6-4.6); Lymphocytes % 9.2 %; Mean Corpuscular HGB Conc 32.3 g/dL (31.6-35.5); Mean Corpuscular Hemoglobin 31.2 pg (28.0-33.3); Mean Corpuscular Volume 96.7 fL (83.0-100.0); Mean Platelet Volume 10.7 fL (9.4-12.4); Monocytes # 1.8 K/mcL (0.0-1.3); Monocytes % 12.9 %; Neutrophils # 10.8 K/mcL (1.6-8.9); Platelet Count 109 K/mcL (140-400); Red Blood Count 3.01 M/mcL (4.19-5.50); Segmented Neutrophils % 76.5 %
[2018-02-10 08:23] LABS: BUN/Creatinine Ratio 12 (6-26); Blood Urea Nitrogen 9 mg/dL (8-23); Calcium 8.5 mg/dL (8.6-10.3); Carbon Dioxide 32 mEq/L (23-29); Chloride 99 mEq/L (98-107); Glucose 94 mg/dL (70-105); Osmolality,Calculated 282 (280-300); Potassium 3.5 mEq/L (3.5-5.1); Sodium 137 mEq/L (136-145); eGFR For African Americans > 60 (> 60); eGFR For Non-African Americans > 60 (> 60)
[2018-02-10] MEDS: Lactulose Oral Soln 20 GM/30 ML UDC PO SCH ×3 (08:46→19:32)
[2018-02-10] MEDS: Nicotine 21 MG PATCH.TD24 TD SCH (08:46)
[2018-02-10] MEDS: Aspirin Enteric Coated 81 MG Tablet PO SCH (08:47)
[2018-02-10] MEDS: Doxycycline 100 MG CAPSULE PO SCH ×2 (08:47→19:32)
[2018-02-10] MEDS: Folic Acid 1 MG TABLET PO SCH (08:47)
[2018-02-10] MEDS: levoFLOXacin 750 MG TABLET PO SCH (08:47)
[2018-02-10] MEDS: Thiamine (B-1) 100 MG TABLET PO SCH (08:47)
[2018-02-10] MEDS: Valproic Acid 250 MG CAPSULE PO SCH ×2 (08:47→16:48)
[2018-02-10] MEDS: Cholecalciferol (D-3) 1,000 UNIT TABLET PO SCH (08:47)
--- NOTE | 2018-02-10 13:12 | Internal Med Progress Note ---
Date of Encounter: 02/10/18 Time of Encounter: 13:10 - Assessment and plan (1) Acute hepatic encephalopathy Current Visit: No Status: Acute Assessment and plan: He seemed to improve medically but it is noted that he waxes and wanes with episodes of confusion and delusions. - Continued treatment with lactulose and Xifaxan - Patient would not be able to safely take care of himself at home given his episodes of bizarre behavior and thoughts. Lactulose and Xifaxan need to be given on time to prevent recurrence. - PT/OT did recommend SNF. Dispo: - Patient was too confused presently for disposition planning - At this point, Patient and family are agreeable to placement, [facility]. Will arrange for Sunday. - Medically stable for discharge, will need placed. He was reluctant to do so initially but now agrees (2) Acute respiratory failure Current Visit: Yes Status: Acute Assessment and plan: Acute on chronic hypoxic hypercapnic respiratory failure secondary to: combination of hepatic encephalopathy, diastolic CHF and acute COPD possibly secondary to healthcare associated pneumonia present upon admission. Patient required admission to ICU and intubation. Currently on telemetry floor with gradual improvement. Currently feeling better KUB 6/5 showed LL airspace disease DC Levaquin may be precipitating acute confusion. Switch to Doxycycline - Patient high risk and needs close monitoring at this point. Qualifiers: Respiratory failure complication: hypercapnia Qualified Code(s): J96.02 - Acute respiratory failure with hypercapnia (3) Chest pain Current Visit: Yes Status: Acute Assessment and plan: Patient had episode of chest pain yesterday that was substernal but reproducible. A chest x-ray was negative ABG was unremarkable Troponin was negative x2 EKG showed a questionable ST depression in one lead but no contigous leads. Patient's roommate states that he has a recent stress test and follows-up with a Housekeeper Head Patient declines stress test Reproducible and patient had some back spasms at same time, this could also be musculoskelatal Qualifiers: Chest pain type: unspecified Qualified Code(s): R07.9 - Chest pain, unspecified (4) Acute and chronic respiratory failure Current Visit: No Status: Acute Assessment and plan: As above. Patient able to stay on 2 L for now, home O2 level. Qualifiers: Respiratory failure complication: hypoxia and hypercapnia Qualified Code(s) : J96.21 - Acute and chronic respiratory failure with hypoxia; J96.22 - Acute and chronic respiratory failure with hypercapnia (5) Prostate cancer Current Visit: No Status: Chronic (6) Hyperammonemia Current Visit: Yes Status: Acute Assessment and plan: Continue Xifaxan and lactulose (7) Tobacco abuse Current Visit: No Status: Chronic Assessment and plan: Nicotine patch (8) Acute exacerbation of CHF (congestive heart failure) Current Visit: Yes Status: Acute Assessment and plan: Plan as above. Start patient on Lasix 20 mg PO daily and monitor. Qualifiers: Heart failure type: diastolic Qualified Code(s): I50.33 - Acute on chronic diastolic (congestive) heart failure - Time Spent With Patient Total time spent is greater than 50% in coordination of care (as documented) at patient's floor/unit and/or counseling patient: - Subjective Interval history: No acute events. Patient emphasizes he is feeling much better and tells me today his leg swelling has decreased significantly. Unable to tell me year, month, president, location. Able to tell me name and situation. 02/08: He is now aware of person, place, time, situation. States breathing is at baseline. 02/09: reported that he has been confused overnight. Also nursing today notes that he does have delusional thoughts throughout the morning. To me he is cooperative, and expresses a few episodes of confusion as well. Denies SOB, [place] , chest pain. 02/10: Patient was agitated enough he needed a sitter again. He also needed Ativan overnight. Family present in room. They do believe patient may need placed to SNF and is not safe to go home. - Constitutional Vitals: Temp Pulse Resp BP Pulse Ox 99.0 F 73 16 128/73 98 02/10/18 11:50 02/10/18 11:50 02/10/18 11:50 02/10/18 11:50 02/10/18 11:50 General appearance: Present: A&O X 3 Exam: CVS: RRR Lungs: Poor inspiratory effort. decreased lung sound, course rales throughout. Abd: soft,NT, ND Ext:1+ nonpitting edema. Internal Medicine: Result - Labs CBC & Chem 7: 02/10/18 07:43 02/10/18 07:43 Labs: Short CBC 02/09/18 02/10/18 Range/Units 15:27 07:43 WBC 14.2 H 14.1 H (4.3-11.1) K/mcL Hgb 10.0 L 9.4 L (12.9-16.9) g/dL Hct 31.6 L 29.1 L (37.5-50.1) % Plt Count 136 L 109 L (140-400) K/mcL Neutrophils # 11.4 H 10.8 H (1.6-8.9) K/mcL BMP 02/09/18 02/10/18 15:27 07:43 Sodium 137 137 Potassium 3.8 3.5 Chloride 94 L 99 Carbon Dioxide 36 H 32 H BUN 7 L 9 Creatinine 0.96 0.77 Glucose 108 H 94 Calcium 9.0 8.5 L Cardiac Enzymes 02/09/18 02/09/18 Range/Units 15:27 21:04 Troponin I < 0.03 < 0.03 (< 0.04) ng/mL Liver Function 02/09/18 Range/Units 15:27 Total Bilirubin 0.5 (0.3-1.0) mg/dL Direct Bilirubin 0.1 (0.0-0.2) mg/dL AST 16 (13-39) Units/L ALT 9 (7-52) Units/L Alkaline Phosphatase 103 (34-104) Units/L Albumin 3.2 L (3.5-5.7) g/dL - ABG Interpretation ABG results: ABG ABG pH 7.49 pH Units (7.32-7.45) H 02/09/18 02:28 ABG pCO2 54 mmHg (35-45) H 02/09/18 02:28 ABG pO2 70 mmHg (85-104) L 02/09/18 02:28 ABG O2 Saturation 95 % (95-98) 02/09/18 02:28 - Impressions Impressions Chest X-Ray 02/09/18 15:02 IMPRESSION: Extubation. No acute airspace disease identified. D/ / Jorge Luis Nassar / Jorge Luis Nassar Interpreting Provider: Jorge Luis Nsasar - VTE Documentation of Mechanical Device: Intermittent pneumatic compression device Consult Discharge Plan - Plan Referrals: [facility] [Primary Care Provider] - 02/19/18 9:30 am (Patient will go to ECF)
[2018-02-10] MEDS: Furosemide 20 MG TABLET PO SCH (14:03)
[2018-02-10] MEDS: Melatonin 3 MG TABLET PO SCH (19:32)
[2018-02-11] MEDS: Ipratropium/Albuterol Neb 3 ML IH SCH ×2 (00:21→10:32)
[2018-02-11] MEDS: Acetaminophen 325 MG TABLET PO PRN (02:45)
[2018-02-11] MEDS: *HR* Heparin 5,000 UNIT/ML VIAL SQ SCH (06:03)
[2018-02-11 06:50] LABS: Basophils % 0.3 %; Eosinophils # 0.1 K/mcL (0.0-0.6); Eosinophils % 1.2 %; Hemoglobin 9.4 g/dL (12.9-16.9); Immature Granulocytes % 0.9 % (0-4); Immature Platelets 2.7 % (1.1-6.1); Lymphocytes # 1.3 K/mcL (0.6-4.6); Lymphocytes % 12.7 %; Mean Corpuscular HGB Conc 32.4 g/dL (31.6-35.5); Mean Corpuscular Hemoglobin 31.3 pg (28.0-33.3); Mean Corpuscular Volume 96.7 fL (83.0-100.0); Mean Platelet Volume 10.1 fL (9.4-12.4); Monocytes # 1.3 K/mcL (0.0-1.3); Monocytes % 11.9 %; Neutrophils # 7.7 K/mcL (1.6-8.9); Platelet Count 114 K/mcL (140-400); Red Cell Distribution Width 15.2 % (11.5-14.5)
[2018-02-11 07:07] LABS: BUN/Creatinine Ratio 12 (6-26); Blood Urea Nitrogen 9 mg/dL (8-23); Calcium 8.7 mg/dL (8.6-10.3); Carbon Dioxide 35 mEq/L (23-29); Chloride 102 mEq/L (98-107); Glucose 102 mg/dL (70-105); Osmolality,Calculated 293 (280-300); Potassium 3.2 mEq/L (3.5-5.1); Sodium 142 mEq/L (136-145); eGFR For African Americans > 60 (> 60); eGFR For Non-African Americans > 60 (> 60)
--- NOTE | 2018-02-11 08:10 | Electrocardiograph Report ---
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
--- NOTE | 2018-02-11 09:27 | Discharge Summary ---
- NOTES TO OUTPATIENT PROVIDER Notes to Outpatient Provider: - Recommend follow-up with GI as outpatient. - Recommend follow-up with Cardiology as outpatient. They preferred not to have a stress test here during admission. - patient agreeable to a Cardiology follow- up. - Follow-up resolution of pneumonia. - Follow-up with acute confusion. Likely hepatic related, this was reitterated with family and friends. - Recheck BMP. - Re evaluate if patient needs to continue Lasix. Orders not resulted at time of discharge: Pending orders 02/12/18 04:00 BMP [Basic Metabolic Panel] AM 0400 Complete Blood Count [HEME] AM 0400 Date of Encounter: 02/11/18 Time of Encounter: 09:24 - Discharge Diagnosis (1) Acute hepatic encephalopathy Priority: Primary Status: Acute (2) Acute respiratory failure Priority: Secondary Status: Acute Qualifiers: Respiratory failure complication: hypercapnia Qualified Code(s): J96.02 - Acute respiratory failure with hypercapnia (3) Chest pain Priority: Secondary Status: Acute Qualifiers: Chest pain type: unspecified Qualified Code(s): R07.9 - Chest pain, unspecified (4) Acute and chronic respiratory failure Priority: Secondary Status: Acute Qualifiers: Respiratory failure complication: hypoxia and hypercapnia Qualified Code(s) : J96.21 - Acute and chronic respiratory failure with hypoxia; J96.22 - Acute and chronic respiratory failure with hypercapnia (5) Prostate cancer Priority: Secondary Status: Chronic (6) Hyperammonemia Priority: Secondary Status: Acute (7) Tobacco abuse Priority: Secondary Status: Chronic (8) Acute exacerbation of CHF (congestive heart failure) Priority: Secondary Status: Acute Qualifiers: Heart failure type: diastolic Qualified Code(s): I50.33 - Acute on chronic diastolic (congestive) heart failure Hospital course: Mr. Felder is a 67 year old male with a past medical history of cirrhosis, COPD oxygen dependent, diastolic CHF, alcohol abuse, tobacco abuse who was recently discharged from this hospital last month where he was intubated, was found to be unresponsive saturating down to 70s at home, laying on the ground, was extremely confused, fell 1 day ago according to records and has a ulceration in his left for head, patient has been having increased leg edema. ABG showed a pH of 7.37 PCO2 of 74 PO2 of 191, ammonia level was 58, chest x- ray showed bibasilar opacities pneumonia, CT scan of the head showed mild diffuse atrophy with chronic small vessel ischemic disease in the left scalp swelling. White blood cell count is 15.1, the patient was on a BiPAP and received Levaquin. In the ED patient required mandie intubated and sent to the ICU for airway protection and administration of lactulose. He was treated for hepatic encephalopathy, HCAP, and CHF exacerbation. He was started on Levaqin, Solu medrol, Lasix, strict I/Os, fluid restriction. His respiratory status improved and he was extubated. His mental status improved and became more alert but he still had lack of orientation and confusion. He was able to be weaned to his home O2 level of 2 L/min. PT/OT was able to evaluate him once mental status improved and recommended ECF/SNF. Patient and family/friends agreed to this and he is being discharged in stable condition. He has completed 8 days of antibiotics. He will be discharged with Lasix. He is not safe to go home, concern with compliance issues and unable to care for himself so plan is to set him up to go to ECF/SNF as well as per PT/OT recommendation. - Time Spent with Patient Total time spent providing and/or coordinating discharge services: - Discharge Medications Home Medications: Aspirin [Lo-Dose Aspirin EC] 81 mg PO DAILY 01/06/18 [History] Baclofen 20 mg PO TID PRN 01/06/18 [History] Cholecalciferol (D-3) [Vitamin D] 2,000 unit PO DAILY 01/06/18 [History] Folic Acid 1 mg PO DAILY 01/06/18 [History] Ipratropium/Albuterol Neb [Duoneb] 3 ml IH TID 01/06/18 [History] Melatonin [Melatin] 3 mg PO HS 01/06/18 [History] Metoprolol [Lopressor] 12.5 mg PO BID 01/06/18 [History] Multivit-Min/FA/Lycopen/Lutein [A Thru Z Select Multivit Tab] 1 tab PO DAILY 02/18 [History] Ranitidine HCl [Acid Consumer Advocate] 150 mg PO BID 01/06/18 [History] Simvastatin [Zocor] 20 mg PO HS 01/06/18 [History] Thiamine (B-1) [Vitamin B-1] 100 mg PO DAILY 01/06/18 [History] Albuterol Neb [Proventil Neb] 2.5 mg IH Q2H PRN #1 pack 01/21/18 [Rx] Lactulose 30 gm PO TID #90 udc 01/21/18 [Rx] Rifaximin [Xifaxan] 550 mg PO BID #60 tablet 01/21/18 [Rx] Valproic Acid [Depakene] 500 mg PO BIDWM #60 capsule 01/21/18 [Rx] Fluticasone Propionate Nasal [Flonase] 1 spr NS BID 02/04/18 [History] Furosemide [Lasix] 20 mg PO BID tablet 02/11/18 [Rx] Nicotine Patch [Nicoderm] 21 mg TD DAILY patch.td24 02/11/18 [Rx] Potassium Chloride 10 meq PO DAILY tab.er.prt 02/11/18 [Rx] Allergies/Adverse Reactions: 3 Allergy/AdvReac Type Severity Reaction Status Date / Time No Known Allergies Allergy Verified 02/04/18 14:22 Date of admission: 02/04/18 13:58 [facility] care physician: [facility] Consults: 02/06/18 08:28 Consult to Physical Therapy [CONS] Stat Comment: Evaluate, develop and implement POC Reason for Consult: poor ambulation/confusion Does patient have active BEDREST order?: No Is patient medically & hemodynamically stable?: Yes 02/07/18 09:58 Consult to Tumbler Operator [CONS] Routine Reason for SW Consult: needs ecf Discharging clinician: Dwight Mayer - Constitutional Vitals: Temp Pulse Resp BP Pulse Ox 97.9 F 88 17 116/69 99 02/11/18 06:59 02/11/18 06:59 02/11/18 06:59 02/11/18 06:59 02/11/18 06:59 General appearance: Present: A&O X 3 Exam: CVS: RRR Lungs: Poor inspiratory effort. decreased lung sound, course rales throughout. . No wheezing Abd: soft,NT, ND Ext:1+ nonpitting edema. - Patient Status Disposition: Transfer SNF Condition: Critical Functional capacity at discharge: uses cane/walker Overall status at discharge: patient is progressing back to baseline - Discharge Instructions Follow Up With: [facility] [Primary Care Provider] - 02/19/18 9:30 am (Patient will go to [facility]) - Diet and Activity Activity: as per physical therapy Diet: low fat, low cholesterol, low salt diet - VTE Documentation of Mechanical Device: Intermittent pneumatic compression device
[2018-02-11] MEDS: Valproic Acid 250 MG CAPSULE PO SCH (09:38)
[2018-02-11] MEDS: Furosemide 20 MG TABLET PO SCH (09:38)
[2018-02-11] MEDS: Cholecalciferol (D-3) 1,000 UNIT TABLET PO SCH (09:38)
[2018-02-11] MEDS: Doxycycline 100 MG CAPSULE PO SCH (09:38)
[2018-02-11] MEDS: Nicotine 21 MG PATCH.TD24 TD SCH (09:38)
[2018-02-11] MEDS: Thiamine (B-1) 100 MG TABLET PO SCH (09:38)
[2018-02-11] MEDS: Folic Acid 1 MG TABLET PO SCH (09:38)
[2018-02-11] MEDS: Aspirin Enteric Coated 81 MG Tablet PO SCH (09:39)
[2018-02-11] MEDS: Lactulose Oral Soln 20 GM/30 ML UDC PO SCH ×2 (09:39→14:28)
[2018-02-11 11:53] VITALS: BP 116/70
--- NOTE | 2018-02-11 14:55 | Physician Discharge Referral ---
ExtendedCare Referral Info Institutional Level of Care: Skilled - Diagnosis (1) Acute and chronic respiratory failure Priority: Primary Status: Acute (2) Acute hepatic encephalopathy Priority: Secondary Status: Acute (3) Acute respiratory failure Priority: Secondary Status: Acute (4) Chest pain Priority: Secondary Status: Acute (5) Prostate cancer Priority: Secondary Status: Chronic (6) Hyperammonemia Priority: Secondary Status: Acute (7) Tobacco abuse Priority: Secondary Status: Chronic (8) Acute exacerbation of CHF (congestive heart failure) Priority: Secondary Status: Acute - Transfer Medications Home Medications: Aspirin [Lo-Dose Aspirin EC] 81 mg PO DAILY 01/06/18 [History] Baclofen 20 mg PO TID PRN 01/06/18 [History] Cholecalciferol (D-3) [Vitamin D] 2,000 unit PO DAILY 01/06/18 [History] Folic Acid 1 mg PO DAILY 01/06/18 [History] Ipratropium/Albuterol Neb [Duoneb] 3 ml IH TID 01/06/18 [History] Melatonin [Melatin] 3 mg PO HS 01/06/18 [History] Metoprolol [Lopressor] 12.5 mg PO BID 01/06/18 [History] Multivit-Min/FA/Lycopen/Lutein [A Thru Z Select Multivit Tab] 1 tab PO DAILY 02/18 [History] Ranitidine HCl [Acid Orchid Worker] 150 mg PO BID 01/06/18 [History] Simvastatin [Zocor] 20 mg PO HS 01/06/18 [History] Thiamine (B-1) [Vitamin B-1] 100 mg PO DAILY 01/06/18 [History] Albuterol Neb [Proventil Neb] 2.5 mg IH Q2H PRN #1 pack 01/21/18 [Rx] Lactulose 30 gm PO TID #90 udc 01/21/18 [Rx] Rifaximin [Xifaxan] 550 mg PO BID #60 tablet 01/21/18 [Rx] Valproic Acid [Depakene] 500 mg PO BIDWM #60 capsule 01/21/18 [Rx] Fluticasone Propionate Nasal [Flonase] 1 spr NS BID 02/04/18 [History] Furosemide [Lasix] 20 mg PO BID tablet 02/11/18 [Rx] Nicotine Patch [Nicoderm] 21 mg TD DAILY patch.td24 02/11/18 [Rx] Potassium Chloride 10 meq PO DAILY tab.er.prt 02/11/18 [Rx] Allergies/Adverse Reactions: 3 Allergy/AdvReac Type Severity Reaction Status Date / Time No Known Allergies Allergy Verified 02/04/18 14:22 - Respiratory Orders Oxygen / L per min (2) Smoking Cessation: Smoking cessation has been advised. For more information, call the [place] Tobacco Quit Line at 1-053-ZTZV-NOW. - Lab Orders Lab Orders: CBC - Ancillary Orders May use pressure relief devices daily prn, May go on KIKA w/family/respon libertarian w /meds at nurse discretion PRN - Advance Directives Code Status: Full Code - Mobility Orders Other (as per physical therapy) - Rehabiliation Orders Rehab Potential: Fair Rehab Orders: Evaluation for Physical Therapy, Evaluation for Occupational Therapy - Treatments Skin tear care topically daily PRN per policy, May check for fecal impaction rectally daily PRN - Diet Orders No Concentrated Sweets, Cardiac CERTIFICATION: I certify that the transfer of the above named patient to an Extended Care Facility is necessary for the continuing treatment of the diagnosis listed. The above information is true and accurate reflection of patient's current condition. Confidential - Redisclosure prohibited without a patient's written consent.
== END 2018-02-11 16:37 | DRG 194 ==
LOC: EMEROO 10:54 → SUATTDRO 13:58 → ICNU 13:58 → 2ANU 02-06 16:02
PROVIDERS: ADMIT Internal Medicine Pulmonary Disease; ATTEND Student in an Organized Health Care Education/Training Program

== ENCOUNTER 2018-05-03 06:29 | Inpatient (IN) ==
[2018-05-03] MEDS ORDERED: 0.9 % Sodium Chloride 1,000 ML IVC ONE (06:40)
[2018-05-03 07:10] LABS: Basophils % 0.5 %; Eosinophils # 1.5 K/mcL (0.0-0.6); Eosinophils % 18.1 %; Hematocrit 37.7 % (37.5-50.1); Hemoglobin 11.8 g/dL (12.9-16.9); Immature Granulocytes % 0.1 % (0-4); Lymphocytes % 23.9 %; Mean Corpuscular HGB Conc 31.3 g/dL (31.6-35.5); Mean Corpuscular Hemoglobin 29.4 pg (28.0-33.3); Mean Corpuscular Volume 93.8 fL (83.0-100.0); Mean Platelet Volume 9.7 fL (9.4-12.4); Monocytes # 0.8 K/mcL (0.0-1.3); Platelet Count 270 K/mcL (140-400); Red Blood Count 4.02 M/mcL (4.19-5.50); Red Cell Distribution Width 15.4 % (11.5-14.5); Segmented Neutrophils % 47.4 %
[2018-05-03 07:30] LABS: BUN/Creatinine Ratio 10 (6-26); Blood Urea Nitrogen 9 mg/dL (8-23); Calcium 9.6 mg/dL (8.6-10.3); Carbon Dioxide 37 mEq/L (23-29); Chloride 96 mEq/L (98-107); Glucose 107 mg/dL (70-105); Osmolality,Calculated 293 (280-300); Potassium 3.5 mEq/L (3.5-5.1); Sodium 142 mEq/L (136-145); eGFR For Non-African Americans > 60 (> 60)
[2018-05-03 07:31] LABS: Troponin I < 0.03 ng/mL (< 0.04)
[2018-05-03 07:36] LABS: Bilirubin,Urine Negative (Negative); Blood,Urine Negative (Negative); Clarity,Urine Clear (Clear); Color,Urine Yellow (Yellow); Glucose,Urine (UA) Normal (Normal); Ketones,Urine Negative (Negative); Leukocyte Esterase,Urine Small (Negative); Nitrite,Urine Negative (Negative); Protein,Urine Negative (Neg-Trace); Specific Gravity,Urine 1.012 (1.010-1.025); Urobilinogen,Urine Normal (Normal)
[2018-05-03] MEDS ORDERED: Ipratropium/Albuterol Neb 3 ML IH ONE (07:37)
--- NOTE | 2018-05-03 07:38 | Emergency Department Note ---
Disposition Clinical Impression: Hepatic encephalopathy Disposition: Admitted As Inpatient Condition: Fair Fall HPI - General Chief Complaint: ED Fall Stated Complaint: fall Time Seen by Provider: 05/03/18 06:39 Source: patient, EMS Mode of arrival: private vehicle Limitations: no limitations Nursing Notes Reviewed: Yes Vital Signs Reviewed: Yes - History of Present Illness HPI Narrative: Patient with history of COPD, cirrhosis, CAD presents from home by squad for evaluation of "falling". The reel fed printer states that the patient did not want to be transferred to the ER and denied any complaints, however, when the medic asked the patient to demonstrate his ability to stand and walk, the patient fell again. He denies feeling weak, but clearly has significant somnolence and generalized weakness. He actually denies any symptoms at all. When asked if he has been taking his medications. He states that the woman who lives with him and his son both help him get his medications. 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 Denies: headache, neck pain , numbness, weakness, chest pain, shortness of breath, abdominal pain, hematuria , unable to walk, lightheaded, vertigo, confusion - Related Data Home Medications Medication Instructions Recorded Confirmed Aspirin [Lo-Dose Aspirin EC] 81 mg PO DAILY 01/06/18 05/03/18 Baclofen 5 mg PO Q8HR PRN 01/06/18 05/03/18 Cholecalciferol (D-3) [Vitamin D] 2,000 unit PO DAILY 01/06/18 05/03/18 Folic Acid 1 mg PO DAILY 01/06/18 05/03/18 Melatonin [Melatin] 3 mg PO HS 01/06/18 05/03/18 Metoprolol [Lopressor] 12.5 mg PO BID 01/06/18 05/03/18 Multivit-Min/FA/Lycopen/Lutein [A 1 tab PO DAILY 01/06/18 05/03/18 Thru Z Select Multivit Tab] Ranitidine HCl [Acid [facility] Director] 150 mg PO BID 01/06/18 05/03/18 Simvastatin [Zocor] 20 mg PO HS 01/06/18 05/03/18 Fluticasone Propionate Nasal 2 spr NS DAILY 02/04/18 05/03/18 [Flonase] Acetaminophen [8 Hour] 650 mg PO Q6HR 05/03/18 05/03/18 Budesonide/Formoterol 160/4.5 2 puff IH BIDR 05/03/18 05/03/18 [Symbicort 160/4.5] Capsaicin [Capsaicin Hot Patch] 1 each TP QID 05/03/18 05/03/18 Cetirizine HCl [24Hour Allergy] 10 mg PO DAILY 05/03/18 05/03/18 Cetirizine HCl [Zyrtec] 10 mg PO DAILY 05/03/18 05/03/18 DiphenhydraMINE [Benadryl] 1 appl TID 05/03/18 05/03/18 Gabapentin [Neurontin] 300 mg PO Q8HR 05/03/18 05/03/18 Ipratropium/Albuterol Sulfate 3 ml IH TID 05/03/18 05/03/18 [Iprat-Albut 0.5-3(2.5) mg/3 ml] Lactulose [Enulose] 20 gm PO BID 05/03/18 05/03/18 Nicotine Polacrilex [Nicotine Gum] 4 mg BC PRN PRN 05/03/18 05/03/18 Nicotine Polacrilex [Nicotine 2 mg BC PRN PRN 05/03/18 05/03/18 Lozenge] Potassium Chloride [Klor-Con 10] 10 meq PO DAILY 05/03/18 05/03/18 Simvastatin [Zocor] 20 mg PO HS 05/03/18 05/03/18 Valproic Acid [Depakene] 500 mg PO BID 05/03/18 05/03/18 raNITIdine HCl [Zantac] 150 mg PO DAILY 05/03/18 05/03/18 traZODone [TraZODone] 50 mg PO HS 05/03/18 05/03/18 Previous Rx's Medication Instructions Recorded Albuterol Neb [Proventil Neb] 2.5 mg IH Q2H PRN #1 pack 01/21/18 Valproic Acid [Depakene] 500 mg PO BIDWM #60 capsule 01/21/18 Furosemide [Lasix] 20 mg PO BID tablet 02/11/18 Potassium Chloride 10 meq PO DAILY tab.er.prt 02/11/18 Allergies Allergy/AdvReac Type Severity Reaction Status Date / Time No Known Allergies Allergy Verified 05/03/18 11:00 All systems ED: reviewed and negative except as stated. Review of Systems: As Per HPI Constitutional: Denies: fever, chills Eyes: Denies: eye pain, eye discharge, vision change ENT ED: Denies: throat pain, dysphagia Cardiovascular: Denies: chest pain, orthopnea, syncope Respiratory: Reports: dyspnea (No worse than usual"). Denies: cough, wheezes Gastrointestinal: Denies: abdominal pain, nausea, vomiting, diarrhea Neurological: Denies: headache, weakness, numbness, paresthesias, confusion, abnormal gait (patient in denial), vertigo Hematological/Lymphatic: Denies: easy bleeding, easy bruising Fall PMH - Past Medical History Medical history: Reports: arthritis, cancer, cirrhosis, COPD, hypertension, liver disease, other Surgical history: Reports: orthopedic, other Psychiatric history: Reports: no psych history - Social History Smoking Status: Current every day smoker Alcohol use: Reports: none Drug use: Reports: none Physical Exam - General Limitations: no limitations General appearance: in no apparent distress, lethargic (arouses to verbal stimulous, somnolent) - Head Head exam: normocephalic - Expanded Head Exam Head exam physicial: Present: abrasion, contusion 1 - contusion and superficial abrasion - no crepitus, tenderness or deformity 2 - abrasion - no crepitus, tenderness or deformity. - Eye Eye exam: Present: normal appearance, PERRL. Absent: scleral icterus, conjunctival injection, nystagmus, miosis, mydriasis, periorbital swelling - ENT ENT exam: mucous membranes dry - Neck Neck exam: Present: normal inspection, full ROM, trachea midline. Absent: tenderness - Chest Chest inspection: Present: normal inspection - Respiratory Respiratory exam: Present: prolonged expiratory phase. Absent: respiratory distress, wheezes, stridor, accessory muscle use - Expanded Respiratory Exam Location: rales: Left, Right, Lower - Cardiovascular Cardiovascular exam: Present: regular rate, normal rhythm - Abdominal Exam Abdominal exam: Present: soft, Non-Tender. Absent: distention, guarding, rebound, rigidity, ascites, mass - Extremities Exam Extremities exam: Present: normal inspection, full ROM, normal capillary refill. Absent: pedal edema, joint swelling - Neurological Exam Neurological exam: Present: oriented X3, CN II-XII intact, reflexes normal. Absent: motor sensory deficit - Expanded Neurological Exam Patient oriented to: Present: person, place, time Speech: Present: fluid speech Cranial nerves: EOM function (II, III, IV, ): Normal, facial sensation (V): Normal, facial palsy (VII): Normal, gag reflex (IX): Normal, spinal accessory function (XI): Normal, tongue deviation (XII): Normal Cerebellar function: heel to currie: Normal Motor strength - LUE: 2/5 Motor strength - RUE: 2/5 Motor strength - LLE: 2/5 Motor strength - RLE: 2/5 Upper motor neuron exam: zhang neglect: Absent bilaterally Sensory exam upper extremity: light touch: Normal Sensory exam lower extremity: light touch: Normal Coma Scale Eye Opening: To Voice Coma Scale Motor Response: Obeys Commands Coma Scale Verbal Response: Oriented Coma Scale Total: 14 - Psychiatric Psychiatric exam: Present: normal affect, normal mood - Skin Skin exam: Present: warm, dry, intact, normal color Course Course Narrative: Patient brought in by squad for evaluation of falling. He initially tried to refuse transport stating that he did not need to come in. He was unable to demonstrate the ability to walk or even stand for the paramedics. Thus they brought him in for evaluation. He denies any pain or other complaints at this time. He is somnolent but arouses to verbal stimulus and when given enough time is oriented to person, place, time and event. Labs and x-rays ordered along with a DuoNeb. EKG shows a normal sinus rhythm with normal intervals, no acute changes compared to previous from 2017, no ST elevation or depression. EKG reviewed by attending physician Dr. donohue as well. Case discussed with Dr. donohue. He has had [id number] time with patient and agrees with the assessment and plan. Suspect metabolic encephalopathy. X-ray shows some atelectasis versus possible early pneumonia. Patient is afebrile with no cough and a normal lactate and normal white blood cell count. I feel that pneumonia is very unlikely. His ammonia is elevated at 64. Hospitalist contacted for admission. Lactulose given. Vital Signs Temperature 97.8 F 05/03/18 06:33 Pulse Rate 64 05/03/18 06:33 Respiratory Rate 18 05/03/18 06:33 Blood Pressure 122/65 05/03/18 06:33 O2 Sat by Pulse Oximetry 93 05/03/18 06:33 Temperature 97.7 F 05/03/18 16:38 Pulse Rate 85 05/03/18 16:38 Respiratory Rate 18 05/03/18 16:38 Blood Pressure 133/71 05/03/18 16:38 O2 Sat by Pulse Oximetry 96 05/03/18 16:38 Oxygen Delivery Oxygen Delivery Nasal Cannula Fall - Medical Records Medical records reviewed: Yes I reviewed the patient's medical records. - Lab Data Lab results reviewed: Yes I reviewed the patient's lab results. Lab results narrative: Laboratory Last Values WBC 8.4 K/mcL (4.3-11.1) 05/03/18 06:59 RBC 4.02 M/mcL (4.19-5.50) L 05/03/18 06:59 Hgb 11.8 g/dL (12.9-16.9) L 05/03/18 06:59 Hct 37.7 % (37.5-50.1) 05/03/18 06:59 MCV 93.8 fL (83.0-100.0) 05/03/18 06:59 MCH 29.4 pg (28.0-33.3) 05/03/18 06:59 MCHC 31.3 g/dL (31.6-35.5) L 05/03/18 06:59 RDW 15.4 % (11.5-14.5) H 05/03/18 06:59 Plt Count 270 K/mcL (140-400) 05/03/18 06:59 MPV 9.7 fL (9.4-12.4) 05/03/18 06:59 Immature Gran % 0.1 % (0-4) 05/03/18 06:59 Seg Neutrophils % 47.4 % 05/03/18 06:59 Lymphocytes % 23.9 % 05/03/18 06:59 Monocytes % 10.0 % 05/03/18 06:59 Eosinophils % 18.1 % 05/03/18 06:59 Basophils % 0.5 % 05/03/18 06:59 Neutrophils # 4.0 K/mcL (1.6-8.9) 05/03/18 06:59 Lymphocytes # 2.0 K/mcL (0.6-4.6) 05/03/18 06:59 Monocytes # 0.8 K/mcL (0.0-1.3) 05/03/18 06:59 Eosinophils # 1.5 K/mcL (0.0-0.6) H 05/03/18 06:59 Basophils # 0.0 K/mcL (0.0-0.2) 05/03/18 06:59 PT 10.0 Seconds (9.4-12.1) 05/03/18 12:31 INR 0.9 05/03/18 12:31 Sample Site L Brach 05/03/18 12:38 ABG pH 7.30 pH Units (7.32-7.45) L 05/03/18 12:38 ABG pCO2 90 mmHg (35-45) H* 05/03/18 12:38 ABG pO2 106 mmHg (85-104) H 05/03/18 12:38 ABG HCO3 44 mEq/L (21-27) H 05/03/18 12:38 ABG Total CO2 47 mEq/L (20-26) H 05/03/18 12:38 ABG O2 Saturation 97 % (95-98) 05/03/18 12:38 ABG Base Excess 14 mEq/L (-2 to 3) H 05/03/18 12:38 Arvind Test Positive 05/03/18 12:38 O2 Delivery Device Cannula 05/03/18 12:38 Inspired O2 32.0 (1-15=lpm vd25-122=%) 05/03/18 12:38 Sodium 142 mEq/L (136-145) 05/03/18 06:59 Potassium 3.5 mEq/L (3.5-5.1) 05/03/18 06:59 Chloride 96 mEq/L (98-107) L 05/03/18 06:59 Carbon Dioxide 37 mEq/L (23-29) H 05/03/18 06:59 BUN 9 mg/dL (8-23) 05/03/18 06:59 Creatinine 0.93 mg/dL (0.70-1.30) 05/03/18 06:59 Est GFR ( Amer) > 60 (> 60) 05/03/18 06:59 Est GFR (Non-Af Amer) > 60 (> 60) 05/03/18 06:59 BUN/Creatinine Ratio 10 (6-26) 05/03/18 06:59 Glucose 107 mg/dL (70-105) H 05/03/18 06:59 POC Glucose 96 mg/dL (70-99) 05/03/18 06:47 Calculated Osmolality 293 (280-300) 05/03/18 06:59 Lactic Acid 1.9 mmol/L (0.5-2.2) 05/03/18 06:59 Calcium 9.6 mg/dL (8.6-10.3) 05/03/18 06:59 Ammonia 62 mcmol/L (16-53) H 05/03/18 08:08 Troponin I < 0.03 ng/mL (< 0.04) 05/03/18 06:59 Urine Color Yellow (Yellow) 05/03/18 07:20 Urine Clarity Clear (Clear) 05/03/18 07:20 Urine pH 6.0 pH Units (5.0-8.0) 05/03/18 07:20 Ur Specific [place] 1.012 (1.010-1.025) 05/03/18 07:20 Urine Protein Negative mg/dL (Neg-Trace) 05/03/18 07:20 Urine Glucose (UA) Normal mg/dL (Normal) 05/03/18 07:20 Urine Ketones Negative mg/dL (Negative) 05/03/18 07:20 Urine Blood Negative (Negative) 05/03/18 07:20 Urine Nitrite Negative (Negative) 05/03/18 07:20 Urine Bilirubin Negative (Negative) 05/03/18 07:20 Urine Urobilinogen Normal mg/dL (Normal) 05/03/18 07:20 Ur Leukocyte Esterase Small (Negative) H 05/03/18 07:20 Urine Microscopic RBC 0-3 per hpf (0-3) 05/03/18 07:20 Urine Microscopic WBC 15-30 per hpf (0-3) H 05/03/18 07:20 Ur Squamous Epith Cells Many per lpf (None-Few) H 05/03/18 07:20 Urine Bacteria None Seen per hpf (None-Few) 05/03/18 07:20 Hyaline Casts None Seen per lpf (None-Few) 05/03/18 07:20 Ur Culture Indicated? NO. (NO) A 05/03/18 07:20 Salicylates < 2.5 mg/dL (15.0-30.0) L 05/03/18 12:31 Acetaminophen < 10 mcg/mL (10-20) L 05/03/18 12:31 Ethyl Alcohol < 10 mg/dL (Less than 10) 05/03/18 12:31 Result diagrams: 05/03/18 06:59 05/03/18 06:59 Lab Results 05/03/18 05/03/18 05/03/18 Range/Units 06:47 06:59 06:59 WBC 8.4 (4.3-11.1) K/mcL RBC 4.02 L (4.19-5.50) M/mcL Hgb 11.8 L (12.9-16.9) g/dL Hct 37.7 (37.5-50.1) % MCV 93.8 (83.0-100.0) fL MCH 29.4 (28.0-33.3) pg MCHC 31.3 L (31.6-35.5) g/dL RDW 15.4 H (11.5-14.5) % Plt Count 270 (140-400) K/mcL MPV 9.7 (9.4-12.4) fL Immature Gran % 0.1 (0-4) % Seg Neutrophils % 47.4 % Lymphocytes % 23.9 % Monocytes % 10.0 % Eosinophils % 18.1 % Basophils % 0.5 % Neutrophils # 4.0 (1.6-8.9) K/mcL Lymphocytes # 2.0 (0.6-4.6) K/mcL Monocytes # 0.8 (0.0-1.3) K/mcL Eosinophils # 1.5 H (0.0-0.6) K/mcL Basophils # 0.0 (0.0-0.2) K/mcL PT (9.4-12.1) Seconds INR Sample Site ABG pH (7.32-7.45) pH Units ABG pCO2 (35-45) mmHg ABG pO2 (85-104) mmHg ABG HCO3 (21-27) mEq/L ABG Total CO2 (20-26) mEq/L ABG O2 Saturation (95-98) % ABG Base Excess (-2 to 3) mEq/L Arvind Test O2 Delivery Device Inspired O2 (1-15=lpm dt48-136=%) Sodium 142 (136-145) mEq/L Potassium 3.5 (3.5-5.1) mEq/L Chloride 96 L (98-107) mEq/L Carbon Dioxide 37 H (23-29) mEq/L BUN 9 (8-23) mg/dL Creatinine 0.93 (0.70-1.30) mg/dL Est GFR ( Amer) > 60 (> 60) Est GFR (Non-Af Amer) > 60 (> 60) BUN/Creatinine Ratio 10 (6-26) Glucose 107 H (70-105) mg/dL POC Glucose 96 (70-99) mg/dL Calculated Osmolality 293 (280-300) Lactic Acid (0.5-2.2) mmol/L Calcium 9.6 (8.6-10.3) mg/dL Ammonia (16-53) mcmol/L Troponin I < 0.03 (< 0.04) ng/mL Urine Color (Yellow) Urine Clarity (Clear) Urine pH (5.0-8.0) pH Units Ur Specific [place] (1.010-1.025) Urine Protein (Neg-Trace) mg/dL Urine Glucose (UA) (Normal) mg/dL Urine Ketones (Negative) mg/dL Urine Blood (Negative) Urine Nitrite (Negative) Urine Bilirubin (Negative) Urine Urobilinogen (Normal) mg/dL Ur Leukocyte Esterase (Negative) Urine Microscopic RBC (0-3) per hpf Urine Microscopic WBC (0-3) per hpf Ur Squamous Epith Cells (None-Few) per lpf Urine Bacteria (None-Few) per hpf Hyaline Casts (None-Few) per lpf Ur Culture Indicated? (NO) Salicylates (15.0-30.0) mg/dL Acetaminophen (10-20) mcg/mL Ethyl Alcohol (Less than 10) mg/dL 05/03/18 05/03/18 05/03/18 Range/Units 06:59 07:20 08:08 WBC (4.3-11.1) K/mcL RBC (4.19-5.50) M/mcL Hgb (12.9-16.9) g/dL Hct (37.5-50.1) % MCV (83.0-100.0) fL MCH (28.0-33.3) pg MCHC (31.6-35.5) g/dL RDW (11.5-14.5) % Plt Count (140-400) K/mcL MPV (9.4-12.4) fL Immature Gran % (0-4) % Seg Neutrophils % % Lymphocytes % % Monocytes % % Eosinophils % % Basophils % % Neutrophils # (1.6-8.9) K/mcL Lymphocytes # (0.6-4.6) K/mcL Monocytes # (0.0-1.3) K/mcL Eosinophils # (0.0-0.6) K/mcL Basophils # (0.0-0.2) K/mcL PT (9.4-12.1) Seconds INR Sample Site ABG pH (7.32-7.45) pH Units ABG pCO2 (35-45) mmHg ABG pO2 (85-104) mmHg ABG HCO3 (21-27) mEq/L ABG Total CO2 (20-26) mEq/L ABG O2 Saturation (95-98) % ABG Base Excess (-2 to 3) mEq/L Arvind Test O2 Delivery Device Inspired O2 (1-15=lpm oy12-002=%) Sodium (136-145) mEq/L Potassium (3.5-5.1) mEq/L Chloride (98-107) mEq/L Carbon Dioxide (23-29) mEq/L BUN (8-23) mg/dL Creatinine (0.70-1.30) mg/dL Est GFR ( Amer) (> 60) Est GFR (Non-Af Amer) (> 60) BUN/Creatinine Ratio (6-26) Glucose (70-105) mg/dL POC Glucose (70-99) mg/dL Calculated Osmolality (280-300) Lactic Acid 1.9 (0.5-2.2) mmol/L Calcium (8.6-10.3) mg/dL Ammonia 62 H (16-53) mcmol/L Troponin I (< 0.04) ng/mL Urine Color Yellow (Yellow) Urine Clarity Clear (Clear) Urine pH 6.0 (5.0-8.0) pH Units Ur Specific [place] 1.012 (1.010-1.025) Urine Protein Negative (Neg-Trace) mg/dL Urine Glucose (UA) Normal (Normal) mg/dL Urine Ketones Negative (Negative) mg/dL Urine Blood Negative (Negative) Urine Nitrite Negative (Negative) Urine Bilirubin Negative (Negative) Urine Urobilinogen Normal (Normal) mg/dL Ur Leukocyte Esterase Small H (Negative) Urine Microscopic RBC 0-3 (0-3) per hpf Urine Microscopic WBC 15-30 H (0-3) per hpf Ur Squamous Epith Cells Many H (None-Few) per lpf Urine Bacteria None Seen (None-Few) per hpf Hyaline Casts None Seen (None-Few) per lpf Ur Culture Indicated? NO. A (NO) Salicylates (15.0-30.0) mg/dL Acetaminophen (10-20) mcg/mL Ethyl Alcohol (Less than 10) mg/dL 05/03/18 05/03/18 05/03/18 Range/Units 12:31 12:31 12:38 WBC (4.3-11.1) K/mcL RBC (4.19-5.50) M/mcL Hgb (12.9-16.9) g/dL Hct (37.5-50.1) % MCV (83.0-100.0) fL MCH (28.0-33.3) pg MCHC (31.6-35.5) g/dL RDW (11.5-14.5) % Plt Count (140-400) K/mcL MPV (9.4-12.4) fL Immature Gran % (0-4) % Seg Neutrophils % % Lymphocytes % % Monocytes % % Eosinophils % % Basophils % % Neutrophils # (1.6-8.9) K/mcL Lymphocytes # (0.6-4.6) K/mcL Monocytes # (0.0-1.3) K/mcL Eosinophils # (0.0-0.6) K/mcL Basophils # (0.0-0.2) K/mcL PT 10.0 (9.4-12.1) Seconds INR 0.9 Sample Site L Brach ABG pH 7.30 L (7.32-7.45) pH Units ABG pCO2 90 H* (35-45) mmHg ABG pO2 106 H (85-104) mmHg ABG HCO3 44 H (21-27) mEq/L ABG Total CO2 47 H (20-26) mEq/L ABG O2 Saturation 97 (95-98) % ABG Base Excess 14 H (-2 to 3) mEq/L Arvind Test Positive O2 Delivery Device Cannula Inspired O2 32.0 (1-15=lpm ng37-920=%) Sodium (136-145) mEq/L Potassium (3.5-5.1) mEq/L Chloride (98-107) mEq/L Carbon Dioxide (23-29) mEq/L BUN (8-23) mg/dL Creatinine (0.70-1.30) mg/dL Est GFR ( Amer) (> 60) Est GFR (Non-Af Amer) (> 60) BUN/Creatinine Ratio (6-26) Glucose (70-105) mg/dL POC Glucose (70-99) mg/dL Calculated Osmolality (280-300) Lactic Acid (0.5-2.2) mmol/L Calcium (8.6-10.3) mg/dL Ammonia (16-53) mcmol/L Troponin I (< 0.04) ng/mL Urine Color (Yellow) Urine Clarity (Clear) Urine pH (5.0-8.0) pH Units Ur Specific [place] (1.010-1.025) Urine Protein (Neg-Trace) mg/dL Urine Glucose (UA) (Normal) mg/dL Urine Ketones (Negative) mg/dL Urine Blood (Negative) Urine Nitrite (Negative) Urine Bilirubin (Negative) Urine Urobilinogen (Normal) mg/dL Ur Leukocyte Esterase (Negative) Urine Microscopic RBC (0-3) per hpf Urine Microscopic WBC (0-3) per hpf Ur Squamous Epith Cells (None-Few) per lpf Urine Bacteria (None-Few) per hpf Hyaline Casts (None-Few) per lpf Ur Culture Indicated? (NO) Salicylates < 2.5 L (15.0-30.0) mg/dL Acetaminophen < 10 L (10-20) mcg/mL Ethyl Alcohol < 10 (Less than 10) mg/dL - Radiology Data Radiology results reviewed: Yes I reviewed the patient's radiology results. Cervical Spine CT 05/03/18 06:40 IMPRESSION: No acute abnormality of the cervical spine. Moderate diffuse degenerative changes. D/ / Linus Barreto MD / Linus Barreto MD Interpreting Provider: Linus Barreto MD Chest X-Ray 05/03/18 06:40 IMPRESSION: Probable slight right basilar atelectasis. Early pneumonia possible but unlikely. No other significant abnormality. D/ / Yan Maldonado MD / Yan Maldonado MD Interpreting Provider: Yan Maldonado MD Head CT 05/03/18 06:40 IMPRESSION: No acute intracranial hemorrhage or mass effect. D/ / Kendrick Contreras MD / Kendrick Contreras MD Interpreting Provider: Kendrick Contreras MD Attestation Statement - Attestation Attestation: I have personally performed a face to face evaluation on this patient. I have reviewed and agree with the care plan. History and Exam by me shows: A history of several serious diseases including hepatic encephalopathy likely implying cirrhosis but with medications that should help reduce likelihood of pneumonia accumulation. His evaluation today appears consistent with uncontrolled hepatic encephalopathy.
[2018-05-03 07:39] LABS: Bacteria,Urine None Seen per hpf (None-Few); Hyaline Casts,Urine None Seen per lpf (None-Few); RBC,Urine 0-3 per hpf (0-3); Squamous Epithelial Cell,Urine Many per lpf (None-Few); WBC,Urine 15-30 per hpf (0-3)
[2018-05-03] MEDS ORDERED: Lactulose Oral Soln 20 GM/30 ML UDC PO ONE (09:20)
[2018-05-03] MEDS ORDERED: Albuterol 2.5 MG/3 ML NEBULIZER IH PRN (11:53)
[2018-05-03] MEDS ORDERED: Naloxone 0.4 MG/ML INJ IVP PRN (11:55)
--- NOTE | 2018-05-03 12:03 | Internal Med History&Physical ---
Date of Encounter: 05/03/18 Time of Encounter: 12:02 Internal Medicine - H&P: HPI History of present illness: Mr. Felder is a 68 year old male with history of cirrhosis, COPD, CAD, diastolic heart failure, prostate cancer, tobacco abuse, documented alcohol abuse, presented for multiple falls. History is limited due to patient mental status. He is lethargic at bedside but arouses to verbal stimuli. Per son at bedside, he has been falling frequently. He has known episodes of hepatic encephalopathy with questionable compliance to medications. He was recently here 2 months ago and 3 months ago hepatic encephalopathy. When admitted two months ago, he was unresponsive and requried ICU admission and intubated. During that time PT/OT evaluated him and recommended SNF/ECF. Son at bedside said that he was supposed to go to [facility] but they did not have beds there. Son tells me that there is a possibility that patient has been missing doses of lactulose but the patient tells the son he takes as prescribed. In ED, CT head showed no acute process, an ammonia level was elevated at 62, which is above his baseline. Bicarb was elevated at 37, slightly above baseline. He was given Duo Neb treatment, 1 L normal saline. Patient and son verified he is DNR CCA. Past Med Surg Social Fam HX - Past Medical History Medical history: arthritis, cancer, cirrhosis, COPD, hypertension, liver disease , other Additional medical history: Prostate and colon cancer Psychiatric history: no psych history - Past Surgical History Surgical History: orthopedic, other - Social History Smoking Status: Current every day smoker Smokeless Tobacco Status: No Alcohol use: none Drug use: none Internal Medicine - H&P: Meds Aspirin [Lo-Dose Aspirin EC] 81 mg PO DAILY 01/06/18 [History] Baclofen 20 mg PO TID PRN 01/06/18 [History] Cholecalciferol (D-3) [Vitamin D] 2,000 unit PO DAILY 01/06/18 [History] Folic Acid 1 mg PO DAILY 01/06/18 [History] Melatonin [Melatin] 3 mg PO HS 01/06/18 [History] Metoprolol [Lopressor] 12.5 mg PO BID 01/06/18 [History] Multivit-Min/FA/Lycopen/Lutein [A Thru Z Select Multivit Tab] 1 tab PO DAILY 02/18 [History] Ranitidine HCl [Acid Casting And Locker Room Servicer] 150 mg PO BID 01/06/18 [History] Simvastatin [Zocor] 20 mg PO HS 01/06/18 [History] Thiamine (B-1) [Vitamin B-1] 100 mg PO DAILY 01/06/18 [History] Albuterol Neb [Proventil Neb] 2.5 mg IH Q2H PRN #1 pack 01/21/18 [Rx] Rifaximin [Xifaxan] 550 mg PO BID #60 tablet 01/21/18 [Rx] Valproic Acid [Depakene] 500 mg PO BIDWM #60 capsule 01/21/18 [Rx] Fluticasone Propionate Nasal [Flonase] 2 spr NS DAILY 02/04/18 [History] Furosemide [Lasix] 20 mg PO BID tablet 02/11/18 [Rx] Potassium Chloride 10 meq PO DAILY tab.er.prt 02/11/18 [Rx] Cetirizine HCl [24Hour Allergy] 10 mg PO DAILY 05/03/18 [History] Gabapentin [Neurontin] 900 mg PO QID 05/03/18 [History] 3 Allergy/AdvReac Type Severity Reaction Status Date / Time No Known Allergies Allergy Verified 05/03/18 11:00 ROS unobtainable: due to mental status All Systems PM: A 10-system review of systems was performed and is negative for pertinent findings except as documented above in the HPI. - Constitutional Vitals: Temp Pulse Resp BP Pulse Ox 98.2 F 73 17 142/63 100 05/03/18 11:58 05/03/18 11:58 05/03/18 11:58 05/03/18 11:58 05/03/18 11:58 Exam: Gen: Lethargic, responds to verbal stimuli and commands CVS: RRR Lungs: Poor air entry, diffuse wheezing, no rales Abd: soft, nt/nd Ext: trace bipedal edema Neuro: No focal deficits. CN II-XII grossly in tact. Internal Med - H&P Results - Labs CBC & Chem 7: 05/03/18 06:59 05/03/18 06:59 - Assessment and plan (1) Acute hepatic encephalopathy Current Visit: No Status: Acute Assessment and plan: Question as to weather or not patient is compliant with medication. Son at bedside tells me that he is compliant but does note that occasionally he has overslept and not taken medications. CT head negative for acute process. Hold sedating and STICK FEEDER depressant medications like baclofen for now. Will need to rule out other causes of encephalopathy, including toxic metabolic encephalopathy and CO2 narcosis. Obtain STAT ABG, serum alcohol, drug, aspirin , tylenol levels. (2) COPD exacerbation Current Visit: No Status: Acute Assessment and plan: Diffuse wheezing with poor air entry on exam. Chest x-ray negative. Start solu medrol, duo nebs scheduled. Stat ABG due to resp status and altered mental status rule out CO2 narcosis. (3) Generalized weakness Current Visit: No Status: Acute Assessment and plan: PT/OT eval (4) Hyperammonemia Current Visit: No Status: Acute Assessment and plan: Resume home medications. (5) (HFpEF) heart failure with preserved ejection fraction Current Visit: No Status: Chronic Assessment and plan: Not in acute exacerbation. Patient is highly prone to fluid overload so will hold off on IV fluids. (6) Prostate cancer Current Visit: No Status: Chronic (7) Tobacco abuse Current Visit: No Status: Chronic (8) Cirrhosis Current Visit: Yes Status: Acute Qualifiers: Hepatic cirrhosis type: unspecified hepatic cirrhosis Ascites presence: without ascites Qualified Code(s): K74.60 - Unspecified cirrhosis of liver (9) History of alcohol abuse Current Visit: Yes Status: Acute Assessment and plan: Due to his mental status, I cannot assess if he is a current drinker. Will place patient on CIWA protocol. (10) DVT prophylaxis Current Visit: No Status: Acute Assessment and plan: EPCD - Time Spent With Patient Total time spent is greater than 50% in coordination of care (as documented) at patient's floor/unit and/or counseling patient:
[2018-05-03] MEDS ORDERED: methylPREDNISolone 125 MG/2 ML VIAL IVP ONE (12:19)
[2018-05-03] MEDS ORDERED: Ipratropium/Albuterol Neb 3 ML ONE (12:28)
[2018-05-03] MEDS: Ipratropium/Albuterol Neb 3 ML IH SCH ×4 (12:36→23:37)
[2018-05-03 12:49] LABS: ABG Base Excess 14 mEq/L (-2 to 3); ABG HCO3 44 mEq/L (21-27); ABG Oxygen Saturation 97 % (95-98); ABG PCO2 90 mmHg (35-45); ABG PO2 106 mmHg (85-104); ABG TCO2 47 mEq/L (20-26)
[2018-05-03 12:55] LABS: INR 0.9
[2018-05-03 12:59] LABS: Acetaminophen < 10 mcg/mL (10-20); Ethanol < 10 mg/dL (Less than 10); Salicylate < 2.5 mg/dL (15.0-30.0)
[2018-05-03] MEDS: Gabapentin 300 MG CAPSULE PO SCH ×4 (17:18→23:02)
[2018-05-03] MEDS: Furosemide 20 MG TABLET PO SCH (17:24)
[2018-05-03] MEDS: MethylPREDNISolone 40 MG/ML VIAL IVP SCH (17:24)
[2018-05-03] MEDS: Valproic Acid 250 MG CAPSULE PO SCH (17:24)
[2018-05-03] MEDS ORDERED: Furosemide 20 MG TABLET PO SCH (21:00)
[2018-05-03] MEDS ORDERED: Nicotine 2 MG GUM BC PRN (21:50)
[2018-05-03] MEDS ORDERED: NON-FORMULARY MEDICATION 1 EACH EACH (Nicotine Polacrilex [Nicotine Lozenge] 2 MG) BC PRN (21:50)
[2018-05-03] MEDS: Melatonin 3 MG TABLET PO SCH (23:01)
[2018-05-03] MEDS: Budesonide/Formoterol 160/4.5 1 PUFF INH IH SCH (23:40)
[2018-05-04] MEDS: Famotidine 20 MG TABLET PO SCH ×3 (01:49→15:18)
[2018-05-04] MEDS: MethylPREDNISolone 40 MG/ML VIAL IVP SCH ×5 (01:49→23:15)
[2018-05-04] MEDS: Ipratropium/Albuterol Neb 3 ML IH SCH ×6 (03:17→22:50)
[2018-05-04 04:28] LABS: Hematocrit 34.5 % (37.5-50.1); Hemoglobin 10.9 g/dL (12.9-16.9); Immature Granulocytes % 0.4 % (0-4); Lymphocytes # 0.4 K/mcL (0.6-4.6); Lymphocytes % 9.2 %; Mean Corpuscular HGB Conc 31.6 g/dL (31.6-35.5); Mean Corpuscular Hemoglobin 29.5 pg (28.0-33.3); Mean Corpuscular Volume 93.5 fL (83.0-100.0); Mean Platelet Volume 9.6 fL (9.4-12.4); Monocytes # 0.1 K/mcL (0.0-1.3); Monocytes % 1.1 %; Neutrophils # 4.2 K/mcL (1.6-8.9); Platelet Count 225 K/mcL (140-400); Red Blood Count 3.69 M/mcL (4.19-5.50); Red Cell Distribution Width 15.1 % (11.5-14.5); Segmented Neutrophils % 89.3 %
[2018-05-04 04:58] LABS: BUN/Creatinine Ratio 13 (6-26); Blood Urea Nitrogen 11 mg/dL (8-23); Calcium 8.9 mg/dL (8.6-10.3); Carbon Dioxide 36 mEq/L (23-29); Chloride 99 mEq/L (98-107); Glucose 156 mg/dL (70-105); Osmolality,Calculated 295 (280-300); Potassium 4.7 mEq/L (3.5-5.1); Sodium 141 mEq/L (136-145); eGFR For Non-African Americans > 60 (> 60)
[2018-05-04] MEDS ORDERED: NON-FORMULARY MEDICATION 1 EACH EACH (Potassium Chloride [Klor-Con 10] 10 MEQ) PO SCH (09:00)
[2018-05-04] MEDS ORDERED: NON-FORMULARY MEDICATION 1 EACH EACH (Cetirizine Hcl [Zyrtec] 10 MG) PO SCH (09:00)
[2018-05-04] MEDS ORDERED: NON-FORMULARY MEDICATION 1 EACH EACH (Ranitidine Hcl [Zantac] 150 MG) PO SCH (09:00)
[2018-05-04] MEDS: Thiamine (B-1) 100 MG TABLET PO SCH (11:00)
[2018-05-04] MEDS: Valproic Acid 250 MG CAPSULE PO SCH ×2 (11:00→17:25)
[2018-05-04] MEDS: Loratadine 10 MG TABLET PO SCH (11:00)
[2018-05-04] MEDS: Gabapentin 300 MG CAPSULE PO SCH ×4 (11:00→20:36)
[2018-05-04] MEDS: Furosemide 20 MG TABLET PO SCH ×2 (11:00→17:25)
[2018-05-04] MEDS: Aspirin Enteric Coated 81 MG Tablet PO SCH (11:01)
[2018-05-04] MEDS: Folic Acid 1 MG TABLET PO SCH (11:01)
[2018-05-04] MEDS: Budesonide/Formoterol 160/4.5 1 PUFF INH IH SCH ×2 (11:17→20:03)
[2018-05-04] MEDS ORDERED: Azithromycin 250 MG TABLET PO SCH (13:00)
--- NOTE | 2018-05-04 13:03 | Internal Med Progress Note ---
Hospitalist Progress Note - Encounter Date of Encounter: 05/04/18 Time of Encounter: 12:59 - Subjective Interval History: Mr. Felder is a 68 year old male with history of cirrhosis, COPD, CAD, diastolic heart failure, prostate cancer, tobacco abuse, documented alcohol abuse, presented for multiple falls. In ED, CT head showed no acute process, an ammonia level was elevated at 62, which is above his baseline. Bicarb was elevated at 37, slightly above baseline. He was given Duo Neb treatment, 1 L normal saline. Patient and son verified he is DNR CCA. ABG on admission PCO2 90s Patient is doing better, he is alert, oriented to 1, confused with place and date. He said he was not wear BIPAP at home, not taking lactulose. He refused to go to SNF. still smokes 10 cigarette daily. After I discussed with benifit of BIPAP, he agrees to wear now and at night. I discussed with Nurse, will palced on BIPAP, recheck AGB and ammonia - Exam Vitals: Temp Pulse Resp BP Pulse Ox 98.1 F 85 18 97/59 98 05/04/18 11:01 05/04/18 11:01 05/04/18 11:18 05/04/18 11:01 05/04/18 11:18 Exam: CONSTITUTIONAL: patient appears as an age appropriate male in no acute distress. EYES Clear sclerae, bilateral pupils are equal, reactive to light. EMOI. RESPIRATORY: No accessory muscle use, bilateral deminished BS to auscultation, no wheezing, no crackles/rales. CARDIOVASCULAR: Regular heart rate, normal S1 and S2, no murmurs GASTROINTESTINAL: bowel sounds present, soft, no tenderness. MUSCULOSKELETAL: Joints in normal range of motion, no clubbing, no edema, no cyanosis. Bilateral peripheral pulses 2+. NEUROLOGIC: CN II to XII are grossly intact, no focal neurological deficit. - Assessment and Plan (1) Acute on chronic respiratory failure with hypoxia and hypercapnia Current Visit: Yes Status: Acute Assessment and Plan: conitnnue BIPAP (2) Metabolic encephalopathy Current Visit: No Status: Acute Assessment and Plan: likley from CO2 narcosis and hepatic encephalopathy, contineu BIPAP and added lactulose to Rifaximin (3) COPD exacerbation Current Visit: No Status: Acute Assessment and Plan: conitnue IV steroids, add azithromycin (4) Chronic diastolic (congestive) heart failure Current Visit: Yes Status: Chronic Assessment and Plan: conitnue lasix (5) Tobacco abuse Current Visit: Yes Status: Chronic Assessment and Plan: patient declined nicotine patch (6) Cirrhosis Current Visit: Yes Status: Acute (7) Prostate cancer Current Visit: Yes Status: Chronic (8) DVT prophylaxis Current Visit: Yes Status: Acute (9) Hyperammonemia Current Visit: Yes Status: Acute - Time Spent with Patient Total time spent is greater than 50% in coordination of care (as documented) at patient's floor/unit and/or counseling patient: Internal Medicine: Result - Labs CBC & Chem 7: 05/04/18 04:14 05/04/18 04:14 Labs: Short CBC 05/04/18 Range/Units 04:14 WBC 4.7 (4.3-11.1) K/mcL Hgb 10.9 L (12.9-16.9) g/dL Hct 34.5 L (37.5-50.1) % Plt Count 225 (140-400) K/mcL Neutrophils # 4.2 (1.6-8.9) K/mcL BMP 05/04/18 04:14 Sodium 141 Potassium 4.7 D Chloride 99 Carbon Dioxide 36 H BUN 11 Creatinine 0.87 Glucose 156 H Calcium 8.9 - ABG Interpretation ABG results: ABG ABG pH 7.30 pH Units (7.32-7.45) L 05/03/18 12:38 ABG pCO2 90 mmHg (35-45) H* 05/03/18 12:38 ABG pO2 106 mmHg (85-104) H 05/03/18 12:38 ABG O2 Saturation 97 % (95-98) 05/03/18 12:38 PT/INR, D-dimer PT 10.0 Seconds (9.4-12.1) 05/03/18 12:31 Consult Discharge Plan - Plan [facility]: [facility]Primary Care Provider[facility] - (6) Cirrhosis Qualifiers: Hepatic cirrhosis type: unspecified hepatic cirrhosis Ascites presence: without ascites Qualified Code(s): K74.60 - Unspecified cirrhosis of liver
[2018-05-04] MEDS: CAPSAICIN TP SCH ×3 (13:32→20:33)
[2018-05-04] MEDS: Lactulose Oral Soln 20 GM/30 ML UDC PO SCH ×2 (15:18→20:32)
[2018-05-04] MEDS: Melatonin 3 MG TABLET PO SCH (20:32)
[2018-05-04 21:32] LABS: Amphetamines NEGATIVE ng/mL (Cutoff 30); Barbiturates NEGATIVE ng/mL (Cutoff 75); Benzodiazepines NEGATIVE ng/mL (Cutoff 75); Cocaine NEGATIVE ng/mL (Cutoff 30); Methadone NEGATIVE ng/mL (Cutoff 40); Methamphetamines NEGATIVE ng/mL (Cutoff 30); Opiates NEGATIVE ng/mL (Cutoff 30); Phencyclidine NEGATIVE ng/mL (Cutoff 15)
[2018-05-05] MEDS: Ipratropium/Albuterol Neb 3 ML IH SCH ×3 (03:30→11:28)
[2018-05-05 03:39] LABS: Basophils % 0.1 %; Hematocrit 31.9 % (37.5-50.1); Hemoglobin 10.2 g/dL (12.9-16.9); Immature Granulocytes % 0.6 % (0-4); Lymphocytes # 0.5 K/mcL (0.6-4.6); Lymphocytes % 4.8 %; Mean Corpuscular Hemoglobin 29.5 pg (28.0-33.3); Mean Corpuscular Volume 92.2 fL (83.0-100.0); Mean Platelet Volume 10.1 fL (9.4-12.4); Monocytes # 0.4 K/mcL (0.0-1.3); Monocytes % 3.7 %; Neutrophils # 9.5 K/mcL (1.6-8.9); Platelet Count 236 K/mcL (140-400); Red Blood Count 3.46 M/mcL (4.19-5.50); Red Cell Distribution Width 15.3 % (11.5-14.5); Segmented Neutrophils % 90.8 %
[2018-05-05 03:58] LABS: BUN/Creatinine Ratio 26 (6-26); Blood Urea Nitrogen 20 mg/dL (8-23); Carbon Dioxide 37 mEq/L (23-29); Chloride 97 mEq/L (98-107); Glucose 186 mg/dL (70-105); Osmolality,Calculated 295 (280-300); Potassium 4.1 mEq/L (3.5-5.1); Sodium 139 mEq/L (136-145); eGFR For Non-African Americans > 60 (> 60)
[2018-05-05] MEDS: MethylPREDNISolone 40 MG/ML VIAL IVP SCH ×2 (05:06→12:00)
[2018-05-05] MEDS: Budesonide/Formoterol 160/4.5 1 PUFF INH IH SCH (07:39)
[2018-05-05 08:06] VITALS: BP 100/64
[2018-05-05] MEDS: Valproic Acid 250 MG CAPSULE PO SCH (08:55)
[2018-05-05] MEDS: Loratadine 10 MG TABLET PO SCH (08:55)
[2018-05-05] MEDS: Aspirin Enteric Coated 81 MG Tablet PO SCH (08:55)
[2018-05-05] MEDS: Thiamine (B-1) 100 MG TABLET PO SCH (08:55)
[2018-05-05] MEDS: Folic Acid 1 MG TABLET PO SCH (08:55)
[2018-05-05] MEDS: Furosemide 20 MG TABLET PO SCH (08:55)
[2018-05-05] MEDS: Famotidine 20 MG TABLET PO SCH (08:55)
[2018-05-05] MEDS: Lactulose Oral Soln 20 GM/30 ML UDC PO SCH (08:56)
[2018-05-05] MEDS: CAPSAICIN TP SCH ×2 (08:56→11:53)
[2018-05-05] MEDS: Gabapentin 300 MG CAPSULE PO SCH ×2 (08:56→12:00)
[2018-05-05] MEDS ORDERED: Azithromycin 250 MG TABLET PO SCH (10:33)
[2018-05-05 11:46] LABS: ABG Base Excess 11 mEq/L (-2 to 3); ABG HCO3 36 mEq/L (21-27); ABG Oxygen Saturation 94 % (95-98); ABG PCO2 49 mmHg (35-45); ABG PH 7.47 pH Units (7.32-7.45); ABG PO2 66 mmHg (85-104); ABG TCO2 37 mEq/L (20-26)
--- NOTE | 2018-05-05 12:02 | Discharge Summary ---
Date of Encounter: 05/05/18 Time of Encounter: 11:54 - Discharge Diagnosis (1) Acute on chronic respiratory failure with hypoxia and hypercapnia Priority: Primary Status: Resolved (2) Metabolic encephalopathy Priority: Secondary Status: Resolved (3) COPD exacerbation Priority: Secondary Status: Resolved (4) Chronic diastolic (congestive) heart failure Priority: Secondary Status: Chronic (5) Tobacco abuse Priority: Secondary Status: Chronic (6) Cirrhosis Priority: Secondary Status: Chronic Qualifiers: Hepatic cirrhosis type: unspecified hepatic cirrhosis Ascites presence: without ascites Qualified Code(s): K74.60 - Unspecified cirrhosis of liver (7) Prostate cancer Priority: Secondary Status: Chronic (8) DVT prophylaxis Priority: Secondary Status: Acute (9) Hyperammonemia Priority: Secondary Status: Resolved Hospital course: Mr. Felder is a 68 year old male with history of cirrhosis, COPD, CAD, diastolic heart failure, prostate cancer, tobacco abuse, documented alcohol abuse, presented for multiple falls. In ED, CT head showed no acute process, an ammonia level was elevated at 62, which is above his baseline. Bicarb was elevated at 37, slightly above baseline. He was given Duo Neb treatment, 1 L normal saline. Patient and son verified he is DNR CCA. Patient was admiited for acute on chronic hypercapnic and hypoxic respiratory failure. On admission ABG shows pH 7.36 PCO2 90 PaO2 106 patient was placed on BiPAP. He improved become alert oriented 3. Repeat ABG today pH 7.47 PCO2 49 PaO2 66 O2 sats 94% patient is back to the baseline discharge on stable condition. Patient also has COPD exacerbation was treated by IV steroids and antibiotics. His wheezing improved. And we will discharge on tapering steroids and azithromycin Patient is doing better, he is alert, oriented to 3, he is ready to go home. He refused to go to SNF. still smokes 10 cigarette daily. Smoking cessation was discussed. Patient acute metabolic encephalopathy is likely from CO2 narcosis resolved, COPD exacerbation improved, he has generalized weakness PT and OT was consulted , we ordered him to snf, patient declined. - Time Spent with Patient Total time spent providing and/or coordinating discharge services: - Discharge Medications Prescriptions: Azithromycin 250 mg PO DAILY 5 Days #5 tablet predniSONE [PredniSONE] 10 mg PO BIDWM 12 Days #30 tablet Home Medications: Aspirin [Lo-Dose Aspirin EC] 81 mg PO DAILY 01/06/18 [History] Baclofen 5 mg PO Q8HR PRN 01/06/18 [History] Cholecalciferol (D-3) [Vitamin D] 2,000 unit PO DAILY 01/06/18 [History] Folic Acid 1 mg PO DAILY 01/06/18 [History] Melatonin [Melatin] 3 mg PO HS 01/06/18 [History] Metoprolol [Lopressor] 12.5 mg PO BID 01/06/18 [History] Multivit-Min/FA/Lycopen/Lutein [A Thru Z Select Multivit Tab] 1 tab PO DAILY 02/18 [History] Ranitidine HCl [Acid Fan Mail Editor] 150 mg PO BID 01/06/18 [History] Simvastatin [Zocor] 20 mg PO HS 01/06/18 [History] Albuterol Neb [Proventil Neb] 2.5 mg IH Q2H PRN #1 pack 01/21/18 [Rx] Valproic Acid [Depakene] 500 mg PO BIDWM #60 capsule 01/21/18 [Rx] Fluticasone Propionate Nasal [Flonase] 2 spr NS DAILY 02/04/18 [History] Furosemide [Lasix] 20 mg PO BID tablet 02/11/18 [Rx] Potassium Chloride 10 meq PO DAILY tab.er.prt 02/11/18 [Rx] Acetaminophen [8 Hour] 650 mg PO Q6HR 05/03/18 [History] Budesonide/Formoterol 160/4.5 [Symbicort 160/4.5] 2 puff IH BIDR 05/03/18 [ History] Capsaicin [Capsaicin Hot Patch] 1 each TP QID 05/03/18 [History] Cetirizine HCl [24Hour Allergy] 10 mg PO DAILY 05/03/18 [History] Cetirizine HCl [Zyrtec] 10 mg PO DAILY 05/03/18 [History] DiphenhydraMINE [Benadryl] 1 appl TID 05/03/18 [History] Gabapentin [Neurontin] 300 mg PO Q8HR 05/03/18 [History] Ipratropium/Albuterol Sulfate [Iprat-Albut 0.5-3(2.5) mg/3 ml] 3 ml IH TID 05/03 [History] Lactulose [Enulose] 20 gm PO BID 05/03/18 [History] Nicotine Polacrilex [Nicotine Gum] 4 mg BC PRN PRN 05/03/18 [History] Nicotine Polacrilex [Nicotine Lozenge] 2 mg BC PRN PRN 05/03/18 [History] Potassium Chloride [Klor-Con 10] 10 meq PO DAILY 05/03/18 [History] Simvastatin [Zocor] 20 mg PO HS 05/03/18 [History] Valproic Acid [Depakene] 500 mg PO BID 05/03/18 [History] raNITIdine HCl [Zantac] 150 mg PO DAILY 05/03/18 [History] traZODone [TraZODone] 50 mg PO HS 05/03/18 [History] Azithromycin 250 mg PO DAILY 5 Days #5 tablet 05/05/18 [Rx] predniSONE [PredniSONE] 10 mg PO BIDWM 12 Days #30 tablet 05/05/18 [Rx] Allergies/Adverse Reactions: 3 Allergy/AdvReac Type Severity Reaction Status Date / Time No Known Allergies Allergy Verified 05/03/18 11:00 Date of admission: 05/03/18 13:10 [facility] care [facility] - Constitutional Vitals: Temp Pulse Resp BP Pulse Ox 98.1 F 81 15 100/64 96 05/05/18 08:00 05/05/18 08:00 05/05/18 08:00 05/05/18 08:00 05/05/18 08:00 General appearance: Present: cooperative, A&O X 3, pleasant Exam: CONSTITUTIONAL: patient appears as an age appropriate male in no acute distress. EYES Clear sclerae, bilateral pupils are equal, reactive to light. EMOI. RESPIRATORY: No accessory muscle use, bilateral deminished BS to auscultation, no wheezing, no crackles/rales. CARDIOVASCULAR: Regular heart rate, normal S1 and S2, no murmurs GASTROINTESTINAL: bowel sounds present, soft, no tenderness. MUSCULOSKELETAL: Joints in normal range of motion, no clubbing, no edema, no cyanosis. Bilateral peripheral pulses 2+. NEUROLOGIC: CN II to XII are grossly intact, no focal neurological deficit. - Patient Status Disposition: Home, Self-Care Condition: Good Overall status at discharge: patient is back to baseline - Discharge Instructions Follow [facility] With: [facility] Care Provider[facility] - - Diet and Activity Diet: advance to your usual diet - VTE Documentation of Mechanical Device: Intermittent pneumatic compression device
--- NOTE | 2018-05-05 12:18 | Physician Discharge Referral ---
Home Health/Hosp Referral Info Transfer to: Home Health Provider in Charge Post Discharge: PCP - Diagnosis (1) Acute on chronic respiratory failure with hypoxia and hypercapnia Status: Resolved (2) Metabolic encephalopathy Status: Resolved (3) COPD exacerbation Status: Resolved (4) Chronic diastolic (congestive) heart failure Status: Chronic (5) Tobacco abuse Status: Chronic (6) Cirrhosis Status: Chronic (7) Prostate cancer Status: Chronic (8) DVT prophylaxis Status: Acute (9) Hyperammonemia Status: Resolved - Respiratory Orders Oxygen / L per min (2) Smoking Cessation: Smoking cessation has been advised. For more information, call the [place] Tobacco Quit Line at 9-826-ORDU-NOW. - Services Needed Following services are medically necessary services: Nursing, Home Health Aide, Physical Therapy - Transfer Medications Prescriptions: Azithromycin 250 mg PO DAILY 5 Days #5 tablet predniSONE [PredniSONE] 10 mg PO BIDWM 12 Days #30 tablet Home Medications: Aspirin [Lo-Dose Aspirin EC] 81 mg PO DAILY 01/06/18 [History] Baclofen 5 mg PO Q8HR PRN 01/06/18 [History] Cholecalciferol (D-3) [Vitamin D] 2,000 unit PO DAILY 01/06/18 [History] Folic Acid 1 mg PO DAILY 01/06/18 [History] Melatonin [Melatin] 3 mg PO HS 01/06/18 [History] Metoprolol [Lopressor] 12.5 mg PO BID 01/06/18 [History] Multivit-Min/FA/Lycopen/Lutein [A Thru Z Select Multivit Tab] 1 tab PO DAILY 02/18 [History] Ranitidine HCl [Acid Tanker Driver] 150 mg PO BID 01/06/18 [History] Simvastatin [Zocor] 20 mg PO HS 01/06/18 [History] Albuterol Neb [Proventil Neb] 2.5 mg IH Q2H PRN #1 pack 01/21/18 [Rx] Valproic Acid [Depakene] 500 mg PO BIDWM #60 capsule 01/21/18 [Rx] Fluticasone Propionate Nasal [Flonase] 2 spr NS DAILY 02/04/18 [History] Furosemide [Lasix] 20 mg PO BID tablet 02/11/18 [Rx] Potassium Chloride 10 meq PO DAILY tab.er.prt 02/11/18 [Rx] Acetaminophen [8 Hour] 650 mg PO Q6HR 05/03/18 [History] Budesonide/Formoterol 160/4.5 [Symbicort 160/4.5] 2 puff IH BIDR 05/03/18 [ History] Capsaicin [Capsaicin Hot Patch] 1 each TP QID 05/03/18 [History] Cetirizine HCl [24Hour Allergy] 10 mg PO DAILY 05/03/18 [History] Cetirizine HCl [Zyrtec] 10 mg PO DAILY 05/03/18 [History] DiphenhydraMINE [Benadryl] 1 appl TID 05/03/18 [History] Gabapentin [Neurontin] 300 mg PO Q8HR 05/03/18 [History] Ipratropium/Albuterol Sulfate [Iprat-Albut 0.5-3(2.5) mg/3 ml] 3 ml IH TID 05/03 [History] Lactulose [Enulose] 20 gm PO BID 05/03/18 [History] Nicotine Polacrilex [Nicotine Gum] 4 mg BC PRN PRN 05/03/18 [History] Nicotine Polacrilex [Nicotine Lozenge] 2 mg BC PRN PRN 05/03/18 [History] Potassium Chloride [Klor-Con 10] 10 meq PO DAILY 05/03/18 [History] Simvastatin [Zocor] 20 mg PO HS 05/03/18 [History] Valproic Acid [Depakene] 500 mg PO BID 05/03/18 [History] raNITIdine HCl [Zantac] 150 mg PO DAILY 05/03/18 [History] traZODone [TraZODone] 50 mg PO HS 05/03/18 [History] Azithromycin 250 mg PO DAILY 5 Days #5 tablet 05/05/18 [Rx] predniSONE [PredniSONE] 10 mg PO BIDWM 12 Days #30 tablet 05/05/18 [Rx] Allergies/Adverse Reactions: 3 Allergy/AdvReac Type Severity Reaction Status Date / Time No Known Allergies Allergy Verified 05/03/18 11:00 Certification: Further, I certify that my clinical findings support that this patient is homebound (i.e. absences from home require considerable and taxing effort and are for medical reasons or jewish services or infrequently or short duration when for other reasons) because: Homebound Reason: Patient requires assistance of a person or device to safely leave home Attestation: My signature below is to certify that this patient is under my care and that I, or nurse practitioner, or a physician's multimedia assistant working with me, has a face-to -face encounter with this patient.
--- NOTE | 2018-05-05 16:13 | Electrocardiograph Report ---
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
== END 2018-05-05 13:04 | disposition home health service (06) | DRG 441 ==
LOC: EMEROOARM 06:29 → 2ANU 06:29 → SUATTDRO 13:10
PROVIDERS: ADMIT Student in an Organized Health Care Education/Training Program; ATTEND Hospitalist

== ENCOUNTER 2022-04-13 18:16 | Inpatient (IN) ==
[2022-04-13 19:25] LABS: Basophils # 0.1 K/mcL (0.0-0.2); Basophils % 1.1 %; Eosinophils # 0.2 K/mcL (0.0-0.6); Hematocrit 32.6 % (37.5-50.1); Hemoglobin 10.5 g/dL (12.9-16.9); Immature Granulocytes % 0.3 % (0-4); Lymphocytes # 1.2 K/mcL (0.6-4.6); Lymphocytes % 12.1 %; Mean Corpuscular HGB Conc 32.2 g/dL (31.6-35.5); Mean Corpuscular Hemoglobin 31.4 pg (28.0-33.3); Mean Corpuscular Volume 97.6 fL (83.0-100.0); Mean Platelet Volume 9.9 fL (9.4-12.4); Monocytes % 9.4 %; Neutrophils # 7.6 K/mcL (1.6-8.9); Platelet Count 357 K/mcL (140-400); Red Blood Count 3.34 M/mcL (4.19-5.50); Red Cell Distribution Width 19.4 % (11.5-14.5); Segmented Neutrophils % 75.1 %; White Blood Count 10.1 K/mcL (4.3-11.1)
[2022-04-13 19:52] LABS: Alanine Aminotransferase 21 Units/L (7-52); Albumin 2.3 g/dL (3.5-5.7); Albumin/Globulin Ratio 0.8 (1.1-2.2); Alkaline Phosphatase 361 Units/L (34-104); Aspartate Amino Transferase 35 Units/L (13-39); BUN/Creatinine Ratio 9 (6-26); Bilirubin,Total 0.8 mg/dL (0.3-1.0); Blood Urea Nitrogen 7 mg/dL (8-23); Calcium 8.1 mg/dL (8.6-10.3); Carbon Dioxide 29 mEq/L (23-29); Chloride 96 mEq/L (98-107); Glucose 105 mg/dL (70-105); Osmolality,Calculated 272 (280-300); Potassium 4.4 mEq/L (3.5-5.1); Sodium 132 mEq/L (136-145); Total Protein 5.3 g/dL (6.4-8.9); Troponin I 0.08 ng/mL (< 0.04)
[2022-04-13] MEDS ORDERED: Aspirin 325 MG TABLET PO ONE (21:04)
[2022-04-13] MEDS ORDERED: Melatonin 3 MG TABLET PO PRN (22:01)
[2022-04-13] MEDS ORDERED: Naloxone 0.4 MG/ML INJ IVP PRN (22:01)
[2022-04-13] MEDS ORDERED: Ondansetron ODT 4 MG TAB.RAPDIS SL PRN (22:01)
[2022-04-13] MEDS ORDERED: Albumin 25% 25gram/100mL 25 GM/100 ML IV.SOLN IVPB ONE (22:13)
[2022-04-13 23:24] LABS: Influenza A PCR Negative (Negative); Influenza B PCR Negative (Negative); Resp. Syncytial Virus PCR Negative (Negative)
[2022-04-13 23:25] LABS: SARS-CoV-2 by PCR (In House) Negative (Negative)
[2022-04-14] MEDS ORDERED: Albuterol 2.5 MG/3 ML NEBULIZER IH PRN (00:46)
[2022-04-14] MEDS ORDERED: Furosemide 20 MG/2 ML VIAL IVP ONE (01:00)
[2022-04-14 01:38] LABS: Hematocrit 25.5 % (37.5-50.1); Mean Corpuscular HGB Conc 32.2 g/dL (31.6-35.5); Mean Corpuscular Volume 99.6 fL (83.0-100.0); Mean Platelet Volume 10.8 fL (9.4-12.4); Platelet Count 275 K/mcL (140-400); Red Blood Count 2.56 M/mcL (4.19-5.50); Red Cell Distribution Width 19.7 % (11.5-14.5); White Blood Count 9.8 K/mcL (4.3-11.1)
[2022-04-14 01:41] LABS: Hemoglobin 8.2 g/dL (12.9-16.9)
[2022-04-14 01:46] LABS: INR 1.1; Prothrombin Time 12.6 Seconds (9.4-12.1)
[2022-04-14 02:16] LABS: Alanine Aminotransferase 14 Units/L (7-52); Albumin 2.6 g/dL (3.5-5.7); Albumin/Globulin Ratio 1.2 (1.1-2.2); Alkaline Phosphatase 261 Units/L (34-104); Aspartate Amino Transferase 29 Units/L (13-39); Bilirubin,Total 0.6 mg/dL (0.3-1.0); Blood Urea Nitrogen 7 mg/dL (8-23); Carbon Dioxide 28 mEq/L (23-29); Chloride 98 mEq/L (98-107); Globulin 2.2 g/dL (2.4-3.5); Glucose 86 mg/dL (70-105); Magnesium 1.2 mg/dL (1.6-2.6); Osmolality,Calculated 275 (280-300); Phosphorous 3.9 mg/dL (2.7-4.5); Potassium 4.7 mEq/L (3.5-5.1); Sodium 134 mEq/L (136-145); Total Protein 4.8 g/dL (6.4-8.9); Troponin I 0.07 ng/mL (< 0.04)
[2022-04-14 02:59] LABS: BUN/Creatinine Ratio 8 (6-26)
[2022-04-14 03:23] LABS: Bilirubin,Urine Negative (Negative); Blood,Urine Negative (Negative); Clarity,Urine Clear (Clear); Color,Urine Colorless (Yellow); Glucose,Urine (UA) Normal (Normal); Ketones,Urine Negative (Negative); Leukocyte Esterase,Urine Negative (Negative); Nitrite,Urine Negative (Negative); Protein,Urine Negative (Neg-Trace); Specific Gravity,Urine 1.006 (1.010-1.025); Urobilinogen,Urine Normal (Normal)
[2022-04-14] MEDS: Budesonide/Formoterol 160/4.5 1 PUFF INH IH SCH ×2 (07:50→20:40)
[2022-04-14] MEDS ORDERED: Furosemide 20 MG/2 ML VIAL IVP SCH ×2 (09:00)
[2022-04-14] MEDS ORDERED: Iopamidol - 370 500 ML MLS IVP ONE (09:02)
[2022-04-14] MEDS ORDERED: *HR* LORazepam 1 MG TABLET PO PRN ×3 (09:07)
[2022-04-14] MEDS: Albumin 25% 25gram/100mL 25 GM/100 ML IV.SOLN IVPB SCH ×3 (09:47→23:57)
[2022-04-14] MEDS: Folic Acid 1 MG TABLET PO SCH (09:48)
[2022-04-14] MEDS: Aspirin 81 MG TAB.CHEW PO SCH (09:48)
[2022-04-14] MEDS: Thiamine (B-1) 100 MG TABLET PO SCH ×2 (09:48→20:15)
[2022-04-14] MEDS: Furosemide 20 MG/2 ML VIAL IVP SCH ×2 (09:49→20:15)
[2022-04-14] MEDS: Nicotine 21 MG PATCH.TD24 TD SCH ×2 (09:50→16:54)
[2022-04-14] MEDS ORDERED: Iopamidol - 370 500 ML MLS PO ONE (11:39)
[2022-04-14] MEDS ORDERED: Ipratropium/Albuterol Neb 3 ML IH PRN (15:59)
[2022-04-14] MEDS ORDERED: (Cyclosporine [Restasis] 1 EACH Droperette) OP PRN (16:04)
[2022-04-14] MEDS ORDERED: *HR* Metoprolol 5 MG/5 ML VIAL IVP ONE (22:12)
[2022-04-15] MEDS: Budesonide/Formoterol 160/4.5 1 PUFF INH IH SCH (08:22)
[2022-04-15] MEDS ORDERED: Fluticasone Propionate Nasal 50 MCG/SPRAY BOTTLE NS SCH (09:00)
[2022-04-15] MEDS ORDERED: Loratadine 10 MG TABLET PO SCH (09:00)
[2022-04-15] MEDS ORDERED: Cholecalciferol (D-3) 1,000 UNIT (25MCG) TABLET PO SCH (09:00)
[2022-04-15] MEDS: Thiamine (B-1) 100 MG TABLET PO SCH (09:41)
[2022-04-15] MEDS: Folic Acid 1 MG TABLET PO SCH (09:41)
[2022-04-15] MEDS: Albumin 25% 25gram/100mL 25 GM/100 ML IV.SOLN IVPB SCH (09:41)
[2022-04-15] MEDS: Aspirin 81 MG TAB.CHEW PO SCH (09:41)
[2022-04-15] MEDS: Nicotine 21 MG PATCH.TD24 TD SCH (09:42)
[2022-04-15] MEDS: Furosemide 20 MG/2 ML VIAL IVP SCH (09:42)
[2022-04-15 09:57] LABS: BUN/Creatinine Ratio 9 (6-26); Blood Urea Nitrogen 7 mg/dL (8-23); Calcium 8.1 mg/dL (8.6-10.3); Carbon Dioxide 26 mEq/L (23-29); Chloride 94 mEq/L (98-107); Glucose 112 mg/dL (70-105); Magnesium 1.2 mg/dL (1.6-2.6); Osmolality,Calculated 279 (280-300); Potassium 3.1 mEq/L (3.5-5.1); Sodium 135 mEq/L (136-145)
[2022-04-15 12:16] VITALS: TEMP 98.3; O2SAT 95
[2022-04-15] MEDS ORDERED: *HR* Metoprolol 5 MG/5 ML VIAL IVP PRN (12:46)
[2022-04-15 13:09] LABS: Basophils % 0.3 %; Eosinophils % 0.1 %; Hemoglobin 8.2 g/dL (12.9-16.9); Immature Granulocytes % 0.3 % (0-4); Lymphocytes # 0.8 K/mcL (0.6-4.6); Lymphocytes % 7.9 %; Mean Corpuscular HGB Conc 32.8 g/dL (31.6-35.5); Mean Corpuscular Hemoglobin 31.7 pg (28.0-33.3); Mean Corpuscular Volume 96.5 fL (83.0-100.0); Mean Platelet Volume 10.6 fL (9.4-12.4); Monocytes # 0.9 K/mcL (0.0-1.3); Monocytes % 9.2 %; Neutrophils # 7.8 K/mcL (1.6-8.9); Platelet Count 266 K/mcL (140-400); Red Blood Count 2.59 M/mcL (4.19-5.50); Red Cell Distribution Width 20.2 % (11.5-14.5); Segmented Neutrophils % 82.2 %; White Blood Count 9.5 K/mcL (4.3-11.1)
[2022-04-15] MEDS ORDERED: Metoprolol XL (24 HR) Succ 25 MG TAB.ER.24H PO SCH (14:43)
[2022-04-15] MEDS ORDERED: *HR* Digoxin 0.5 MG/2 ML AMPUL IVP ONE (15:13)
[2022-04-15 17:20] VITALS: PULSE 91
[2022-04-15 17:44] VITALS: BP 100/70
== END 2022-04-15 18:00 | disposition home or self-care (01) | DRG 280 ==
LOC: 2ANU 18:16 → EMEROOARM 18:16 → SUATTDRO 21:17 → 2ANU 21:53
PROVIDERS: ADMIT Student in an Organized Health Care Education/Training Program; ATTEND Pharmacist

== ENCOUNTER 2022-05-04 14:27 | Inpatient (IN) ==
[2022-05-04] MEDS ORDERED: 0.9 % Sodium Chloride 500 ML IVC ONE (15:35)
[2022-05-04] MEDS ORDERED: Morphine Sulfate 2 MG/ML SYRINGE IVP ONE (15:36)
[2022-05-04 15:56] LABS: Basophils % 0.1 %; Hemoglobin 10.1 g/dL (12.9-16.9); Immature Granulocytes % 0.9 % (0-4); Mean Platelet Volume 11.9 fL (9.4-12.4)
[2022-05-04 15:57] LABS: Hematocrit 30.9 % (37.5-50.1); Lymphocytes # 0.6 K/mcL (0.6-4.6); Lymphocytes % 1.9 %; Mean Corpuscular HGB Conc 32.7 g/dL (31.6-35.5); Mean Corpuscular Hemoglobin 31.7 pg (28.0-33.3); Mean Corpuscular Volume 96.9 fL (83.0-100.0); Monocytes # 0.9 K/mcL (0.0-1.3); Monocytes % 2.9 %; Neutrophils # 28.6 K/mcL (1.6-8.9); Platelet Count 203 K/mcL (140-400); Red Blood Count 3.19 M/mcL (4.19-5.50); Red Cell Distribution Width 17.4 % (11.5-14.5); Segmented Neutrophils % 94.2 %
[2022-05-04 16:02] LABS: White Blood Count 30.4 K/mcL (4.3-11.1)
[2022-05-04 16:15] LABS: Albumin 2.6 g/dL (3.5-5.7); Albumin/Globulin Ratio 0.9 (1.1-2.2); Bilirubin,Indirect 0.6 mg/dL (0.0-1.0); Bilirubin,Total 1.6 mg/dL (0.3-1.0); Calcium 6.5 mg/dL (8.6-10.3); Globulin 2.9 g/dL (2.4-3.5); Magnesium 1.6 mg/dL (1.6-2.6); Phosphorous 6.6 mg/dL (2.7-4.5); Potassium 3.9 mEq/L (3.5-5.1); Total Protein 5.5 g/dL (6.4-8.9); Troponin I 0.39 ng/mL (< 0.04)
[2022-05-04] MEDS ORDERED: Piperacillin/Tazobactam 3.375 GM in 0.9 % Sodium Chloride Mini Bag 100 ML IVPB ONE (16:23)
[2022-05-04] MEDS ORDERED: 0.9 % Sodium Chloride 1,000 ML IVC ONE ×2 (16:23→22:03)
[2022-05-04 16:48] LABS: Platelet Estimate Normal (Normal)
[2022-05-04] MEDS ORDERED: Naloxone 0.4 MG/ML INJ IVP PRN (17:35)
[2022-05-04] MEDS ORDERED: Ondansetron 4 MG/2 ML VIAL IVP PRN (17:35)
[2022-05-04] MEDS ORDERED: Acetaminophen 325 MG TABLET PO PRN (17:35)
[2022-05-04] MEDS ORDERED: Melatonin 3 MG TABLET PO PRN (17:35)
[2022-05-04] MEDS ORDERED: *HR* HYDROcodone/Acet 5/325 mg TABLET PO PRN (17:49)
[2022-05-04] MEDS ORDERED: Albuterol 2.5 MG/3 ML NEBULIZER IH PRN (17:49)
[2022-05-04 18:00] LABS: Uric Acid 6.8 mg/dL (2.3-7.6)
[2022-05-04] MEDS ORDERED: Nicotine 21 MG PATCH.TD24 TD SCH (18:00)
[2022-05-04] MEDS ORDERED: Pantoprazole 40 MG VIAL ONE (19:11)
[2022-05-04] MEDS ORDERED: 0.9 % Sodium Chloride Mini Bag 100 ML ONE (19:11)
[2022-05-04] MEDS: 0.9 % Sodium Chloride 1,000 ML IVC SCH (20:00)
[2022-05-04 20:07] LABS: Basophils % 0.1 %; Hematocrit 24.8 % (37.5-50.1); Immature Granulocytes % 1.6 % (0-4); Lymphocytes # 0.7 K/mcL (0.6-4.6); Mean Corpuscular HGB Conc 31.9 g/dL (31.6-35.5); Mean Corpuscular Hemoglobin 31.5 pg (28.0-33.3); Mean Corpuscular Volume 98.8 fL (83.0-100.0); Mean Platelet Volume 12.3 fL (9.4-12.4); Monocytes # 0.9 K/mcL (0.0-1.3); Monocytes % 3.5 %; Neutrophils # 22.5 K/mcL (1.6-8.9); Platelet Count 174 K/mcL (140-400); Red Blood Count 2.51 M/mcL (4.19-5.50); Red Cell Distribution Width 17.7 % (11.5-14.5); Segmented Neutrophils % 91.8 %; White Blood Count 24.5 K/mcL (4.3-11.1)
[2022-05-04 20:08] LABS: VBG HCO3 16 mEq/L (21-27); VBG PCO2 44 mmHg (41-51); VBG PH 7.16 pH Units (7.32-7.42); VBG PO2 198 mmHg (25-50)
[2022-05-04 20:17] LABS: Hemoglobin 7.9 g/dL (12.9-16.9)
[2022-05-04] MEDS: Pantoprazole 40 MG in 0.9 % Sodium Chloride Mini Bag 100 ML IVC SCH (20:46)
[2022-05-04 20:48] LABS: ABG Base Excess -9 mEq/L (-2 to 3); ABG HCO3 17 mEq/L (21-27); ABG Oxygen Saturation 100 % (95-98); ABG PCO2 37 mmHg (35-45); ABG PH 7.27 pH Units (7.32-7.45); ABG PO2 424 mmHg (85-104); ABG TCO2 18 mEq/L (20-26); Blood Gas Modality AF; Blood Gas VT 500 cc
[2022-05-04 21:20] VITALS: O2SAT 100
[2022-05-04] MEDS ORDERED: 0.9 % Sodium Chloride 250 ML IVC SCH (22:30)
[2022-05-04 22:32] LABS: Basophils % 0.1 %; Hematocrit 24.8 % (37.5-50.1); Hemoglobin 8.4 g/dL (12.9-16.9); Immature Granulocytes % 0.6 % (0-4); Lymphocytes # 0.3 K/mcL (0.6-4.6); Lymphocytes % 2.2 %; Mean Corpuscular HGB Conc 33.9 g/dL (31.6-35.5); Mean Corpuscular Hemoglobin 32.7 pg (28.0-33.3); Mean Corpuscular Volume 96.5 fL (83.0-100.0); Mean Platelet Volume 12.3 fL (9.4-12.4); Monocytes # 0.3 K/mcL (0.0-1.3); Monocytes % 2.3 %; Platelet Count 186 K/mcL (140-400); Red Blood Count 2.57 M/mcL (4.19-5.50); Red Cell Distribution Width 17.2 % (11.5-14.5); Segmented Neutrophils % 94.8 %; White Blood Count 12.6 K/mcL (4.3-11.1)
[2022-05-04] MEDS ORDERED: Albumin Human 5% 12.5 GM/250 ML IV.SOLN IVPB ONE (22:50)
[2022-05-04 23:07] LABS: Albumin/Globulin Ratio 0.8 (1.1-2.2); Bilirubin,Direct 0.5 mg/dL (0.0-0.2); Bilirubin,Indirect 0.9 mg/dL (0.0-1.0); Bilirubin,Total 1.4 mg/dL (0.3-1.0); Calcium 5.7 mg/dL (8.6-10.3); Globulin 2.5 g/dL (2.4-3.5); Potassium 4.1 mEq/L (3.5-5.1); Total Protein 4.5 g/dL (6.4-8.9)
[2022-05-04] MEDS ORDERED: Artificial Tears SOLN 15 ML BOTTLE BOTH EYES PRN (23:20)
[2022-05-04] MEDS ORDERED: Norepinephrine 4 MG/254 ML IV.SOLN IVC SCH (23:30)
[2022-05-04] MEDS ORDERED: Calcium Gluconate 1gm/50mL 1 GM/50 ML BAG IVPB PRN (23:38)
[2022-05-05] MEDS ORDERED: *HR* Heparin 5,000 UNIT/ML VIAL SQ SCH
[2022-05-05] MEDS ORDERED: Piperacillin/Tazobactam 3.375 GM in 0.9 % Sodium Chloride Mini Bag 100 ML IVPB SCH
[2022-05-05 02:21] VITALS: TEMP 95.6
[2022-05-05 03:50] VITALS: BP 0/0; PULSE 0
[2022-05-05] MEDS: Octreotide 400 MCG in 0.9 % Sodium Chloride 100 ML IVC SCH ×2 (04:17→04:37)
[2022-05-05] MEDS: Artificial Tears SOLN 15 ML BOTTLE BOTH EYES SCH (04:18)
[2022-05-05] MEDS: Pantoprazole 40 MG in 0.9 % Sodium Chloride Mini Bag 100 ML IVC SCH (04:37)
[2022-05-05] MEDS: 0.9 % Sodium Chloride 1,000 ML IVC SCH ×2 (04:37→04:40)
[2022-05-05] MEDS ORDERED: Metoprolol XL (24 HR) Succ 25 MG TAB.ER.24H PO SCH (09:00)
[2022-05-05] MEDS ORDERED: Aspirin Enteric Coated 81 MG Tablet PO SCH (09:00)
[2022-05-05] MEDS ORDERED: NON-FORMULARY MEDICATION 1 EACH EACH (Rivaroxaban [Xarelto] 20 MG Tablet) PO SCH (09:00)
[2022-05-05] MEDS ORDERED: Chlorhexidine Rinse 15 ML MOUTHWASH MM SCH (09:00)
== END 2022-05-05 03:45 | disposition expired | DRG 871 ==
LOC: 3NENU 14:27 → EMEROOARM 14:27 → SUATTDRO 17:26 → 2ANU 17:46 → ICNU 19:29
PROVIDERS: ADMIT Internal Medicine; ATTEND Internal Medicine